=== PATIENT | female | born 1935 | race Caucasian/White ===

== ENCOUNTER 2017-04-22 17:30 | Inpatient (IN) | payer MEDICARE ==
[2017-04-22] MEDS ORDERED: SODIUM CHLORIDE 0.9% 1,000 ML IV STA ×2 (17:38)
--- NOTE | 2017-04-22 17:40 | ED ---
General Adult HPI - General Stated complaint: Weakness Time Seen by Provider: 04/22/17 17:33 Source: RN notes reviewed, old records reviewed - History of Present Illness Initial comments: With an 82-year-old female here for evaluation of altered mental status. Patient not feeling well and not eating appropriately. Patient has recent episodes of dehydration. Patient was abdominal pain. Is without surgery. Denies nausea vomiting denies fever. Patient sent in by family for lethargy not acting appropriately decreased activity level weakness and walking, decreased activities daily living. No change in medications - Related Data Home Medications Medication Instructions Recorded Confirmed Cyanocobalamin [Vitamin B-12] 1,000 mcg SQ QMONTH 02/23/16 04/22/17 Dicyclomine [Bentyl] 10 mg PO TID PRN 02/23/16 04/22/17 Loperamide HCl [Loperamide] 4 mg PO TID PRN 02/23/16 04/22/17 Omeprazole [PriLOSEC] 20 mg PO QAM 02/23/16 04/22/17 Tacrolimus [Protopic] 1 applic TOPICAL HS PRN 02/23/16 04/22/17 Denosumab [Prolia] 60 mg SQ Q180D 09/10/16 04/22/17 ALPRAZolam [Xanax] 0.25 mg PO HS PRN 04/22/17 04/22/17 Acetaminophen [Tylenol] 650 mg PO Q6HR PRN 04/22/17 04/22/17 Alclometasone Dipropionate 1 applic TOPICAL DAILY PRN 04/22/17 04/22/17 Calcium Carbonate [Calcium] 600 mg PO DAILY 04/22/17 04/22/17 Cyanocobalamin [Vitamin B-12] 500 mcg PO DAILY 04/22/17 04/22/17 EPINEPHrine [Epipen 2-Adriel] 0.3 mg IM ONCE PRN 04/22/17 04/22/17 Eluxadoline [Viberzi] 75 mg PO DAILY PRN 04/22/17 04/22/17 Ferrous Sulfate [Iron] 325 mg PO DAILY 04/22/17 04/22/17 Fluticasone Nasal Stewart [Flonase 2 spr EA NOSTRIL DAILY PRN 04/22/17 04/22/17 Nasal Stewart] Levothyroxine Sodium [Synthroid] 25 mcg PO DAILY 04/22/17 04/22/17 Magnesium 200 mg PO DAILY 04/22/17 04/22/17 Naproxen Sodium [Aleve] 220 mg PO HS PRN 04/22/17 04/22/17 Ondansetron [Zofran ODT] 4 mg PO Q8HR PRN 04/22/17 04/22/17 Vit A/Vit C/Vit E/Zinc/Copper 1 cap PO HS 04/22/17 04/22/17 [ICAPS SOFTGEL] Previous Rx's Medication Instructions Recorded Diphenox-Atrop 2.5-0.025 mg 2 tab PO TID PRN #40 tab 09/20/16 [Lomotil] Allergies Allergy/AdvReac Type Severity Reaction Status Date / Time venom-honey bee Allergy Unknown Anaphylaxis Verified 04/22/17 19:14 [bee venom (honey bee)] venom-wasp [Wasp Venom] Allergy Unknown Anaphylaxis Verified 04/22/17 19:14 ether Allergy Unknown Verified 04/22/17 19:14 Milk Containing Products Allergy Unknown Verified 09/24/16 07:48 [Dairy] soybean Allergy Unknown Verified 04/22/17 19:14 tomato Allergy Unknown Verified 09/24/16 07:48 Review of Systems ROS Statement: Those systems with pertinent positive or pertinent negative responses have been documented in the HPI. ROS Other: All systems not noted in ROS Statement are negative. Past Medical History Past Medical History: GERD/Reflux Additional Past Medical History / Comment(s): IBS. History of Any Multi-Drug Resistant Organisms: None Reported Past Surgical History: Appendectomy, Orthopedic Surgery Additional Past Surgical History / Comment(s): DEVIATED SEPTUM, TUBES AND OVARIES REMOVED, HAMLET SHOULDER SURGERY. Past Anesthesia/Blood Transfusion Reactions: No Reported Reaction Past Psychological History: Anxiety Additional Psychological History / Comment(s): occasional anxiety. Smoking Status: Former smoker Past Alcohol Use History: Occasional Past Drug Use History: None Reported - Past Family History Father Family Medical History: Myocardial Infarction (HI) Additional Family Medical History / Comment(s): heart failure General Exam General appearance: alert, in no apparent distress Head exam: Present: atraumatic, normocephalic, normal inspection Eye exam: Present: normal appearance, PERRL, EOMI. Absent: scleral icterus, conjunctival injection, periorbital swelling ENT exam: Present: normal exam, mucous membranes moist Neck exam: Present: normal inspection. Absent: tenderness, meningismus, lymphadenopathy Respiratory exam: Present: normal lung sounds bilaterally. Absent: respiratory distress, wheezes, rales, rhonchi, stridor Cardiovascular Exam: Present: regular rate, normal rhythm, normal heart sounds. Absent: systolic murmur, diastolic murmur, rubs, gallop, clicks GI/Abdominal exam: Present: soft, distended, normal bowel sounds. Absent: tenderness, guarding, rebound, rigid Extremities exam: Present: normal inspection, full ROM, normal capillary refill. Absent: tenderness, pedal edema, joint swelling, calf tenderness Back exam: Present: normal inspection Neurological exam: Present: alert, oriented X3, CN II-XII intact Psychiatric exam: Present: normal affect, normal mood Skin exam: Present: warm, dry, intact, normal color. Absent: rash Course Vital Signs 04/22/17 04/22/17 04/22/17 17:34 17:58 18:58 Temperature 96.9 F L Pulse Rate 104 H 103 H 102 H Respiratory 18 16 18 Rate Blood Pressure 94/53 98/72 97/58 O2 Sat by Pulse 90 L 98 100 Oximetry - Reevaluation(s) Reevaluation #1: 04/22/17 19:38 Patient does with increased stressors in life, patient is blind, patient states that she is losing the will to live EKG Findings - EKG Comments: EKG Findings:: EKG shows sinus tachycardia rate 104, IA 162, QRS 90, QTc 470 Medical Decision Making - Medical Decision Making 82 female here for evaluation of altered mental status, not acting appropriately , fever, weakness. Patient is a white count of is 30 which is up from 6, patient will be admitted for IV antibiotics and rule out bacteremia, at this point urine source is negative - Lab Data Result diagrams: 04/22/17 17:53 04/22/17 17:53 Lab Results 04/22/17 04/22/17 04/22/17 Range/Units 17:53 17:53 17:53 WBC (3.8-10.6) k/uL RBC (3.80-5.40) m/uL Hgb (11.4-16.0) gm/dL Hct (34.0-46.0) % MCV (80.0-100.0) fL MCH (25.0-35.0) pg MCHC (31.0-37.0) g/dL RDW (11.5-15.5) % Plt Count (150-450) k/uL Neutrophils % (Manual) % Band Neutrophils % % Lymphocytes % (Manual) % Monocytes % (Manual) % Metamyelocytes % % Myelocytes % % Neutrophils # (Manual) (1.3-7.7) k/uL Lymphocytes # (Manual) (1.0-4.8) k/uL Monocytes # (Manual) (0-1.0) k/uL Nucleated RBCs (0-0) /100 WBC Polychromasia Microcytosis PT (9.0-12.0) sec INR (<1.1) APTT (22.0-30.0) sec Sodium 130 L (137-145) mmol/L Potassium 3.7 (3.5-5.1) mmol/L Chloride 93 L (98-107) mmol/L Carbon Dioxide 23 (22-30) mmol/L Anion Gap 14 mmol/L BUN 30 H (7-17) mg/dL Creatinine 1.17 H (0.52-1.04) mg/dL Est GFR (MDRD) Af Amer 54 (>60 ml/min/1.73 sqM) Est GFR (MDRD) Non-Af 44 (>60 ml/min/1.73 sqM) Glucose 103 H (74-99) mg/dL Plasma Lactic Acid Jeffery 1.3 (0.7-2.0) mmol/L Calcium 7.5 L (8.4-10.2) mg/dL Phosphorus 2.3 L (2.5-4.5) mg/dL Magnesium 1.5 L (1.6-2.3) mg/dL Total Bilirubin 1.7 H (0.2-1.3) mg/dL AST 36 (14-36) U/L ALT 39 (9-52) U/L Alkaline Phosphatase 112 (38-126) U/L Total Creatine Kinase <20 L (30-135) U/L CK-MB (CK-2) 0.3 (0.0-2.4) ng/mL CK-MB (CK-2) Rel Index 0.0 Troponin I <0.012 (0.000-0.034) ng/mL Total Protein 6.0 L (6.3-8.2) g/dL Albumin 2.8 L (3.5-5.0) g/dL Urine Color Urine Appearance (Clear) Urine pH (5.0-8.0) Ur Specific [place] (1.001-1.035) Urine Protein (Negative) Urine Glucose (UA) (Negative) Urine Ketones (Negative) Urine Blood (Negative) Urine Nitrite (Negative) Urine Bilirubin (Negative) Urine Urobilinogen (<2.0) mg/dL Ur Leukocyte Esterase (Negative) Urine RBC (0-5) /hpf Amorphous Sediment (None) /hpf 04/22/17 04/22/17 04/22/17 Range/Units 17:53 17:53 18:57 WBC 30.3 H* (3.8-10.6) k/uL RBC 4.06 (3.80-5.40) m/uL Hgb 8.9 L (11.4-16.0) gm/dL Hct 27.0 L (34.0-46.0) % MCV 66.5 L (80.0-100.0) fL MCH 21.8 L (25.0-35.0) pg MCHC 32.8 (31.0-37.0) g/dL RDW 13.8 (11.5-15.5) % Plt Count 194 (150-450) k/uL Neutrophils % (Manual) 55.5 % Band Neutrophils % 26.5 % Lymphocytes % (Manual) 2.0 % Monocytes % (Manual) 10.5 % Metamyelocytes % 4.5 % Myelocytes % 1.0 % Neutrophils # (Manual) 24.8 H (1.3-7.7) k/uL Lymphocytes # (Manual) 0.6 L (1.0-4.8) k/uL Monocytes # (Manual) 3.2 H (0-1.0) k/uL Nucleated RBCs 0 (0-0) /100 WBC Polychromasia Present Microcytosis Marked PT 11.0 (9.0-12.0) sec INR 1.1 (<1.1) APTT 24.3 (22.0-30.0) sec Sodium (137-145) mmol/L Potassium (3.5-5.1) mmol/L Chloride (98-107) mmol/L Carbon Dioxide (22-30) mmol/L Anion Gap mmol/L BUN (7-17) mg/dL Creatinine (0.52-1.04) mg/dL Est GFR (MDRD) Af Amer (>60 ml/min/1.73 sqM) Est GFR (MDRD) Non-Af (>60 ml/min/1.73 sqM) Glucose (74-99) mg/dL Plasma Lactic Acid Jeffery (0.7-2.0) mmol/L Calcium (8.4-10.2) mg/dL Phosphorus (2.5-4.5) mg/dL Magnesium (1.6-2.3) mg/dL Total Bilirubin (0.2-1.3) mg/dL AST (14-36) U/L ALT (9-52) U/L Alkaline Phosphatase (38-126) U/L Total Creatine Kinase (30-135) U/L CK-MB (CK-2) (0.0-2.4) ng/mL CK-MB (CK-2) Rel Index Troponin I (0.000-0.034) ng/mL Total Protein (6.3-8.2) g/dL Albumin (3.5-5.0) g/dL Urine Color Yellow Urine Appearance Cloudy H (Clear) Urine pH 6.0 (5.0-8.0) Ur Specific [place] 1.017 (1.001-1.035) Urine Protein 2+ H (Negative) Urine Glucose (UA) Negative (Negative) Urine Ketones Trace H (Negative) Urine Blood Small H (Negative) Urine Nitrite Negative (Negative) Urine Bilirubin Negative (Negative) Urine Urobilinogen <2.0 (<2.0) mg/dL Ur Leukocyte Esterase Negative (Negative) Urine RBC 1 (0-5) /hpf Amorphous Sediment Few H (None) /hpf - Radiology Data Radiology results: report reviewed (Chest x-ray is negative for acute disease), image reviewed Disposition Clinical Impression: Leukocytosis, Dehydration, Anemia Narrative: roBacteremia Disposition: ADMITTED IP TO THIS [facility] Condition: Undetermined Referrals: Suzi Cuellar MD [Primary Care Provider] - 1-2 days
[2017-04-22 18:13] LABS: Calcium 7.5 mg/dL (8.4-10.2); INR 1.1 (<1.1); Magnesium 1.5 mg/dL (1.6-2.3); Phosphorous 2.3 mg/dL (2.5-4.5); Potassium 3.7 mmol/L (3.5-5.1); Total Bilirubin 1.7 mg/dL (0.2-1.3)
[2017-04-22 18:19] LABS: Aty Lym Flag Marked; CH 21.4; CHCM 32.2; HDW 2.83; HGB 8.9 gm/dL (11.4-16.0); Immature Gran Flag Marked; MCH 21.8 pg (25.0-35.0); MCHC 32.8 g/dL (31.0-37.0); MCV 66.5 fL (80.0-100.0); Mean Platelet Volume 6.9; Microcytosis Marked; RBC 4.06 m/uL (3.80-5.40); RDW 13.8 % (11.5-15.5); WBC (Perox) 32.74
[2017-04-22 18:22] LABS: WBC 30.3 k/uL (3.8-10.6)
[2017-04-22 18:27] LABS: Creatine Kinase <20 U/L (30-135)
[2017-04-22 18:37] LABS: Partial Thromboplastin Time 24.3 sec (22.0-30.0)
[2017-04-22 18:40] LABS: Creatine Kinase MB 0.3 ng/mL (0.0-2.4); Troponin I <0.012 ng/mL (0.000-0.034)
[2017-04-22 18:50] LABS: Add Differential Manual Differential
[2017-04-22 18:52] LABS: Band Neutrophils % 26.5 %; Metamyelocytes % 4.5 %; Nucleated Red Blood Cells 0 /100 WBC (0-0); Polychromasia Present; Total Cells Counted 200
[2017-04-22 19:16] LABS: Amorphous Sediment,Urine Few /hpf; Appearance,Urine Cloudy (Clear); Bilirubin,Urine Negative (Negative); Glucose,Urine (UA) Negative (Negative); Ketones,Urine Trace (Negative); Leukocyte Esterase,Urine Negative (Negative); Nitrite,Urine Negative (Negative); Particle Count 9060; Protein,Urine 2+ (Negative); RBC,Urine 1 /hpf (0-5); Specific Gravity,Urine 1.017 (1.001-1.035); UA Billing (MACRO vs. MICRO) MICRO; Urobilinogen,Urine <2.0 mg/dL (<2.0)
[2017-04-22] MEDS ORDERED: LEVOFLOXACIN 750MG-D5W PMX 750 MG in DEXTROSE/WATER 1 150ML.BAG IVPB STA (19:35)
[2017-04-22] MEDS ORDERED: IPRATROPIUM-ALBUTEROL 3 ML NEB INHALATION STA (19:38)
--- NOTE | 2017-04-22 19:52 | XR ---
EXAMINATION TYPE: XR abdomen acute w cxr DATE OF EXAM: 04/22/2017 7:43 PM COMPARISON: 09/24/2016 HISTORY: Weakness and nausea and vomiting TECHNIQUE: Supine, upright, and left side down lateral decubitus views of the abdomen are obtained. FINDINGS: There is no heart failure. There is coarsening of interstitial markings. I see no sign of intestinal obstruction or pneumoperitoneum. Fecal pattern is normal. There is no sign of a mass. There are no pa thologic calcifications over the kidneys. IMPRESSION: Pulmonary fibrotic changes. Nonacute abdomen. No adverse change compared to old exam.
[2017-04-22] MEDS: SODIUM CHLORIDE 0.9% 500 ML IV SCH ×2 (20:16→20:24)
[2017-04-23] MEDS ORDERED: IPRATROPIUM-ALBUTEROL 3 ML NEB INHALATION SCH
[2017-04-23] MEDS: SODIUM CHLORIDE 0.9% 500 ML IV SCH (07:30)
[2017-04-23] MEDS ORDERED: ENOXAPARIN 40 MG/0.4 ML SYRINGE SQ SCH (09:00)
[2017-04-23] MEDS ORDERED: IOHEXOL 350 MG/ML 25 ML BOTTLE (ORAL USE) PO PRN ×2 (10:45→10:47)
[2017-04-23] MEDS ORDERED: RX INFO: IV CONTRAST WAS GIVEN 1 EACH MISC MISCELLANE PRN (11:08)
[2017-04-23] MEDS ORDERED: NAPROXEN 250 MG TAB PO PRN (11:14)
[2017-04-23] MEDS ORDERED: FLUTICASONE 50MCG/SPRAY NASAL 16GM EA NOSTRIL PRN (11:14)
[2017-04-23] MEDS ORDERED: LOPERAMIDE 2 MG CAP PO PRN (11:14)
[2017-04-23] MEDS ORDERED: ACETAMINOPHEN TAB 325 MG TAB PO PRN (11:14)
[2017-04-23] MEDS ORDERED: DIPHENOX-ATROP 2.5-0.025 MG 1 EACH TAB PO PRN (11:14)
[2017-04-23] MEDS ORDERED: TACROLIMUS TOPICAL PRN (11:14)
[2017-04-23] MEDS ORDERED: ONDANSETRON ODT 4 MG TAB PO PRN (11:14)
[2017-04-23] MEDS ORDERED: ALCLOMETASONE DIPROPIONATE TOPICAL PRN (11:14)
[2017-04-23] MEDS ORDERED: ELUXADOLINE 75 MG PO PRN (11:14)
[2017-04-23] MEDS ORDERED: MAGNESIUM OXIDE 400 MG TAB PO SCH (11:15)
[2017-04-23] MEDS ORDERED: FERROUS SULFATE 325 MG TAB PO SCH (11:15)
[2017-04-23] MEDS ORDERED: CYANOCOBALAMIN 500 MCG TAB PO SCH (11:15)
[2017-04-23] MEDS ORDERED: CALCIUM CARBONATE 500 MG CHEWABLE PO SCH (11:15)
[2017-04-23] MEDS ORDERED: PANTOPRAZOLE 40 MG TABLET PO SCH (11:15)
[2017-04-23] MEDS: PARoxetine 10 MG TAB PO SCH (11:56)
[2017-04-23] MEDS: DICYCLOMINE 10 MG CAP PO PRN ×2 (11:56→22:33)
[2017-04-23] MEDS: LEVOTHYROXINE 25 MCG TAB PO SCH (11:56)
--- NOTE | 2017-04-23 15:36 | CT ---
"EXAMINATION TYPE: CT ChestAbdPelvis wo con DATE OF EXAM: 04/23/2017 COMPARISON: CT abdomen pelvis 03 September 2016 HISTORY: Abdominal pain and distention. CT DLP: 997.00 mGycm Automated exposure control for dose reduction was used. Helical acquisition from the lung bases throu gh the pelvis following oral contrast only. FINDINGS: Chest: There are small bilateral pleural effusions, there is associated atelectasis at the lung bases. Contr ast-filled esophagus is present extending into a contrast-filled stomach and proximal small bowel. Th ere is a pericardial effusion. ABDOMEN: Lack of intravenous contrast may compromise sensitivity. Pneumatosis intestinalis is suspect ed. There is marked dilation of the large bowel to the level of the descending colon, fluid-filled ap pearance is present. Small bowel loops also show wall thickening. Contrast is not courses into the di stal small bowel. The liver as visualized, gallbladder, spleen, adrenal glands, kidneys, and pancreas are unremarkable as seen. Some diverticular changes associated with the sigmoid colon. Urinary bladder is distended. No pelvic adenopathy or free fluid is evident. IMPRESSION: CORRELATE FOR ENTERITIS. CANNOT EXCLUDE BOWEL ISCHEMIA, THERE IS PNEUMATOSIS INTESTINALIS PRESENT WIT HIN THE COLON. POSSIBLE BOWEL OBSTRUCTION. NONCONTRAST EXAM. A Red message has been communicated to Clif Vega via the [employer] | Critical Result system o n 04/23/2017 3:34 PM, Message ID [id number]."
[2017-04-23 17:10] LABS: Glucose,Whole Blood 73 mg/dL (75-99)
[2017-04-23 17:15] LABS: Amylase 80 U/L (30-110)
--- NOTE | 2017-04-23 17:17 | XR ---
EXAMINATION TYPE: XR chest 1V portable DATE OF EXAM: 04/23/2017 COMPARISON: Prior chest x-ray 22 Apr 2017 HISTORY: Congestive heart failure TECHNIQUE: Single frontal view of the chest is obtained. FINDINGS: Heart size is stable. No pneumothorax or pleural effusion. Pulmonary vascularity and nneka are stable. Bibasilar increased density is again noted. IMPRESSION: Basilar atelectasis and associated effusions. Cardiomegaly due to pericardial effusion.
[2017-04-23] MEDS: PIPERACILLIN-TAZOBACTAM 3.375 GM in DEXTROSE/WATER 1 50ML.BAG IVPB SCH (17:36)
[2017-04-23] MEDS: SODIUM CHLORIDE 0.9% 1,000 ML IV SCH ×2 (17:36→20:11)
[2017-04-23 17:58] LABS: HGB 8.8 gm/dL (11.4-16.0); Hypochromasia Marked; Immature Gran Flag Marked; MCHC 29.5 g/dL (31.0-37.0); Microcytosis Slight
[2017-04-23 18:06] LABS: CH 20.9; CHCM 28.6; HCT 29.8 % (34.0-46.0); HDW 2.66; MCH 21.6 pg (25.0-35.0); Mean Platelet Volume 7.1; RBC 4.07 m/uL (3.80-5.40); RDW 14.4 % (11.5-15.5); WBC (Perox) 37.17
[2017-04-23 18:07] LABS: WBC 29.2 k/uL (3.8-10.6)
[2017-04-23 18:08] LABS: MCV 73.2 fL (80.0-100.0); Magnesium 1.3 mg/dL (1.6-2.3); Phosphorous 2.3 mg/dL (2.5-4.5); Potassium 3.7 mmol/L (3.5-5.1)
[2017-04-23] MEDS ORDERED: SODIUM CHLORIDE 0.9% 2,000 ML IV ONE (18:12)
[2017-04-23] MEDS ORDERED: IV VANCOMYCIN PER PHARMACY 1 EACH MISC MISCELLANE PRN (18:14)
[2017-04-23 18:16] LABS: Calcium 6.4 mg/dL (8.4-10.2)
--- NOTE | 2017-04-23 18:22 | HP ---
DATE OF ADMISSION: 04/22/2017 CHIEF COMPLAINT: Change in mental status, and abdominal distention and not eating well. HISTORY OF PRESENT ILLNESS: This 82-year-old woman with a past medical history of multiple medical problems, GERD, history of, history of anxiety, was admitted last year to [facility] with complaints of diarrhea, and the patient had renal failure. The patient improved significantly. Patient went home. Currently the patient has diminished p.o. intake. The patient also had recent episode of dehydration. The patient also has change in mental status. The patient and the patient came to [facility] and admitted for further evaluation and treatment. WBC is 30.3 and the creatinine is 1.17. The patient was admitted for further evaluation and treatment. The cultures are negative. White count elevated to 30 as mentioned earlier and I ordered a CT scan of the abdomen and pelvis which showed acute abdomen series done in the ER showed pulmonary fibrotic changes. No evidence of any abdominal changes, but the CAT scan of the abdomen and pelvis was done, which showed possible enteritis cannot exclude bowel resection, noted present within the colon was also noted. The patient being closely monitored. The patient unable to give coherent history because of change in mental status. Most of the history taken from my discussion with staff and review of the chart at this time. PAST MEDICAL HISTORY: History of gastroesophageal reflux disease, IBS, appendectomy and anxiety. Medications prior to admission include home medications are: 1. Paxil 10 mg p.o. daily. 2. I-Caps 1 p.o. q.h.s. 3. Protopic q.h.s. p.r.n. 4. Zofran 4 mg q.8 p.r.n. 5. Prilosec 20 mg 7. Magnesium 200 mg p.o. daily. 8. Loperamide 4 mg t.i.d. 9. Synthroid 25 mcg p.o. daily. 10. Fluticasone nasal spray 2 sprays each nostril daily. 11. Iron 320 mg p.o. daily. 14. Lomotil 2 tablets p.o. t.i.d. p.r.n. 15. Bentyl 10 mg p.o. t.i.d. p.r.n. 16. Prolia 60 mg p.o. 180 days. 17. Vitamin B 12 500 mcg p.o. daily, 1000 mcg subcu q.6 months. 18. Calcium 600 mg p.o. daily. 19. Beclomethasone one application daily p.r.n. 20. Tylenol 650 q.6 p.r.n. 21. Xanax 0.2 q.h.s. p.r.n. ALLERGIES: ETHER, MILK, SOYBEAN, Family history, SOCIAL HISTORY and REVIEW OF SYSTEMS: Could not be taken in length because of the patient's change in mental status. Previous history of smoking. Family history of myocardial infarction, CHF. PHYSICAL EXAM: Patient is confused. Pulse 115, irregular, blood pressure 73/50, respiratory rate 18, temperature 97.4, pulse ox 98% on 2 liters. HEENT: Conjunctivae normal. Oral mucosa moist. NECK: No jugular venous distention. No carotid bruit. No lymph node enlargement. CARDIOVASCULAR: S1, S2 muffled. No S3, no S4. RESPIRATORY: Breath sounds diminished at the bases. A few scattered rhonchi. No crackles. ABDOMEN: Soft, diffuse distention present. No guarding. No mass palpable. bowel sounds diminished. no ascites.no bruit. LEGS: No edema. No swelling. Nervous system: Higher functions as mentioned earlier. Moves all 4 limbs. No focal deficits. LYMPHATICS: No lymph nodes palpable in the neck, axillae or groin. SKIN: No ulcers or rashes. Labs WBC 30.8, hemoglobin is 8.9. Sodium 130, potassium 3.7 and total bili is 1.7. Magnesium 1.5. ASSESSMENT: 1. Abdominal distention and change in mental status possibly intraabdominal sepsis or ischemic bowel. 2. Hypotension, possibly secondary to sepsis. 3. Pneumatosis intestinas in the CT scan. 4. Increased WBC. 5. Anemia, macrocytic. 6. Hyponatremia. 7. Increased creatinine with acute renal failure. 8. Hypomagnesemia. 9. Hypoalbuminemia with mild to moderate protein calorie malnutrition. 10. History of gastroesophageal reflux disease. 11. History of irritable bowel syndrome. 12. History of degenerative joint disease. 13. Anxiety, not otherwise specified. 14. History of recent diarrhea, and as well as renal failure. 15. Severe protein calorie malnutrition with a body mass index of 17.6. 16. FULL CODE. RECOMMENDATIONS AND DISCUSSION: This 82 -year-old woman who presented with multiple complex medical issues, we will monitor the patient closely. Continue the current medications, continue symptomatic treatment. Otherwise, I would recommend broad-spectrum IV antibiotics. Transfer the patient to ICU, IV boluses. Lactic acid, sepsis protocol. Consult infectious disease and surgery. Prognosis guarded because of multiple complex medical issues. Further recommendations to follow. MTDD
[2017-04-23] MEDS ORDERED: VANCOMYCIN 1,000 MG in SODIUM CHLORIDE 0.9% 250 ML IVPB ONE (19:00)
[2017-04-23] MEDS: NOREPINEPHRIN 4 MG-0.9% NS PMX 4 MG/250 ML ML IV SCH ×2 (19:45→22:45)
[2017-04-23 19:56] LABS: Add Differential Manual Differential
[2017-04-23] MEDS ORDERED: LEVOFLOXACIN 750MG-D5W PMX 750 MG in DEXTROSE/WATER 1 150ML.BAG IVPB SCH (20:00)
[2017-04-23 20:02] LABS: Manual Review Performed; Nucleated Red Blood Cells 0 /100 WBC (0-0); Total Cells Counted 200
[2017-04-23] MEDS: PANTOPRAZOLE 40 MG/10 ML VIAL IVP SCH (20:12)
[2017-04-23] MEDS: HYDROCORTISONE SUCCINATE 100 MG/2 ML VIAL IV STA ×2 (20:12→20:37)
[2017-04-23] MEDS: VIT A,C & E-LUTEIN-MINERALS 1 EACH TAB PO SCH (20:12)
[2017-04-23 20:49] LABS: Glucose,Whole Blood 75 mg/dL (75-99)
[2017-04-23 21:33] LABS: Creatine Kinase MB 3.5 ng/mL (0.0-2.4)
[2017-04-23] MEDS ORDERED: CALCIUM GLUCONATE 1,000 MG in SODIUM CHLORIDE 0.9% 100 ML IVPB ONE (22:16)
[2017-04-23] MEDS ORDERED: SODIUM PHOSPHATE 10 MMOL in SODIUM CHLORIDE 0.9% 250 ML IVPB ONE (22:16)
[2017-04-23] MEDS ORDERED: Phosphorus Replacement Protoco 1 EACH MISC MISCELLANE PRN (22:16)
[2017-04-23] MEDS ORDERED: Potassium Replacement Protocol 1 EACH MISC MISCELLANE PRN (22:16)
[2017-04-23] MEDS ORDERED: Magnesium Replacement Protocol 1 EACH MISC MISCELLANE PRN (22:16)
[2017-04-23] MEDS ORDERED: POTASSIUM CHLORIDE ORAL LIQUID 40 MEQ/30 ML CUP NG-TUBE SCH (23:00)
[2017-04-23] MEDS: MAGNESIUM SULFATE-D5W PMX 1 GM in DEXTROSE/WATER 1 100ML.BAG IVPB SCH (23:38)
[2017-04-24] MEDS: MAGNESIUM SULFATE-D5W PMX 1 GM in DEXTROSE/WATER 1 100ML.BAG IVPB SCH ×2 (00:41→01:40)
[2017-04-24] MEDS: NOREPINEPHRIN 4 MG-0.9% NS PMX 4 MG/250 ML ML IV SCH ×5 (01:00→11:40)
[2017-04-24] MEDS: PIPERACILLIN-TAZOBACTAM 3.375 GM in DEXTROSE/WATER 1 50ML.BAG IVPB SCH ×4 (02:38→23:39)
[2017-04-24] MEDS ORDERED: FUROSEMIDE 10 MG/ML 4 ML VIAL IV STA (04:04)
[2017-04-24] MEDS: SODIUM CHLORIDE 0.9% 1,000 ML IV SCH ×3 (05:35→21:02)
[2017-04-24 05:37] LABS: CH 20.3; CHCM 26.8; HCT 28.5 % (34.0-46.0); HDW 2.49; Hypochromasia Marked; Immature Gran Flag Marked; MCH 21.5 pg (25.0-35.0); MCHC 28.3 g/dL (31.0-37.0); MCV 76.1 fL (80.0-100.0); Mean Platelet Volume 7.7; Microcytosis Slight; RBC 3.74 m/uL (3.80-5.40); RDW 14.8 % (11.5-15.5)
[2017-04-24 05:41] LABS: Ionized Calcium 3.9 mg/dL (4.5-5.3)
[2017-04-24 05:51] LABS: Magnesium 2.2 mg/dL (1.6-2.3); Phosphorous 3.8 mg/dL (2.5-4.5); Total Bilirubin 0.5 mg/dL (0.2-1.3); Total Protein 4.4 g/dL (6.3-8.2)
[2017-04-24 06:06] LABS: Calcium 5.8 mg/dL (8.4-10.2)
[2017-04-24 06:09] LABS: Add Differential Manual Differential
[2017-04-24 06:13] LABS: Band Neutrophils % 2.5 %; Myelocytes % 13.5 %; Nucleated Red Blood Cells 1 /100 WBC (0-0); Total Cells Counted 200
[2017-04-24 06:14] LABS: Manual Review Performed; Polychromasia Present; WBC 43.5 k/uL (3.8-10.6)
[2017-04-24] MEDS ORDERED: CALCIUM GLUCONATE 1,000 MG in SODIUM CHLORIDE 0.9% 100 ML IVPB ONE (06:52)
[2017-04-24] MEDS: LEVOTHYROXINE 25 MCG TAB PO SCH (07:05)
[2017-04-24] MEDS: IPRATROPIUM-ALBUTEROL 3 ML NEB INHALATION PRN ×2 (07:49→15:20)
--- NOTE | 2017-04-24 08:00 | XR ---
EXAMINATION TYPE: XR chest 1V portable DATE OF EXAM: 04/24/2017 COMPARISON: Prior chest x-ray 23 Apr 2017 HISTORY: Congestive heart failure TECHNIQUE: Single frontal view of the chest is obtained. FINDINGS: The heart is enlarged. Interstitium is increased. No pneumothorax. Difficult to exclude ef fusion, basilar atelectasis versus edema. There are overlying cardiac leads. Patient is rotated. IMPRESSION: Findings suggest congestive heart failure. Follow-up is recommended.
[2017-04-24] MEDS: DEXTROSE 5% IN WATER 1,000 ML with SODIUM BICARB (1 MEQ/ML) 150 ML IV SCH ×3 (08:39→18:16)
[2017-04-24] MEDS: PANTOPRAZOLE 40 MG/10 ML VIAL IVP SCH ×2 (08:47→21:02)
[2017-04-24] MEDS: PARoxetine 10 MG TAB PO SCH (08:47)
[2017-04-24] MEDS: ENOXAPARIN 30 MG/0.3 ML SYRINGE SQ SCH ×2 (08:47→11:36)
[2017-04-24] MEDS ORDERED: LEVOFLOXACIN 750MG-D5W PMX 750 MG in DEXTROSE/WATER 1 150ML.BAG IVPB SCH (09:00)
[2017-04-24] MEDS ORDERED: VANCOMYCIN 750 MG in SODIUM CHLORIDE 0.9% 250 ML IVPB ONE (11:00)
--- NOTE | 2017-04-24 11:39 | ECHOF ---
Referral Reason:lv function; r/o pericarditis MEASUREMENTS -------- HEIGHT: 149.9 cm WEIGHT: 39.5 kg BP: 112/67 RVIDd: 2.5 cm (< 3.3) IVSd: 0.9 cm (0.6 - 1.1) LVIDd: 3.3 cm (3.9 - 5.3) LVPWd: 0.8 cm (0.6 - 1.1) IVSs: 1.3 cm LVIDs: 2.2 cm LVPWs: 1.3 cm LA Diam: 2.4 cm (2.7 - 3.8) LAESV Index (A-L): 20.89 ml/m Ao Diam: 2.6 cm (2.0 - 3.7) AV Cusp: 1.6 cm (1.5 - 2.6) MV EXCURSION: 12.408 mm (> 18.000) MV EF SLOPE: 22 mm/s (70 - 150) EPSS: 0.6 cm MV E Eren: 0.79 m/s MV DecT: 149 ms MV A Eren: 0.99 m/s MV E/A Ratio: 0.80 AV maxP.79 mmHg AV meanP.63 mmHg AR PHT: 346 ms RAP: 15.00 mmHg RVSP: 56.16 mmHg FINDINGS -------- Resting tachycardia (HR>100bpm). This was a technically good study. The left ventricular size is normal. Left ventricular wall thickness is normal. Overall left ventricular systolic function is normal with, an EF between 60 - 65 %. The right ventricle is normal in size and function. Normal LA size by volume 22+/-6 ml/m2. The right atrium is normal in size. Aortic valve is trileaflet and is mildly thickened. There is [id number] aortic regurgitation. There is mild aortic stenosis present. Peak/mean gradient across the Aortic Valve is 21.79mmHg / 10.63mmHg. Mild mitral annular calcification present. There is trace to mild mitral regurgitation. Mild tricuspid regurgitation present. There is severe pulmonary hypertension. The right ventricular systolic pressure, as measured by Doppler, is 56.16mmHg. The pulmonic valve was not well visualized. The aortic root size is normal. Normal inferior vena cava with less than 50% inspiratory collapse consistent with estimated right atrial pressure of 15 mmHg. There is a moderate, generalized pericardial effusion present. There is evidence of cardiac tamponade. CONCLUSIONS -------- 1. Resting tachycardia (HR>100bpm). 2. There is algb-cr-[id number] aortic regurgitation. 3. There is mild aortic stenosis present. 4. Peak/mean gradient across the Aortic Valve is 21.79mmHg / 10.63mmHg. 5. Mild mitral annular calcification present. 6. There is trace to mild mitral regurgitation. 7. Mild tricuspid regurgitation present. 8. There is severe pulmonary hypertension. 9. The right ventricular systolic pressure, as measured by Doppler, is 56.16mmHg. 10. The pulmonic valve was not well visualized. 11. The aortic root size is normal. 12. This was a technically good study. 13. Normal inferior vena cava with less than 50% inspiratory collapse consistent with estimated right atrial pressure of 15 mmHg. 14. There is a moderate, generalized pericardial effusion present. 15. The left ventricular size is normal. 16. Left ventricular wall thickness is normal. 17. Overall left ventricular systolic function is normal with, an EF between 60 - 65 %. 18. The right ventricle is normal in size and function. 19. Normal LA size by volume 22+/-6 ml/m2. 20. The right atrium is normal in size. 21. Aortic valve is trileaflet and is mildly thickened. HORSE RIDER: Merly Rondon RDCS
--- NOTE | 2017-04-24 12:09 | CONS ---
DATE OF CONSULTATION: I was consulted by Dr. Smalls for evaluation and management for possible pericardial effusion with tamponade. This is an 82-year-old female who cannot give me a history. At this point, she came to the hospital with abdominal symptoms. Her first 12-lead ECG showed sinus tachycardia with diffuse ST elevation consistent with pericarditis. She also has OH depression in the inferior leads as well as the precordial leads and OH elevation in aVR consistent with pericarditis. She was on the medical floor then transferred to the ICU. At this point she is tachycardic, febrile. Blood pressure right from admission have been in the 80s and 90s. Labs show elevated white count on admission 30,000. Now it is 43.5 thousand. She has had a work-up at [facility] [place]. No biopsies are being performed. Her ESR is elevated. On examination, she is obviously hypotensive. She has JVD. Breath sounds are reduced bilaterally. Heart sounds are soft. She is cachectic. The 2-D echo was reviewed and shows pericardial effusion that is mostly anteriorly posteriorly and this appears to be chronic. However, the mitral inflow pattern suggests that the variation in E waves between inspiration and expiration are at last 33% consistent with tamponade physiology. I did speak to Dr. Smalls about this and I spoke to Dr. Saleem about it. I believe this lady has sepsis with source that is not clearly identified. The abdomen is being investigated. From a cardiac standpoint, I would suggest drainage of this fluid both for: 1) Relieving the tamponade and 2) for sending cultures to make sure that the pericardial fluid is not infected. This was discussed with the physicians. From a cardiac standpoint, at this point I will see her on a p.r.n. basis. Please call me as needed.
[2017-04-24] MEDS ORDERED: SUCCINYLCHOLINE CHLORIDE 100 MG/5 ML SYR IV ONE (12:11)
[2017-04-24] MEDS ORDERED: ROCURONIUM BROMIDE 10 MG/ML 10 ML VIAL IV ONE (12:11)
[2017-04-24] MEDS ORDERED: MIDAZOLAM 2 MG/2 ML VIAL ONE (12:11)
[2017-04-24] MEDS ORDERED: LACTATED RINGERS 1,000 ML IV ONE (12:11)
[2017-04-24] MEDS ORDERED: ETOMIDATE 2 MG/ML 10 ML VIAL ONE (12:11)
[2017-04-24] MEDS ORDERED: SODIUM CHLORIDE 0.9% 50 ML with ceFAZolin 1,000 MG IV ONE ×2 (12:55)
--- NOTE | 2017-04-24 12:58 | P.PN ---
Progress Note - Text The patient was in the operating room while I was making rounds. She was not seen.
[2017-04-24] MEDS ORDERED: MORPHINE SULFATE 2 MG/ML SYRINGE IVP PRN (13:50)
--- NOTE | 2017-04-24 13:58 | P.GSCN ---
History of Present Illness Consult date: 04/24/17 Reason for Consult: Pericardial tamponade History of present illness: The patient is an 82-year-old female, with a history of multiple medical problems, who was admitted to the hospital several days ago with hypotension and fever. She was initially treated on the floor but was transferred to the intensive care unit last night. She is currently being treated for sepsis and is on high-dose Levophed. Apparently she had some EKG changes this morning which were consistent with pericarditis. An echocardiogram was subsequently performed which revealed a moderate pericardial effusion. I did speak with Dr. Dumont who did review the echocardiogram as pericardial tamponade. I was asked to evaluate her for pericardial window. Review of Systems ROS unobtainable: due to mental status Past Medical History Past Medical History: GERD/Reflux Additional Past Medical History / Comment(s): IBS. History of Any Multi-Drug Resistant Organisms: None Reported Past Surgical History: Appendectomy, Orthopedic Surgery Additional Past Surgical History / Comment(s): DEVIATED SEPTUM, TUBES AND OVARIES REMOVED, HAMLET SHOULDER SURGERY. Past Anesthesia/Blood Transfusion Reactions: No Reported Reaction Past Psychological History: Anxiety Additional Psychological History / Comment(s): occasional anxiety. Smoking Status: Former smoker Past Alcohol Use History: Occasional Past Drug Use History: None Reported - Past Family History Father Family Medical History: Myocardial Infarction (MA) Additional Family Medical History / Comment(s): heart failure Medications and Allergies Home Medications Medication Instructions Recorded Confirmed Type Cyanocobalamin [Vitamin B-12] 1,000 mcg SQ QMONTH 02/23/16 04/22/17 History Dicyclomine [Bentyl] 10 mg PO TID PRN 02/23/16 04/22/17 History Loperamide HCl [Loperamide] 4 mg PO TID PRN 02/23/16 04/22/17 History Omeprazole [PriLOSEC] 20 mg PO QAM 02/23/16 04/22/17 History Tacrolimus [Protopic] 1 applic TOPICAL HS PRN 02/23/16 04/22/17 History Denosumab [Prolia] 60 mg SQ Q180D 09/10/16 04/22/17 History ALPRAZolam [Xanax] 0.25 mg PO HS PRN 04/22/17 04/22/17 History Acetaminophen [Tylenol] 650 mg PO Q6HR PRN 04/22/17 04/22/17 History Alclometasone Dipropionate 1 applic TOPICAL DAILY PRN 04/22/17 04/22/17 History Calcium Carbonate [Calcium] 600 mg PO DAILY 04/22/17 04/22/17 History Cyanocobalamin [Vitamin B-12] 500 mcg PO DAILY 04/22/17 04/22/17 History EPINEPHrine [Epipen 2-Adriel] 0.3 mg IM ONCE PRN 04/22/17 04/22/17 History Eluxadoline [Viberzi] 75 mg PO DAILY PRN 04/22/17 04/22/17 History Ferrous Sulfate [Iron] 325 mg PO DAILY 04/22/17 04/22/17 History Fluticasone Nasal Isabella [Flonase 2 spr EA NOSTRIL DAILY PRN 04/22/17 04/22/17 History Nasal Isabella] Levothyroxine Sodium [Synthroid] 25 mcg PO DAILY 04/22/17 04/22/17 History Magnesium 200 mg PO DAILY 04/22/17 04/22/17 History Naproxen Sodium [Aleve] 220 mg PO HS PRN 04/22/17 04/22/17 History Ondansetron [Zofran ODT] 4 mg PO Q8HR PRN 04/22/17 04/22/17 History Vit A/Vit C/Vit E/Zinc/Copper 1 cap PO HS 04/22/17 04/22/17 History [ICAPS SOFTGEL] PARoxetine [Paxil] 10 mg PO DAILY 04/23/17 04/23/17 History Allergies Allergy/AdvReac Type Severity Reaction Status Date / Time venom-honey bee Allergy Unknown Anaphylaxis Verified 04/22/17 19:14 [bee venom (honey bee)] venom-wasp [Wasp Venom] Allergy Unknown Anaphylaxis Verified 04/22/17 19:14 ether Allergy Unknown Verified 04/22/17 19:14 methylprednisolone Allergy Rash/Hives Verified 04/23/17 21:00 [From Solu-Medrol] Milk Containing Products Allergy Unknown Verified 09/24/16 07:48 [Dairy] soybean Allergy Unknown Verified 04/22/17 19:14 tomato Allergy Unknown Verified 09/24/16 07:48 Surgical - Exam Vital Signs Temp Pulse Resp BP Pulse Ox 96.9 F L 104 H 18 94/53 90 L 04/22/17 17:34 04/22/17 17:34 04/22/17 17:34 04/22/17 17:34 04/22/17 17:34 - General cachectic - Respiratory bilateral: rales - Cardiovascular Rhythm: regular - Abdomen Abdomen: soft, non tender, surgical scars - Integumentary no rash Results - Labs 04/24/17 04:54 04/24/17 04:54 Abnormal Lab Results - Last 24 Hours (Table) 04/23/17 04/23/17 04/23/17 Range/Units 16:49 17:00 17:00 WBC 29.2 H* (3.8-10.6) k/uL RBC (3.80-5.40) m/uL Hgb 8.8 L (11.4-16.0) gm/dL Hct 29.8 L (34.0-46.0) % MCV 73.2 L D (80.0-100.0) fL MCH 21.6 L (25.0-35.0) pg MCHC 29.5 L (31.0-37.0) g/dL Neutrophils # (Manual) 22.2 H (1.3-7.7) k/uL Monocytes # (Manual) 1.3 H (0-1.0) k/uL Nucleated RBCs (0-0) /100 WBC ESR (0-20) mm/hr Sodium 130 L (137-145) mmol/L Chloride (98-107) mmol/L Carbon Dioxide 14 L (22-30) mmol/L BUN 37 H (7-17) mg/dL Creatinine 1.90 H (0.52-1.04) mg/dL Glucose (74-99) mg/dL POC Glucose (mg/dL) (75-99) mg/dL Calcium 6.4 L* (8.4-10.2) mg/dL Ionized Calcium Samir (4.5-5.3) mg/dL Phosphorus 2.3 L (2.5-4.5) mg/dL Magnesium 1.3 L (1.6-2.3) mg/dL AST (14-36) U/L Alkaline Phosphatase (38-126) U/L CK-MB (CK-2) (0.0-2.4) ng/mL Total Protein (6.3-8.2) g/dL Albumin (3.5-5.0) g/dL Lipase 361 H (23-300) U/L 04/23/17 04/23/17 04/23/17 Range/Units 17:08 18:55 20:31 WBC (3.8-10.6) k/uL RBC (3.80-5.40) m/uL Hgb (11.4-16.0) gm/dL Hct (34.0-46.0) % MCV (80.0-100.0) fL MCH (25.0-35.0) pg MCHC (31.0-37.0) g/dL Neutrophils # (Manual) (1.3-7.7) k/uL Monocytes # (Manual) (0-1.0) k/uL Nucleated RBCs (0-0) /100 WBC ESR 54 H (0-20) mm/hr Sodium (137-145) mmol/L Chloride (98-107) mmol/L Carbon Dioxide (22-30) mmol/L BUN (7-17) mg/dL Creatinine (0.52-1.04) mg/dL Glucose (74-99) mg/dL POC Glucose (mg/dL) 73 L (75-99) mg/dL Calcium (8.4-10.2) mg/dL Ionized Calcium Samir 3.8 L (4.5-5.3) mg/dL Phosphorus (2.5-4.5) mg/dL Magnesium (1.6-2.3) mg/dL AST (14-36) U/L Alkaline Phosphatase (38-126) U/L CK-MB (CK-2) (0.0-2.4) ng/mL Total Protein (6.3-8.2) g/dL Albumin (3.5-5.0) g/dL Lipase (23-300) U/L 04/23/17 04/24/17 04/24/17 Range/Units 20:31 04:54 04:54 WBC 43.5 H* (3.8-10.6) k/uL RBC 3.74 L (3.80-5.40) m/uL Hgb 8.0 L (11.4-16.0) gm/dL Hct 28.5 L (34.0-46.0) % MCV 76.1 L (80.0-100.0) fL MCH 21.5 L (25.0-35.0) pg MCHC 28.3 L (31.0-37.0) g/dL Neutrophils # (Manual) 31.5 H (1.3-7.7) k/uL Monocytes # (Manual) 2.8 H (0-1.0) k/uL Nucleated RBCs 1 H (0-0) /100 WBC ESR (0-20) mm/hr Sodium 134 L (137-145) mmol/L Chloride 109 H (98-107) mmol/L Carbon Dioxide 11 L (22-30) mmol/L BUN 31 H (7-17) mg/dL Creatinine 1.70 H (0.52-1.04) mg/dL Glucose 131 H (74-99) mg/dL POC Glucose (mg/dL) (75-99) mg/dL Calcium 5.8 L* (8.4-10.2) mg/dL Ionized Calcium Samir 3.9 L (4.5-5.3) mg/dL Phosphorus (2.5-4.5) mg/dL Magnesium (1.6-2.3) mg/dL AST 58 H (14-36) U/L Alkaline Phosphatase 246 H (38-126) U/L CK-MB (CK-2) 3.5 H* (0.0-2.4) ng/mL Total Protein 4.4 L (6.3-8.2) g/dL Albumin 2.0 L (3.5-5.0) g/dL Lipase (23-300) U/L Microbiology - Last 24 Hours (Table) 04/22/17 17:43 Blood Culture - Preliminary Blood No Growth after 24 hours 04/22/17 18:57 Urine Culture - Final Urine,Catheterized Diabetes panel 04/23/17 04/24/17 Range/Units 17:00 04:54 Sodium 130 L 134 L (137-145) mmol/L Potassium 3.7 4.0 (3.5-5.1) mmol/L Chloride 99 109 H (98-107) mmol/L Carbon Dioxide 14 L 11 L (22-30) mmol/L BUN 37 H 31 H (7-17) mg/dL Creatinine 1.90 H 1.70 H (0.52-1.04) mg/dL Glucose 82 131 H (74-99) mg/dL Calcium 6.4 L* 5.8 L* (8.4-10.2) mg/dL AST 58 H (14-36) U/L ALT 44 (9-52) U/L Alkaline Phosphatase 246 H (38-126) U/L Total Protein 4.4 L (6.3-8.2) g/dL Albumin 2.0 L (3.5-5.0) g/dL Calcium panel 04/23/17 04/23/17 04/24/17 Range/Units 17:00 18:55 04:54 Calcium 6.4 L* 5.8 L* (8.4-10.2) mg/dL Ionized Calcium Samir 3.8 L 3.9 L (4.5-5.3) mg/dL Phosphorus 2.3 L 3.8 (2.5-4.5) mg/dL Albumin 2.0 L (3.5-5.0) g/dL Pituitary panel 04/23/17 04/24/17 Range/Units 17:00 04:54 Sodium 130 L 134 L (137-145) mmol/L Potassium 3.7 4.0 (3.5-5.1) mmol/L Chloride 99 109 H (98-107) mmol/L Carbon Dioxide 14 L 11 L (22-30) mmol/L BUN 37 H 31 H (7-17) mg/dL Creatinine 1.90 H 1.70 H (0.52-1.04) mg/dL Glucose 82 131 H (74-99) mg/dL Calcium 6.4 L* 5.8 L* (8.4-10.2) mg/dL Adrenal panel 04/23/17 04/24/17 Range/Units 17:00 04:54 Sodium 130 L 134 L (137-145) mmol/L Potassium 3.7 4.0 (3.5-5.1) mmol/L Chloride 99 109 H (98-107) mmol/L Carbon Dioxide 14 L 11 L (22-30) mmol/L BUN 37 H 31 H (7-17) mg/dL Creatinine 1.90 H 1.70 H (0.52-1.04) mg/dL Glucose 82 131 H (74-99) mg/dL Calcium 6.4 L* 5.8 L* (8.4-10.2) mg/dL Total Bilirubin 0.5 (0.2-1.3) mg/dL AST 58 H (14-36) U/L ALT 44 (9-52) U/L Alkaline Phosphatase 246 H (38-126) U/L Total Protein 4.4 L (6.3-8.2) g/dL Albumin 2.0 L (3.5-5.0) g/dL - Imaging CT scan - chest: image reviewed Assessment and Plan (1) Pericardial effusion Status: Acute Plan: The patient is currently septic on high-dose Levophed and has a blood pressure in the 80s. I did speak with Dr. Yanez from cardiology who felt that her echocardiogram is consistent with cardiac tamponade. Pericardial window was recommended. I also spoke at length with the patient's son by telephone. I informed him that though there is a moderate amount of pericardial effusion, it may not be clinically significant. In any event there really is no way to know unless we drain it in the operating room. If her hemodynamics do not improve that her hypotension is likely secondary to her sepsis. The patient's son wishes to proceed. The patient was DO NOT RESUSCITATE upon admission to hospital. I did rescind this order and made her full code for the operation. We will plan on performing the procedure once the operating room is prepared. Time with Patient: Greater than 30
--- NOTE | 2017-04-24 14:25 | XR ---
EXAMINATION TYPE: XR chest 1V portable DATE OF EXAM: 04/24/2017 2:16 PM COMPARISON: Today HISTORY: Postop TECHNIQUE: Single frontal view of the chest is obtained. FINDINGS: Endotracheal tube is low and 1 cm from the anderson. There is a right jugular catheter with tip in the right atrium. There is nasogastric tube with tip probably in the gastric fundus. There is pulmonary edema. Heart appears enlarged. I see no pneumothorax. There is a drainage catheter over the lower heart. IMPRESSION: There is pulmonary edema consistent with congestive heart failure that is unchanged comp ared to exam this morning at 6:00 AM. RDS cannot be excluded. Endotracheal tube is low and could be pulled back 3 cm.
[2017-04-24 14:32] LABS: ABG Base Excess -12.5 mmol/L; ABG HCO3 15 mmol/L (21-25); ABG PCO2 45 mmHg (35-45); ABG PH 7.14 (7.35-7.45); ABG PO2 215 mmHg (83-108); ABG TCO2 16 mmol/L (19-24)
[2017-04-24] MEDS: NOREPINEPHRIN 16 MG-0.9%NS PMX 16 MG/250 ML ML IV SCH ×2 (14:36→21:17)
[2017-04-24] MEDS ORDERED: PROPOFOL 50 ML IV ONE (14:41)
--- NOTE | 2017-04-24 15:14 | P.CNPUL ---
History of Present Illness Consult date: 04/24/17 Requesting physician: Clif Vega Reason for consult: other (Profound hypotension, possible sepsis) Chief complaint: Change in mental status, abdominal distention, not eating well. History of present illness: This is an 82-year-old female with history of multiple medical problems including GERD, irritable bowel syndrome, depression, patient had recent workup at [facility] for blindness, and apparently she had suboptimal optic nerve studies patient was recently noted to be legally blind. Patient was brought into the ER on 04/22/2017 with altered mental status, not feeling well, not eating appropriately. Patient was felt to be dehydrated, patient was also admitted for her multiple constitutional symptoms has been receiving fluids, she had screening for colitis/C. difficile colitis and I was negative. Patient was also noted to have significant leukocytosis. At any rate patient became hypotensive on the medical floor yesterday, and arrangements were made to transfer the patient to the ICU. Multiple fluid boluses were given, her blood pressure remained low, hence norepinephrine was started. CT of the chest questioned a nikkie cardiac effusion, echocardiogram this morning showed possible early tampnade. Patient was already maximized on norepinephrine, she was already maximized on fluids, and a sodium bicarb drip was initiated for metabolic acidosis. CT of the abdomen and pelvis was suggestive of possible enteritis, possible bowel ischemia and possible bowel obstruction. General surgery consultation was also initiated. Shortly after evaluating the patient in the ICU, I recommended a cardiac surgery consultation for her abnormal CT of the chest showing pericardial effusion, and abnormal echocardiogram suggestive of impending tamponade. Patient underwent surgical exploration and her pericardial fluid was drained by cardiac surgery. She was later sent back to the ICU on mechanical ventilation. Labs showed significant leukocytosis with WBC count of 43.5 hemoglobin is 8.0 ABG post surgery showed a pO2 of 215 pCO2 of 45 pH of 7.14. Patient remains on sodium bicarb drip at this point for her profound metabolic acidosis picture. Lactic acid has been in the range of 1- 1.4 at the most. Review of Systems ROS unobtainable: due to mental status Past Medical History Past Medical History: GERD/Reflux Additional Past Medical History / Comment(s): IBS. History of Any Multi-Drug Resistant Organisms: None Reported Past Surgical History: Appendectomy, Orthopedic Surgery Additional Past Surgical History / Comment(s): DEVIATED SEPTUM, TUBES AND OVARIES REMOVED, HAMLET SHOULDER SURGERY. Past Anesthesia/Blood Transfusion Reactions: No Reported Reaction Past Psychological History: Anxiety Additional Psychological History / Comment(s): occasional anxiety. Smoking Status: Former smoker Past Alcohol Use History: Occasional Past Drug Use History: None Reported - Past Family History Father Family Medical History: Myocardial Infarction ([place]) Additional Family Medical History / Comment(s): heart failure Medications and Allergies Home Medications Medication Instructions Recorded Confirmed Type Cyanocobalamin [Vitamin B-12] 1,000 mcg SQ QMONTH 02/23/16 04/22/17 History Dicyclomine [Bentyl] 10 mg PO TID PRN 02/23/16 04/22/17 History Loperamide HCl [Loperamide] 4 mg PO TID PRN 02/23/16 04/22/17 History Omeprazole [PriLOSEC] 20 mg PO QAM 02/23/16 04/22/17 History Tacrolimus [Protopic] 1 applic TOPICAL HS PRN 02/23/16 04/22/17 History Denosumab [Prolia] 60 mg SQ Q180D 09/10/16 04/22/17 History ALPRAZolam [Xanax] 0.25 mg PO HS PRN 04/22/17 04/22/17 History Acetaminophen [Tylenol] 650 mg PO Q6HR PRN 04/22/17 04/22/17 History Alclometasone Dipropionate 1 applic TOPICAL DAILY PRN 04/22/17 04/22/17 History Calcium Carbonate [Calcium] 600 mg PO DAILY 04/22/17 04/22/17 History Cyanocobalamin [Vitamin B-12] 500 mcg PO DAILY 04/22/17 04/22/17 History EPINEPHrine [Epipen 2-Adriel] 0.3 mg IM ONCE PRN 04/22/17 04/22/17 History Eluxadoline [Viberzi] 75 mg PO DAILY PRN 04/22/17 04/22/17 History Ferrous Sulfate [Iron] 325 mg PO DAILY 04/22/17 04/22/17 History Fluticasone Nasal [place] [Flonase 2 spr EA NOSTRIL DAILY PRN 04/22/17 04/22/17 History Nasal [place]] Levothyroxine Sodium [Synthroid] 25 mcg PO DAILY 04/22/17 04/22/17 History Magnesium 200 mg PO DAILY 04/22/17 04/22/17 History Naproxen Sodium [Aleve] 220 mg PO HS PRN 04/22/17 04/22/17 History Ondansetron [Zofran ODT] 4 mg PO Q8HR PRN 04/22/17 04/22/17 History Vit A/Vit C/Vit E/Zinc/Copper 1 cap PO HS 04/22/17 04/22/17 History [ICAPS SOFTGEL] PARoxetine [Paxil] 10 mg PO DAILY 04/23/17 04/23/17 History Allergies Allergy/AdvReac Type Severity Reaction Status Date / Time venom-honey bee Allergy Unknown Anaphylaxis Verified 04/22/17 19:14 [bee venom (honey bee)] venom-wasp [Wasp Venom] Allergy Unknown Anaphylaxis Verified 04/22/17 19:14 ether Allergy Unknown Verified 04/22/17 19:14 methylprednisolone Allergy Rash/Hives Verified 04/23/17 21:00 [facility] Milk Containing Products Allergy Unknown Verified 09/24/16 07:48 [Dairy] soybean Allergy Unknown Verified 04/22/17 19:14 tomato Allergy Unknown Verified 09/24/16 07:48 Physical Exam Vitals: Vital Signs Temp Pulse Pulse Resp BP BP Pulse Ox 04/24/17 14:45 126 H 12 109/60 92 L 04/24/17 14:30 98.1 F 124 H 12 114/61 95 04/24/17 14:15 126 H 3 L 112/58 04/24/17 14:03 126 H 108/50 88 L 04/24/17 11:45 121 H 10 L 83/50 96 04/24/17 11:30 122 H 12 94/52 94 L 04/24/17 11:00 121 H 10 L 83/46 95 04/24/17 10:30 125 H 23 94/45 92 L 04/24/17 10:00 122 H 10 L 84/47 93 L 04/24/17 09:30 122 H 13 86/50 92 L 04/24/17 09:00 122 H 12 91/48 92 L 04/24/17 08:30 123 H 14 84/59 91 L 04/24/17 08:00 97.7 F 123 H 12 93/51 90 L 04/24/17 07:00 120 H 10 L 83/46 95 04/24/17 06:30 121 H 10 L 84/48 95 04/24/17 06:00 126 H 25 H 101/63 92 L 04/24/17 05:30 122 H 12 87/52 93 L 04/24/17 05:00 124 H 14 93/56 92 L 04/24/17 04:30 127 H 13 92/52 93 L 04/24/17 04:00 98 F 124 H 12 99/51 93 L 04/24/17 03:30 124 H 11 L 109/52 93 L 04/24/17 03:00 124 H 12 93/51 93 L 04/24/17 02:30 122 H 11 L 102/52 94 L 04/24/17 02:00 122 H 11 L 100/49 94 L 04/24/17 01:30 122 H 12 92/52 95 04/24/17 01:00 119 H 10 L 91/54 95 04/24/17 00:30 123 H 10 L 82/57 95 04/24/17 00:00 97.6 F 124 H 29 H 63/56 92 L 04/23/17 23:30 120 H 14 72/50 92 L 04/23/17 23:15 121 H 21 89/64 88 L 04/23/17 23:00 121 H 21 89/64 90 L 04/23/17 22:45 115 H 16 100/42 97 04/23/17 22:15 123 H 25 H 87/66 85 L 04/23/17 22:00 123 H 22 91 L 04/23/17 21:45 124 H 17 82/51 91 L 04/23/17 21:30 123 H 19 82/51 94 L 04/23/17 21:15 122 H 12 76/51 92 L 04/23/17 21:00 120 H 10 L 76/47 94 L 04/23/17 20:45 121 H 13 71/54 93 L 04/23/17 20:30 117 H 14 89 L 04/23/17 20:15 97.6 F 116 H 18 81/44 98 04/23/17 20:00 115 H 15 79/45 95 04/23/17 19:45 114 H 19 95 04/23/17 19:30 107 H 9 L 75/42 96 04/23/17 19:15 107 H 13 65/47 94 L 04/23/17 19:00 103 H 12 53/38 82 L 04/23/17 18:45 104 H 16 56/41 56 L 04/23/17 18:30 106 H 19 62/45 76 L 04/23/17 18:15 102 H 10 L 68/45 77 L 04/23/17 18:00 109 H 17 61/41 96 04/23/17 17:45 111 H 15 76/41 98 04/23/17 17:30 112 H 20 69/48 94 L 04/23/17 17:15 96.5 F L 114 H 22 84/53 93 L 04/23/17 16:00 115 H 18 04/23/17 15:00 115 H 18 73/50 92 L Intake and Output 04/23/17 04/24/17 04/24/17 22:59 06:59 14:59 Intake Total 3543.250 4410.625 880.000 Output Total 375 255 305 Balance 3168.250 4155.625 575.000 Intake: IV 250 Intake, IV Titration 3306.250 4410.625 630.000 Amount Calcium Gluconate 1,000 100 mg In Sodium Chloride 0.9 % 100 ml @ 100 mls/hr IVPB ONCE ONE Rx#: [id number] Dextrose 5% in Water 1, 200 000 ml @ 50 mls/hr IV . Q23H JENNIFER with Sodium Bicarb (1 Meq/ml) 150 ml Rx#:[id number] Magnesium Sulfate-D5w Pmx 300 1 gm In Dextrose/Water 1 100ml.bag @ 100 mls/hr IVPB Q1H [facility] Rx#: [id number] Norepinephrin 4 mg-0.9% 206.250 960.625 250.000 Ns Pmx 4 mg In 250 ml @ Titrate IV .Q0M [facility] Rx#: [id number] Piperacillin-Tazobactam 3 50 50 .375 gm In Dextrose/Water 1 50ml.bag @ 12.5 mls/hr IVPB Q8HR [facility] Rx#: [id number] Sodium Chloride 0.9% 1, 1300 2750 000 ml @ 150 mls/hr IV . Q6H40M [facility] Rx#:[id number] Sodium Chloride 0.9% 1, 180 000 ml @ 75 mls/hr IV . [id number] [facility] Rx#:[id number] Sodium Chloride 0.9% 2, 1500 000 ml @ 999 mls/hr IV . Q2H1M [facility] Rx#:[id number] Sodium Phosphate 10 mmol 250 In Sodium Chloride 0.9% 250 ml @ 125 mls/hr IVPB ONCE ONE Rx#:[id number] Vancomycin 1,000 mg In 250 Sodium Chloride 0.9% 250 ml @ 125 mls/hr IVPB ONCE ONE Rx#:[id number] Oral 237 Output: Urine 375 255 285 Estimated Blood Loss 20 Other: Voiding Method Indwelling Catheter Indwelling Catheter Indwelling Catheter # Voids 3 # Bowel Movements 4 Weight 39.5 kg 40.5 kg 40.5 kg Patient Weight 04/25/17 06:59 Weight 40.5 kg ABP, PAP, CO, CI - Last 8 Hours Arterial Blood Pressure 128/56 Arterial Blood Pressure 139/56 Arterial Blood Pressure 134/55 Physical Exam: Revealed an 82-year-old female, cachectic, frail looking, legally blind, in mild respiratory distress. HEENT:[Neck is supple.] [No neck masses.] [No thyromegaly.] [Positive JVD.] Chest: [Crackles and rhonchi bilaterally were noted.] Cardiac Exam: [Normal S1 and S2, no S3 gallop, positive pericardial rub Abdomen: [Soft, nontender, no megaly, no rebound, no guarding, negative bowel sounds Extremities: [No clubbing, no edema, no cyanosis.] Neurological Exam: Lethargic, arousable, denies any specific complaints. Results - Laboratory Findings CBC and BMP: 04/24/17 04:54 04/24/17 04:54 ABG ABG pH 7.14 (7.35-7.45) L* 04/24/17 14:30 ABG pCO2 45 mmHg (35-45) 04/24/17 14:30 ABG pO2 215 mmHg (83-108) H 04/24/17 14:30 ABG O2 Saturation 100.0 % (94-97) H 04/24/17 14:30 PT/INR, D-dimer PT 11.0 sec (9.0-12.0) 04/22/17 17:53 INR 1.1 (<1.1) 04/22/17 17:53 Abnormal lab findings: Abnormal Labs 04/22/17 04/22/17 04/22/17 17:53 17:53 17:53 WBC 30.3 H* RBC Hgb 8.9 L Hct 27.0 L MCV 66.5 L MCH 21.8 L MCHC Neutrophils # (Manual) 24.8 H Lymphocytes # (Manual) 0.6 L Monocytes # (Manual) 3.2 H Nucleated RBCs ESR ABG pH ABG pO2 ABG HCO3 ABG Total CO2 ABG O2 Saturation Sodium 130 L Chloride 93 L Carbon Dioxide BUN 30 H Creatinine 1.17 H Glucose 103 H POC Glucose (mg/dL) Calcium 7.5 L Ionized Calcium Samir Phosphorus 2.3 L Magnesium 1.5 L Total Bilirubin 1.7 H AST Alkaline Phosphatase Total Creatine Kinase <20 L CK-MB (CK-2) Total Protein 6.0 L Albumin 2.8 L Lipase Urine Appearance Urine Protein Urine Ketones Urine Blood Amorphous Sediment 04/22/17 04/23/17 04/23/17 18:57 16:49 17:00 WBC 29.2 H* RBC Hgb 8.8 L Hct 29.8 L MCV 73.2 L D MCH 21.6 L MCHC 29.5 L Neutrophils # (Manual) 22.2 H Lymphocytes # (Manual) Monocytes # (Manual) 1.3 H Nucleated RBCs ESR ABG pH ABG pO2 ABG HCO3 ABG Total CO2 ABG O2 Saturation Sodium Chloride Carbon Dioxide BUN Creatinine Glucose POC Glucose (mg/dL) Calcium Ionized Calcium Samir Phosphorus Magnesium Total Bilirubin AST Alkaline Phosphatase Total Creatine Kinase CK-MB (CK-2) Total Protein Albumin Lipase 361 H Urine Appearance Cloudy H Urine Protein 2+ H Urine Ketones Trace H Urine Blood Small H Amorphous Sediment Few H 04/23/17 04/23/17 04/23/17 17:00 17:08 18:55 WBC RBC Hgb Hct MCV MCH MCHC Neutrophils # (Manual) Lymphocytes # (Manual) Monocytes # (Manual) Nucleated RBCs ESR ABG pH ABG pO2 ABG HCO3 ABG Total CO2 ABG O2 Saturation Sodium 130 L Chloride Carbon Dioxide 14 L BUN 37 H Creatinine 1.90 H Glucose POC Glucose (mg/dL) 73 L Calcium 6.4 L* Ionized Calcium Samir 3.8 L Phosphorus 2.3 L Magnesium 1.3 L Total Bilirubin AST Alkaline Phosphatase Total Creatine Kinase CK-MB (CK-2) Total Protein Albumin Lipase Urine Appearance Urine Protein Urine Ketones Urine Blood Amorphous Sediment 04/23/17 04/23/1717 20:31 20:31 04:54 WBC 43.5 H* RBC 3.74 L Hgb 8.0 L Hct 28.5 L MCV 76.1 L MCH 21.5 L MCHC 28.3 L Neutrophils # (Manual) 31.5 H Lymphocytes # (Manual) Monocytes # (Manual) 2.8 H Nucleated RBCs 1 H ESR 54 H ABG pH ABG pO2 ABG HCO3 ABG Total CO2 ABG O2 Saturation Sodium Chloride Carbon Dioxide BUN Creatinine Glucose POC Glucose (mg/dL) Calcium Ionized Calcium Samir Phosphorus Magnesium Total Bilirubin AST Alkaline Phosphatase Total Creatine Kinase CK-MB (CK-2) 3.5 H* Total Protein Albumin Lipase Urine Appearance Urine Protein Urine Ketones Urine Blood Amorphous Sediment 04/24/17 04/24/17 04:54 14:30 WBC RBC Hgb Hct MCV MCH MCHC Neutrophils # (Manual) Lymphocytes # (Manual) Monocytes # (Manual) Nucleated RBCs ESR ABG pH 7.14 L* ABG pO2 215 H ABG HCO3 15 L ABG Total CO2 16 L ABG O2 Saturation 100.0 H Sodium 134 L Chloride 109 H Carbon Dioxide 11 L BUN 31 H Creatinine 1.70 H Glucose 131 H POC Glucose (mg/dL) Calcium 5.8 L* Ionized Calcium Samir 3.9 L Phosphorus Magnesium Total Bilirubin AST 58 H Alkaline Phosphatase 246 H Total Creatine Kinase CK-MB (CK-2) Total Protein 4.4 L Albumin 2.0 L Lipase Urine Appearance Urine Protein Urine Ketones Urine Blood Amorphous Sediment - Diagnostic Findings Chest x-ray: image reviewed (Chest x-ray is suggestive of pulmonary edema or ARDS.) Assessment and Plan Plan: Impression 1 acute hypoxic respiratory failure secondary to abdominal sepsis, colitis/ gastroenteritis, possible ischemic bowel. This is clearly a picture of septic shock. 2 pericardial effusion with impending cardiac tamponade, requiring surgical intervention as per cardiothoracic surgery. 3 profound hypotension requiring fluid boluses, norepinephrine,, and I will go ahead and add vasopressin. 4 acute septic shock, most likely source is going to be the GI tract unless proven otherwise. 5 multiple comorbidities including anemia, electrolyte imbalance, hypoalbuminemia and moderate protein calorie malnutrition, history of irritable bowel syndrome, history of degenerative joint disease, and history of sudden loss of vision requiring significant workup recently at [facility]. Recommendation: Continue present supportive care measures including fluids, pressors, antibiotics, GI and DVT prophylaxis, strongly doubt the patient can't tolerate any abdominal surgical intervention at this point. General surgery was consulted, however the patient is not an ideal candidate for abdominal exploration/exploratory laparotomy. We'll continue to follow, infectious disease consultation will be initiated. Time with Patient: Greater than 30
[2017-04-24 16:01] LABS: ABG HCO3 14 mmol/L (21-25); ABG PCO2 38 mmHg (35-45); ABG PH 7.21 (7.35-7.45); ABG PO2 111 mmHg (83-108); ABG TCO2 16 mmol/L (19-24)
[2017-04-24] MEDS: metroNIDAZOLE-NS PMX 500 MG in SALINE 1 100ML.BAG IVPB SCH ×2 (16:15→23:39)
[2017-04-24 18:10] LABS: Glucose,Whole Blood 95 mg/dL (75-99)
[2017-04-24] MEDS: ACETAMINOPHEN IV (For NPO) 1,000 MG in EMPTY BAG 1 BAG IVPB SCH ×2 (18:16→23:39)
[2017-04-24] MEDS: PROPOFOL 500 MG in EMPTY BAG 1 BAG IV SCH (19:20)
[2017-04-24 19:54] LABS: Glucose,Whole Blood 154 mg/dL (75-99)
[2017-04-24 20:04] LABS: Basophils # (A) 0.7 k/uL (0-0.2); Basophils % (A) 2 %; CHCM 29.7; Eosinophils # (A) 0.1 k/uL (0-0.7); Eosinophils % (A) 0 %; HCT 24.6 % (34.0-46.0); HDW 2.94; HGB 7.5 gm/dL (11.4-16.0); Hypochromasia Marked; Immature Gran Flag Marked; Luc % (Auto) 1; Lymphocytes # (A) 0.4 k/uL (1.0-4.8); Lymphocytes % (A) 1 %; MCH 21.5 pg (25.0-35.0); MCHC 30.4 g/dL (31.0-37.0); Mean Platelet Volume 7.8; Microcytosis Moderate; Monocytes # (A) 1.5 k/uL (0-1.0); Monocytes % (A) 4 %; Neutrophils # (A) 33.4 k/uL (1.3-7.7); Neutrophils % (A) 92 %; RBC 3.48 m/uL (3.80-5.40); WBC (Perox) 37.26
[2017-04-24 20:12] LABS: MCV 70.9 fL (80.0-100.0)
[2017-04-24 20:13] LABS: WBC 36.5 k/uL (3.8-10.6)
[2017-04-24 20:32] LABS: Manual Review Performed; Ovalocytes Present
[2017-04-24] MEDS: CHLORHEXIDINE GLUCONATE 15 ML CUP MUCOUS MEM SCH (21:01)
[2017-04-24] MEDS: CALCIUM GLUCONATE 1,000 MG in SODIUM CHLORIDE 0.9% 100 ML IVPB SCH (21:01)
[2017-04-24] MEDS: INSULIN LISPRO (humaLOG) 300 UNIT/3 ML VIAL SQ SCH ×2 (21:29→23:43)
[2017-04-24 21:30] LABS: Glucose,Whole Blood 153 mg/dL (75-99)
--- NOTE | 2017-04-24 22:05 | PN ---
DATE OF SERVICE: 04/24/2017 This 82 -year-old woman who was admitted with abdominal distention and as well as features of sepsis also had pericardial tamponade. The patient was seen on the CAT scan. The patient is on broad-spectrum IV antibiotics. The patient also seen by surgery as well as Dr. Saleem who performed a pericardial window 150 mL of fluid was removed and being tested. Patient needed a high dose of Levophed. Past medical history reviewed. Review of systems could not be taken. The patient mechanically ventilated and sedated postprocedure. The current medications are reviewed and included: 1. Tylenol 650 q6h p.r.n. 2. Albuterol Atrovent. 3. Xanax. 4. Peridex. 5. Bentyl. 6. Lovenox. 7. Flonase. 8. Synthroid. 9. Imodium. 10. Flagyl. 11. Vancomycin. 12. P.r.n. medications. 13. Morphine. 14. Pressor supports. 15. Zosyn. PHYSICAL EXAMINATION: The patient is mechanically ventilated and sedated. Pulse 110. Blood pressure 109/60. Respiratory rate 12. Temperature normal, pulse ox is 92% on 2 L mechanical ventilation. 455. HEENT: Conjunctivae normal. Oral mucosa moist. NECK: No jugular venous distention. No carotid bruit. No lymph node enlargement. CARDIOVASCULAR: S1, S2 muffled. RESPIRATORY: Breath sounds diminished at the bases. A few scattered rhonchi and crackles. Breathing efforts decreased at the bases. ABDOMEN: Soft. Mild diffuse distention present. No guarding. No rigidity. No ascites. Bowel sounds diminished. LEGS: No edema. No swelling. Central nervous system: No focal deficits. LABS: , hemoglobin 8 and pH of 7.14 and pCO2 45. Calcium is 5.8, lipase 361, amylasentd. ASSESSMENT: 1. Abdominal distention and change in mental status possibly intraabdominal sepsis with ischemic bowel. 2. Pericardial tamponade, status post pericardial window. 3. Possible acute respiratory failure as expected. 4. Hypotension possible secondary to sepsis. 5. on the CT scan of the abdomen. 6. Increased WBC. 7. Anemia, macrocytic. 8. Hyponatremia. 9. Increased creatinine with acute renal failure. 10. Hypermagnesium. 11. Hypoalbuminemia with mild to moderate protein calorie malnutrition. 12. Gastroesophageal reflux disease. 13. Irritable bowel syndrome. 14. History of degenerative joint disease. 15. History of anxiety, not otherwise specified. 16. History of recent diarrhea as well as renal failure. 17. Severe protein calorie malnutrition body mass index 17.6. 18. FULL CODE. 19. Hypocalcemia. RECOMMENDATIONS AND DISCUSSION: Recommend to continue current medications. Continue symptomatic treatment. We will monitor lytes closely. Otherwise, continue with empiric antibiotics. Follow cultures and await the of the pericardial window and aspiration. Prognosis guarded. See orders for further details. Further recommendations to follow. MTDD
[2017-04-24] MEDS: SODIUM CHLORIDE 0.9% 99 ML with VASOPRESSIN 20 UNIT IV SCH ×2 (23:10)
[2017-04-24] MEDS: VIT A,C & E-LUTEIN-MINERALS 1 EACH TAB PO SCH (23:40)
[2017-04-24 23:44] LABS: Glucose,Whole Blood 145 mg/dL (75-99)
[2017-04-25 05:07] LABS: Glucose,Whole Blood 137 mg/dL (75-99)
[2017-04-25 05:19] LABS: CH 21.1; HCT 24.2 % (34.0-46.0); HDW 2.95; HGB 7.2 gm/dL (11.4-16.0); Hypochromasia Marked; Immature Gran Flag Marked; MCHC 29.7 g/dL (31.0-37.0); MCV 70.7 fL (80.0-100.0); Mean Platelet Volume 7.2; Microcytosis Moderate; RBC 3.43 m/uL (3.80-5.40); RDW 15.2 % (11.5-15.5); WBC (Perox) 30.06
[2017-04-25] MEDS: NOREPINEPHRIN 16 MG-0.9%NS PMX 16 MG/250 ML ML IV SCH ×3 (05:20→22:49)
[2017-04-25] MEDS: DEXTROSE 5% IN WATER 1,000 ML with SODIUM BICARB (1 MEQ/ML) 150 ML IV SCH ×2 (05:21→18:45)
[2017-04-25] MEDS: INSULIN LISPRO (humaLOG) 300 UNIT/3 ML VIAL SQ SCH ×6 (05:22→23:57)
[2017-04-25 05:23] LABS: Ionized Calcium 3.9 mg/dL (4.5-5.3)
[2017-04-25 05:31] LABS: Magnesium 1.7 mg/dL (1.6-2.3); Phosphorous 2.6 mg/dL (2.5-4.5); Potassium 3.1 mmol/L (3.5-5.1); Total Bilirubin 0.4 mg/dL (0.2-1.3); Total Protein 3.6 g/dL (6.3-8.2)
[2017-04-25 05:39] LABS: Calcium 5.7 mg/dL (8.4-10.2)
[2017-04-25] MEDS ORDERED: POTASSIUM CHLORIDE 20 MEQ in WATER FOR INJECTION 1 100ML.BAG IVPB ONE ×3 (05:51→22:23)
[2017-04-25] MEDS: MAGNESIUM SULFATE-D5W PMX 1 GM in DEXTROSE/WATER 1 100ML.BAG IVPB SCH ×3 (06:07→09:02)
[2017-04-25 06:21] LABS: Add Differential Manual Differential
[2017-04-25 06:23] LABS: Manual Review Performed; Nucleated Red Blood Cells 0 /100 WBC (0-0); Total Cells Counted 100
[2017-04-25 06:24] LABS: Target Cells Present
[2017-04-25] MEDS: ACETAMINOPHEN IV (For NPO) 1,000 MG in EMPTY BAG 1 BAG IVPB SCH ×3 (06:56→17:22)
[2017-04-25] MEDS: SODIUM CHLORIDE 0.9% 99 ML with VASOPRESSIN 20 UNIT IV SCH ×4 (07:01→13:20)
[2017-04-25 07:11] LABS: ABG HCO3 18 mmol/L (21-25); ABG PCO2 33 mmHg (35-45); ABG PH 7.35 (7.35-7.45); ABG PO2 152 mmHg (83-108); ABG TCO2 19 mmol/L (19-24)
--- NOTE | 2017-04-25 07:19 | XR ---
EXAMINATION TYPE: XR chest 1V portable DATE OF EXAM: 04/25/2017 COMPARISON: Prior chest x-ray dated 24 Apr 2017 HISTORY: Intubated TECHNIQUE: Single frontal view of the chest is obtained. FINDINGS: Patient is rotated. Bilateral airspace disease persists. Endotracheal tube, NG tube, right jugular central venous catheter are noted and overlying appropriate positions, central venous cathet er within the right atrium. Median sternal drain is present. Heart size may be accentuated by rotatio n. No evident pneumothorax or pleural effusion. IMPRESSION: Similar findings to prior exam, correlate for pneumonia, congestive heart failure.
[2017-04-25 08:15] LABS: Glucose,Whole Blood 102 mg/dL (75-99)
[2017-04-25] MEDS: metroNIDAZOLE-NS PMX 500 MG in SALINE 1 100ML.BAG IVPB SCH ×3 (08:17→23:47)
[2017-04-25] MEDS: CHLORHEXIDINE GLUCONATE 15 ML CUP MUCOUS MEM SCH ×2 (08:18→21:29)
[2017-04-25] MEDS: CALCIUM GLUCONATE 1,000 MG in SODIUM CHLORIDE 0.9% 100 ML IVPB SCH ×2 (08:18→21:45)
[2017-04-25] MEDS: ENOXAPARIN 30 MG/0.3 ML SYRINGE SQ SCH (08:18)
[2017-04-25] MEDS: PANTOPRAZOLE 40 MG/10 ML VIAL IVP SCH ×2 (08:19→21:29)
[2017-04-25] MEDS: SODIUM CHLORIDE 0.9% 1,000 ML IV SCH ×2 (08:19→23:48)
[2017-04-25] MEDS: PARoxetine 10 MG TAB PO SCH (08:19)
[2017-04-25] MEDS: PIPERACILLIN-TAZOBACTAM 3.375 GM in DEXTROSE/WATER 1 50ML.BAG IVPB SCH ×2 (09:02→21:28)
[2017-04-25] MEDS: LEVOTHYROXINE IVP 100 MCG/5 ML VIAL IV SCH (09:05)
[2017-04-25] MEDS ORDERED: FUROSEMIDE 10 MG/ML 4 ML VIAL IV STA (09:26)
[2017-04-25 09:47] LABS: Hemoglobin A1C 5.9 % (4.2-6.1)
--- NOTE | 2017-04-25 10:50 | P.GSCN ---
History of Present Illness Consult date: 04/25/17 Reason for Consult: Sepsis History of present illness: This 82-year-old female who's had issues with hypotension and sepsis. The patient was on 45 mics of Levaquin yesterday she underwent a pericardial window a small pericardial effusion. Patient is slightly improved today. However she still has evidence of leukocytosis. She is currently on the ventilator Past Medical History Past Medical History: GERD/Reflux Additional Past Medical History / Comment(s): IBS. History of Any Multi-Drug Resistant Organisms: None Reported Past Surgical History: Appendectomy, Orthopedic Surgery Additional Past Surgical History / Comment(s): DEVIATED SEPTUM, TUBES AND OVARIES REMOVED, HAMLET SHOULDER SURGERY. Past Anesthesia/Blood Transfusion Reactions: No Reported Reaction Past Psychological History: Anxiety Additional Psychological History / Comment(s): occasional anxiety. Smoking Status: Former smoker Past Alcohol Use History: Occasional Past Drug Use History: None Reported - Past Family History Father Family Medical History: Myocardial Infarction ([place]) Additional Family Medical History / Comment(s): heart failure Medications and Allergies Home Medications Medication Instructions Recorded Confirmed Type Cyanocobalamin [Vitamin B-12] 1,000 mcg SQ QMONTH 02/23/16 04/22/17 History Dicyclomine [Bentyl] 10 mg PO TID PRN 02/23/16 04/22/17 History Loperamide HCl [Loperamide] 4 mg PO TID PRN 02/23/16 04/22/17 History Omeprazole [PriLOSEC] 20 mg PO QAM 02/23/16 04/22/17 History Tacrolimus [Protopic] 1 applic TOPICAL HS PRN 02/23/16 04/22/17 History Denosumab [Prolia] 60 mg SQ Q180D 09/10/16 04/22/17 History ALPRAZolam [Xanax] 0.25 mg PO HS PRN 04/22/17 04/22/17 History Acetaminophen [Tylenol] 650 mg PO Q6HR PRN 04/22/17 04/22/17 History Alclometasone Dipropionate 1 applic TOPICAL DAILY PRN 04/22/17 04/22/17 History Calcium Carbonate [Calcium] 600 mg PO DAILY 04/22/17 04/22/17 History Cyanocobalamin [Vitamin B-12] 500 mcg PO DAILY 04/22/17 04/22/17 History EPINEPHrine [Epipen 2-Adriel] 0.3 mg IM ONCE PRN 04/22/17 04/22/17 History Eluxadoline [Viberzi] 75 mg PO DAILY PRN 04/22/17 04/22/17 History Ferrous Sulfate [Iron] 325 mg PO DAILY 04/22/17 04/22/17 History Fluticasone Nasal [place] [Flonase 2 spr EA NOSTRIL DAILY PRN 04/22/17 04/22/17 History Nasal [place]] Levothyroxine Sodium [Synthroid] 25 mcg PO DAILY 04/22/17 04/22/17 History Magnesium 200 mg PO DAILY 04/22/17 04/22/17 History Naproxen Sodium [Aleve] 220 mg PO HS PRN 04/22/17 04/22/17 History Ondansetron [Zofran ODT] 4 mg PO Q8HR PRN 04/22/17 04/22/17 History Vit A/Vit C/Vit E/Zinc/Copper 1 cap PO HS 04/22/17 04/22/17 History [ICAPS SOFTGEL] PARoxetine [Paxil] 10 mg PO DAILY 04/23/17 04/23/17 History Allergies Allergy/AdvReac Type Severity Reaction Status Date / Time venom-honey bee Allergy Unknown Anaphylaxis Verified 04/22/17 19:14 [bee venom (honey bee)] venom-wasp [Wasp Venom] Allergy Unknown Anaphylaxis Verified 04/22/17 19:14 ether Allergy Unknown Verified 04/22/17 19:14 methylprednisolone Allergy Rash/Hives Verified 04/23/17 21:00 [From Solu-Medrol] Milk Containing Products Allergy Unknown Verified 09/24/16 07:48 [Dairy] soybean Allergy Unknown Verified 04/22/17 19:14 tomato Allergy Unknown Verified 09/24/16 07:48 Surgical - Exam Vital Signs Temp Pulse Resp BP Pulse Ox 96.9 F L 104 H 18 94/53 90 L 04/22/17 17:34 04/22/17 17:34 04/22/17 17:34 04/22/17 17:34 04/22/17 17:34 - General Patient on the ventilator. - Abdomen Abdomen soft. There is mild distention. Abdomen: soft Results - Labs 04/25/17 05:00 04/25/17 05:00 Abnormal Lab Results - Last 24 Hours (Table) 04/24/17 04/24/17 04/24/17 Range/Units 14:30 15:50 19:45 WBC 36.5 H* (3.8-10.6) k/uL RBC 3.48 L (3.80-5.40) m/uL Hgb 7.5 L (11.4-16.0) gm/dL Hct 24.6 L (34.0-46.0) % MCV 70.9 L D (80.0-100.0) fL MCH 21.5 L (25.0-35.0) pg MCHC 30.4 L (31.0-37.0) g/dL Neutrophils # 33.4 H (1.3-7.7) k/uL Neutrophils # (Manual) (1.3-7.7) k/uL Lymphocytes # 0.4 L (1.0-4.8) k/uL Lymphocytes # (Manual) (1.0-4.8) k/uL Monocytes # 1.5 H (0-1.0) k/uL Monocytes # (Manual) (0-1.0) k/uL Basophils # 0.7 H (0-0.2) k/uL ABG pH 7.14 L* 7.21 L (7.35-7.45) ABG pCO2 (35-45) mmHg ABG pO2 215 H 111 H (83-108) mmHg ABG HCO3 15 L 14 L (21-25) mmol/L ABG Total CO2 16 L 16 L (19-24) mmol/L ABG O2 Saturation 100.0 H (94-97) % Sodium (137-145) mmol/L Potassium (3.5-5.1) mmol/L Carbon Dioxide (22-30) mmol/L BUN (7-17) mg/dL Creatinine (0.52-1.04) mg/dL Glucose (74-99) mg/dL POC Glucose (mg/dL) (75-99) mg/dL Calcium (8.4-10.2) mg/dL Ionized Calcium Samir (4.5-5.3) mg/dL Alkaline Phosphatase (38-126) U/L Total Protein (6.3-8.2) g/dL Albumin (3.5-5.0) g/dL 05/04/24/17 04/24/17 Range/Units 19:52 21:27 23:42 WBC (3.8-10.6) k/uL RBC (3.80-5.40) m/uL Hgb (11.4-16.0) gm/dL Hct (34.0-46.0) % MCV (80.0-100.0) fL MCH (25.0-35.0) pg MCHC (31.0-37.0) g/dL Neutrophils # (1.3-7.7) k/uL Neutrophils # (Manual) (1.3-7.7) k/uL Lymphocytes # (1.0-4.8) k/uL Lymphocytes # (Manual) (1.0-4.8) k/uL Monocytes # (0-1.0) k/uL Monocytes # (Manual) (0-1.0) k/uL Basophils # (0-0.2) k/uL ABG pH (7.35-7.45) ABG pCO2 (35-45) mmHg ABG pO2 (83-108) mmHg ABG HCO3 (21-25) mmol/L ABG Total CO2 (19-24) mmol/L ABG O2 Saturation (94-97) % Sodium (137-145) mmol/L Potassium (3.5-5.1) mmol/L Carbon Dioxide (22-30) mmol/L BUN (7-17) mg/dL Creatinine (0.52-1.04) mg/dL Glucose (74-99) mg/dL POC Glucose (mg/dL) 154 H 153 H 145 H (75-99) mg/dL Calcium (8.4-10.2) mg/dL Ionized Calcium Samir (4.5-5.3) mg/dL Alkaline Phosphatase (38-126) U/L Total Protein (6.3-8.2) g/dL Albumin (3.5-5.0) g/dL 04/25/17 04/25/17 04/25/17 Range/Units 05:00 05:00 05:04 WBC 31.0 H* (3.8-10.6) k/uL RBC 3.43 L (3.80-5.40) m/uL Hgb 7.2 L (11.4-16.0) gm/dL Hct 24.2 L (34.0-46.0) % MCV 70.7 L (80.0-100.0) fL MCH 21.0 L (25.0-35.0) pg MCHC 29.7 L (31.0-37.0) g/dL Neutrophils # (1.3-7.7) k/uL Neutrophils # (Manual) 26.0 H (1.3-7.7) k/uL Lymphocytes # (1.0-4.8) k/uL Lymphocytes # (Manual) 0.9 L (1.0-4.8) k/uL Monocytes # (0-1.0) k/uL Monocytes # (Manual) 2.2 H (0-1.0) k/uL Basophils # (0-0.2) k/uL ABG pH (7.35-7.45) ABG pCO2 (35-45) mmHg ABG pO2 (83-108) mmHg ABG HCO3 (21-25) mmol/L ABG Total CO2 (19-24) mmol/L ABG O2 Saturation (94-97) % Sodium 131 L (137-145) mmol/L Potassium 3.1 L (3.5-5.1) mmol/L Carbon Dioxide 17 L (22-30) mmol/L BUN 32 H (7-17) mg/dL Creatinine 1.90 H (0.52-1.04) mg/dL Glucose 119 H (74-99) mg/dL POC Glucose (mg/dL) 137 H (75-99) mg/dL Calcium 5.7 L* (8.4-10.2) mg/dL Ionized Calcium Samir 3.9 L (4.5-5.3) mg/dL Alkaline Phosphatase 223 H (38-126) U/L Total Protein 3.6 L (6.3-8.2) g/dL Albumin 1.6 L (3.5-5.0) g/dL 04/25/17 04/25/17 Range/Units 07:00 08:13 WBC (3.8-10.6) k/uL RBC (3.80-5.40) m/uL Hgb (11.4-16.0) gm/dL Hct (34.0-46.0) % MCV (80.0-100.0) fL MCH (25.0-35.0) pg MCHC (31.0-37.0) g/dL Neutrophils # (1.3-7.7) k/uL Neutrophils # (Manual) (1.3-7.7) k/uL Lymphocytes # (1.0-4.8) k/uL Lymphocytes # (Manual) (1.0-4.8) k/uL Monocytes # (0-1.0) k/uL Monocytes # (Manual) (0-1.0) k/uL Basophils # (0-0.2) k/uL ABG pH (7.35-7.45) ABG pCO2 33 L (35-45) mmHg ABG pO2 152 H (83-108) mmHg ABG HCO3 18 L (21-25) mmol/L ABG Total CO2 (19-24) mmol/L ABG O2 Saturation 99.0 H (94-97) % Sodium (137-145) mmol/L Potassium (3.5-5.1) mmol/L Carbon Dioxide (22-30) mmol/L BUN (7-17) mg/dL Creatinine (0.52-1.04) mg/dL Glucose (74-99) mg/dL POC Glucose (mg/dL) 102 H (75-99) mg/dL Calcium (8.4-10.2) mg/dL Ionized Calcium Samir (4.5-5.3) mg/dL Alkaline Phosphatase (38-126) U/L Total Protein (6.3-8.2) g/dL Albumin (3.5-5.0) g/dL Microbiology - Last 24 Hours (Table) 04/24/17 19:25 Gram Stain - Preliminary Sputum Sputum Culture - Preliminary 04/24/17 15:29 Stool Culture - Preliminary Stool 04/24/17 13:15 Gram Stain - Preliminary Other - Other Tissue Culture - Preliminary 04/24/17 13:15 Gram Stain - Preliminary Pericardial Fluid Body Fluid Culture - Preliminary 04/22/17 17:43 Blood Culture - Preliminary Blood No Growth after 48 hours 04/24/17 13:15 Fungal Culture - Preliminary Pericardial Fluid 04/24/17 13:15 Anaerobic Culture - Preliminary Pericardial Fluid 04/24/17 13:15 Acid Fast Bacilli Culture - Preliminary Pericardial Fluid 04/24/17 13:15 Acid Fast Bacilli Culture - Preliminary Pericardial Fluid 04/24/17 13:15 Fungal Culture - Preliminary Pericardial Fluid Diabetes panel 04/25/17 04/25/17 Range/Units 05:00 05:00 Sodium 131 L (137-145) mmol/L Potassium 3.1 L (3.5-5.1) mmol/L Chloride 104 (98-107) mmol/L Carbon Dioxide 17 L (22-30) mmol/L BUN 32 H (7-17) mg/dL Creatinine 1.90 H (0.52-1.04) mg/dL Glucose 119 H (74-99) mg/dL Hemoglobin A1c 5.9 (4.2-6.1) % Calcium 5.7 L* (8.4-10.2) mg/dL AST 26 (14-36) U/L ALT 38 (9-52) U/L Alkaline Phosphatase 223 H (38-126) U/L Total Protein 3.6 L (6.3-8.2) g/dL Albumin 1.6 L (3.5-5.0) g/dL Calcium panel 04/25/17 Range/Units 05:00 Calcium 5.7 L* (8.4-10.2) mg/dL Ionized Calcium Samir 3.9 L (4.5-5.3) mg/dL Phosphorus 2.6 (2.5-4.5) mg/dL Albumin 1.6 L (3.5-5.0) g/dL Pituitary panel 04/25/17 Range/Units 05:00 Sodium 131 L (137-145) mmol/L Potassium 3.1 L (3.5-5.1) mmol/L Chloride 104 (98-107) mmol/L Carbon Dioxide 17 L (22-30) mmol/L BUN 32 H (7-17) mg/dL Creatinine 1.90 H (0.52-1.04) mg/dL Glucose 119 H (74-99) mg/dL Calcium 5.7 L* (8.4-10.2) mg/dL Adrenal panel 04/25/17 Range/Units 05:00 Sodium 131 L (137-145) mmol/L Potassium 3.1 L (3.5-5.1) mmol/L Chloride 104 (98-107) mmol/L Carbon Dioxide 17 L (22-30) mmol/L BUN 32 H (7-17) mg/dL Creatinine 1.90 H (0.52-1.04) mg/dL Glucose 119 H (74-99) mg/dL Calcium 5.7 L* (8.4-10.2) mg/dL Total Bilirubin 0.4 (0.2-1.3) mg/dL AST 26 (14-36) U/L ALT 38 (9-52) U/L Alkaline Phosphatase 223 H (38-126) U/L Total Protein 3.6 L (6.3-8.2) g/dL Albumin 1.6 L (3.5-5.0) g/dL Assessment and Plan Plan: Possible sepsis related to bowel ischemia. Patient will need to be fluid resuscitated and optimized prior to any surgical intervention.
[2017-04-25 11:21] LABS: Glucose,Whole Blood 180 mg/dL (75-99)
--- NOTE | 2017-04-25 11:51 | P.PN ---
<Jasmine Sandesr - Last Filed: 04/25/17 11:50> Subjective Principal diagnosis: Pericardial tamponade, POD #1 pericardial window. Patient's currently sedated on mechanical ventilation with high-dose levothyroid infusing. Does open eyes and follows commands. Objective - Vital Signs Vital signs: Vital Signs Temp 97.5 F L 04/25/17 08:00 Pulse 98 04/25/17 08:00 Resp 16 04/25/17 08:00 BP 94/63 04/24/17 15:00 Pulse Ox 100 04/25/17 08:00 Intake & Output 04/24/17 04/25/17 04/25/17 18:59 06:59 18:59 Intake Total 2197.653 6571.960 397 Output Total 760 432 99 Balance 796.581 2139.960 298 Weight 40.5 kg 59 kg Intake: IV 250 72 12 Pressure Bag 72 12 Intake, IV Titration 4029.361 4643.960 385 Amount ACETAMINOPHEN IV (For NPO 100 100 100 ) 1,000 mg In Empty Bag 1 bag @ 400 mls/hr IVPB Q6HR [facility] Rx#:[id number] Calcium Gluconate 1,000 100 mg In Sodium Chloride 0.9 % 100 ml @ 100 mls/hr IVPB BID [facility] Rx#: [id number] Dextrose 5% in Water 1, 600 900 200 000 ml @ 100 mls/hr IV . [id number] [facility] with Sodium Bicarb (1 Meq/ml) 150 ml Rx#:[id number] Magnesium Sulfate-D5w Pmx 50 50 1 gm In Dextrose/Water 1 100ml.bag @ 100 mls/hr IVPB Q1H [facility] Rx#: [id number] Norepinephrin 16 mg-0.9% 500.000 Ns Pmx 16 mg In 250 ml @ Titrate IV .Q0M [facility] Rx#: [id number] Norepinephrin 4 mg-0.9% 250.000 Ns Pmx 4 mg In 250 ml @ Titrate IV .Q0M [facility] Rx#: [id number] Piperacillin-Tazobactam 3 50 50 .375 gm In Dextrose/Water 1 50ml.bag @ 12.5 mls/hr IVPB Q8HR [facility] Rx#: [id number] Potassium Chloride 20 meq 25 25 In Water For Injection 1 100ml.bag @ 50 mls/hr IVPB ONCE ONE Rx#: [id number] Propofol 500 mg In Empty 14.16 Bag 1 bag @ Titrate IV . Q0M [facility] Rx#:[id number] Sodium Chloride 0.9% 1, 210 65 10 000 ml @ 75 mls/hr IV . [id number] [facility] Rx#:[id number] Sodium Chloride 0.9% 99 2.8 ml @ 0.03 UNITS/MIN 9 mls /hr IV .Q11H7M [facility] with Vasopressin 20 unit Rx#: [id number] metroNIDAZOLE-NS PMX 500 100 100 mg In Saline 1 100ml.bag @ 100 mls/hr IVPB Q8HR [facility] Rx#:[id number] Output: Chest Tube Drainage 115 90 24 Left Lateral Chest 115 90 24 Urine 625 342 75 Estimated Blood Loss 20 Other: Voiding Method Indwelling Catheter Indwelling Catheter ABP, PAP, CO, CI - Last Documented Arterial Blood Pressure 116/49 - Constitutional General appearance: Present: no acute distress - Respiratory Details: Lungs sounds diminished bilaterally. Respirations even, nonlabored on mechanical ventilation. Current settings FiO2 50% tidal volume 400, respiratory rate 16, PEEP 8. Chest tube to waterseal, 55 mL serous fluid drained overnight, 170 mL drained since surgery, no air leak present. - Cardiovascular Details: S1, S2 present. Regular rate and rhythm, normal sinus rhythm on telemetry. Teds/SCDs present. No edema present. Currently on high-dose levo and bicarb drip. Was on vasopressin IV for short time overnight. - Gastrointestinal Gastrointestinal Comment(s): Abdomen soft, nontender, nondistended. Hypoactive bowel sounds present 4 quadrants. Stool management system in place with light brown liquid stool present. - Genitourinary Genitourinary Comment(s): Gipson present draining clear, yellow urine. Urine output 15-45 mL per hour. - Musculoskeletal Musculoskeletal: Present: strength equal bilaterally - Psychiatric Psychiatric Comment(s): Sedated on mechanical ventilation, does open eyes and follow commands. - Allied health notes Allied health notes reviewed: nursing - Labs CBC & Chem 7: 04/25/17 05:00 04/25/17 05:00 Labs: Abnormal Lab Results - Last 24 Hours (Table) 04/24/17 04/24/17 04/24/17 Range/Units 14:30 15:50 19:45 WBC 36.5 H* (3.8-10.6) k/uL RBC 3.48 L (3.80-5.40) m/uL Hgb 7.5 L (11.4-16.0) gm/dL Hct 24.6 L (34.0-46.0) % MCV 70.9 L D (80.0-100.0) fL MCH 21.5 L (25.0-35.0) pg MCHC 30.4 L (31.0-37.0) g/dL Neutrophils # 33.4 H (1.3-7.7) k/uL Neutrophils # (Manual) (1.3-7.7) k/uL Lymphocytes # 0.4 L (1.0-4.8) k/uL Lymphocytes # (Manual) (1.0-4.8) k/uL Monocytes # 1.5 H (0-1.0) k/uL Monocytes # (Manual) (0-1.0) k/uL Basophils # 0.7 H (0-0.2) k/uL ABG pH 7.14 L* 7.21 L (7.35-7.45) ABG pCO2 (35-45) mmHg ABG pO2 215 H 111 H (83-108) mmHg ABG HCO3 15 L 14 L (21-25) mmol/L ABG Total CO2 16 L 16 L (19-24) mmol/L ABG O2 Saturation 100.0 H (94-97) % Sodium (137-145) mmol/L Potassium (3.5-5.1) mmol/L Carbon Dioxide (22-30) mmol/L BUN (7-17) mg/dL Creatinine (0.52-1.04) mg/dL Glucose (74-99) mg/dL POC Glucose (mg/dL) (75-99) mg/dL Calcium (8.4-10.2) mg/dL Ionized Calcium Samir (4.5-5.3) mg/dL Alkaline Phosphatase (38-126) U/L Total Protein (6.3-8.2) g/dL Albumin (3.5-5.0) g/dL 04/24/17 04/24/17 04/24/17 Range/Units 19:52 21:27 23:42 WBC (3.8-10.6) k/uL RBC (3.80-5.40) m/uL Hgb (11.4-16.0) gm/dL Hct (34.0-46.0) % MCV (80.0-100.0) fL MCH (25.0-35.0) pg MCHC (31.0-37.0) g/dL Neutrophils # (1.3-7.7) k/uL Neutrophils # (Manual) (1.3-7.7) k/uL Lymphocytes # (1.0-4.8) k/uL Lymphocytes # (Manual) (1.0-4.8) k/uL Monocytes # (0-1.0) k/uL Monocytes # (Manual) (0-1.0) k/uL Basophils # (0-0.2) k/uL ABG pH (7.35-7.45) ABG pCO2 (35-45) mmHg ABG pO2 (83-108) mmHg ABG HCO3 (21-25) mmol/L ABG Total CO2 (19-24) mmol/L ABG O2 Saturation (94-97) % Sodium (137-145) mmol/L Potassium (3.5-5.1) mmol/L Carbon Dioxide (22-30) mmol/L BUN (7-17) mg/dL Creatinine (0.52-1.04) mg/dL Glucose (74-99) mg/dL POC Glucose (mg/dL) 154 H 153 H 145 H (75-99) mg/dL Calcium (8.4-10.2) mg/dL Ionized Calcium Samir (4.5-5.3) mg/dL Alkaline Phosphatase (38-126) U/L Total Protein (6.3-8.2) g/dL Albumin (3.5-5.0) g/dL 04/25/17 04/25/17 04/25/17 Range/Units 05:00 05:00 05:04 WBC 31.0 H* (3.8-10.6) k/uL RBC 3.43 L (3.80-5.40) m/uL Hgb 7.2 L (11.4-16.0) gm/dL Hct 24.2 L (34.0-46.0) % MCV 70.7 L (80.0-100.0) fL MCH 21.0 L (25.0-35.0) pg MCHC 29.7 L (31.0-37.0) g/dL Neutrophils # (1.3-7.7) k/uL Neutrophils # (Manual) 26.0 H (1.3-7.7) k/uL Lymphocytes # (1.0-4.8) k/uL Lymphocytes # (Manual) 0.9 L (1.0-4.8) k/uL Monocytes # (0-1.0) k/uL Monocytes # (Manual) 2.2 H (0-1.0) k/uL Basophils # (0-0.2) k/uL ABG pH (7.35-7.45) ABG pCO2 (35-45) mmHg ABG pO2 (83-108) mmHg ABG HCO3 (21-25) mmol/L ABG Total CO2 (19-24) mmol/L ABG O2 Saturation (94-97) % Sodium 131 L (137-145) mmol/L Potassium 3.1 L (3.5-5.1) mmol/L Carbon Dioxide 17 L (22-30) mmol/L BUN 32 H (7-17) mg/dL Creatinine 1.90 H (0.52-1.04) mg/dL Glucose 119 H (74-99) mg/dL POC Glucose (mg/dL) 137 H (75-99) mg/dL Calcium 5.7 L* (8.4-10.2) mg/dL Ionized Calcium Samir 3.9 L (4.5-5.3) mg/dL Alkaline Phosphatase 223 H (38-126) U/L Total Protein 3.6 L (6.3-8.2) g/dL Albumin 1.6 L (3.5-5.0) g/dL 04/25/17 04/25/17 Range/Units 07:00 08:13 WBC (3.8-10.6) k/uL RBC (3.80-5.40) m/uL Hgb (11.4-16.0) gm/dL Hct (34.0-46.0) % MCV (80.0-100.0) fL MCH (25.0-35.0) pg MCHC (31.0-37.0) g/dL Neutrophils # (1.3-7.7) k/uL Neutrophils # (Manual) (1.3-7.7) k/uL Lymphocytes # (1.0-4.8) k/uL Lymphocytes # (Manual) (1.0-4.8) k/uL Monocytes # (0-1.0) k/uL Monocytes # (Manual) (0-1.0) k/uL Basophils # (0-0.2) k/uL ABG pH (7.35-7.45) ABG pCO2 33 L (35-45) mmHg ABG pO2 152 H (83-108) mmHg ABG HCO3 18 L (21-25) mmol/L ABG Total CO2 (19-24) mmol/L ABG O2 Saturation 99.0 H (94-97) % Sodium (137-145) mmol/L Potassium (3.5-5.1) mmol/L Carbon Dioxide (22-30) mmol/L BUN (7-17) mg/dL Creatinine (0.52-1.04) mg/dL Glucose (74-99) mg/dL POC Glucose (mg/dL) 102 H (75-99) mg/dL Calcium (8.4-10.2) mg/dL Ionized Calcium Samir (4.5-5.3) mg/dL Alkaline Phosphatase (38-126) U/L Total Protein (6.3-8.2) g/dL Albumin (3.5-5.0) g/dL Microbiology - Last 24 Hours (Table) 04/24/17 19:25 Gram Stain - Preliminary Sputum Sputum Culture - Preliminary 04/24/17 15:29 Stool Culture - Preliminary Stool 04/24/17 13:15 Gram Stain - Preliminary Other - Other Tissue Culture - Preliminary 04/24/17 13:15 Gram Stain - Preliminary Pericardial Fluid Body Fluid Culture - Preliminary 04/22/17 17:43 Blood Culture - Preliminary Blood No Growth after 48 hours 04/24/17 13:15 Fungal Culture - Preliminary Pericardial Fluid 04/24/17 13:15 Anaerobic Culture - Preliminary Pericardial Fluid 04/24/17 13:15 Acid Fast Bacilli Culture - Preliminary Pericardial Fluid 04/24/17 13:15 Acid Fast Bacilli Culture - Preliminary Pericardial Fluid 04/24/17 13:15 Fungal Culture - Preliminary Pericardial Fluid - Imaging and Cardiology Chest x-ray: image reviewed Assessment and Plan (1) Pericardial effusion with cardiac tamponade Status: Acute (2) Anemia Status: Acute (3) Leukocytosis Status: Acute Plan: 1. Maintain chest tube, monitor output. 2. Wean O2 as tolerated, ventilator management per pulmonary. 3. Wean pressors when able. 4. Comorbid medical issues to be managed by internal medicine/pulmonology. 5. GI/DVT prophylaxis. 6. Replace potassium, magnesium, calcium per protocol. 7. More recommendations as patient progresses. Time with Patient: Greater than 30 <Rakesh Saleem - Last Filed: 04/25/17 12:04> Objective - Vital Signs Vital signs: Vital Signs Temp 97.5 F L 04/25/17 08:00 Pulse 96 04/25/17 11:00 Resp 15 04/25/17 11:00 BP 94/63 04/24/17 15:00 Pulse Ox 98 04/25/17 11:00 Intake & Output 04/24/17 04/25/17 04/25/17 18:59 06:59 18:59 Intake Total 7593.987 0760.960 1095 Output Total 760 432 383 Balance 170.048 9389.960 712 Weight 40.5 kg 59 kg Intake: IV 250 72 30 Pressure Bag 72 30 Intake, IV Titration 4380.873 1754.960 1065 Amount ACETAMINOPHEN IV (For NPO 100 100 100 ) 1,000 mg In Empty Bag 1 bag @ 400 mls/hr IVPB Q6HR [facility] Rx#:[id number] Calcium Gluconate 1,000 100 100 mg In Sodium Chloride 0.9 % 100 ml @ 100 mls/hr IVPB BID [facility] Rx#: [id number] Dextrose 5% in Water 1, 600 900 500 000 ml @ 100 mls/hr IV . [id number] [facility] with Sodium Bicarb (1 Meq/ml) 150 ml Rx#:[id number] Magnesium Sulfate-D5w Pmx 50 150 1 gm In Dextrose/Water 1 100ml.bag @ 100 mls/hr IVPB Q1H [facility] Rx#: [id number] Norepinephrin 16 mg-0.9% 500.000 Ns Pmx 16 mg In 250 ml @ Titrate IV .Q0M [facility] Rx#: [id number] Norepinephrin 4 mg-0.9% 250.000 Ns Pmx 4 mg In 250 ml @ Titrate IV .Q0M [facility] Rx#: [id number] Piperacillin-Tazobactam 3 50 50 50 .375 gm In Dextrose/Water 1 50ml.bag @ 12.5 mls/hr IVPB Q8HR [facility] Rx#: [id number] Potassium Chloride 20 meq 25 25 In Water For Injection 1 100ml.bag @ 50 mls/hr IVPB ONCE ONE Rx#: [id number] Propofol 500 mg In Empty 14.16 Bag 1 bag @ Titrate IV . Q0M [facility] Rx#:[id number] Sodium Chloride 0.9% 1, 210 65 40 000 ml @ 75 mls/hr IV . [id number] [facility] Rx#:[id number] Sodium Chloride 0.9% 99 2.8 ml @ 0.03 UNITS/MIN 9 mls /hr IV .Q11H7M [facility] with Vasopressin 20 unit Rx#: [id number] metroNIDAZOLE-NS PMX 500 100 100 100 mg In Saline 1 100ml.bag @ 100 mls/hr IVPB Q8HR [facility] Rx#:[id number] Output: Chest Tube Drainage 115 90 48 Left Lateral Chest 115 90 48 Urine 625 342 335 Estimated Blood Loss 20 Other: Voiding Method Indwelling Catheter Indwelling Catheter Indwelling Catheter ABP, PAP, CO, CI - Last Documented Arterial Blood Pressure 116/48 - Labs CBC & Chem 7: 04/25/17 05:00 04/25/17 05:00 Labs: Abnormal Lab Results - Last 24 Hours (Table) 04/24/17 04/24/17 04/24/17 Range/Units 14:30 15:50 19:45 WBC 36.5 H* (3.8-10.6) k/uL RBC 3.48 L (3.80-5.40) m/uL Hgb 7.5 L (11.4-16.0) gm/dL Hct 24.6 L (34.0-46.0) % MCV 70.9 L D (80.0-100.0) fL MCH 21.5 L (25.0-35.0) pg MCHC 30.4 L (31.0-37.0) g/dL Neutrophils # 33.4 H (1.3-7.7) k/uL Neutrophils # (Manual) (1.3-7.7) k/uL Lymphocytes # 0.4 L (1.0-4.8) k/uL Lymphocytes # (Manual) (1.0-4.8) k/uL Monocytes # 1.5 H (0-1.0) k/uL Monocytes # (Manual) (0-1.0) k/uL Basophils # 0.7 H (0-0.2) k/uL ABG pH 7.14 L* 7.21 L (7.35-7.45) ABG pCO2 (35-45) mmHg ABG pO2 215 H 111 H (83-108) mmHg ABG HCO3 15 L 14 L (21-25) mmol/L ABG Total CO2 16 L 16 L (19-24) mmol/L ABG O2 Saturation 100.0 H (94-97) % Sodium (137-145) mmol/L Potassium (3.5-5.1) mmol/L Carbon Dioxide (22-30) mmol/L BUN (7-17) mg/dL Creatinine (0.52-1.04) mg/dL Glucose (74-99) mg/dL POC Glucose (mg/dL) (75-99) mg/dL Calcium (8.4-10.2) mg/dL Ionized Calcium Samir (4.5-5.3) mg/dL Alkaline Phosphatase (38-126) U/L Total Protein (6.3-8.2) g/dL Albumin (3.5-5.0) g/dL 04/24/17 04/24/17 04/24/17 Range/Units 19:52 21:27 23:42 WBC (3.8-10.6) k/uL RBC (3.80-5.40) m/uL Hgb (11.4-16.0) gm/dL Hct (34.0-46.0) % MCV (80.0-100.0) fL MCH (25.0-35.0) pg MCHC (31.0-37.0) g/dL Neutrophils # (1.3-7.7) k/uL Neutrophils # (Manual) (1.3-7.7) k/uL Lymphocytes # (1.0-4.8) k/uL Lymphocytes # (Manual) (1.0-4.8) k/uL Monocytes # (0-1.0) k/uL Monocytes # (Manual) (0-1.0) k/uL Basophils # (0-0.2) k/uL ABG pH (7.35-7.45) ABG pCO2 (35-45) mmHg ABG pO2 (83-108) mmHg ABG HCO3 (21-25) mmol/L ABG Total CO2 (19-24) mmol/L ABG O2 Saturation (94-97) % Sodium (137-145) mmol/L Potassium (3.5-5.1) mmol/L Carbon Dioxide (22-30) mmol/L BUN (7-17) mg/dL Creatinine (0.52-1.04) mg/dL Glucose (74-99) mg/dL POC Glucose (mg/dL) 154 H 153 H 145 H (75-99) mg/dL Calcium (8.4-10.2) mg/dL Ionized Calcium Samir (4.5-5.3) mg/dL Alkaline Phosphatase (38-126) U/L Total Protein (6.3-8.2) g/dL Albumin (3.5-5.0) g/dL 04/25/17 04/25/17 04/25/17 Range/Units 05:00 05:00 05:04 WBC 31.0 H* (3.8-10.6) k/uL RBC 3.43 L (3.80-5.40) m/uL Hgb 7.2 L (11.4-16.0) gm/dL Hct 24.2 L (34.0-46.0) % MCV 70.7 L (80.0-100.0) fL MCH 21.0 L (25.0-35.0) pg MCHC 29.7 L (31.0-37.0) g/dL Neutrophils # (1.3-7.7) k/uL Neutrophils # (Manual) 26.0 H (1.3-7.7) k/uL Lymphocytes # (1.0-4.8) k/uL Lymphocytes # (Manual) 0.9 L (1.0-4.8) k/uL Monocytes # (0-1.0) k/uL Monocytes # (Manual) 2.2 H (0-1.0) k/uL Basophils # (0-0.2) k/uL ABG pH (7.35-7.45) ABG pCO2 (35-45) mmHg ABG pO2 (83-108) mmHg ABG HCO3 (21-25) mmol/L ABG Total CO2 (19-24) mmol/L ABG O2 Saturation (94-97) % Sodium 131 L (137-145) mmol/L Potassium 3.1 L (3.5-5.1) mmol/L Carbon Dioxide 17 L (22-30) mmol/L BUN 32 H (7-17) mg/dL Creatinine 1.90 H (0.52-1.04) mg/dL Glucose 119 H (74-99) mg/dL POC Glucose (mg/dL) 137 H (75-99) mg/dL Calcium 5.7 L* (8.4-10.2) mg/dL Ionized Calcium Samir 3.9 L (4.5-5.3) mg/dL Alkaline Phosphatase 223 H (38-126) U/L Total Protein 3.6 L (6.3-8.2) g/dL Albumin 1.6 L (3.5-5.0) g/dL 04/25/17 04/25/17 04/25/17 Range/Units 07:00 08:13 11:19 WBC (3.8-10.6) k/uL RBC (3.80-5.40) m/uL Hgb (11.4-16.0) gm/dL Hct (34.0-46.0) % MCV (80.0-100.0) fL MCH (25.0-35.0) pg MCHC (31.0-37.0) g/dL Neutrophils # (1.3-7.7) k/uL Neutrophils # (Manual) (1.3-7.7) k/uL Lymphocytes # (1.0-4.8) k/uL Lymphocytes # (Manual) (1.0-4.8) k/uL Monocytes # (0-1.0) k/uL Monocytes # (Manual) (0-1.0) k/uL Basophils # (0-0.2) k/uL ABG pH (7.35-7.45) ABG pCO2 33 L (35-45) mmHg ABG pO2 152 H (83-108) mmHg ABG HCO3 18 L (21-25) mmol/L ABG Total CO2 (19-24) mmol/L ABG O2 Saturation 99.0 H (94-97) % Sodium (137-145) mmol/L Potassium (3.5-5.1) mmol/L Carbon Dioxide (22-30) mmol/L BUN (7-17) mg/dL Creatinine (0.52-1.04) mg/dL Glucose (74-99) mg/dL POC Glucose (mg/dL) 102 H 180 H (75-99) mg/dL Calcium (8.4-10.2) mg/dL Ionized Calcium Samir (4.5-5.3) mg/dL Alkaline Phosphatase (38-126) U/L Total Protein (6.3-8.2) g/dL Albumin (3.5-5.0) g/dL 04/25/17 Range/Units 12:00 WBC (3.8-10.6) k/uL RBC (3.80-5.40) m/uL Hgb (11.4-16.0) gm/dL Hct (34.0-46.0) % MCV (80.0-100.0) fL MCH (25.0-35.0) pg MCHC (31.0-37.0) g/dL Neutrophils # (1.3-7.7) k/uL Neutrophils # (Manual) (1.3-7.7) k/uL Lymphocytes # (1.0-4.8) k/uL Lymphocytes # (Manual) (1.0-4.8) k/uL Monocytes # (0-1.0) k/uL Monocytes # (Manual) (0-1.0) k/uL Basophils # (0-0.2) k/uL ABG pH (7.35-7.45) ABG pCO2 (35-45) mmHg ABG pO2 (83-108) mmHg ABG HCO3 (21-25) mmol/L ABG Total CO2 (19-24) mmol/L ABG O2 Saturation (94-97) % Sodium (137-145) mmol/L Potassium (3.5-5.1) mmol/L Carbon Dioxide (22-30) mmol/L BUN (7-17) mg/dL Creatinine (0.52-1.04) mg/dL Glucose (74-99) mg/dL POC Glucose (mg/dL) 144 H (75-99) mg/dL Calcium (8.4-10.2) mg/dL Ionized Calcium Samir (4.5-5.3) mg/dL Alkaline Phosphatase (38-126) U/L Total Protein (6.3-8.2) g/dL Albumin (3.5-5.0) g/dL Microbiology - Last 24 Hours (Table) 04/24/17 13:15 Gram Stain - Preliminary Pericardial Fluid Body Fluid Culture - Preliminary 04/24/17 13:15 Gram Stain - Preliminary Other - Other Tissue Culture - Preliminary 04/24/17 19:25 Gram Stain - Preliminary Sputum Sputum Culture - Preliminary 04/24/17 15:29 Stool Culture - Preliminary Stool 04/22/17 17:43 Blood Culture - Preliminary Blood No Growth after 48 hours 04/24/17 13:15 Fungal Culture - Preliminary Pericardial Fluid 04/24/17 13:15 Anaerobic Culture - Preliminary Pericardial Fluid 04/24/17 13:15 Acid Fast Bacilli Culture - Preliminary Pericardial Fluid 04/24/17 13:15 Acid Fast Bacilli Culture - Preliminary Pericardial Fluid 04/24/17 13:15 Fungal Culture - Preliminary Pericardial Fluid Assessment and Plan (1) Pericardial effusion Status: Acute Plan: The patient was seen and examined. Agree with the above assessment and plan. Her chest tube is currently on waterseal. It continues to drain. Cultures from the operating room are negative thus far. Additional care as directed by the primary service.
[2017-04-25 12:02] LABS: Glucose,Whole Blood 144 mg/dL (75-99)
--- NOTE | 2017-04-25 12:08 | OP ---
DATE OF SERVICE: 04/24/2017 SURGEON: Rakesh Saleem MD [employer]: AMILCAR ANDREWS PREOPERATIVE DIAGNOSIS: Cardiac tamponade. POSTOPERATIVE DIAGNOSIS: Cardiac tamponade. OPERATION: Pericardial window ANESTHESIA: General anesthesia. ESTIMATED BLOOD LOSS: Minimal. SPECIMENS REMOVED: 1. Pericardial tissue. 2. Pericardial fluid. COMPLICATIONS: None. OPERATIVE FINDINGS: INDICATION: The patient is an 82-year-old female with a history of multiple medical problems, who presented to the hospital with sepsis and hypotension. Echocardiogram this morning revealed a moderate size pericardial effusion with evidence of tamponade. Given her hypertension despite being on high-dose pressors, pericardial window was recommended. The risks, benefits, alternatives to this procedure were discussed with the patient's son. All of his questions were answered. Consent was obtained. He agreed to rescind the patient's DO NOT RESUSCITATE order for the operation. FINDINGS: There was approximately 250 mL of serous fluid drained from the pericardial space. PROCEDURE IN DETAIL: The patient was taken to the operating room, placed supine on operating table. After induction of general anesthesia, she was prepped and draped in the usual sterile fashion. Her hemodynamics did not really change after initiation of general anesthesia. A vertical incision was made in the epigastric region. Dissection was taken down through the subcutaneous tissue. Dissection was carried out below the left costal cartilage border. The pericardium was identified. A small incision was created. Approximately 250 mL of serous fluid was drained. A portion of this fluid was sent for microbiology. A section of the pericardium itself was then excised. A portion of this was sent to pathology and the remainder sent to microbiology. Hemostasis was assured. A right angle 32 [place] chest tube was placed and directed into retrocardiac position. It was secured to the skin using a suture. The wound was then closed in layers. A sterile dressing was applied. The patient appeared to tolerate the procedure well. There was no change in her hemodynamics after drainage of the fluid. The fluid did not appear to be under pressure. She returned to the ICU intubated in critical condition.
--- NOTE | 2017-04-25 12:57 | P.PN ---
Subjective Principal diagnosis: Acute hypoxic respiratory failure secondary to acute abdominal sepsis. This is an 82-year-old female with history of multiple medical problems including GERD, irritable bowel syndrome, depression, patient had recent workup at [facility] for blindness, and apparently she had suboptimal optic nerve studies patient was recently noted to be legally blind. Patient was brought into the ER on 04/22/2017 with altered mental status, not feeling well, not eating appropriately. Patient was felt to be dehydrated, patient was also admitted for her multiple constitutional symptoms has been receiving fluids, she had screening for colitis/C. difficile colitis and I was negative. Patient was also noted to have significant leukocytosis. At any rate patient became hypotensive on the medical floor yesterday, and arrangements were made to transfer the patient to the ICU. Multiple fluid boluses were given, her blood pressure remained low, hence norepinephrine was started. CT of the chest questioned a nikkie cardiac effusion, echocardiogram this morning showed possible early tampnade. Patient was already maximized on norepinephrine, she was already maximized on fluids, and a sodium bicarb drip was initiated for metabolic acidosis. CT of the abdomen and pelvis was suggestive of possible enteritis, possible bowel ischemia and possible bowel obstruction. General surgery consultation was also initiated. Shortly after evaluating the patient in the ICU, I recommended a cardiac surgery consultation for her abnormal CT of the chest showing pericardial effusion, and abnormal echocardiogram suggestive of impending tamponade. Patient underwent surgical exploration and her pericardial fluid was drained by cardiac surgery. She was later sent back to the ICU on mechanical ventilation. Labs showed significant leukocytosis with WBC count of 43.5 hemoglobin is 8.0 ABG post surgery showed a pO2 of 215 pCO2 of 45 pH of 7.14. Patient remains on sodium bicarb drip at this point for her profound metabolic acidosis picture. Lactic acid has been in the range of 1- 1.4 at the most. Patient was reevaluated today on 04/25/2017, remains on mechanical ventilation, however I was able to cut down the FiO2 to 45%, and PEEP down to 5. Her oxygenation seems to be excellent, her ABG showed a pO2 of 152 pCO2 of 33 pH of 7.35. Patient remains on sodium bicarb drip for her severe metabolic acidosis. And that will continue today since the patient remains acidotic. Her chest x- ray showed evidence of pulmonary edema, hence I went ahead and recommended a dose of Lasix 40 mg IV push. Her urine output is marginal about 50 mL per hour. Renal profile showed a BUN of 52 creatinine of 1.90, slightly worse compared to yesterday's renal profile. But not as bad as expected considering the profound hypotension that the patient had upon presentation. Last lactic acid was 1.4. Liver enzymes were noted to be unremarkable. Patient continues to have leukocytosis with WBC count of 31.0, hemoglobin is 7.2. Patient will likely benefit from a unit of packed RBCs at this point, and I will go ahead and recommend 1 unit hoping it would actually improve her hypotension, and will likely be able to cut down on the dose of norepinephrine. Patient was given 40 mg of Lasix IV push, not much improvement in her urine output was noted. Patient was seen by general surgery on consultation, felt that the patient has sepsis related to bowel ischemia, however the patient at present is not a good surgical candidate for abdominal exploration/exploratory laparotomy. She needs to be more stabilized. All her meds were reviewed, Objective - Vital Signs Vital signs: Vital Signs Temp 97.5 F L 04/25/17 08:00 Pulse 95 04/25/17 12:30 Resp 16 04/25/17 12:30 BP 94/63 04/24/17 15:00 Pulse Ox 98 04/25/17 12:30 Intake & Output 04/24/17 04/25/17 04/25/17 18:59 06:59 18:59 Intake Total 3524.155 0414.960 1095 Output Total 760 432 383 Balance 668.210 8427.960 712 Weight 40.5 kg 59 kg Intake: IV 250 72 30 Pressure Bag 72 30 Intake, IV Titration 3209.914 9053.960 1065 Amount ACETAMINOPHEN IV (For NPO 100 100 100 ) 1,000 mg In Empty Bag 1 bag @ 400 mls/hr IVPB Q6HR [facility] Rx#:[id number] Calcium Gluconate 1,000 100 100 mg In Sodium Chloride 0.9 % 100 ml @ 100 mls/hr IVPB BID [facility] Rx#: [id number] Dextrose 5% in Water 1, 600 900 500 000 ml @ 100 mls/hr IV . [id number] [facility] with Sodium Bicarb (1 Meq/ml) 150 ml Rx#:[id number] Magnesium Sulfate-D5w Pmx 50 150 1 gm In Dextrose/Water 1 100ml.bag @ 100 mls/hr IVPB Q1H [facility] Rx#: [id number] Norepinephrin 16 mg-0.9% 500.000 Ns Pmx 16 mg In 250 ml @ Titrate IV .Q0M [facility] Rx#: [id number] Norepinephrin 4 mg-0.9% 250.000 Ns Pmx 4 mg In 250 ml @ Titrate IV .Q0M [facility] Rx#: [id number] Piperacillin-Tazobactam 3 50 50 50 .375 gm In Dextrose/Water 1 50ml.bag @ 12.5 mls/hr IVPB Q8HR [facility] Rx#: [id number] Potassium Chloride 20 meq 25 25 In Water For Injection 1 100ml.bag @ 50 mls/hr IVPB ONCE ONE Rx#: [id number] Propofol 500 mg In Empty 14.16 Bag 1 bag @ Titrate IV . Q0M [facility] Rx#:[id number] Sodium Chloride 0.9% 1, 210 65 40 000 ml @ 75 mls/hr IV . [id number] [facility] Rx#:[id number] Sodium Chloride 0.9% 99 2.8 ml @ 0.03 UNITS/MIN 9 mls /hr IV .[id number] [facility] with Vasopressin 20 unit Rx#: [id number] metroNIDAZOLE-NS PMX 500 100 100 100 mg In Saline 1 100ml.bag @ 100 mls/hr IVPB Q8HR [facility] Rx#:[id number] Output: Chest Tube Drainage 115 90 48 Left Lateral Chest 115 90 48 Urine 625 342 335 Estimated Blood Loss 20 Other: Voiding Method Indwelling Catheter Indwelling Catheter Indwelling Catheter ABP, PAP, CO, CI - Last Documented Arterial Blood Pressure 107/46 - Exam Physical Exam: Revealed an 82-year-old female, cachectic, frail looking, legally blind, on mechanical ventilation, patient is sedated on propofol. HEENT:[Neck is supple.] [No neck masses.] [No thyromegaly.] [Positive JVD.] Endotracheal tube is intact. And nasogastric tube is intact. Chest: [Crackles and rhonchi bilaterally were noted.] Cardiac Exam: [Normal S1 and S2, no S3 gallop, positive pericardial rub Abdomen: [Soft, nontender, no megaly, no rebound, no guarding, negative bowel sounds Extremities: [No clubbing, 1+ bipedal edema, no cyanosis.] Neurological Exam: Cannot be assessed, patient is fully sedated on propofol. - Labs CBC & Chem 7: 04/25/17 05:00 04/25/17 05:00 Labs: Abnormal Lab Results - Last 24 Hours (Table) 04/24/17 04/24/17 04/24/17 Range/Units 14:30 15:50 19:45 WBC 36.5 H* (3.8-10.6) k/uL RBC 3.48 L (3.80-5.40) m/uL Hgb 7.5 L (11.4-16.0) gm/dL Hct 24.6 L (34.0-46.0) % MCV 70.9 L D (80.0-100.0) fL MCH 21.5 L (25.0-35.0) pg MCHC 30.4 L (31.0-37.0) g/dL Neutrophils # 33.4 H (1.3-7.7) k/uL Neutrophils # (Manual) (1.3-7.7) k/uL Lymphocytes # 0.4 L (1.0-4.8) k/uL Lymphocytes # (Manual) (1.0-4.8) k/uL Monocytes # 1.5 H (0-1.0) k/uL Monocytes # (Manual) (0-1.0) k/uL Basophils # 0.7 H (0-0.2) k/uL ABG pH 7.14 L* 7.21 L (7.35-7.45) ABG pCO2 (35-45) mmHg ABG pO2 215 H 111 H (83-108) mmHg ABG HCO3 15 L 14 L (21-25) mmol/L ABG Total CO2 16 L 16 L (19-24) mmol/L ABG O2 Saturation 100.0 H (94-97) % Sodium (137-145) mmol/L Potassium (3.5-5.1) mmol/L Carbon Dioxide (22-30) mmol/L BUN (7-17) mg/dL Creatinine (0.52-1.04) mg/dL Glucose (74-99) mg/dL POC Glucose (mg/dL) (75-99) mg/dL Calcium (8.4-10.2) mg/dL Ionized Calcium Samir (4.5-5.3) mg/dL Alkaline Phosphatase (38-126) U/L Total Protein (6.3-8.2) g/dL Albumin (3.5-5.0) g/dL 04/24/17 04/24/17 04/24/17 Range/Units 19:52 21:27 23:42 WBC (3.8-10.6) k/uL RBC (3.80-5.40) m/uL Hgb (11.4-16.0) gm/dL Hct (34.0-46.0) % MCV (80.0-100.0) fL MCH (25.0-35.0) pg MCHC (31.0-37.0) g/dL Neutrophils # (1.3-7.7) k/uL Neutrophils # (Manual) (1.3-7.7) k/uL Lymphocytes # (1.0-4.8) k/uL Lymphocytes # (Manual) (1.0-4.8) k/uL Monocytes # (0-1.0) k/uL Monocytes # (Manual) (0-1.0) k/uL Basophils # (0-0.2) k/uL ABG pH (7.35-7.45) ABG pCO2 (35-45) mmHg ABG pO2 (83-108) mmHg ABG HCO3 (21-25) mmol/L ABG Total CO2 (19-24) mmol/L ABG O2 Saturation (94-97) % Sodium (137-145) mmol/L Potassium (3.5-5.1) mmol/L Carbon Dioxide (22-30) mmol/L BUN (7-17) mg/dL Creatinine (0.52-1.04) mg/dL Glucose (74-99) mg/dL POC Glucose (mg/dL) 154 H 153 H 145 H (75-99) mg/dL Calcium (8.4-10.2) mg/dL Ionized Calcium Samir (4.5-5.3) mg/dL Alkaline Phosphatase (38-126) U/L Total Protein (6.3-8.2) g/dL Albumin (3.5-5.0) g/dL 05/29/17 05/29/17 05/29/17 Range/Units 05:00 05:00 05:04 WBC 31.0 H* (3.8-10.6) k/uL RBC 3.43 L (3.80-5.40) m/uL Hgb 7.2 L (11.4-16.0) gm/dL Hct 24.2 L (34.0-46.0) % MCV 70.7 L (80.0-100.0) fL MCH 21.0 L (25.0-35.0) pg MCHC 29.7 L (31.0-37.0) g/dL Neutrophils # (1.3-7.7) k/uL Neutrophils # (Manual) 26.0 H (1.3-7.7) k/uL Lymphocytes # (1.0-4.8) k/uL Lymphocytes # (Manual) 0.9 L (1.0-4.8) k/uL Monocytes # (0-1.0) k/uL Monocytes # (Manual) 2.2 H (0-1.0) k/uL Basophils # (0-0.2) k/uL ABG pH (7.35-7.45) ABG pCO2 (35-45) mmHg ABG pO2 (83-108) mmHg ABG HCO3 (21-25) mmol/L ABG Total CO2 (19-24) mmol/L ABG O2 Saturation (94-97) % Sodium 131 L (137-145) mmol/L Potassium 3.1 L (3.5-5.1) mmol/L Carbon Dioxide 17 L (22-30) mmol/L BUN 32 H (7-17) mg/dL Creatinine 1.90 H (0.52-1.04) mg/dL Glucose 119 H (74-99) mg/dL POC Glucose (mg/dL) 137 H (75-99) mg/dL Calcium 5.7 L* (8.4-10.2) mg/dL Ionized Calcium Samir 3.9 L (4.5-5.3) mg/dL Alkaline Phosphatase 223 H (38-126) U/L Total Protein 3.6 L (6.3-8.2) g/dL Albumin 1.6 L (3.5-5.0) g/dL 04/25/17 04/25/17 04/25/17 Range/Units 07:00 08:13 11:19 WBC (3.8-10.6) k/uL RBC (3.80-5.40) m/uL Hgb (11.4-16.0) gm/dL Hct (34.0-46.0) % MCV (80.0-100.0) fL MCH (25.0-35.0) pg MCHC (31.0-37.0) g/dL Neutrophils # (1.3-7.7) k/uL Neutrophils # (Manual) (1.3-7.7) k/uL Lymphocytes # (1.0-4.8) k/uL Lymphocytes # (Manual) (1.0-4.8) k/uL Monocytes # (0-1.0) k/uL Monocytes # (Manual) (0-1.0) k/uL Basophils # (0-0.2) k/uL ABG pH (7.35-7.45) ABG pCO2 33 L (35-45) mmHg ABG pO2 152 H (83-108) mmHg ABG HCO3 18 L (21-25) mmol/L ABG Total CO2 (19-24) mmol/L ABG O2 Saturation 99.0 H (94-97) % Sodium (137-145) mmol/L Potassium (3.5-5.1) mmol/L Carbon Dioxide (22-30) mmol/L BUN (7-17) mg/dL Creatinine (0.52-1.04) mg/dL Glucose (74-99) mg/dL POC Glucose (mg/dL) 102 H 180 H (75-99) mg/dL Calcium (8.4-10.2) mg/dL Ionized Calcium Samir (4.5-5.3) mg/dL Alkaline Phosphatase (38-126) U/L Total Protein (6.3-8.2) g/dL Albumin (3.5-5.0) g/dL 04/25/17 Range/Units 12:00 WBC (3.8-10.6) k/uL RBC (3.80-5.40) m/uL Hgb (11.4-16.0) gm/dL Hct (34.0-46.0) % MCV (80.0-100.0) fL MCH (25.0-35.0) pg MCHC (31.0-37.0) g/dL Neutrophils # (1.3-7.7) k/uL Neutrophils # (Manual) (1.3-7.7) k/uL Lymphocytes # (1.0-4.8) k/uL Lymphocytes # (Manual) (1.0-4.8) k/uL Monocytes # (0-1.0) k/uL Monocytes # (Manual) (0-1.0) k/uL Basophils # (0-0.2) k/uL ABG pH (7.35-7.45) ABG pCO2 (35-45) mmHg ABG pO2 (83-108) mmHg ABG HCO3 (21-25) mmol/L ABG Total CO2 (19-24) mmol/L ABG O2 Saturation (94-97) % Sodium (137-145) mmol/L Potassium (3.5-5.1) mmol/L Carbon Dioxide (22-30) mmol/L BUN (7-17) mg/dL Creatinine (0.52-1.04) mg/dL Glucose (74-99) mg/dL POC Glucose (mg/dL) 144 H (75-99) mg/dL Calcium (8.4-10.2) mg/dL Ionized Calcium Samir (4.5-5.3) mg/dL Alkaline Phosphatase (38-126) U/L Total Protein (6.3-8.2) g/dL Albumin (3.5-5.0) g/dL Microbiology - Last 24 Hours (Table) 04/24/17 13:15 Gram Stain - Preliminary Pericardial Fluid Body Fluid Culture - Preliminary 04/24/17 13:15 Gram Stain - Preliminary Other - Other Tissue Culture - Preliminary 04/24/17 19:25 Gram Stain - Preliminary Sputum Sputum Culture - Preliminary 04/24/17 15:29 Stool Culture - Preliminary Stool 04/22/17 17:43 Blood Culture - Preliminary Blood No Growth after 48 hours 04/24/17 13:15 Fungal Culture - Preliminary Pericardial Fluid 04/24/17 13:15 Anaerobic Culture - Preliminary Pericardial Fluid 04/24/17 13:15 Acid Fast Bacilli Culture - Preliminary Pericardial Fluid 04/24/17 13:15 Acid Fast Bacilli Culture - Preliminary Pericardial Fluid 04/24/17 13:15 Fungal Culture - Preliminary Pericardial Fluid Assessment and Plan Plan: Impression 1 acute hypoxic respiratory failure secondary to abdominal sepsis, colitis/ gastroenteritis, possible ischemic bowel. This is clearly a picture of septic shock. Patient will remain on mechanical ventilation, FiO2 was cut down to 45% , PEEP was cut down to 5. 2 pericardial effusion with impending cardiac tamponade, requiring surgical intervention as per cardiothoracic surgery. Postoperative day #1 3 profound hypotension requiring fluid boluses, norepinephrine,, presently at 35 mcg/m. 4 acute septic shock, most likely source is going to be the GI tract unless proven otherwise. Patient was seen by general surgery on consultation, however she is not a good candidate for exploratory laparotomy at this point. 5 postoperative anemia, hemoglobin is 7.2, with hypotension, hence I believe the patient will likely benefit from a unit of packed RBCs transfused today, hoping to cut down on the dose of norepinephrine and improve her overall tissue perfusion. 5 multiple comorbidities including anemia, electrolyte imbalance, hypoalbuminemia and moderate protein calorie malnutrition, history of irritable bowel syndrome, history of degenerative joint disease, and history of sudden loss of vision requiring significant workup recently at [facility]. Recommendation: Continue present supportive care measures including fluids, pressors, antibiotics, GI and DVT prophylaxis, strongly doubt the patient can't tolerate any abdominal surgical intervention at this point. General surgery was consulted, however the patient is not an ideal candidate for abdominal exploration/exploratory laparotomy. We'll continue to follow, infectious disease consultation will be initiated. Discussed her condition with family at bedside, and made it clear that if the patient does not improve much over the next 24-48 hours, comfort care measures could be considered and initiated at that point. Critical care time is 35 minutes. Time with Patient: Greater than 30
--- NOTE | 2017-04-25 13:11 | CONS ---
DATE OF CONSULTATION: 04/24/17 REASON FOR CONSULTATION: Sepsis. HISTORY OF PRESENT ILLNESS: The patient is an 82-year-old female who was brought into the ER at [facility] on 04/22/2017 with chief complaints of mental status changes, not feeling well and not eating well. The patient was complained of some abdominal pain. No nausea, vomiting or any fever. The patient did have acute abdominal bleed followed by a CT of abdomen and pelvis and chest, which did correlate for enteritis, cannot exclude bowel ischemia, present within the colon, possible bowel obstruction, noncontrast exam. Patient did not have any fever on arrival to the ER. The patient did have elevated white count 30.3 that jumped to 43.5 in a patient with evidence of pericardial effusion and tamponade phenomenon for which the patient may be taken to the OR for pericardial window. Because of worsening leukocytosis and hypertension requiring pressor support I was asked to see the patient for recommendation regarding antibiotic therapy. The patient currently being treated with broad spectrum antibiotics in the form of Vanco, Zosyn and Levaquin. All of this information has been obtained from review of the chart and talking to the nursing staff as the patient is currently intubated on the vent and unable to provide any history and no family member available at the bedside. Review of systems could not be reliably obtained, the positive points have been mentioned in HPI. PAST MEDICAL HISTORY: Significant for gastroesophageal reflux disease, irritable bowel syndrome, depression, and legally blind, IBS. PAST SURGICAL HISTORY: Appendectomy, deviated septum repair, bilateral shoulder surgery. SOCIAL HISTORY: Remote history of smoking. No drinking or drug use. FAMILY HISTORY: Father with history of ID and heart failure. Allergies to multiple medications including methylprednisolone containing products. Medications include patient is currently on Tylenol, DuoNeb, Xanax, Bentyl, Lovenox, Flonase, Humalog, Synthroid, Imodium, vancomycin pharmacy to dose, Levophed, Protonix, pip-tazobactam, propofol, vasopressin. On examination, blood pressure is 93/43, pulse of 110, temperature of 98.1. She is 100% on 60% FiO2. General description is an elderly female lying in bed in no distress. No tachypnea or accessory muscles of respiration use. HEENT examination shows pallor, no scleral icterus. The patient is orally intubated limiting examination of oral cavity. NECK: Trachea central. No thyromegaly. LUNGS: Unlabored breathing. Decreased breath sounds at the base. No wheeze. HEART: S1, S2 with regular rate and rhythm. ABDOMEN: Soft, slightly distended. No guarding or rigidity. No organomegaly. EXTREMITIES: No edema of feet. SKIN: No rash or mass palpable. NEUROLOGICAL: The patient is intubated on the vent and sedated. Neuro exam could not be completed. LABS: Hemoglobin is 7.5, white count 6.5 with a BUN of 31, creatinine 1.70. Electrolytes have been normal. Liver enzymes are normal. Stool for C. difficile was negative. DIAGNOSTIC IMPRESSION AND PLAN: Patient with sepsis in patient who did have evidence of hypotension requiring fluid boluses in a patient who did have significant elevated white count. Source is more likely abdomen. Patient came to hospital with abdominal pain, some nausea and vomiting and did have diarrhea. Stool for C. difficile has been ruled out; however, underlying abdominal ischemia could not be entirely excluded in view of the CT findings and abdominal symptoms on presentation and no other clinical foci of infection. CT of the chest did not show any evidence of pneumonia and no evidence of any cellulitis or urinary tract infection. PLAN: 1. The patient will also get stool for a stool for C. diff by PCR and stool cultures. 2. Vancomycin will be continued along with Zosyn to provide coverage. Will add Flagyl and discontinue Levaquin. 3. Will follow up on the clinical condition and cultures to further adjust the medication if needed. Thank you for this consultation. We will follow this patient along with you. YULY
[2017-04-25] MEDS: PROPOFOL 500 MG in EMPTY BAG 1 BAG IV SCH ×2 (14:11→23:50)
[2017-04-25 16:01] LABS: Glucose,Whole Blood 139 mg/dL (75-99)
[2017-04-25] MEDS ORDERED: Potassium Replacement Protocol 1 EACH MISC MISCELLANE PRN (16:07)
[2017-04-25] MEDS ORDERED: VANCOMYCIN 1,000 MG in SODIUM CHLORIDE 0.9% 250 ML IVPB ONE (18:00)
[2017-04-25 20:35] LABS: Glucose,Whole Blood 81 mg/dL (75-99)
[2017-04-25] MEDS: VIT A,C & E-LUTEIN-MINERALS 1 EACH TAB PO SCH (21:30)
--- NOTE | 2017-04-25 21:47 | PN ---
DATE OF SERVICE: 04/25/2017 This 82 -year-old woman was admitted to the hospital with abdominal distention as well as pericardial tamponade also had a pericardia window at this time. The patient is still on mechanical ventilation. The patient also hypotensive which is multifactorial. Patient's liver pressor support also. The patient is mechanically ventilated and sedated. Past medical history reviewed. Review of systems could not be taken, the patient is medically ventilated and sedated. PHYSICAL EXAMINATION: Patient is sedated. Pulse is 95, blood pressure 117/40, respiratory rate 16, temperature normal, pulse ox 99% on 45% FIO2. HEENT: Conjunctivae normal. NECK: No jugular venous distention. CARDIOVASCULAR: S1, S2 muffled. RESPIRATORY: Breath sounds diminished at the bases. A few scattered rhonchi and crackles. The patient is mechanically ventilated. ABDOMEN: Soft, nontender. LEGS: No edema. No swelling. CENTRAL NERVOUS SYSTEM: The patient is sedated. LYMPHATICS: No lymph nodes palpable in the neck, axillae or groin. SKIN: No ulcer, rash or bleeding. LABS: WBC 31, hemoglobin 7.2. Otherwise ABG pH of 7.35, sodium 132, potassium 3.1. Creatinine is 1.90. Calcium is 5.7. ASSESSMENT: 1. change in mental status, possible intraabdominal sepsis with present on admission. 2. Pericardial tamponade of undetermined status post pericardial window. 3. Acute hypoxic respiratory failure on mechanical ventilation. 4. Hypotension, possibly secondary to sepsis. 5. Pneumatosis intestinalis in the CT scan. 6. Increased WBC. 7. Anemia, macrocytic. 8. Hyponatremia. 9. Increased creatinine with acute renal failure. 10. Hypomagnesemia. 11. Hypoalbuminemia with mild to moderate protein calorie malnutrition. 12. Gastroesophageal reflux disease. 13. Irritable bowel syndrome. 14. History of degenerative joint disease. 15. History of anxiety, not otherwise specified. 16. History of recent diarrhea as well as renal failure. 17. Severe protein calorie malnutrition with body mass index of 17.6. 18. Hypocalcemia. 19. FULL CODE. RECOMMENDATIONS AND DISCUSSION: Recommend to continue current medications, continue the mechanical ventilation and continue pressor support. Otherwise, calcium gluconate. Monitor lytes closely. Prognosis guarded because of multiple complex medical issues. Further recommendations to follow. We will await the result of the pericardial fluid as well, discussed with staff, recommended protein microscopic pericardial fluid also. Further recommendations to follow. MTDD
[2017-04-25 23:56] LABS: Glucose,Whole Blood 113 mg/dL (75-99)
[2017-04-26] MEDS: SODIUM CHLORIDE 0.9% 99 ML with VASOPRESSIN 20 UNIT IV SCH ×4 (00:51→18:18)
[2017-04-26] MEDS: PROPOFOL 500 MG in EMPTY BAG 1 BAG IV SCH (03:55)
[2017-04-26 04:09] LABS: Glucose,Whole Blood 133 mg/dL (75-99)
[2017-04-26] MEDS: INSULIN LISPRO (humaLOG) 300 UNIT/3 ML VIAL SQ SCH ×5 (04:09→21:30)
[2017-04-26 05:06] LABS: Anisocytosis Slight; CH 23.1; CHCM 32.5; HCT 29.3 % (34.0-46.0); HDW 3.49; Hypochromasia Slight; Immature Gran Flag Marked; MCH 22.9 pg (25.0-35.0); MCHC 32.2 g/dL (31.0-37.0); Microcytosis Marked; Poikilocytosis Slight; RBC 4.12 m/uL (3.80-5.40); RDW 18.2 % (11.5-15.5); WBC (Perox) 26.64
[2017-04-26 05:13] LABS: WBC 28.3 k/uL (3.8-10.6)
[2017-04-26 05:14] LABS: HGB 9.4 gm/dL (11.4-16.0)
[2017-04-26 05:23] LABS: Phosphorous 2.7 mg/dL (2.5-4.5); Potassium 3.5 mmol/L (3.5-5.1); Total Protein 3.8 g/dL (6.3-8.2)
[2017-04-26 05:32] LABS: Calcium 6.1 mg/dL (8.4-10.2)
[2017-04-26 05:43] LABS: Add Differential Manual Differential
[2017-04-26 05:47] LABS: Manual Review Performed; Myelocytes % 3.5 %; Nucleated Red Blood Cells 0 /100 WBC (0-0); Total Cells Counted 200
[2017-04-26 05:48] LABS: Polychromasia Present; Target Cells Present
[2017-04-26] MEDS ORDERED: POTASSIUM CHLORIDE 20 MEQ in WATER FOR INJECTION 1 100ML.BAG IVPB ONE ×2 (06:32→23:06)
[2017-04-26] MEDS: LEVOTHYROXINE IVP 100 MCG/5 ML VIAL IV SCH (07:05)
--- NOTE | 2017-04-26 07:29 | XR ---
EXAMINATION TYPE: XR chest 1V portable DATE OF EXAM: 04/26/2017 6:45 AM COMPARISON: 04/25/2017 INDICATION: Previous abnormal chest TECHNIQUE: Single frontal view of the chest is obtained. FINDINGS: The heart size is normal. The pulmonary vasculature is normal. There is a mild infiltrate along the left diaphragm. Some mild perihilar infiltrate is present. An endotracheal tube is present with the tip above the anderson. Nasogastric tube transverses the thora x with tip in left upper quadrant of the abdomen. Mediastinal tube is present. Central venous cathete r is present with the tip in the deep right atrium. IMPRESSION: 1. Left basilar infiltrate and perihilar infiltrates. Correlate for pneumonia. 2. Infiltrates appear to be improving from comparison. 3. Lines and catheters discussed above.
[2017-04-26] MEDS: SODIUM CHLORIDE 0.9% 1,000 ML IV SCH ×2 (07:30→21:30)
[2017-04-26 07:54] LABS: Glucose,Whole Blood 122 mg/dL (75-99)
[2017-04-26] MEDS: metroNIDAZOLE-NS PMX 500 MG in SALINE 1 100ML.BAG IVPB SCH ×2 (09:09→16:55)
[2017-04-26] MEDS: DEXTROSE 5% IN WATER 1,000 ML with SODIUM BICARB (1 MEQ/ML) 150 ML IV SCH (09:10)
--- NOTE | 2017-04-26 09:48 | PN ---
DATE OF SERVICE: 04/25/2017 REASON FOR FOLLOW UP: Sepsis, likely ischemic bowel. INTERVAL HISTORY: The patient is afebrile, however, remains to be hemodynamically stable. She is requiring pressors in the form of Levophed. The patient remains to be intubated on the vent, unable to provide any history. Continues to have the fecal management system. On examination, blood pressure 115/49 with a pulse of 90, temperature 96.8. She is 99% on 45% FIO2. GENERAL DESCRIPTION: An elderly female, lying in bed, intubated on the vent. RESPIRATORY SYSTEM: Unlabored breathing. HEART: S1, S2 regular rate and rhythm. ABDOMEN: Soft, slightly distended. LABS: Hemoglobin 10.1, white count down to 31,000. Sputum with aleksey albicans, pericardial fluid . DIAGNOSTIC IMPRESSION AND PLAN: Patient with sepsis, source is likely abdominal with concern for ischemic bowel. The patient is currently covered with broad-spectrum antibiotics in the form of Zosyn. Vancomycin will be continued. watching kidney function closely. Prognosis remains to be guarded. Family present at bedside. YULY
[2017-04-26] MEDS: CALCIUM GLUCONATE 1,000 MG in SODIUM CHLORIDE 0.9% 100 ML IVPB SCH ×2 (10:23→21:54)
[2017-04-26] MEDS: ENOXAPARIN 30 MG/0.3 ML SYRINGE SQ SCH (10:23)
[2017-04-26] MEDS: PANTOPRAZOLE 40 MG/10 ML VIAL IVP SCH ×2 (10:24→21:31)
[2017-04-26] MEDS: PARoxetine 10 MG TAB PO SCH ×3 (10:24→18:00)
[2017-04-26] MEDS: PIPERACILLIN-TAZOBACTAM 3.375 GM in DEXTROSE/WATER 1 50ML.BAG IVPB SCH ×2 (10:27→21:54)
[2017-04-26 12:44] LABS: Glucose,Whole Blood 145 mg/dL (75-99)
--- NOTE | 2017-04-26 12:48 | PN ---
CRITICAL CARE TIME: 38 minutes. This is a patient who was admitted on April 22. She came in with mental status changes and severe abdominal pain with leukocytosis. She was found to have a pericardial effusion and had a pericardial window performed on April 24. She is still on the ventilator. The patient's vent settings are the assist control mode rate of 16, tidal volume 400, FiO2 of 45%, PEEP of 5. Blood gases were not done this morning. Weaning parameters were good. Her respiratory rate was 20. Her tidal volume was about 300. Her minute volume was about 7 L per minute. Vital cap nearly 800 mL, ( ) -25 and her RSBI was 75. She is awake and alert, off the Diprivan. When I first went into the room she was on D5W with 3 amps of bicarb at 100 mL an hour, Diprivan a 20 mcg/kg per minute, Levophed at 22 mcg per minute. The patient is a DNR. I did talk to the patient's son. The patient said that his mother would not ever want to be on life support under no circumstance. He was insistent on her coming off life support. I told her that we could evaluate her and she whether or not she would tolerate it. It appears that she probably will and we will see if we cannot extubate her. The patient otherwise has been about the same. She is a DNR. She was seen by my partner over the weekend. Current vital signs include temperature 97.5, heart rate 86, respiratory rate 10, blood pressure 119/63, mean 81 and a saturation 100% on 45% and 5 of PEEP. Appears in no acute distress. Awake and alert off the Diprivan. Even pretty much awake on the Diprivan. HEENT examination is grossly unremarkable. There is an orally placed endotracheal tube and NG tube. NECK: Supple. Full range of motion. Cardiovascular examination reveals regular rhythm and rate. S1, S2 normal. No distinct murmur. Lungs reveal relatively clear breath sounds. No wheezes or rhonchi. ABDOMEN: Soft. Bowel sounds are heard. No masses or tenderness. She does grimace on slight palpation. It is hard to assess her degree of abdominal discomfort. Extremities are intact. Mild edema. Skin without rash. Neurologic examination cannot be evaluated. Labs, x-rays and medications are all reviewed. Chest x-ray from the shows left basilar infiltrate and perihilar infiltrates consistent with possible pneumonia/fluid and those infiltrates are clearly improved. Labs are reviewed. White count 28.3, hemoglobin 9.4, hematocrit 29.3, platelet count is 175,000. Sodium 132, potassium, chloride and CO2 normal. BUN and creatinine were 32 and 1.91. Calcium 6.1, ionized calcium was 4. Albumin is only 1.6. Microbiology is essentially all negative. There is some yeast in her sputum from 04/24. Medications are reviewed. X-rays are reviewed as I mentioned. ASSESSMENT: 1. Hypoxemic respiratory failure secondary to abdominal sepsis/colitis/gastroenteritis with possible ischemic bowel. 2. Septic shock. 3. Pericardial effusion with impending cardiac tamponade, postoperative day #2, status post pericardial window. 4. Postoperative anemia. 5. Postoperative respiratory failure. 6. History of gastroesophageal reflux disease. 7. History of long-standing irritable bowel syndrome. 8. History of hypothyroidism. PLAN: I will attempt to wean the patient. The son insisted the patient be extubated, because she never would want to be on life support. Will continue to follow. Weaning parameters are reasonable. We will stop the propofol. Medications are reviewed.
--- NOTE | 2017-04-26 13:19 | P.PN ---
<Franki Scott L - Last Filed: 04/26/17 13:18> Progress Note - Text CV Surgery Nursing Principal diagnosis: Pericardial tamponade POD #2 pericardial window. Patient remains intubated with mechanical ventilator support. The patient is sedated with Diprivan drip, she is following simple commands appropriately and shaking her head appropriately to yes and no questions. Vital Signs: Afebrile Vital Signs - 24 hr 04/25/17 04/25/17 04/25/17 08:00 08:30 09:00 Temperature 97.5 F L Pulse Rate 98 101 H 95 Respiratory 16 11 L 14 Rate Blood Pressure O2 Sat by Pulse 100 100 100 Oximetry 04/25/17 04/25/17 04/25/17 09:30 10:00 10:30 Temperature Pulse Rate 98 98 95 Respiratory 12 15 16 Rate Blood Pressure O2 Sat by Pulse 98 98 98 Oximetry 04/25/17 04/25/17 04/25/17 11:00 11:30 12:00 Temperature Pulse Rate 96 101 H 96 Respiratory 15 16 16 Rate Blood Pressure O2 Sat by Pulse 98 95 98 Oximetry 04/25/17 04/25/17 04/25/17 12:30 13:00 13:30 Temperature Pulse Rate 95 97 96 Respiratory 16 15 15 Rate Blood Pressure O2 Sat by Pulse 98 98 99 Oximetry 04/25/17 04/25/17 04/25/17 14:00 14:30 15:00 Temperature Pulse Rate 95 94 93 Respiratory 16 15 16 Rate Blood Pressure O2 Sat by Pulse 99 99 99 Oximetry 04/25/17 04/25/17 04/25/17 15:30 16:00 16:17 Temperature 97.4 F L 97.4 F L Pulse Rate 95 94 94 Respiratory 0 L 16 16 Rate Blood Pressure 125/52 O2 Sat by Pulse 98 99 98 Oximetry 04/25/17 04/25/17 04/25/17 16:27 16:30 16:57 Temperature 96.8 F L 97.1 F L Pulse Rate 92 92 88 Respiratory 16 11 L 16 Rate Blood Pressure 124/50 109/48 O2 Sat by Pulse 99 Oximetry 04/25/17 04/25/17 04/25/17 17:00 17:30 18:00 Temperature Pulse Rate 90 90 90 Respiratory 15 15 15 Rate Blood Pressure O2 Sat by Pulse 99 99 99 Oximetry 04/25/17 04/25/1717 18:30 18:46 19:00 Temperature 96.8 F L Pulse Rate 90 88 87 Respiratory 16 16 16 Rate Blood Pressure 119/53 O2 Sat by Pulse 99 99 Oximetry 04/25/17 04/25/17 04/25/17 20:00 21:00 22:00 Temperature 97.6 F Pulse Rate 88 88 90 Respiratory 16 16 16 Rate Blood Pressure O2 Sat by Pulse 99 100 100 Oximetry 04/25/17 04/25/17 04/26/17 23:00 23:15 00:00 Temperature 97.3 F L Pulse Rate 88 90 91 Respiratory 16 16 20 Rate Blood Pressure O2 Sat by Pulse 100 99 99 Oximetry 04/26/17 04/26/17 04/26/17 01:00 02:00 03:00 Temperature Pulse Rate 90 87 86 Respiratory 20 16 16 Rate Blood Pressure 102/50 104/51 O2 Sat by Pulse 99 99 99 Oximetry 04/26/17 04/26/17 04/26/17 04:00 05:00 06:00 Temperature 97.4 F L Pulse Rate 84 85 85 Respiratory 16 16 16 Rate Blood Pressure O2 Sat by Pulse 100 100 100 Oximetry 04/26/17 07:00 Temperature Pulse Rate 82 Respiratory 16 Rate Blood Pressure 119/63 O2 Sat by Pulse 100 Oximetry ABP, PAP, CO, CI - Last 8 Hours Arterial Blood Pressure 118/59 Arterial Blood Pressure 119/51 Arterial Blood Pressure 102/44 Arterial Blood Pressure 111/50 Arterial Blood Pressure 115/50 Arterial Blood Pressure 114/53 Arterial Blood Pressure 100/45 Arterial Blood Pressure 99/47 Labs: Short CBC 04/26/17 Range/Units 04:55 WBC 28.3 H* (3.8-10.6) k/uL Hgb 9.4 L D (11.4-16.0) gm/dL Hct 29.3 L (34.0-46.0) % Plt Count 175 (150-450) k/uL BMP 04/25/17 04/25/17 04/26/17 15:24 21:40 01:48 Sodium Potassium 3.1 L 3.5 3.8 Chloride Carbon Dioxide BUN Creatinine Glucose Calcium 04/26/17 04:55 Sodium 132 L Potassium 3.5 Chloride 100 Carbon Dioxide 23 BUN 32 H Creatinine 1.91 H Glucose 124 H Calcium 6.1 L* Liver Function 04/26/17 Range/Units 04:55 Total Bilirubin 1.0 (0.2-1.3) mg/dL AST 25 (14-36) U/L ALT 30 (9-52) U/L Alkaline Phosphatase 213 H (38-126) U/L Albumin 1.6 L (3.5-5.0) g/dL Microbiology 04/22/17 17:43 Blood Blood Culture - Preliminary No Growth after 72 hours 04/24/17 13:15 Pericardial Fluid Acid Fast Bacilli Smear - Final 04/24/17 13:15 Pericardial Fluid Acid Fast Bacilli Culture - Preliminary 04/24/17 13:15 Pericardial Fluid Acid Fast Bacilli Smear - Final 04/24/17 13:15 Pericardial Fluid Acid Fast Bacilli Culture - Preliminary 04/24/17 19:25 Sputum Gram Stain - Preliminary 04/24/17 19:25 Sputum Sputum Culture - Preliminary Jory albicans 04/24/17 13:15 Pericardial Fluid Gram Stain - Preliminary 04/24/17 13:15 Pericardial Fluid Body Fluid Culture - Preliminary 04/24/17 13:15 Other - Other Gram Stain - Preliminary 04/24/17 13:15 Other - Other Tissue Culture - Preliminary 04/24/17 15:29 Stool Stool Culture - Preliminary 04/24/17 13:15 Pericardial Fluid Fungal Culture - Preliminary 04/24/17 13:15 Pericardial Fluid Anaerobic Culture - Preliminary 04/24/17 13:15 Pericardial Fluid Fungal Culture - Preliminary 04/22/17 18:57 Urine,Catheterized Urine Culture - Final IV Fluids: D5W with 3 Amps of sodium bicarbonate (150 meq) at 100 mL per hour Diprivan drip at 20 mcg/kg/m norepinephrine at 22 mcg/min CVP: 12 Lungs: Diminished throughout, respirations are symmetrical and unlabored with mechanical ventilator support. Current ventilator settings are as follows: AC 16, TV 400, FiO2 45%, PEEP 5. O2 sat: 100% on 45% FiO2 with mechanical ventilator support. Heart: S1S2, regular rhythm and rate, negative for S3, gallop or murmur. Bedside telemetry showing normal sinus rhythm with ST elevation noted in lead 2 , heart rate 83. Subxiphoid incision clean with 4 x 4 gauze dressing clean and dry. No drainage noted. Incision is well approximated with Dermabond in place. Knee-high VANNESSA hose and sequential compression devices in place to bilateral lower extremity Jacques. +2 generalized edema. Abdomen: Soft, Positive hypoactive bowel sounds present in all 4 quadrants. OG tube in place draining bile colored drainage. 150 mL output in the last [address] with liquid stool noted. CBGs: 113-180 mg/dL in the last 24 hours. U/O: Adequate, Gipson catheter for accurate I&O. 1700 mils the last 8 hours. Chest Tubes: Subxiphoid chest tube intact, without air leak, draining thin serosanguineous drainage. 20 mL output in the last 8 hours, 100 mL output in the last 24 hours. 24 hr Total: Intake & Output 04/24/17 04/25/17 04/26/17 04/27/17 06:59 06:59 06:59 06:59 Intake Total 9453.875 3574.800 4869.682 106 Output Total 630 1192 3783 300 Balance 8823.875 2382.800 1086.682 -194 Weight 40.5 kg 59 kg 62.8 kg Active Medications Acetaminophen (Tylenol Tab) 650 mg PO Q6HR PRN PRN Reason: Fever and/ or Pain Albuterol/Ipratropium (Duoneb 0.5 Mg-3 Mg/3 Ml Soln) 3 ml INHALATION RT-Q4H PRN PRN Reason: Shortness Of Breath Or Wheezing Last Admin: 04/24/17 15:20 Dose: 3 ml Alprazolam (Xanax) 0.25 mg PO HS PRN PRN Reason: Insomnia Chlorhexidine Gluconate (Peridex) 15 ml MUCOUS MEM BID [facility] Last Admin: 04/25/17 21:29 Dose: 15 ml Dicyclomine HCl (Bentyl) 10 mg PO TID PRN PRN Reason: IBS Last Admin: 04/23/17 22:33 Dose: 10 mg Enoxaparin Sodium (Lovenox) 30 mg SQ DAILY [facility] Last Admin: 04/25/17 08:18 Dose: 30 mg Fluticasone Propionate (Flonase Nasal [place]) 2 spray EA NOSTRIL DAILY PRN PRN Reason: Allergy Symptoms Sodium Bicarbonate 150 ml/ (Dextrose/Water) 1,150 mls @ 100 mls/hr IV .[id number] [facility] Last Admin: 04/25/17 18:45 Dose: 100 mls/hr Sodium Chloride (Saline 0.9%) 1,000 mls @ 75 mls/hr IV .[id number] [facility] Last Admin: 04/25/17 23:48 Dose: Not Given Norepinephrine Bitartrate (Levophed-0.9% Nacl 16 Mg/250ml Pmx) 16 mg in 250 mls @ 0 mls/hr IV .Q0M JENNIFER; Titrate PRN Reason: Protocol Last Titration: 04/26/17 06:34 Dose: 22 mcg/min, 20.625 mls/hr Propofol 500 mg/ IV Solution 50 mls @ 0 mls/hr IV .Q0M [facility]; Titrate PRN Reason: Protocol Last Titration: 04/26/17 06:34 Dose: 20 mcg/kg/min, 4.86 mls/hr Vasopressin 20 unit/ Sodium (Chloride) 100 mls @ 9 mls/hr IV .[id number] [facility]; 0.03 UNITS/MIN PRN Reason: Protocol Last Admin: 04/26/17 00:51 Dose: Not Given Metronidazole 500 mg/ IV (Solution) 100 mls @ 100 mls/hr IVPB Q8HR [facility] Last Admin: 04/25/17 23:47 Dose: 100 mls/hr Calcium Gluconate 1,000 mg/ (Sodium Chloride) 110 mls @ 100 mls/hr IVPB BID [facility] Last Admin: 04/25/17 21:45 Dose: 100 mls/hr Piperacillin/Tazobactam/ (Dextrose 3.375 gm/ IV Solution) 50 mls @ 12.5 mls/hr IVPB Q12HR [facility] Last Admin: 04/25/17 21:28 Dose: 12.5 mls/hr Potassium Chloride 20 meq/ IV (Solution) 100 mls @ 50 mls/hr IVPB ONCE ONE Stop: 04/26/17 08:31 Insulin Human Lispro (Humalog) 0 unit SQ Q4HR [facility] PRN Reason: Protocol Last Admin: 04/26/17 04:09 Dose: 1 unit Levothyroxine Sodium (Synthroid Ivp) 12.5 mcg IV DAILY@0630 [facility] Last Admin: 04/26/17 07:05 Dose: 12.5 mcg Loperamide HCl (Imodium) 4 mg PO TID PRN PRN Reason: IBS Miscellaneous Information (Pharmacy To Dose Iv Vancomycin) 1 each MISCELLANE DIRECTED PRN PRN Reason: Per Protocol Miscellaneous Information (Magnesium Per Protocol) 1 each MISCELLANE DAILY PRN ; Protocol PRN Reason: Per Protocol Miscellaneous Information (Phosphorus Per Protocol) 1 each MISCELLANE DAILY PRN ; Protocol PRN Reason: Per Protocol Miscellaneous Information (Potassium Per Protocol) 1 each MISCELLANE DAILY PRN ; Protocol PRN Reason: Per Protocol Miscellaneous Information (Potassium Per Protocol) 1 each MISCELLANE DAILY PRN ; Protocol PRN Reason: Per Protocol Morphine Sulfate (Morphine Sulfate (Inj)) 2 mg IVP Q2H PRN PRN Reason: Severe Pain Multivitamins/Minerals (Ivite) 1 each PO HS [facility] Last Admin: 04/25/17 21:30 Dose: Not Given Non-Formulary Medication (Eluxadoline [Viberzi]) 75 mg PO DAILY PRN PRN Reason: IBS-D Ondansetron HCl (Zofran Odt) 4 mg PO Q8HR PRN PRN Reason: Nausea Pantoprazole Sodium (Protonix) 40 mg IVP BID [facility] Last Admin: 04/25/17 21:29 Dose: 40 mg Paroxetine HCl (Paxil) 10 mg PO DAILY [facility] Last Admin: 04/25/17 08:19 Dose: Not Given Plan: 1. Maintain subxiphoid chest tube, monitor output, keep ro waterseal. 2. Ventilator management per pulmonary medicine. Plans for possible extubation this morning. 3. Wean levophed as tolerated. 4. Comorbid medical issues to be managed by internal medicine/pulmonology. 5. GI/DVT prophylaxis. 6. Replace potassium, magnesium, calcium per protocol. 7. More recommendations as patient progresses. <Rakesh Saleem - Last Filed: 04/26/17 13:28> Progress Note - Text The patient was seen and examined. I agree with the above assessment and plan. She was extubated earlier this morning. Her chest tube remains intact and on waterseal. Her cultures have been negative thus far. She is down on her Levophed. We will keep her chest tube in for now. There is no evidence of air leak.
[2017-04-26 13:32] LABS: Total Protein, Body Fluid 3300 mg/dL
[2017-04-26 17:20] LABS: Glucose,Whole Blood 138 mg/dL (75-99)
[2017-04-26 20:29] LABS: Glucose,Whole Blood 118 mg/dL (75-99)
--- NOTE | 2017-04-26 20:50 | PN ---
DATE OF SERVICE: 04/26/2017 This 82-year-old woman who was admitted with abdominal distention as well as pericardial tamponade also had a pericardial window. The patient was mechanically ventilated extubated patient's chest tube at this time. Patient is significantly improved as far as shortness of breath is concerned. Final cultures are pending at this time. White count is elevated. The sputum culture shows jory at this time. The patient is on broad-spectrum IV antibiotics. Infectious Disease is following the patient closely. Past medical history reviewed. REVIEW OF SYSTEMS: CARDIOVASCULAR SYSTEM: No angina, palpitations. RESPIRATORY SYSTEM: As mentioned earlier. GI: As mentioned earlier. : No dysuria. NERVOUS SYSTEM: No numbness or weakness. Current medications are reviewed and include: 1. Tylenol 650 q.6. 2. DuoNeb q.i.d. and p.r.n. 3. Xanax 0.25 t.i.d. 4. Calcium gluconate. 5. Bentyl. 6. Lovenox 7. Humalog. 8. Synthroid. 9. Imodium. 10. P.r.n. medications. 11. Multivitamins. 12. Morphine. 13. Viberzil. 14. Protonix. PHYSICAL EXAMINATION: Patient is alert and oriented x3. Pulse is 98, blood pressure 110/59, respiration 10, temperature 97.8, pulse ox 94% on 2 L. HEENT: Conjunctivae normal. NECK: No jugular venous distention. CARDIOVASCULAR SYSTEM: S1, S2 muffled. RESPIRATORY SYSTEM: Breath sounds diminished at the bases. A few rhonchi and crackles. ABDOMEN: Soft, nontender. No mass palpable. LEGS: No edema. No swelling. NERVOUS SYSTEM: Mild diffuse weakness. No focal deficit. LYMPHATICS: No lymph node palpable in neck, axilla or groin. SKIN: No ulcer, rash, bleeding. LABS: WBC 28.3, hemoglobin 9.4, hematocrit 29.3. Sodium 132. Calcium 6.1. Other labs are noted. ASSESSMENT: 1. Change in mental status, possibly sepsis; suspect intraabdominal sepsis, present on admission. 2. Pericardial tamponade of undetermined origin, status post pericardial window. 3. Acute hypoxic respiratory failure, status post mechanical ventilation. 4. Hypotension, possibly secondary to sepsis. 5. Pneumatosis intestinalis on the CT scan. 6. Increased white count. 7. Anemia, macrocytic. 8. Change in mental status, metabolic encephalopathy, acute, multifactorial. 9. Hyponatremia. 10. Increased creatinine with acute renal failure. 11. Hypomagnesemia. 12. Hypoalbuminemia with mild to moderate protein-calorie malnutrition. 13. Gastroesophageal reflux disease. 14. Irritable bowel syndrome. 15. History of degenerative joint disease. 16. History of anxiety not otherwise specified. 17. History of recent diarrhea as well as renal failure. 18. Severe protein-calorie malnutrition with a body mass index of 17.6. 19. Hypocalcemia. 20. Jory in the sputum. 21. FULL CODE. RECOMMENDATIONS AND DISCUSSION: In this 82-year-old woman who presented with multiple complex medical issues, we will monitor the patient closely, continue the current medications, continue symptomatic treatment. Otherwise, at this time broad-spectrum IV antibiotics. Follow with Infectious Disease and continue the rest of the medications. Guarded prognosis because of multiple complex medical issues. Ensure oxygenation. Closely follow with Dr. Smalls and Infectious Disease. Further recommendations to follow. ALEXD
[2017-04-26] MEDS: VIT A,C & E-LUTEIN-MINERALS 1 EACH TAB PO SCH (21:31)
[2017-04-26] MEDS: ALPRAZolam 0.25 MG TAB PO PRN (22:28)
[2017-04-26] MEDS ORDERED: Potassium Replacement Protocol 1 EACH MISC MISCELLANE PRN (23:06)
[2017-04-27 02:04] LABS: Glucose,Whole Blood 85 mg/dL (75-99)
[2017-04-27 02:04] LABS: Glucose,Whole Blood 83 mg/dL (75-99)
[2017-04-27 05:11] LABS: Glucose,Whole Blood 80 mg/dL (75-99)
--- NOTE | 2017-04-27 05:11 | PN ---
DATE OF SERVICE: 04/26/2017 Reason for followup is sepsis, source likely ischemic bowel. INTERVAL HISTORY: The patient is afebrile. She has been extubated. She is breathing comfortably. Still requiring pressors in the form of Levophed at 15 mcg. No nausea or vomiting has been noticed or worsening diarrhea. On examination, her blood pressure is 98/47 with a pulse of 101, temperature 97.8. She is 94% on 2 L nasal cannula. General description is an elderly female, lying in bed in no distress. RESPIRATORY SYSTEM: Unlabored breathing. Clear to auscultation, anteriorly. HEART: S1, S2. Regular rate and rhythm. ABDOMEN: Soft, slightly distended. No guarding or rigidity. LABS: Hemoglobin is 9.4, white count of 28.3 with a BUN of 32, creatinine 1.91. DIAGNOSTIC IMPRESSION AND PLAN: Patient with sepsis with likely component of ischemic bowel. The patient is currently covered with Flagyl and Zosyn adjusting antibiotics based on the culture reports. Sputum with Jory could be more likely colonized. White count showing a downward trend. Continue supportive care. MTDD
[2017-04-27 05:44] LABS: Ionized Calcium 4.1 mg/dL (4.5-5.3)
[2017-04-27 05:54] LABS: Calcium 6.8 mg/dL (8.4-10.2); Magnesium 1.6 mg/dL (1.6-2.3); Potassium 3.9 mmol/L (3.5-5.1); Total Bilirubin 0.8 mg/dL (0.2-1.3); Total Protein 3.8 g/dL (6.3-8.2)
[2017-04-27 06:36] LABS: Anisocytosis Slight; CH 22.9; CHCM 32.1; HCT 29.7 % (34.0-46.0); HDW 3.42; HGB 9.5 gm/dL (11.4-16.0); Hypochromasia Slight; Immature Gran Flag Marked; MCH 22.8 pg (25.0-35.0); MCHC 31.9 g/dL (31.0-37.0); MCV 71.3 fL (80.0-100.0); Mean Platelet Volume 7.5; Microcytosis Moderate; Poikilocytosis Slight; RBC 4.17 m/uL (3.80-5.40); RDW 18.3 % (11.5-15.5); WBC (Perox) 25.67
--- NOTE | 2017-04-27 06:58 | XR ---
EXAMINATION TYPE: XR chest 1V portable DATE OF EXAM: 04/27/2017 CLINICAL HISTORY: Difficulty breathing progress study. TECHNIQUE: Single AP portable upright view of the chest is obtained. COMPARISON: Chest x-ray from one day earlier. CT cap April 23, 2017. FINDINGS: There is interval removal of nasogastric tube and endotracheal tubes. A right internal jug ular central venous catheter and suspected mediastinal or pericardial fluid drainage catheter are sta ble in appearance. Cardiac silhouette size is stable and within normal limits. There is worsening bib asilar opacities consistent with worsening effusions and underlying infiltrate and/or atelectasis. No pneumothorax is seen bilaterally. Osseous structures are intact. IMPRESSION: Interval extubation, worsening small to moderate-sized bilateral pleural effusions and as sociated bilateral lower lung atelectasis and/or infiltrate is noted.
[2017-04-27] MEDS: SODIUM CHLORIDE 0.9% 99 ML with VASOPRESSIN 20 UNIT IV SCH ×2 (07:02)
[2017-04-27] MEDS: INSULIN LISPRO (humaLOG) 300 UNIT/3 ML VIAL SQ SCH ×6 (07:03→21:25)
[2017-04-27] MEDS: metroNIDAZOLE-NS PMX 500 MG in SALINE 1 100ML.BAG IVPB SCH ×3 (07:05→16:20)
[2017-04-27] MEDS: SODIUM CHLORIDE 0.9% 1,000 ML IV SCH ×2 (07:05→16:20)
[2017-04-27] MEDS: DEXTROSE 5% IN WATER 1,000 ML with SODIUM BICARB (1 MEQ/ML) 150 ML IV SCH (07:05)
[2017-04-27] MEDS: LEVOTHYROXINE IVP 100 MCG/5 ML VIAL IV SCH (07:06)
[2017-04-27 07:22] LABS: Add Differential Manual Differential
[2017-04-27 07:30] LABS: Myelocytes % 0.5 %; Nucleated Red Blood Cells 1 /100 WBC (0-0); Total Cells Counted 200
[2017-04-27 07:31] LABS: Target Cells Present; WBC 25.1 k/uL (3.8-10.6)
[2017-04-27 07:32] LABS: Large Platelets Present; Polychromasia Present
[2017-04-27] MEDS: MAGNESIUM SULFATE-D5W PMX 1 GM in DEXTROSE/WATER 1 100ML.BAG IVPB SCH ×2 (08:21→09:33)
[2017-04-27 08:25] LABS: Glucose,Whole Blood 75 mg/dL (75-99)
--- NOTE | 2017-04-27 08:32 | P.PN ---
Subjective Principal diagnosis: Pericardial tamponade, POD #3 pericardial window. Patient was extubated yesterday. Currently sitting up in bed in no apparent distress. Very weak. Objective - Vital Signs Vital signs: Vital Signs Temp 97.6 F 04/27/17 04:00 Pulse 103 H 04/27/17 07:00 Resp 16 04/27/17 07:00 BP 104/54 04/27/17 07:00 Pulse Ox 95 04/27/17 07:00 Intake & Output 04/26/17 04/27/17 04/27/17 18:59 06:59 18:59 Intake Total 1745.309 4741 126 Output Total 2839 1795 120 Balance -1080.003 -413 6 Weight 60.1 kg Intake: IV 1372 412 26 0.9 carrier for levo 200 240 20 Dextrose 5% in Water 1, 1100 100 000 ml @ 100 mls/hr IV . [id number] [facility] with Sodium Bicarb (1 Meq/ml) 150 ml Rx#:[id number] Pressure Bag 72 72 6 Intake, IV Titration 376.997 950 100 Amount Calcium Gluconate 1,000 100 mg In Sodium Chloride 0.9 % 100 ml @ 100 mls/hr IVPB BID [facility] Rx#: [id number] Dextrose 5% in Water 1, 100 000 ml @ 100 mls/hr IV . [id number] [facility] with Sodium Bicarb (1 Meq/ml) 150 ml Rx#:[id number] Lactated Ringers 1,000 ml 100 As IV .[facility] Rx#: [id number] Norepinephrin 16 mg-0.9% 65.171 Ns Pmx 16 mg In 250 ml @ Titrate IV .Q0M [facility] Rx#: [id number] Piperacillin-Tazobactam 3 50 .375 gm In Dextrose/Water 1 50ml.bag @ 12.5 mls/hr IVPB Q12HR [facility] Rx#: [id number] Potassium Chloride 20 meq 100 In Water For Injection 1 100ml.bag @ 50 mls/hr IVPB ONCE ONE Rx#: [id number] Potassium Chloride 20 meq 100 In Water For Injection 1 100ml.bag @ 50 mls/hr IVPB ONCE ONE Rx#: [id number] Propofol 500 mg In Empty 11.826 Bag 1 bag @ Titrate IV . Q0M [facility] Rx#:[id number] Sodium Chloride 0.9% 1, 700 000 ml @ 100 mls/hr IV . Q10H [facility] Rx#:[id number] metroNIDAZOLE-NS PMX 500 100 mg In Saline 1 100ml.bag @ 100 mls/hr IVPB Q8HR [facility] Rx#:[id number] Oral 10 20 Output: Chest Tube Drainage 40 30 10 Left Lateral Chest 40 30 10 Urine 2795 1765 60 Stool 4 50 Other: Voiding Method Indwelling Catheter Indwelling Catheter ABP, PAP, CO, CI - Last Documented Arterial Blood Pressure 101/50 - Constitutional General appearance: Present: cooperative, no acute distress - Respiratory Details: Lungs sounds diminished bilaterally. Respirations even, nonlabored. Currently on 2 L nasal cannula with oxygen saturation 95%. - Cardiovascular Details: S1, S2 present. Regular rate and rhythm, normal sinus rhythm on telemetry. Mediastinal chest tube with 30 mL serous output overnight, 70 mL in the last 24 hours. Chest tube is to waterseal and there is no air leak present. Teds/SCDs present. - Gastrointestinal Gastrointestinal Comment(s): Abdomen soft, nontender, slightly distended. Very hypoactive bowel sounds 4 quadrants. Patient has stool management system in place with light brown liquid stool however this appears unchanged in amount in the last 48 hours. - Genitourinary Genitourinary Comment(s): Gipson present draining clear, yellow urine. Output 75-220 mL/h overnight. - Musculoskeletal Musculoskeletal: Present: generalized weakness - Allied health notes Allied health notes reviewed: nursing - Labs CBC & Chem 7: 04/27/17 05:30 04/27/17 05:30 Labs: Abnormal Lab Results - Last 24 Hours (Table) 04/26/17 04/26/17 04/26/17 Range/Units 12:41 17:19 20:26 WBC (3.8-10.6) k/uL Hgb (11.4-16.0) gm/dL Hct (34.0-46.0) % MCV (80.0-100.0) fL MCH (25.0-35.0) pg RDW (11.5-15.5) % Neutrophils # (Manual) (1.3-7.7) k/uL Monocytes # (Manual) (0-1.0) k/uL Nucleated RBCs (0-0) /100 WBC Potassium (3.5-5.1) mmol/L BUN (7-17) mg/dL Creatinine (0.52-1.04) mg/dL POC Glucose (mg/dL) 145 H 138 H 118 H (75-99) mg/dL Calcium (8.4-10.2) mg/dL Ionized Calcium Samir (4.5-5.3) mg/dL Alkaline Phosphatase (38-126) U/L Total Protein (6.3-8.2) g/dL Albumin (3.5-5.0) g/dL 04/26/17 04/27/17 04/27/17 Range/Units 22:00 05:30 05:30 WBC 25.1 H* (3.8-10.6) k/uL Hgb 9.5 L (11.4-16.0) gm/dL Hct 29.7 L (34.0-46.0) % MCV 71.3 L (80.0-100.0) fL MCH 22.8 L (25.0-35.0) pg RDW 18.3 H (11.5-15.5) % Neutrophils # (Manual) 18.7 H (1.3-7.7) k/uL Monocytes # (Manual) 2.5 H (0-1.0) k/uL Nucleated RBCs 1 H (0-0) /100 WBC Potassium 3.4 L (3.5-5.1) mmol/L BUN 29 H (7-17) mg/dL Creatinine 1.80 H (0.52-1.04) mg/dL POC Glucose (mg/dL) (75-99) mg/dL Calcium 6.8 L (8.4-10.2) mg/dL Ionized Calcium Samir 4.1 L (4.5-5.3) mg/dL Alkaline Phosphatase 198 H (38-126) U/L Total Protein 3.8 L (6.3-8.2) g/dL Albumin 1.7 L (3.5-5.0) g/dL Microbiology - Last 24 Hours (Table) 04/22/17 17:43 Blood Culture - Preliminary Blood No Growth after 96 hours 04/24/17 15:29 Stool Culture - Preliminary Stool 04/24/17 13:15 Gram Stain - Preliminary Other - Other Tissue Culture - Preliminary 04/24/17 13:15 Gram Stain - Preliminary Pericardial Fluid Body Fluid Culture - Preliminary 04/24/17 13:15 Anaerobic Culture - Preliminary Pericardial Fluid 04/24/17 19:25 Gram Stain - Final Sputum Sputum Culture - Final Jory albicans - Imaging and Cardiology Chest x-ray: image reviewed Assessment and Plan (1) Pericardial effusion with cardiac tamponade Status: Acute (2) Anemia Status: Acute (3) Leukocytosis Status: Acute Plan: 1. Will discontinue chest tube. Chest x-ray in the morning. 2. Wean O2 as tolerated. 3. Wean pressors when able. 4. Comorbid medical issues to be managed by internal medicine/pulmonology. 5. GI/DVT prophylaxis. 6. Replace potassium, magnesium, calcium per protocol. 7. More recommendations as patient progresses. Time with Patient: Greater than 30
[2017-04-27] MEDS: CALCIUM GLUCONATE 1,000 MG in SODIUM CHLORIDE 0.9% 100 ML IVPB SCH ×2 (09:33→21:27)
[2017-04-27] MEDS: PIPERACILLIN-TAZOBACTAM 3.375 GM in DEXTROSE/WATER 1 50ML.BAG IVPB SCH ×2 (09:37→21:27)
[2017-04-27] MEDS: PANTOPRAZOLE 40 MG/10 ML VIAL IVP SCH ×2 (09:54→21:27)
[2017-04-27] MEDS: ENOXAPARIN 30 MG/0.3 ML SYRINGE SQ SCH (09:54)
--- NOTE | 2017-04-27 11:01 | P.PN ---
Subjective Principal diagnosis: Acute hypoxic respiratory failure secondary to abdominal sepsis This is a 82-year-old female patient admitted on 04/22/2017 with altered mental status and severe abdominal discomfort and leukocytosis. She was found to have a pericardial effusion with tamponade and is status post pericardial window performed on 04/24/2017. She had been maintained on the mechanical ventilator. She was extubated yesterday. He is a DO NOT RESUSCITATE/DO NOT INTUBATE CODE STATUS now. She is currently on 2 L/m per nasal cannula and maintaining O2 saturations in the 90s. Her mediastinal chest tube was removed this morning. She is still requiring levophed at 18 mcg/m. She has a 0.9 normal saline at 100 mL's per hour. She does remain quite obtunded and only responding to loud verbal stimuli. Objective - Vital Signs Vital signs: Vital Signs Temp 97.3 F L 04/27/17 08:00 Pulse 105 H 04/27/17 10:00 Resp 0 L 04/27/17 10:00 BP 104/54 04/27/17 07:00 Pulse Ox 93 L 04/27/17 10:00 Intake & Output 04/26/17 04/27/17 04/27/17 18:59 06:59 18:59 Intake Total 0846.587 3547 903.5 Output Total 2839 1795 495 Balance -1080.003 -413 408.5 Weight 60.1 kg 60.1 kg Intake: IV 1372 412 91 0.9 carrier for levo 200 240 85 Dextrose 5% in Water 1, 1100 100 000 ml @ 100 mls/hr IV . [id number] [facility] with Sodium Bicarb (1 Meq/ml) 150 ml Rx#:[id number] Pressure Bag 72 72 6 Intake, IV Titration 376.997 950 812.5 Amount Calcium Gluconate 1,000 100 200 mg In Sodium Chloride 0.9 % 100 ml @ 100 mls/hr IVPB BID [facility] Rx#: [id number] Dextrose 5% in Water 1, 100 000 ml @ 100 mls/hr IV . [id number] [facility] with Sodium Bicarb (1 Meq/ml) 150 ml Rx#:[id number] Lactated Ringers 1,000 ml 100 As IV .[facility] Rx#: [id number] Magnesium Sulfate-D5w Pmx 200 1 gm In Dextrose/Water 1 100ml.bag @ 100 mls/hr IVPB Q1H [facility] Rx#: [id number] Norepinephrin 16 mg-0.9% 65.171 Ns Pmx 16 mg In 250 ml @ Titrate IV .Q0M [facility] Rx#: [id number] Piperacillin-Tazobactam 3 50 12.5 .375 gm In Dextrose/Water 1 50ml.bag @ 12.5 mls/hr IVPB Q12HR [facility] Rx#: [id number] Potassium Chloride 20 meq 100 In Water For Injection 1 100ml.bag @ 50 mls/hr IVPB ONCE ONE Rx#: [id number] Potassium Chloride 20 meq 100 In Water For Injection 1 100ml.bag @ 50 mls/hr IVPB ONCE ONE Rx#: [id number] Propofol 500 mg In Empty 11.826 Bag 1 bag @ Titrate IV . Q0M [facility] Rx#:[id number] Sodium Chloride 0.9% 1, 700 200 000 ml @ 100 mls/hr IV . Q10H [facility] Rx#:[id number] Sodium Chloride 0.9% 50 100 ml As IV .STK-MED ONE with ceFAZolin 1,000 mg Rx#:[id number] metroNIDAZOLE-NS PMX 500 100 mg In Saline 1 100ml.bag @ 100 mls/hr IVPB Q8HR [facility] Rx#:[id number] Oral 10 20 Output: Chest Tube Drainage 40 30 10 Left Lateral Chest 40 30 10 Urine 2795 1765 435 Stool 4 50 Other: Voiding Method Indwelling Catheter Indwelling Catheter Indwelling Catheter ABP, PAP, CO, CI - Last Documented Arterial Blood Pressure 91/44 - Exam GENERAL EXAM: Lethargic, in no apparent distress. HEAD: Normocephalic. EYES: Normal reaction of pupils, equal size. NOSE: Clear with pink turbinates. THROAT: No erythema or exudates. NECK: No masses, no JVD. CHEST: No chest wall deformity. LUNGS: Equal air entry with no crackles, wheeze, rhonchi or dullness. CVS: S1 and S2 normal with no audible murmurs, regular rhythm. ABDOMEN: Slightly distended. Bowel sounds present. Extremities: There is trace peripheral edema. No clubbing, no cyanosis. Peripheral pulses are intact. - Labs CBC & Chem 7: 04/27/17 05:30 04/27/17 05:30 Labs: Abnormal Lab Results - Last 24 Hours (Table) 04/26/17 04/26/17 04/26/17 Range/Units 12:41 17:19 20:26 WBC (3.8-10.6) k/uL Hgb (11.4-16.0) gm/dL Hct (34.0-46.0) % MCV (80.0-100.0) fL MCH (25.0-35.0) pg RDW (11.5-15.5) % Neutrophils # (Manual) (1.3-7.7) k/uL Monocytes # (Manual) (0-1.0) k/uL Nucleated RBCs (0-0) /100 WBC Potassium (3.5-5.1) mmol/L BUN (7-17) mg/dL Creatinine (0.52-1.04) mg/dL POC Glucose (mg/dL) 145 H 138 H 118 H (75-99) mg/dL Calcium (8.4-10.2) mg/dL Ionized Calcium Samir (4.5-5.3) mg/dL Alkaline Phosphatase (38-126) U/L Total Protein (6.3-8.2) g/dL Albumin (3.5-5.0) g/dL 04/26/17 04/27/17 04/27/17 Range/Units 22:00 05:30 05:30 WBC 25.1 H* (3.8-10.6) k/uL Hgb 9.5 L (11.4-16.0) gm/dL Hct 29.7 L (34.0-46.0) % MCV 71.3 L (80.0-100.0) fL MCH 22.8 L (25.0-35.0) pg RDW 18.3 H (11.5-15.5) % Neutrophils # (Manual) 18.7 H (1.3-7.7) k/uL Monocytes # (Manual) 2.5 H (0-1.0) k/uL Nucleated RBCs 1 H (0-0) /100 WBC Potassium 3.4 L (3.5-5.1) mmol/L BUN 29 H (7-17) mg/dL Creatinine 1.80 H (0.52-1.04) mg/dL POC Glucose (mg/dL) (75-99) mg/dL Calcium 6.8 L (8.4-10.2) mg/dL Ionized Calcium Samir 4.1 L (4.5-5.3) mg/dL Alkaline Phosphatase 198 H (38-126) U/L Total Protein 3.8 L (6.3-8.2) g/dL Albumin 1.7 L (3.5-5.0) g/dL Microbiology - Last 24 Hours (Table) 04/22/17 17:43 Blood Culture - Preliminary Blood No Growth after 96 hours 04/24/17 15:29 Stool Culture - Preliminary Stool 04/24/17 13:15 Gram Stain - Preliminary Other - Other Tissue Culture - Preliminary 04/24/17 13:15 Gram Stain - Preliminary Pericardial Fluid Body Fluid Culture - Preliminary 04/24/17 13:15 Anaerobic Culture - Preliminary Pericardial Fluid 04/24/17 19:25 Gram Stain - Final Sputum Sputum Culture - Final Jory albicans Assessment and Plan Plan: Impression: #1 Acute hypoxic respiratory failure secondary to abdominal sepsis/colitis/ gastroenteritis with possible ischemic bowel. #2 Septic shock. #3 Pericardial effusion with impending cardiac tamponade, postoperative day #3, status post pericardial window. #4 Postoperative anemia. Status post 1 unit of packed red blood cells. Current hemoglobin 9.5. #5 Postoperative respiratory failure. #6 History of gastroesophageal reflux disease. #7 History of long-standing irritable bowel syndrome. #8 hypothyroidism. Plan: The patient was seen and evaluated by Dr. Muñiz. Chest x-ray and labs were reviewed. There is some small to moderate bilateral pleural effusions associated with lower lung atelectasis. The patient is quite weak and not able to perform the incentive spirometer. The family is considering hospice/comfort care at this point. In the interim, we'll continue with full supportive care. She does remain a DO NOT RESUSCITATE/denies cold status. We'll continue to monitor her here in the intensive care unit. We'll continue to follow.
[2017-04-27 12:26] LABS: Glucose,Whole Blood 121 mg/dL (75-99)
--- NOTE | 2017-04-27 12:51 | P.PN ---
Subjective Patient is an 82-year-old female admitted chief complaint of acute mental status change and severe abdominal pain. Patient was found to have evidence of septic shock suspect secondary to colitis with possible ischemic bowel. Patient was also found to have pericardial effusion and underwent pericardial window on April 24. Patient is evaluated in the intensive care unit where she is currently extubated. Patient denies nausea, vomiting, or abdominal pain. Afebrile. White count decreased to 28.3. Hemoglobin 9.4 status post transfusion of 1 unit of PRBC yesterday for hemoglobin of 7.2. Urine output adequate. 100 mL output in fecal management system over last 24 hours. Patient is currently on levophed for hemodynamic support. Objective - Vital Signs Vital signs: Vital Signs Temp 97.5 F L 04/26/17 08:00 Pulse 97 04/26/17 12:00 Resp 12 04/26/17 12:00 BP 119/63 04/26/17 08:00 Pulse Ox 98 04/26/17 12:00 Intake & Output 04/25/17 04/26/17 04/26/17 18:59 06:59 18:59 Intake Total 3164.844 1704.838 992.997 Output Total 1513 2270 1580 Balance 1651.844 -565.162 -587.003 Weight 62.8 kg Intake: IV 72 72 616 0.9 carrier for levo 80 Dextrose 5% in Water 1, 500 000 ml @ 100 mls/hr IV . [id number] [facility] with Sodium Bicarb (1 Meq/ml) 150 ml Rx#:[id number] Pressure Bag 72 72 36 Intake, IV Titration 2782.844 1632.838 376.997 Amount ACETAMINOPHEN IV (For NPO 200 ) 1,000 mg In Empty Bag 1 bag @ 400 mls/hr IVPB Q6HR [facility] Rx#:[id number] Calcium Gluconate 1,000 100 100 mg In Sodium Chloride 0.9 % 100 ml @ 100 mls/hr IVPB BID [facility] Rx#: [id number] Dextrose 5% in Water 1, 1200 1000 100 000 ml @ 100 mls/hr IV . [id number] [facility] with Sodium Bicarb (1 Meq/ml) 150 ml Rx#:[id number] Magnesium Sulfate-D5w Pmx 150 1 gm In Dextrose/Water 1 100ml.bag @ 100 mls/hr IVPB Q1H [facility] Rx#: [id number] Norepinephrin 16 mg-0.9% 397.844 286.985 65.171 Ns Pmx 16 mg In 250 ml @ Titrate IV .Q0M [facility] Rx#: [id number] Piperacillin-Tazobactam 3 50 .375 gm In Dextrose/Water 1 50ml.bag @ 12.5 mls/hr IVPB Q12HR [facility] Rx#: [id number] Piperacillin-Tazobactam 3 50 .375 gm In Dextrose/Water 1 50ml.bag @ 12.5 mls/hr IVPB Q8HR [facility] Rx#: [id number] Potassium Chloride 20 meq 25 In Water For Injection 1 100ml.bag @ 50 mls/hr IVPB ONCE ONE Rx#: [id number] Potassium Chloride 20 meq 100 In Water For Injection 1 100ml.bag @ 50 mls/hr IVPB ONCE ONE Rx#: [id number] Potassium Chloride 20 meq 100 In Water For Injection 1 100ml.bag @ 50 mls/hr IVPB ONCE ONE Rx#: [id number] Propofol 500 mg In Empty 95.853 11.826 Bag 1 bag @ Titrate IV . Q0M [facility] Rx#:[id number] Sodium Chloride 0.9% 1, 110 100 000 ml @ 75 mls/hr IV . [id number] [facility] Rx#:[id number] Vancomycin 1,000 mg In 250 Sodium Chloride 0.9% 250 ml @ 125 mls/hr IVPB ONCE ONE Rx#:[id number] metroNIDAZOLE-NS PMX 500 200 100 mg In Saline 1 100ml.bag @ 100 mls/hr IVPB Q8HR [facility] Rx#:[id number] Blood Product 310 Rc As-1 Unit 310 [id number] Output: Chest Tube Drainage 108 20 20 Left Lateral Chest 108 20 20 Gastric Drainage 25 Urine 1405 2125 1460 Stool 100 100 Other: Voiding Method Indwelling Catheter Indwelling Catheter Indwelling Catheter # Voids 3 ABP, PAP, CO, CI - Last Documented Arterial Blood Pressure 98/41 - Exam GENERAL: Pt awake and alert, no acute distress. LUNGS: Breath sounds clear to auscultation bilaterally. No wheezes, rales, or rhonchi. HEART: Heart S1, S2, no S3 or S4. Regular rate and rhythm. No murmurs, rubs or gallops. ABDOMEN: Soft, nontender, nondistended, normoactive bowel sounds. No guarding, no rebound. No masses or organomegaly appreciated. NEUROLOGICAL: Pt oriented x 3. - Labs CBC & Chem 7: 04/27/17 05:30 04/27/17 05:30 Labs: Abnormal Lab Results - Last 24 Hours (Table) 04/25/17 04/25/17 04/25/17 Range/Units 13:12 15:24 15:57 WBC (3.8-10.6) k/uL Hgb (11.4-16.0) gm/dL Hct (34.0-46.0) % MCV (80.0-100.0) fL MCH (25.0-35.0) pg RDW (11.5-15.5) % Neutrophils # (Manual) (1.3-7.7) k/uL Monocytes # (Manual) (0-1.0) k/uL Sodium (137-145) mmol/L Potassium 3.1 L (3.5-5.1) mmol/L BUN (7-17) mg/dL Creatinine (0.52-1.04) mg/dL Glucose (74-99) mg/dL POC Glucose (mg/dL) 139 H (75-99) mg/dL Calcium (8.4-10.2) mg/dL Ionized Calcium Samir (4.5-5.3) mg/dL Alkaline Phosphatase (38-126) U/L Total Protein (6.3-8.2) g/dL Albumin (3.5-5.0) g/dL Crossmatch See Detail 04/25/17 04/26/17 04/26/17 Range/Units 23:54 04:06 04:55 WBC 28.3 H* (3.8-10.6) k/uL Hgb 9.4 L D (11.4-16.0) gm/dL Hct 29.3 L (34.0-46.0) % MCV 71.0 L (80.0-100.0) fL MCH 22.9 L (25.0-35.0) pg RDW 18.2 H (11.5-15.5) % Neutrophils # (Manual) 23.3 H (1.3-7.7) k/uL Monocytes # (Manual) 2.4 H (0-1.0) k/uL Sodium (137-145) mmol/L Potassium (3.5-5.1) mmol/L BUN (7-17) mg/dL Creatinine (0.52-1.04) mg/dL Glucose (74-99) mg/dL POC Glucose (mg/dL) 113 H 133 H (75-99) mg/dL Calcium (8.4-10.2) mg/dL Ionized Calcium Samir (4.5-5.3) mg/dL Alkaline Phosphatase (38-126) U/L Total Protein (6.3-8.2) g/dL Albumin (3.5-5.0) g/dL Crossmatch 04/26/17 04/26/17 04/26/17 Range/Units 04:55 07:52 12:41 WBC (3.8-10.6) k/uL Hgb (11.4-16.0) gm/dL Hct (34.0-46.0) % MCV (80.0-100.0) fL MCH (25.0-35.0) pg RDW (11.5-15.5) % Neutrophils # (Manual) (1.3-7.7) k/uL Monocytes # (Manual) (0-1.0) k/uL Sodium 132 L (137-145) mmol/L Potassium (3.5-5.1) mmol/L BUN 32 H (7-17) mg/dL Creatinine 1.91 H (0.52-1.04) mg/dL Glucose 124 H (74-99) mg/dL POC Glucose (mg/dL) 122 H 145 H (75-99) mg/dL Calcium 6.1 L* (8.4-10.2) mg/dL Ionized Calcium Samir 4.0 L (4.5-5.3) mg/dL Alkaline Phosphatase 213 H (38-126) U/L Total Protein 3.8 L (6.3-8.2) g/dL Albumin 1.6 L (3.5-5.0) g/dL Crossmatch Microbiology - Last 24 Hours (Table) 04/24/17 19:25 Gram Stain - Final Sputum Sputum Culture - Final Jory albicans 04/22/17 17:43 Blood Culture - Preliminary Blood No Growth after 72 hours 04/24/17 13:15 Acid Fast Bacilli Smear - Final Pericardial Fluid Acid Fast Bacilli Culture - Preliminary 04/24/17 13:15 Acid Fast Bacilli Smear - Final Pericardial Fluid Acid Fast Bacilli Culture - Preliminary 04/24/17 13:15 Gram Stain - Preliminary Pericardial Fluid Body Fluid Culture - Preliminary 04/24/17 13:15 Gram Stain - Preliminary Other - Other Tissue Culture - Preliminary Assessment and Plan Plan: Impression: 1. Septic shock suspect secondary to bowel ischemia. Plan: 1. Continue to monitor patient. Continue current medications. No surgical intervention planned at this time. The above impression and plan have been discussed and directed by Dr. Blake. Baldev HOGUE acting as scribe for Dr. Blake.
--- NOTE | 2017-04-27 12:55 | P.PN ---
Subjective Patient is an 82-year-old female admitted chief complaint of acute mental status change and severe abdominal pain. Patient was found to have evidence of septic shock suspect secondary to colitis with possible ischemic bowel. Patient was also found to have pericardial effusion and underwent pericardial window on April 24. Patient is evaluated in the intensive care unit where she is currently extubated. Patient denies nausea, vomiting, or abdominal pain. Afebrile. White count decreased to 25.1. Hemoglobin stable at 9.5. Urine output adequate. 100 mL output in fecal management system over last 24 hours. Patient is currently on levophed for hemodynamic support. Objective - Vital Signs Vital signs: Vital Signs Temp 97.3 F L 04/27/17 08:00 Pulse 99 04/27/17 12:00 Resp 10 L 04/27/17 12:00 BP 104/54 04/27/17 07:00 Pulse Ox 94 L 04/27/17 12:00 Intake & Output 04/26/17 04/27/17 04/27/17 18:59 06:59 18:59 Intake Total 6662.750 0592 936.0 Output Total 2839 1795 695 Balance -1080.003 -413 241.0 Weight 60.1 kg 60.1 kg Intake: IV 1372 412 111 0.9 carrier for levo 200 240 105 Dextrose 5% in Water 1, 1100 100 000 ml @ 100 mls/hr IV . [id number] [facility] with Sodium Bicarb (1 Meq/ml) 150 ml Rx#:[id number] Pressure Bag 72 72 6 Intake, IV Titration 376.997 950 825.0 Amount Calcium Gluconate 1,000 100 200 mg In Sodium Chloride 0.9 % 100 ml @ 100 mls/hr IVPB BID [facility] Rx#: [id number] Dextrose 5% in Water 1, 100 000 ml @ 100 mls/hr IV . [id number] [facility] with Sodium Bicarb (1 Meq/ml) 150 ml Rx#:[id number] Lactated Ringers 1,000 ml 100 As IV .[facility] Rx#: [id number] Magnesium Sulfate-D5w Pmx 200 1 gm In Dextrose/Water 1 100ml.bag @ 100 mls/hr IVPB Q1H [facility] Rx#: [id number] Norepinephrin 16 mg-0.9% 65.171 Ns Pmx 16 mg In 250 ml @ Titrate IV .Q0M [facility] Rx#: [id number] Piperacillin-Tazobactam 3 50 25.0 .375 gm In Dextrose/Water 1 50ml.bag @ 12.5 mls/hr IVPB Q12HR [facility] Rx#: [id number] Potassium Chloride 20 meq 100 In Water For Injection 1 100ml.bag @ 50 mls/hr IVPB ONCE [facility] Rx#: [id number] Potassium Chloride 20 meq 100 In Water For Injection 1 100ml.bag @ 50 mls/hr IVPB ONCE [facility] Rx#: [id number] Propofol 500 mg In Empty 11.826 Bag 1 bag @ Titrate IV . Q0M [facility] Rx#:[id number] Sodium Chloride 0.9% 1, 700 200 000 ml @ 100 mls/hr IV . Q10H [facility] Rx#:[id number] Sodium Chloride 0.9% 50 100 ml As IV .STK-MED ONE with ceFAZolin 1,000 mg Rx#:[id number] metroNIDAZOLE-NS PMX 500 100 mg In Saline 1 100ml.bag @ 100 mls/hr IVPB Q8HR [facility] Rx#:[id number] Oral 10 20 Output: Chest Tube Drainage 40 30 10 Left Lateral Chest 40 30 10 Urine 2795 1765 585 Stool 4 100 Other: Voiding Method Indwelling Catheter Indwelling Catheter Indwelling Catheter ABP, PAP, CO, CI - Last Documented Arterial Blood Pressure 89/44 - Exam GENERAL: Pt awake and alert, no acute distress. LUNGS: Breath sounds clear to auscultation bilaterally. No wheezes, rales, or rhonchi. HEART: Heart S1, S2, no S3 or S4. Regular rate and rhythm. No murmurs, rubs or gallops. ABDOMEN: Soft, nontender, nondistended, normoactive bowel sounds. No guarding, no rebound. No masses or organomegaly appreciated. NEUROLOGICAL: Pt oriented x 3. - Labs CBC & Chem 7: 04/27/17 05:30 04/27/17 05:30 Labs: Abnormal Lab Results - Last 24 Hours (Table) 04/26/17 04/26/17 04/26/17 Range/Units 17:19 20:26 22:00 WBC (3.8-10.6) k/uL Hgb (11.4-16.0) gm/dL Hct (34.0-46.0) % MCV (80.0-100.0) fL MCH (25.0-35.0) pg RDW (11.5-15.5) % Neutrophils # (Manual) (1.3-7.7) k/uL Monocytes # (Manual) (0-1.0) k/uL Nucleated RBCs (0-0) /100 WBC Potassium 3.4 L (3.5-5.1) mmol/L BUN (7-17) mg/dL Creatinine (0.52-1.04) mg/dL POC Glucose (mg/dL) 138 H 118 H (75-99) mg/dL Calcium (8.4-10.2) mg/dL Ionized Calcium Samir (4.5-5.3) mg/dL Alkaline Phosphatase (38-126) U/L Total Protein (6.3-8.2) g/dL Albumin (3.5-5.0) g/dL 04/27/17 04/27/17 04/27/17 Range/Units 05:30 05:30 12:24 WBC 25.1 H* (3.8-10.6) k/uL Hgb 9.5 L (11.4-16.0) gm/dL Hct 29.7 L (34.0-46.0) % MCV 71.3 L (80.0-100.0) fL MCH 22.8 L (25.0-35.0) pg RDW 18.3 H (11.5-15.5) % Neutrophils # (Manual) 18.7 H (1.3-7.7) k/uL Monocytes # (Manual) 2.5 H (0-1.0) k/uL Nucleated RBCs 1 H (0-0) /100 WBC Potassium (3.5-5.1) mmol/L BUN 29 H (7-17) mg/dL Creatinine 1.80 H (0.52-1.04) mg/dL POC Glucose (mg/dL) 121 H (75-99) mg/dL Calcium 6.8 L (8.4-10.2) mg/dL Ionized Calcium Samir 4.1 L (4.5-5.3) mg/dL Alkaline Phosphatase 198 H (38-126) U/L Total Protein 3.8 L (6.3-8.2) g/dL Albumin 1.7 L (3.5-5.0) g/dL Microbiology - Last 24 Hours (Table) 04/24/17 13:15 Gram Stain - Preliminary Other - Other Tissue Culture - Preliminary 04/24/17 13:15 Gram Stain - Preliminary Pericardial Fluid Body Fluid Culture - Preliminary 04/22/17 17:43 Blood Culture - Preliminary Blood No Growth after 96 hours 04/24/17 15:29 Stool Culture - Preliminary Stool 04/24/17 13:15 Anaerobic Culture - Preliminary Pericardial Fluid 04/24/17 19:25 Gram Stain - Final Sputum Sputum Culture - Final Jory albicans Assessment and Plan Plan: Impression: 1. Septic shock suspect secondary to bowel ischemia. Plan: 1. Continue to monitor patient. Continue current medications. No surgical intervention planned at this time. Patient is being considered for possible hospice/comfort care. The above impression and plan have been discussed and directed by Dr. Blake. Baldev HOGUE acting as scribe for Dr. Blake.
[2017-04-27] MEDS: NOREPINEPHRIN 16 MG-0.9%NS PMX 16 MG/250 ML ML IV SCH (14:45)
[2017-04-27 16:23] LABS: Glucose,Whole Blood 86 mg/dL (75-99)
[2017-04-27 20:51] LABS: Glucose,Whole Blood 80 mg/dL (75-99)
[2017-04-27] MEDS ORDERED: ACETAMINOPHEN IV (For NPO) 1,000 MG in EMPTY BAG 1 BAG IVPB ONE (21:17)
[2017-04-27] MEDS: VIT A,C & E-LUTEIN-MINERALS 1 EACH TAB PO SCH (21:27)
--- NOTE | 2017-04-27 22:38 | PN ---
REASON FOR ADMISSION: Difficulty in breathing and hypotension. SUBJECTIVE DATA/HOSPITAL COURSE: This is an 82-year-old female who comes into the hospital with abdominal discomfort and change in mental status. Patient was noted to be hypotensive. Patient was noted to have a pericardial effusion with tamponade features and underwent a pericardial window on 04/24/2017. Patient's chest tube has been removed today. Patient was also noted to have hypotension and is maintained on Levophed. Patient had been having some significant abdominal pain prior to admission, was noted to have some changes of inflammation initially. Initial concern was about an infectious etiology causing septic shock. Patient today is on 2 L of supplemental oxygen, is on a trivial dose of Levophed at 20 mcg, is alert to different questions. Family was at bedside during my evaluation. Denies having any additional complaints, including headache, nausea or any other pain elsewhere. VITALS: Temperature 97.3. Heart rate is around 90 to 105. Respiratory rate is around 15 to 20. Blood pressure 104/54 on Levophed. Saturation 93% on room air. GENERAL APPEARANCE: Alert to questioning. Does not appear to be in distress. HEAD: Atraumatic, normocephalic. Previous scars noted on bilateral pentecostalism areas. Patient has significant cataracts, is legally blind. Neck is supple. No JVD. LUNGS: Good air movement. Clear to auscultation. ABDOMEN: Diffusely tender. Previous mediastinal chest tube site was noted. Appropriately tender to palpation. LOWER EXTREMITIES: No significant edema noted. NEURO: Moves all 4 extremities. Currently has FMS in place and a Gipson catheter in place. Laboratory data include hemoglobin 9.5, hematocrit 29.7, white count 25.1, platelets 160; sodium 137, potassium 3.9, chloride 100, bicarb 28. BUN 29, creatinine 1.80. ASSESSMENT AND PLAN: 1. Shock. This appears to be multifactorial; however, sepsis is attributed etiology at this time. 2. Pericardial tamponade, status post pericardial window, postoperative day 3. 3. Acute hypoxic respiratory failure. 4. Postoperative anemia. 5. History of gastroesophageal reflux disease. 6. Long-standing irritable bowel syndrome. 7. Suspicion for ischemic bowel, as patient has had multiple episodes of hypotension. 8. Hypothyroidism. 9. Blindness. 10. Significant loss of hearing. PLAN: Continue empiric antibiotic therapy. Patient is DO NOT RESUSCITATE at this time. I had a long discussion with the family. Patient is likely not a surgical candidate at this time; however, one could attribute patient's bowel ischemia to hypotension as well and some degree of anemia as well. Patient was able to state that she does not want to be taken off the current pressor support, and she was clear and verbalizing to understand what would happen. Hence will continue with DO NOT RESUSCITATE as discussed by Dr. Muñiz as well. Continue ongoing care. However, patient apparently has stated that she does not want to be ( ) in the past. However, there are some family dynamic issues where ( ) question of that statement being made, as patient was encephalopathic. I did discuss the case with the patient's DPOA, who agreed with the above recommendations to continue DNR. If patient's clinical condition worsens, did discuss that we would inform her and at that time possibly moving towards withdrawal of care would be appropriate. She did agree to the above discussion as well. Will follow. Patient is critically ill.
[2017-04-28] MEDS: metroNIDAZOLE-NS PMX 500 MG in SALINE 1 100ML.BAG IVPB SCH ×3 (00:59→17:33)
[2017-04-28 01:08] LABS: Glucose,Whole Blood 77 mg/dL (75-99)
[2017-04-28] MEDS: INSULIN LISPRO (humaLOG) 300 UNIT/3 ML VIAL SQ SCH ×6 (01:19→21:12)
[2017-04-28 04:33] LABS: Glucose,Whole Blood 97 mg/dL (75-99)
[2017-04-28] MEDS: NOREPINEPHRIN 16 MG-0.9%NS PMX 16 MG/250 ML ML IV SCH (04:40)
[2017-04-28] MEDS: SODIUM CHLORIDE 0.9% 1,000 ML IV SCH ×2 (04:40→17:21)
[2017-04-28] MEDS ORDERED: VANCOMYCIN 1,000 MG in SODIUM CHLORIDE 0.9% 250 ML IVPB ONE (06:00)
[2017-04-28] MEDS: LEVOTHYROXINE IVP 100 MCG/5 ML VIAL IV SCH (06:16)
--- NOTE | 2017-04-28 07:31 | PN ---
DATE OF SERVICE: 04/27/2017 Reason for follow-up is sepsis with a possible ischemic bowel. INTERVAL HISTORY: The patient is afebrile. The patient extubated yesterday, breathing comfortable on nasal cannula oxygen. No significant chest pain, no cough. Some abdominal pain. Still has fecal management system with slight amount of liquidy stool in the bag. On examination, blood pressure is 104/40 with a pulse of 101, temperature 98. She is 97% on 2 liters nasal cannula. General description is an elderly female lying in bed in no distress. RESPIRATORY SYSTEM: Unlabored breathing. Clear to auscultation. HEART: S1, S2 with regular rate and rhythm. ABDOMEN: Soft, slightly distended. No guarding or rigidity. LABS: Hemoglobin 9.5, white count 5.1, BUN of 29, creatinine 1.80. DIAGNOSTIC IMPRESSION AND PLAN: Patient with sepsis, source is likely ischemic bowel. Slowly responding to the current broad-spectrum IV antibiotic therapy, which will be continued. With no growth of any Gram-positive, then can safely discontinue. Continue supportive care.
[2017-04-28 07:37] LABS: Glucose,Whole Blood 98 mg/dL (75-99)
[2017-04-28] MEDS: PANTOPRAZOLE 40 MG/10 ML VIAL IVP SCH ×2 (07:43→21:10)
[2017-04-28] MEDS: ENOXAPARIN 30 MG/0.3 ML SYRINGE SQ SCH (07:43)
[2017-04-28] MEDS: CALCIUM GLUCONATE 1,000 MG in SODIUM CHLORIDE 0.9% 100 ML IVPB SCH ×2 (07:53→21:10)
[2017-04-28] MEDS: PIPERACILLIN-TAZOBACTAM 3.375 GM in DEXTROSE/WATER 1 50ML.BAG IVPB SCH ×2 (07:53→21:17)
[2017-04-28 08:31] LABS: Anisocytosis Slight; CH 22.7; CHCM 32.4; HCT 26.8 % (34.0-46.0); HGB 8.7 gm/dL (11.4-16.0); Hypochromasia Slight; Immature Gran Flag Marked; MCH 22.7 pg (25.0-35.0); MCHC 32.5 g/dL (31.0-37.0); Mean Platelet Volume 8.3; Microcytosis Marked; RBC 3.83 m/uL (3.80-5.40); RDW 18.6 % (11.5-15.5); WBC (Perox) 27.87
[2017-04-28 08:48] LABS: WBC 26.9 k/uL (3.8-10.6)
[2017-04-28 08:57] LABS: Ionized Calcium 4.5 mg/dL (4.5-5.3)
[2017-04-28 09:13] LABS: Calcium 7.2 mg/dL (8.4-10.2); Magnesium 1.8 mg/dL (1.6-2.3); Phosphorous 4.1 mg/dL (2.5-4.5); Potassium 3.2 mmol/L (3.5-5.1); Total Bilirubin 0.9 mg/dL (0.2-1.3); Total Protein 3.8 g/dL (6.3-8.2)
[2017-04-28 10:16] LABS: Add Differential Manual Differential
[2017-04-28 10:19] LABS: Band Neutrophils % 4.5 %; Manual Review Performed; Nucleated Red Blood Cells 0 /100 WBC (0-0); Target Cells Present; Total Cells Counted 200
--- NOTE | 2017-04-28 12:13 | PN ---
This is an 82-year-old female who was admitted with acute hypoxemic respiratory failure. The patient was extubated a couple days back. She apparently has abdominal sepsis with colitis and gastroenteritis. She is not a surgical candidate at this point because of profound sepsis and septic shock. She is just way too unstable. She has a history of pericardial effusion, status post pericardial window for pending cardiac tamponade. In addition, she has a postoperative anemia, postoperative respiratory failure, GERD, long-standing irritable bowel syndrome and hypothyroidism. The patient is a DNR. We are going to talk to the family about comfort measures. I think that would be appropriate. She is currently on O2 at 3 L, getting an IV of 0.9 at 100, Levophed currently at 12 mcg/min. Current vital signs include temperature 97.6, heart rate 100, respiratory rate about 14, blood pressure 111/51, central venous pressure is anywhere from 9 to 13 and her 3 L saturation is 97%. Appears in no acute distress. \ HEENT examination is grossly unremarkable. Mucous membranes are moist. No oral lesions. Neck is supple. Full range of motion. Cardiovascular examination reveals tachycardia. S1, S2 normal. No distinct murmur. Lungs reveal a few scattered rhonchi. No crackles. Abdomen is soft. Extremities are intact. Slight edema. No cyanosis or clubbing. Skin without rash. Microbiology is essentially unremarkable. Labs are reviewed. White count 26.9, hemoglobin 8.7, hematocrit 26.8, platelet count 155,000. Sodium 140, potassium 3.2, chloride is 104, CO2 of 24, BUN and creatinine were 26 and 1.60, albumin 1.6. No chest x-ray today. A chest x-ray from yesterday shows evidence of bilateral pleural effusions and some fluid overload or atelectasis/infiltrates. Medications are reviewed. Her pericardial biopsy shows evidence of acute and chronic inflammation with fibrin. The pericardial fluid was negative for malignant cells. ASSESSMENT: 1. Acute hypoxemic respiratory failure secondary to overwhelming sepsis as well as pericardial effusion and impending cardiac tamponade, resolved. 2. Abdominal pain with a possible abdominal sepsis, colitis, gastroenteritis and possible ischemic bowel. 3. Septic shock. 4. Status post pericardial window, postoperative day #4 for pericardial effusion and impending cardiac tamponade. 5. Postoperative anemia. 6. Postoperative respiratory failure. 7. History of gastroesophageal reflux disease. 8. History of long-standing irritable bowel syndrome. 9. Hypothyroidism. PLAN: The patient remains a DNR. Will see if we can address the CODE STATUS a bit more. The patient probably should be comfort measures only. No additional recommendations are made. Poor overall prognosis is very poor. Not to be reintubated as per the family. I did talk to the son, Bharti. Additional recommendations and suggestions are forthcoming.
[2017-04-28 12:18] LABS: Glucose,Whole Blood 92 mg/dL (75-99)
[2017-04-28 16:55] LABS: Glucose,Whole Blood 75 mg/dL (75-99)
[2017-04-28] MEDS: IOHEXOL 350 MG/ML 25 ML BOTTLE (ORAL USE) PO PRN ×2 (17:00→18:03)
--- NOTE | 2017-04-28 18:14 | P.PN ---
Subjective SUBJECTIVE DATA/HOSPITAL COURSE: This is an 82-year-old female who comes into the hospital with abdominal discomfort and change in mental status. Patient was noted to be hypotensive. Patient was noted to have a pericardial effusion with tamponade features and underwent a pericardial window on 04/24/2017. Patient's chest tube has been removed today. Patient was also noted to have hypotension and is maintained on Levophed. Patient had been having some significant abdominal pain prior to admission, was noted to have some changes of inflammation initially. Initial concern was about an infectious etiology causing septic shock. 04/28/17 Small dose of levophed has small amounts of stool denies significant abdominal pain no fevers, chills, chest pain reported. Physical exam GENERAL APPEARANCE: Alert to questioning. Does not appear to be in distress. HEAD: Atraumatic, normocephalic. Previous scars noted on bilateral pentecostalism areas. Patient has significant cataracts, is legally blind. Neck is supple. No JVD. LUNGS: Good air movement. Clear to auscultation. ABDOMEN: Diffusely tender. Previous mediastinal chest tube site was noted. Appropriately tender to palpation. LOWER EXTREMITIES: No significant edema noted. NEURO: Moves all 4 extremities. Currently has FMS in place and a Gipson catheter in place. Objective - Vital Signs Vital signs: Vital Signs Temp 97.7 F 04/28/17 16:00 Pulse 101 H 04/28/17 16:00 Resp 14 04/28/17 16:00 BP 93/58 04/28/17 16:00 Pulse Ox 96 04/28/17 17:22 Intake & Output 04/27/17 04/28/17 04/28/17 18:59 06:59 18:59 Intake Total 1596.0 1432 1408.126 Output Total 1505 1115 650 Balance 91.0 317 758.126 Weight 60.1 kg 60.9 kg Intake: IV 004 439 7180 0.9 carrier for levo 200 80 125 Pressure Bag 6 42 60 Sodium Chloride 0.9% 1, 900 000 ml @ 100 mls/hr IV . Q10H [facility] Rx#:[id number] Intake, IV Titration 1390.0 1260 303.126 Amount Calcium Gluconate 1,000 200 100 mg In Sodium Chloride 0.9 % 100 ml @ 100 mls/hr IVPB BID [facility] Rx#: [id number] Lactated Ringers 1,000 ml 100 As IV .[facility]K-[facility] ONE Rx#: [id number] Magnesium Sulfate-D5w Pmx 200 1 gm In Dextrose/Water 1 100ml.bag @ 100 mls/hr IVPB Q1H [facility] Rx#: [id number] Norepinephrin 16 mg-0.9% 40 210 103.126 Ns Pmx 16 mg In 250 ml @ Titrate IV .Q0M [facility] Rx#: [id number] Piperacillin-Tazobactam 3 50.0 50 .375 gm In Dextrose/Water 1 50ml.bag @ 12.5 mls/hr IVPB Q12HR [facility] Rx#: [id number] Sodium Chloride 0.9% 1, 600 800 200 000 ml @ 100 mls/hr IV . Q10H [facility] Rx#:[id number] Sodium Chloride 0.9% 50 100 ml As IV .STK-MED ONE with ceFAZolin 1,000 mg Rx#:[id number] metroNIDAZOLE-NS PMX 500 100 100 mg In Saline 1 100ml.bag @ 100 mls/hr IVPB Q8HR [facility] Rx#:[id number] Oral 50 20 Output: Chest Tube Drainage 10 Left Lateral Chest 10 Urine 1345 1115 650 Stool 150 Other: Voiding Method Indwelling Catheter Indwelling Catheter Indwelling Catheter ABP, PAP, CO, CI - Last Documented Arterial Blood Pressure 94/94 - Labs CBC & Chem 7: 04/28/17 08:10 04/28/17 08:10 Labs: Abnormal Lab Results - Last 24 Hours (Table) 04/28/17 04/28/17 Range/Units 08:10 08:10 WBC 26.9 H* (3.8-10.6) k/uL Hgb 8.7 L (11.4-16.0) gm/dL Hct 26.8 L (34.0-46.0) % MCV 70.0 L (80.0-100.0) fL MCH 22.7 L (25.0-35.0) pg RDW 18.6 H (11.5-15.5) % Neutrophils # (Manual) 19.1 H (1.3-7.7) k/uL Monocytes # (Manual) 2.2 H (0-1.0) k/uL Potassium 3.2 L (3.5-5.1) mmol/L BUN 26 H (7-17) mg/dL Creatinine 1.60 H (0.52-1.04) mg/dL Calcium 7.2 L (8.4-10.2) mg/dL Alkaline Phosphatase 186 H (38-126) U/L Total Protein 3.8 L (6.3-8.2) g/dL Albumin 1.6 L (3.5-5.0) g/dL Microbiology - Last 24 Hours (Table) 04/24/17 13:15 Anaerobic Culture - Final Pericardial Fluid 04/24/17 13:15 Gram Stain - Final Other - Other Tissue Culture - Final 04/24/17 13:15 Gram Stain - Final Pericardial Fluid Body Fluid Culture - Final 04/24/17 15:29 Stool Culture - Final Stool 04/22/17 17:43 Blood Culture - Preliminary Blood No Growth after 120 hours Assessment and Plan Plan: Laboratory data include hemoglobin 9.5, hematocrit 29.7, white count 25.1, platelets 160; sodium 137, potassium 3.9, chloride 100, bicarb 28. BUN 29, creatinine 1.80. ASSESSMENT AND PLAN: 1. Shock. This appears to be multifactorial;including tamponade 2. Pericardial tamponade, status post pericardial window, cytology is reviewed no malignancy postoperative day 4 3. Acute hypoxic respiratory failure. 4. Postoperative anemia. 5. History of gastroesophageal reflux disease. 6. Long-standing irritable bowel syndrome. 7. ischemic colitis 8. Hypothyroidism. 9. Blindness. 10. Significant loss of hearing. PLAN: Continue empiric antibiotic therapy. Patient is DO NOT RESUSCITATE at this time. Patient is likely not a surgical candidate at this time. continue titrating off levophed pt is adamant she want to improve and receive care renal function is stable and improving .
[2017-04-28] MEDS ORDERED: POTASSIUM CHLORIDE 10 MEQ in WATER FOR INJECTION 1 100ML.BAG IVPB ONE (19:00)
--- NOTE | 2017-04-28 19:50 | CT ---
EXAMINATION TYPE: CT abdomen pelvis wo con DATE OF EXAM: 04/28/2017 COMPARISON: 04/23/2017 HISTORY: Rule out obstruction. Diarrhea. Previous diagnosis of necrotic bowel. CT DLP: 988.00 mGycm FINDINGS: LUNG BASES: Moderate to large basilar effusions and areas of compressive atelectasis and patchy infil trate. There is evidence of gastroesophageal reflux. Small pericardial effusion noted. LIVER/GB: The gallbladder is unremarkable. No space-occupying hepatic lesion. PANCREAS: No pancreatic mass identified. No inflammatory process seen. SPLEEN: No evidence for splenomegaly. No intrasplenic lesions seen. ADRENALS: No adrenal nodules identified. No evidence for thickening. KIDNEYS: No evidence for renal mass. No nephrolithiasis. No hydronephrosis. Gipson balloon catheter is in place. BOWEL: Rectal catheter is in place. There is wall thickening involving the right hemicolon extending into the transverse colon and descending colon felt to reflect nonspecific colitis. Considerations in clude pseudomembranous colitis as well as other infectious colitis and inflammatory colitis and less likely vascular etiologies. Mild small bowel ileus. No evidence of bowel perforation. Lymph nodes: No evidence for adenopathy greater than 1 cm. Abdominal aorta: Atheromatous changes seen. No evidence for aneurysm. Genital organs: No significant abnormality. Other: There is development of anasarca. IMPRESSION: 1. COLONIC WALL THICKENING DISCUSSED MAY REFLECT PSEUDOMEMBRANOUS COLITIS. SEE ABOVE DIFFERENTIAL DIAGNOSIS. 2. SMALL BOWEL ILEUS. 3. MODERATE TO LARGE BASILAR EFFUSIONS COMPRESSIVE ATELECTASIS AND PATCHY AREAS OF INFILTRATE. 4. ANASARCA.
[2017-04-28] MEDS: VIT A,C & E-LUTEIN-MINERALS 1 EACH TAB PO SCH (21:11)
[2017-04-28 21:14] LABS: Glucose,Whole Blood 72 mg/dL (75-99)
[2017-04-28] MEDS: ALPRAZolam 0.25 MG TAB PO PRN (21:17)
[2017-04-29 01:36] LABS: Glucose,Whole Blood 98 mg/dL (75-99)
[2017-04-29] MEDS ORDERED: POTASSIUM CHLORIDE 10 MEQ in WATER FOR INJECTION 1 100ML.BAG IVPB ONE (01:43)
[2017-04-29] MEDS ORDERED: POTASSIUM CHLORIDE 20 MEQ in WATER FOR INJECTION 1 100ML.BAG IVPB ONE ×2 (01:43→07:00)
[2017-04-29] MEDS: metroNIDAZOLE-NS PMX 500 MG in SALINE 1 100ML.BAG IVPB SCH ×2 (02:00→09:10)
[2017-04-29 05:09] LABS: Glucose,Whole Blood 102 mg/dL (75-99)
[2017-04-29 06:30] LABS: Anisocytosis Slight; CH 22.6; HCT 25.2 % (34.0-46.0); HDW 2.98; HGB 7.9 gm/dL (11.4-16.0); Hypochromasia Slight; MCH 22.8 pg (25.0-35.0); MCHC 31.3 g/dL (31.0-37.0); MCV 72.8 fL (80.0-100.0); Mean Platelet Volume 8.9; Microcytosis Moderate; RBC 3.46 m/uL (3.80-5.40); RDW 19.1 % (11.5-15.5)
[2017-04-29 06:41] LABS: WBC 26.9 k/uL (3.8-10.6)
[2017-04-29 06:44] LABS: Calcium 7.6 mg/dL (8.4-10.2); Magnesium 1.4 mg/dL (1.6-2.3); Phosphorous 3.9 mg/dL (2.5-4.5); Potassium 3.4 mmol/L (3.5-5.1)
[2017-04-29] MEDS ORDERED: Potassium Replacement Protocol 1 EACH MISC MISCELLANE PRN (06:49)
[2017-04-29] MEDS ORDERED: Magnesium Replacement Protocol 1 EACH MISC MISCELLANE PRN (07:28)
[2017-04-29] MEDS: SODIUM CHLORIDE 0.9% 1,000 ML IV SCH ×4 (08:02→20:09)
[2017-04-29] MEDS: NOREPINEPHRIN 16 MG-0.9%NS PMX 16 MG/250 ML ML IV SCH (08:05)
[2017-04-29] MEDS: INSULIN LISPRO (humaLOG) 300 UNIT/3 ML VIAL SQ SCH ×3 (08:07→13:15)
--- NOTE | 2017-04-29 08:07 | PN ---
DATE OF SERVICE: 04/28/2017 Reason for followup is sepsis with a question of likely ischemic bowel. INTERVAL HISTORY: The patient is afebrile. She is more awake, alert. Breathing comfortably. Denies significant chest pain, cough. No significant abdominal pain. Overall output in the fecal management system has decreased. On examination, blood pressure is 93/47 with pulse of 108, temperature 97.5. She is 91% on 3 L nasal cannula. General description is an elderly female, lying in bed in no distress. RESPIRATORY SYSTEM: Unlabored breathing. Clear to auscultation anteriorly. HEART: S1, S2, regular rate and rhythm. ABDOMEN: Soft, no tenderness. LABS: BUN of 26 with a creatinine 1.6. Hemoglobin is 8.7, white count 26.9. DIAGNOSTIC IMPRESSION AND PLAN: Patient with sepsis, source is likely ischemic bowel. Patient currently covered with zosyn , that will be continued. Add Diflucan and discontinue the vancomycin and continue to monitor closely. MTDD
[2017-04-29] MEDS: LEVOTHYROXINE IVP 100 MCG/5 ML VIAL IV SCH (08:10)
[2017-04-29 08:27] LABS: Glucose,Whole Blood 100 mg/dL (75-99)
[2017-04-29] MEDS: MAGNESIUM SULFATE-D5W PMX 1 GM in DEXTROSE/WATER 1 100ML.BAG IVPB SCH ×3 (08:27→11:02)
[2017-04-29] MEDS: PANTOPRAZOLE 40 MG/10 ML VIAL IVP SCH ×2 (08:47→20:02)
[2017-04-29] MEDS: ENOXAPARIN 30 MG/0.3 ML SYRINGE SQ SCH (08:55)
[2017-04-29] MEDS ORDERED: FLUCONAZOLE IN NACL,ISO-OSM 100 MG in SALINE 1 50ML.BAG IVPB SCH (09:00)
[2017-04-29] MEDS: CALCIUM GLUCONATE 1,000 MG in SODIUM CHLORIDE 0.9% 100 ML IVPB SCH (09:42)
[2017-04-29] MEDS: PIPERACILLIN-TAZOBACTAM 3.375 GM in DEXTROSE/WATER 1 50ML.BAG IVPB SCH (09:43)
[2017-04-29 10:17] VITALS: BMI 29.6
--- NOTE | 2017-04-29 11:38 | PN ---
An 82-year-old female admitted with a diagnosis of acute hypoxemic respiratory failure. The patient was extubated a couple days back. She may have ongoing abdominal sepsis with colitis and gastroenteritis, possibly from pseudomembranous colitis. Anyway, she certainly is not a surgical candidate at this point. Still on Levophed at 2 mcg getting a 0.9 IV at 100. She is on O2 at 4 L. She is very unstable and I personally think sending her to the OR would be way too difficult. She does have history of a pericardial effusion with impending cardiac tamponade. After that, she had a pericardial window performed. In addition, she has a history of postoperative anemia, postoperative respiratory failure, GERD, long-standing bowel issues including irritable bowel syndrome, and hypothyroidism. The patient is a DNR. I did talk to son who firmly does not want anything more done aggressively, certainly not surgery and certainly not intubation and mechanical ventilation. Current vital signs include a temperature 97.5, heart rate 100, respiratory rate 16, blood pressure 106/57, mean is 73, 4 L saturation of 95%. The patient is currently very lethargic and somnolent. Does arouse somewhat. HEENT examination is grossly unremarkable. Mucous membranes are moist. NECK: Supple. Full range of motion. No adenopathy or thyromegaly. Cardiovascular examination reveals regular rhythm and rate. Lungs reveal bibasilar crackles and a few scattered rhonchi. Breath sounds are diminished and breath sounds are equal bilaterally. Abdomen is mildly tender. Mild distention. No bowel sounds. Extremities are intact. Mild edema. Skin is without rash. Neurologic examination is difficult to evaluate. Labs are reviewed. White count of 26.9, hemoglobin of 7.9, hematocrit 25.2, platelet count 160,000. Sodium 138, potassium 3.4, chloride is 105, CO2 of 24, BUN and creatinine were 22 and 1.4. Microbiology is showing only Jory in the sputum. CT scan from yesterday is reviewed. Medications are reviewed. ASSESSMENT: 1. Acute hypoxemic respiratory failure secondary to overwhelming sepsis as well as pericardial effusion and impending cardiac tamponade, resolved. 2. Abdominal pain with a possible abdominal sepsis, colitis, gastroenteritis and possible ischemic bowel versus pseudomembranous colitis. 3. Septic shock. 4. Status post pericardial window postoperative day #5 for pericardial effusion and impending cardiac tamponade. 5. Postoperative anemia, postoperative respiratory failure. 6. History of gastroesophageal reflux disease. 7. History of long-standing irritable bowel syndrome. 8. Hypothyroidism. PLAN: The patient remains a DNR. Will see if we can address the CODE STATUS further and consider comfort measures. Will DC the Levophed. She will transferred out to the general medical floor. Son does not want anything more aggressively done. She certainly is not a surgical candidate. Will continue to follow.
[2017-04-29 11:59] LABS: Glucose,Whole Blood 131 mg/dL (75-99)
--- NOTE | 2017-04-29 12:02 | P.PN ---
Subjective Patient is evaluated in the intensive care unit. Patient is slightly lethargic and not a very good historian. Patient currently denies nausea, vomiting, or abdominal pain. Fecal management system was discontinued this morning. Nurse reports that patient had a bowel movement after that. No evidence of active bleeding. CT of abdomen and pelvis from 04/28/2017 with evidence of right hemicolon colitis. No evidence of bowel perforation. Afebrile. Patient remains on a small amount of Levothroid for hemodynamic support. Urine output adequate. Afebrile. WBC 26.9. Hemoglobin 7.9. Objective - Vital Signs Vital signs: Vital Signs Temp 97.5 F L 04/29/17 08:00 Pulse 104 H 04/29/17 11:00 Resp 12 04/29/17 11:00 BP 94/52 04/29/17 11:00 Pulse Ox 99 04/29/17 11:00 Intake & Output 04/28/17 04/29/17 04/29/17 18:59 06:59 18:59 Intake Total 2935.839 7221.815 831.562 Output Total 725 625 295 Balance 927.923 4037.815 536.562 Weight 66.6 kg 66.6 kg Intake: IV 1218 1586 562.5 0.9 carrier for levo 155 240 30 Calcium Gluconate 1,000 100 mg In Sodium Chloride 0.9 % 100 ml @ 100 mls/hr IVPB BID [facility] Rx#: [id number] Magnesium Sulfate-D5w Pmx 300 1 gm In Dextrose/Water 1 100ml.bag @ 100 mls/hr IVPB Q1H [facility] Rx#: [id number] Piperacillin-Tazobactam 3 50 12.5 .375 gm In Dextrose/Water 1 50ml.bag @ 12.5 mls/hr IVPB Q12HR [facility] Rx#: [id number] Potassium Chloride 10 meq 200 In Water For Injection 1 100ml.bag @ 100 mls/hr IV[facility] Rx#: [id number] Potassium Chloride 20 meq 200 100 In Water For Injection 1 100ml.bag @ 50 mls/hr IV[facility] Rx#: [id number] Pressure Bag 63 36 15 Sodium Chloride 0.9% 1, 1000 760 105 000 ml @ 100 mls/hr IV . Q10H [facility] Rx#:[id number] Intake, IV Titration 303.126 11.815 49.062 Amount Norepinephrin 16 mg-0.9% 103.126 11.815 49.062 Ns Pmx 16 mg In 250 ml @ Titrate IV .Q0M [facility] Rx#: [id number] Sodium Chloride 0.9% 1, 200 000 ml @ 100 mls/hr IV . Q10H [facility] Rx#:[id number] Oral 20 100 220 Output: Urine 725 625 295 Other: Voiding Method Indwelling Catheter Indwelling Catheter Indwelling Catheter # Voids 3 ABP, PAP, CO, CI - Last Documented Arterial Blood Pressure 94/94 - Exam GENERAL: Pt is slightly lethargic, in no acute distress. ABDOMEN: Soft, nontender, nondistended, normoactive bowel sounds. No guarding, no rebound. - Labs CBC & Chem 7: 04/29/17 06:00 04/29/17 06:00 Labs: Abnormal Lab Results - Last 24 Hours (Table) 04/28/17 04/29/17 04/29/17 Range/Units 21:12 01:10 04:51 WBC (3.8-10.6) k/uL RBC (3.80-5.40) m/uL Hgb (11.4-16.0) gm/dL Hct (34.0-46.0) % MCV (80.0-100.0) fL MCH (25.0-35.0) pg RDW (11.5-15.5) % Potassium 2.9 L* (3.5-5.1) mmol/L BUN (7-17) mg/dL Creatinine (0.52-1.04) mg/dL POC Glucose (mg/dL) 72 L 102 H (75-99) mg/dL Calcium (8.4-10.2) mg/dL Magnesium (1.6-2.3) mg/dL 04/29/17 04/29/17 04/29/17 Range/Units 06:00 06:00 08:24 WBC 26.9 H* (3.8-10.6) k/uL RBC 3.46 L (3.80-5.40) m/uL Hgb 7.9 L (11.4-16.0) gm/dL Hct 25.2 L (34.0-46.0) % MCV 72.8 L (80.0-100.0) fL MCH 22.8 L (25.0-35.0) pg RDW 19.1 H (11.5-15.5) % Potassium 3.4 L (3.5-5.1) mmol/L BUN 22 H (7-17) mg/dL Creatinine 1.40 H (0.52-1.04) mg/dL POC Glucose (mg/dL) 100 H (75-99) mg/dL Calcium 7.6 L (8.4-10.2) mg/dL Magnesium 1.4 L (1.6-2.3) mg/dL Microbiology - Last 24 Hours (Table) 04/22/17 17:43 Blood Culture - Final Blood No Growth after 144 hours 04/24/17 13:15 Anaerobic Culture - Final Pericardial Fluid 04/24/17 13:15 Gram Stain - Final Other - Other Tissue Culture - Final 04/24/17 13:15 Gram Stain - Final Pericardial Fluid Body Fluid Culture - Final Assessment and Plan Plan: Impression: 1. Right hemicolon colitis. Plan: 1. Continue to monitor patient. Continue current medications. No surgical intervention planned at this time. The above impression and plan have been discussed and directed by Dr. Blake. Baldev HOGUE acting as scribe for Dr. Blake.
[2017-04-29] MEDS ORDERED: HYDROmorphone 1 MG/ML 1 ML SYRINGE IVP PRN (13:33)
[2017-04-29] MEDS ORDERED: MORPHINE SULFATE 2 MG/ML SYRINGE IVP ONE ×2 (13:33→16:15)
--- NOTE | 2017-04-29 15:47 | PN ---
DATE OF SERVICE: 04/29/2017 REASON FOR FOLLOWUP: Sepsis and a question of ischemic bowel. INTERVAL HISTORY: The patient is afebrile. She seems to be more awake, alert. She is breathing comfortably, currently off the pressors. Denies significant chest pain or shortness of breath. Occasional cough which is dry in nature. No significant abdominal pain. She still has some loose stool, though slightly forming up. Overall frequency ( ) has decreased and the fecal management system has been discontinued. On examination, blood pressure is 94/52 with a pulse of 106. Temperature is 97.5. She is 99% on 4 L nasal cannula. General description is an elderly female up in the bed in no distress. RESPIRATORY SYSTEM: Unlabored breathing. Clear to auscultation anteriorly. HEART: S1, S2. Regular rate and rhythm. ABDOMEN: Soft, slightly distended. No guarding or rigidity. LABS: Hemoglobin is 7.9, white count 26.9 with a BUN of 22, creatinine 1.40. Pericardial fluid culture so far negative. Sputum with aleksey, likely a colonizer. A repeat CT of the abdomen and pelvis did raise the possibility of a pseudomonas colitis. DIAGNOSTIC IMPRESSION AND PLAN: Patient admitted to hospital with sepsis. Source is abdominal. Patient did have a stool for C difficile both alive and PCR that were negative on admission. A concern was possibly for ischemic bowel and evidence of pneumatosis intestinalis within the colon. The repeat CT scan has raised the possibility of pseudomonas unlikely, as the patient's stool C difficile has been negative x2 and the cultures are negative as well. Patient is currently maintained on Zosyn and Flagyl. That will be continued. Diflucan was added for possible evidence of oropharyngeal candidiasis, and that may be responsible for all the elevated white count. Will repeat the CBC tomorrow. Continue supportive care.
[2017-04-29] MEDS ORDERED: MORPHINE SULFATE 4 MG/ML SYRINGE IVP ONE (15:59)
--- NOTE | 2017-04-29 16:17 | P.DS ---
Providers Date of admission: 04/22/17 19:35 Attending physician: Hawa Salinas Consults: 04/23/17 16:03 Consult Physician Routine Consulting Provider: Jeremiah Alarcon Consult Reason/Comments: sepsis Do you want consulting provider notified?: Yes 04/23/17 16:04 Consult Physician Routine Consulting Provider: Ollie Blake Consult Reason/Comments: abnormal ct scan ischemic bowel? Do you want consulting provider notified?: Yes Consult Physician Stat Consulting Provider: Radha Smalls Consult Reason/Comments: sepsis Do you want consulting provider notified?: Yes 04/24/17 10:37 Consult Physician Stat Consulting Provider: Rakesh Saleem Consult Reason/Comments: cardiac tamponade Do you want consulting provider notified?: Yes Consult Physician Stat Consulting Provider: Aren Yanez Consult Reason/Comments: r/t cardiac tamponade; read echo Do you want consulting provider notified?: Already Contacted 04/24/17 14:50 Consult Physician Urgent Consulting Provider: Jeremiah Alarcon Consult Reason/Comments: infectious disease Do you want consulting provider notified?: Already Contacted Primary care physician: Suzi Batista [facility] Course: SUBJECTIVE DATA/HOSPITAL COURSE: This is an 82-year-old female who comes into the hospital with abdominal discomfort and change in mental status. Patient was noted to be hypotensive. Patient was noted to have a pericardial effusion with tamponade features and underwent a pericardial window on 04/24/2017. Patient's chest tube has been removed today. Patient was also noted to have hypotension and is maintained on Levophed. Patient had been having some significant abdominal pain prior to admission, was noted to have some changes of inflammation initially. Initial concern was about an infectious etiology causing septic shock. 04/28/17 Small dose of levophed has small amounts of stool denies significant abdominal pain no fevers, chills, chest pain reported. 04/29/2017 After discussion with the family the critical care physician, goals of care were changed to comfort measures only At the time of my evaluation patient is slightly infused blood pressures are suboptimal patient is off pressors of Physical exam HEAD: Atraumatic, normocephalic. Previous scars noted on bilateral synagogue areas. Patient has significant cataracts, is legally blind. Neck is supple. No JVD. LUNGS: Good air movement. Clear to auscultation. ABDOMEN: Diffusely tender. Previous mediastinal chest tube site was noted. Appropriately tender to palpation. LOWER EXTREMITIES: No significant edema noted. NEURO: Moves all 4 extremities. Currently has FMS in place and a Gipson catheter in place. Assessment and Plan Plan: Laboratory data include hemoglobin 9.5, hematocrit 29.7, white count 25.1, platelets 160; sodium 137, potassium 3.9, chloride 100, bicarb 28. BUN 29, creatinine 1.80. ASSESSMENT AND PLAN: 1. Shock. This appears to be multifactorial;including tamponade 2. Pericardial tamponade, status post pericardial window, cytology is reviewed no malignancy postoperative day 5 3. Acute hypoxic respiratory failure. 4. Postoperative anemia. 5. History of gastroesophageal reflux disease. 6. Long-standing irritable bowel syndrome. 7. ischemic colitis 8. Hypothyroidism. 9. Blindness. 10. Significant loss of hearing. Discharge the patient to inpatient hospice comfort measures only DC IV fluids DC pressors Patient Condition at Discharge: Undetermined Plan - Discharge Summary New Discharge Prescriptions: No Action Omeprazole [PriLOSEC] 20 mg PO QAM Cyanocobalamin [Vitamin B-12] 1,000 mcg SQ QMONTH Tacrolimus [Protopic] 1 applic TOPICAL HS PRN PRN Reason: Facial Rash Dicyclomine [Bentyl] 10 mg PO TID PRN PRN Reason: IBS Loperamide HCl [Loperamide] 4 mg PO TID PRN PRN Reason: IBS Denosumab [Prolia] 60 mg SQ Q180D Diphenox-Atrop 2.5-0.025 mg [Lomotil] 2 tab PO TID PRN #40 tab PRN Reason: Diarrhea Magnesium 200 mg PO DAILY Cyanocobalamin [Vitamin B-12] 500 mcg PO DAILY Vit A/Vit C/Vit E/Zinc/Copper [ICAPS SOFTGEL] 1 cap PO HS Acetaminophen [Tylenol] 650 mg PO Q6HR PRN PRN Reason: Fever And/ Or Pain ALPRAZolam [Xanax] 0.25 mg PO HS PRN PRN Reason: Insomnia Eluxadoline [Viberzi] 75 mg PO DAILY PRN PRN Reason: IBS-D Ondansetron [Zofran ODT] 4 mg PO Q8HR PRN PRN Reason: Nausea Levothyroxine Sodium [Synthroid] 25 mcg PO DAILY Fluticasone Nasal Fertile [Flonase Nasal Fertile] 2 spr EA NOSTRIL DAILY PRN PRN Reason: Allergy Symptoms Naproxen Sodium [Aleve] 220 mg PO HS PRN PRN Reason: Pain Ferrous Sulfate [Iron] 325 mg PO DAILY EPINEPHrine [Epipen 2-Adriel] 0.3 mg IM ONCE PRN PRN Reason: Anaphylaxis Alclometasone Dipropionate 1 applic TOPICAL DAILY PRN PRN Reason: Facial Rash Calcium Carbonate [Calcium] 600 mg PO DAILY Discharge Medication List Cyanocobalamin [Vitamin B-12] 1,000 mcg SQ QMONTH 02/23/16 [History] Dicyclomine [Bentyl] 10 mg PO TID PRN 02/23/16 [History] Loperamide HCl [Loperamide] 4 mg PO TID PRN 02/23/16 [History] Omeprazole [PriLOSEC] 20 mg PO QAM 02/23/16 [History] Tacrolimus [Protopic] 1 applic TOPICAL HS PRN 02/23/16 [History] Denosumab [Prolia] 60 mg SQ Q180D 09/10/16 [History] Diphenox-Atrop 2.5-0.025 mg [Lomotil] 2 tab PO TID PRN #40 tab 09/20/16 [Rx] ALPRAZolam [Xanax] 0.25 mg PO HS PRN 04/22/17 [History] Acetaminophen [Tylenol] 650 mg PO Q6HR PRN 04/22/17 [History] Alclometasone Dipropionate 1 applic TOPICAL DAILY PRN 04/22/17 [History] Calcium Carbonate [Calcium] 600 mg PO DAILY 04/22/17 [History] Cyanocobalamin [Vitamin B-12] 500 mcg PO DAILY 04/22/17 [History] EPINEPHrine [Epipen 2-Adriel] 0.3 mg IM ONCE PRN 04/22/17 [History] Eluxadoline [Viberzi] 75 mg PO DAILY PRN 04/22/17 [History] Ferrous Sulfate [Iron] 325 mg PO DAILY 04/22/17 [History] Fluticasone Nasal Fertile [Flonase Nasal Fertile] 2 spr EA NOSTRIL DAILY PRN [History] Levothyroxine Sodium [Synthroid] 25 mcg PO DAILY 04/22/17 [History] Magnesium 200 mg PO DAILY 04/22/17 [History] Naproxen Sodium [Aleve] 220 mg PO HS PRN 04/22/17 [History] Ondansetron [Zofran ODT] 4 mg PO Q8HR PRN 04/22/17 [History] Vit A/Vit C/Vit E/Zinc/Copper [ICAPS SOFTGEL] 1 cap PO HS 04/22/17 [History] Follow up Appointment(s)/Referral(s): Suzi Cuellar MD [Primary Care Provider] - 1-2 days
[2017-04-29] MEDS: MORPHINE SULFATE (100 MG/2 ML) 100 MG in SODIUM CHLORIDE 0.9% 100 ML IV SCH (19:59)
[2017-04-29] MEDS: ALPRAZolam 0.25 MG TAB PO PRN (20:02)
[2017-04-29] MEDS: VIT A,C & E-LUTEIN-MINERALS 1 EACH TAB PO SCH (20:03)
[2017-04-30] MEDS: CHLORHEXIDINE GLUCONATE 15 ML CUP MUCOUS MEM SCH (00:57)
[2017-04-30] MEDS: LEVOTHYROXINE 25 MCG TAB PO SCH (00:58)
[2017-04-30] MEDS: LEVOTHYROXINE IVP 100 MCG/5 ML VIAL IV SCH (05:41)
[2017-04-30] MEDS: PANTOPRAZOLE 40 MG/10 ML VIAL IVP SCH ×2 (07:48→20:56)
--- NOTE | 2017-04-30 11:51 | PN ---
This is an 82-year-old female with a history of acute hypoxemic respiratory failure secondary to overwhelming sepsis as well as a history of pericardial effusion with impending cardiac tamponade, status post pericardial window. Anyway, the patient was in the ICU for a number of days. She was on pressors for a number of days. Finally was able to wean that off. The patient is a DO NOT RESUSCITATE. Yesterday, she was moved out of the ICU to the general medical floor. She remains very somnolent and very lethargic. We have had long conversations with the family including a son called Bharti. They did not want anything heroic or extraordinarily done. Anyway, the patient also has a history of severe abdominal pain with initial abdominal sepsis/colitis/gastroenteritis as the source of the infection, possible pseudomembranous colitis, septic shock, pericardial window for impending cardiac tamponade, postoperative anemia, GERD, irritable bowel syndrome, which has been chronic and long-standing as well as hypothyroidism. The patient is not much different today, very lethargic. She does open her eyes. Current vital signs are reviewed. Her temperature is 97.5, heart rate 97, respiratory rate 25, blood pressure is only about 80 systolic, saturations are 94% on 4 L. Appears in no acute distress. HEENT examination is grossly unremarkable. Mucous membranes are dry. Neck is supple. Full range of motion. No adenopathy or thyromegaly. Neck veins are flat. Cardiovascular examination reveals regular rhythm and rate. Heart sounds are distant. No murmur. S1, S2 normal. Lungs reveal some coarse rhonchi. Breath sounds are diminished. No crackles. Abdomen is soft. No bowel sounds. Extremities are intact. Mild edema. Skin reveals some areas of ecchymoses. Neurological examination is difficult to perform. No labs from today. No x-rays from today. Medications are reviewed. ASSESSMENT: 1. Acute hypoxemic respiratory failure secondary to overwhelming sepsis as well as pericardial effusion and impending cardiac tamponade, status post pericardial window. 2. Abdominal pain with possible abdominal sepsis/colitis/gastroenteritis and possible ischemic bowel versus pseudomembranous colitis. 3. Overwhelming septic shock, which has improved somewhat. 4. Status post pericardial window, postoperative day #6 for pericardial effusion and impending cardiac tamponade. 5. Postoperative anemia. 6. Postoperative respiratory failure. 7. History of gastroesophageal reflux disease. 8. History of long-standing irritable bowel syndrome. 9. Hypothyroidism. PLAN: Apparently the patient may be discharged to hospice. We are not sure. I could not speak to the nurse or find the nurse. The patient cannot answer that question. There are no family members around. From my perspective, she is reasonably stable for discharge. She is a DO NOT RESUSCITATE. Additional recommendations and suggestions are forthcoming. Prognosis is very guarded.
[2017-04-30] MEDS ORDERED: LORazepam 2 MG/ML SYRINGE IV PRN (14:54)
[2017-04-30] MEDS: MORPHINE SULFATE (100 MG/2 ML) 100 MG in SODIUM CHLORIDE 0.9% 100 ML IV SCH ×2 (15:37→22:23)
--- NOTE | 2017-04-30 18:35 | P.PN ---
Subjective SUBJECTIVE DATA/HOSPITAL COURSE: This is an 82-year-old female who comes into the hospital with abdominal discomfort and change in mental status. Patient was noted to be hypotensive. Patient was noted to have a pericardial effusion with tamponade features and underwent a pericardial window on 04/24/2017. Patient's chest tube has been removed today. Patient was also noted to have hypotension and is maintained on Levophed. Patient had been having some significant abdominal pain prior to admission, was noted to have some changes of inflammation initially. Initial concern was about an infectious etiology causing septic shock. 04/28/17 Small dose of levophed has small amounts of stool denies significant abdominal pain no fevers, chills, chest pain reported. 04/30/17 drowsy however has episodes of arousability comfort measures only Physical exam GENERAL APPEARANCE: HEAD: Atraumatic, normocephalic. Previous scars noted on bilateral mormon areas. Patient has significant cataracts, is legally blind. Neck is supple. No JVD. LUNGS: Good air movement. Clear to auscultation. ABDOMEN: Diffusely tender. LOWER EXTREMITIES: No significant edema noted. NEURO: deferred Currently has FMS in place and a Gipson catheter in place. Objective - Vital Signs Vital signs: Vital Signs Temp 97.5 F L 04/30/17 15:00 Pulse 116 H 04/30/17 15:00 Resp 20 04/30/17 15:00 BP 111/66 04/30/17 15:00 Pulse Ox 90 L 04/30/17 15:00 Intake & Output 04/29/17 04/30/17 04/30/17 18:59 06:59 18:59 Intake Total 1217.562 360 160 Output Total 655 Balance 562.562 360 160 Weight 66.6 kg Intake: IV 763.5 160 0.9 carrier for levo 30 Magnesium Sulfate-D5w Pmx 300 1 gm In Dextrose/Water 1 100ml.bag @ 100 mls/hr IVPB Q1H [facility] Rx#: [id number] Piperacillin-Tazobactam 3 37.5 .375 gm In Dextrose/Water 1 50ml.bag @ 12.5 mls/hr IVPB Q12HR [facility] Rx#: [id number] Potassium Chloride 20 meq 100 In Water For Injection 1 100ml.bag @ 50 mls/hr IVPB ONCE ONE Rx#: [id number] Pressure Bag 21 Sodium Chloride 0.9% 1, 275 160 000 ml @ 20 mls/hr IV . Q24H [facility] Rx#:[id number] Intake, IV Titration 49.062 Amount Norepinephrin 16 mg-0.9% 49.062 Ns Pmx 16 mg In 250 ml @ Titrate IV .Q0M [facility] Rx#: [id number] Oral 405 360 Output: Urine 655 Other: Voiding Method Indwelling Catheter Indwelling Catheter # Bowel Movements 1 ABP, PAP, CO, CI - Last Documented Arterial Blood Pressure 94/94 - Labs CBC & Chem 7: 04/29/17 06:00 04/29/17 06:00 Assessment and Plan Plan: ASSESSMENT AND PLAN: 1. Shock. This appears to be multifactorial;including tamponade 2. Pericardial tamponade, status post pericardial window, cytology is reviewed no malignancy postoperative day 4 3. Acute hypoxic respiratory failure. 4. Postoperative anemia. 5. History of gastroesophageal reflux disease. 6. Long-standing irritable bowel syndrome. 7. ischemic colitis 8. Hypothyroidism. 9. Blindness. 10. Significant loss of hearing. PLAN: Comfort measures only discussed home with hospice pt is comfortable .
[2017-04-30] MEDS: ALPRAZolam 0.25 MG TAB PO PRN (20:30)
[2017-04-30] MEDS: LOPERAMIDE 2 MG CAP PO PRN (20:30)
[2017-04-30] MEDS: SODIUM CHLORIDE 0.9% 1,000 ML IV SCH ×2 (20:56→22:25)
[2017-04-30] MEDS: VIT A,C & E-LUTEIN-MINERALS 1 EACH TAB PO SCH (20:56)
[2017-05-01] MEDS: LEVOTHYROXINE IVP 100 MCG/5 ML VIAL IV SCH (06:10)
[2017-05-01] MEDS: PANTOPRAZOLE 40 MG/10 ML VIAL IVP SCH ×2 (07:39→20:22)
--- NOTE | 2017-05-01 17:35 | P.PN ---
Subjective SUBJECTIVE DATA/HOSPITAL COURSE: This is an 82-year-old female who comes into the hospital with abdominal discomfort and change in mental status. Patient was noted to be hypotensive. Patient was noted to have a pericardial effusion with tamponade features and underwent a pericardial window on 04/24/2017. Patient's chest tube has been removed today. Patient was also noted to have hypotension and is maintained on Levophed. Patient had been having some significant abdominal pain prior to admission, was noted to have some changes of inflammation initially. Initial concern was about an infectious etiology causing septic shock. 04/28/17 Small dose of levophed has small amounts of stool denies significant abdominal pain no fevers, chills, chest pain reported. 04/30/17 drowsy however has episodes of arousability comfort measures only 05/01/17 on 2mg/hr morphine drip pain is controlled pt is more awake now Physical exam GENERAL APPEARANCE: HEAD: Atraumatic, normocephalic. Previous scars noted on bilateral tenriism areas. Patient has significant cataracts, is legally blind. Neck is supple. No JVD. LUNGS: Good air movement. Clear to auscultation. ABDOMEN: Diffusely tender. LOWER EXTREMITIES: No significant edema noted. NEURO: deferred Currently has FMS in place and a Gipson catheter in place. Objective - Vital Signs Vital signs: Vital Signs Temp 97.8 F 05/01/17 15:00 Pulse 109 H 05/01/17 15:00 Resp 18 05/01/17 15:00 BP 93/50 05/01/17 15:00 Pulse Ox 93 L 05/01/17 15:00 Intake & Output 04/30/17 05/01/17 05/01/17 18:59 06:59 18:59 Intake Total 160 490 9.767 Output Total 450 Balance 160 490 -440.233 Intake: IV 160 70 Sodium Chloride 0.9% 1, 160 70 000 ml @ 20 mls/hr IV . Q24H [facility] Rx#:[id number] Intake, IV Titration 9.767 Amount Morphine Sulfate (100 mg/ 9.767 2 ml) 100 mg In Sodium Chloride 0.9% 100 ml @ 1 MG/HR 1.02 mls/hr IV . Q24H [facility] Rx#:[id number] Oral 420 Output: Urine 450 Other: Voiding Method Indwelling Catheter Indwelling Catheter Indwelling Catheter # Bowel Movements 1 ABP, PAP, CO, CI - Last Documented Arterial Blood Pressure 94/94 - Labs CBC & Chem 7: 04/29/17 06:00 04/29/17 06:00 Assessment and Plan Plan: ASSESSMENT AND PLAN: 1. Shock. This appears to be multifactorial;including tamponade 2. Pericardial tamponade, status post pericardial window, cytology is reviewed no malignancy postoperative day 5 3. Acute hypoxic respiratory failure. 4. Postoperative anemia. 5. History of gastroesophageal reflux disease. 6. Long-standing irritable bowel syndrome. 7. ischemic colitis 8. Hypothyroidism. 9. Blindness. 10. Significant loss of hearing. PLAN: Comfort measures only discussed home with hospice pt is comfortable .
--- NOTE | 2017-05-01 18:31 | PN ---
82-year-old female with a history of acute hypoxemic respiratory failure. She also was admitted with a diagnosis of sepsis. Pericardial effusion, status post impending cardiac tamponade, status post pericardial window, diffuse abdominal pain, which may relate to underlying abdominal sepsis, colitis, gastroenteritis or ischemic bowel, overwhelming septic shock postoperative anemia respiratory failure, GERD and long-standing irritable bowel syndrome. She was on the ventilator and eventually was extubated. She was a DNR according to the family. We had long talks with her son Bharti who did not want her to have anything more done heroically. She was moved out of the shot and to the floor. Currently, she is doing about the same. She is poorly responsive. She does arouse. Vital signs are temperature 97.5, heart rate is 100, respiratory rate 18, blood pressure 105/61, mean 75, and, 4 liters saturation 95%. Appears no acute distress. Is very lethargic and sleepy. Does arouse. HEENT examination is grossly unremarkable. Mucous membranes are dry. Neck is supple. Full range of motion. No adenopathy, thyromegaly or neck vein distention. Cardiovascular examination reveals regular rhythm and rate. Heart sounds are distant. S1, S2 normal. Lungs reveal diminished breath sounds. A few scattered rhonchi. No wheezes or crackles. ABDOMEN: Mildly distended. Not tender. Bowel sounds are not noted. EXTREMITIES: Intact. No edema. Skin shows some areas of ecchymosis. Neurologic examination cannot be adequately performed. Labs are reviewed. Nothing new was ordered. No new x-rays reported. ASSESSMENT: 1. Acute hypoxemic respiratory failure. 2. Sepsis, likely abdominal source either related to colitis or ischemic bowel or pseudomembranous colitis. 3. Long-standing history of irritable bowel syndrome. 4. Hypothyroidism. 5. Gastroesophageal reflux disease. 6. Postoperative respiratory failure. 7. Anemia. 8. Postoperative day seven status post pericardial window for pericardial effusion and impending cardiac tamponade. PLAN: The patient's overall prognosis is poor. The patient was going to be discharged to hospice. We will continue to see as needed. She is DO NOT RESUSCITATE/DO NOT INTUBATE. Prognosis is very poor. We had long discussions with the family including her son Mai. Additional recommendations and suggestions are forthcoming.
[2017-05-01] MEDS: VIT A,C & E-LUTEIN-MINERALS 1 EACH TAB PO SCH (20:22)
[2017-05-02] MEDS: LEVOTHYROXINE IVP 100 MCG/5 ML VIAL IV SCH (05:32)
[2017-05-02] MEDS: PANTOPRAZOLE 40 MG/10 ML VIAL IVP SCH ×2 (07:38→20:29)
[2017-05-02] MEDS: MORPHINE SULFATE (100 MG/2 ML) 100 MG in SODIUM CHLORIDE 0.9% 100 ML IV SCH ×2 (16:32→21:27)
--- NOTE | 2017-05-02 19:47 | P.PN ---
Subjective SUBJECTIVE DATA/HOSPITAL COURSE: This is an 82-year-old female who comes into the hospital with abdominal discomfort and change in mental status. Patient was noted to be hypotensive. Patient was noted to have a pericardial effusion with tamponade features and underwent a pericardial window on 04/24/2017. Patient's chest tube has been removed today. Patient was also noted to have hypotension and is maintained on Levophed. Patient had been having some significant abdominal pain prior to admission, was noted to have some changes of inflammation initially. Initial concern was about an infectious etiology causing septic shock. 04/28/17 Small dose of levophed has small amounts of stool denies significant abdominal pain no fevers, chills, chest pain reported. 04/30/17 drowsy however has episodes of arousability comfort measures only 05/01/17 on 2mg/hr morphine drip pain is controlled pt is more awake now 05/02/17 pt is upset when the conversation of hospice came up discussed she appeared more stable today Physical exam GENERAL APPEARANCE: HEAD: Atraumatic, normocephalic. Previous scars noted on bilateral mosque areas. Patient has significant cataracts, is legally blind. Neck is supple. No JVD. LUNGS: Good air movement. Clear to auscultation. ABDOMEN: Diffusely tender. LOWER EXTREMITIES: No significant edema noted. NEURO: deferred Currently has FMS in place and a Gipson catheter in place. Objective - Vital Signs Vital signs: Vital Signs Temp 98.2 F 05/02/17 07:00 Pulse 108 H 05/02/17 16:00 Resp 20 05/02/17 16:00 BP 112/71 05/02/17 07:00 Pulse Ox 91 L 05/02/17 07:00 Intake & Output 05/02/17 05/02/17 05/03/17 06:59 18:59 06:59 Intake Total 220 150 60 Output Total 750 1400 Balance -530 -1250 60 Weight 66.6 kg Intake: IV 220 150 Sodium Chloride 0.9% 1, 220 150 000 ml @ 20 mls/hr IV . Q24H [facility] Rx#:[id number] Oral 60 Output: Urine 700 1400 Uretheral (Gipson) 1400 Stool 50 Other: Voiding Method Indwelling Catheter Indwelling Catheter ABP, PAP, CO, CI - Last Documented Arterial Blood Pressure 94/94 - Labs CBC & Chem 7: 04/29/17 06:00 04/29/17 06:00 Labs: Microbiology - Last 24 Hours (Table) 04/24/17 13:15 Fungal Culture - Preliminary Pericardial Fluid 04/24/17 13:15 Fungal Culture - Preliminary Pericardial Fluid Assessment and Plan Plan: ASSESSMENT AND PLAN: 1. Shock. This appears to be multifactorial;including tamponade 2. Pericardial tamponade, status post pericardial window, cytology is reviewed no malignancy postoperative day 5 3. Acute hypoxic respiratory failure. 4. Postoperative anemia. 5. History of gastroesophageal reflux disease. 6. Long-standing irritable bowel syndrome. 7. ischemic colitis 8. Hypothyroidism. 9. Blindness. 10. Significant loss of hearing. PLAN: Goals of care comfort measures only pt is awake different options including hospice are being discussed will discuss with family estee as well had a long conversation with pt's niece at bedside repeat labs estee pt appears more stable may consider dc home to consider these options at a later date .
[2017-05-02] MEDS: VIT A,C & E-LUTEIN-MINERALS 1 EACH TAB PO SCH (20:27)
[2017-05-02] MEDS: SODIUM CHLORIDE 0.9% 1,000 ML IV SCH (20:28)
[2017-05-02] MEDS: ALPRAZolam 0.25 MG TAB PO PRN (20:43)
[2017-05-03] MEDS: LEVOTHYROXINE IVP 100 MCG/5 ML VIAL IV SCH (05:19)
[2017-05-03 05:49] LABS: Anisocytosis Moderate; Basophils # (A) 0.1 k/uL (0-0.2); Basophils % (A) 0 %; CH 23.1; CHCM 32.2; Eosinophils % (A) 0 %; HCT 23.2 % (34.0-46.0); HDW 2.95; HGB 7.6 gm/dL (11.4-16.0); Hypochromasia Slight; Luc # (Auto) 0.38; Luc % (Auto) 3; Lymphocytes # (A) 1.2 k/uL (1.0-4.8); Lymphocytes % (A) 8 %; MCH 23.7 pg (25.0-35.0); MCHC 32.9 g/dL (31.0-37.0); MCV 71.9 fL (80.0-100.0); Mean Platelet Volume 8.3; Microcytosis Marked; Monocytes # (A) 0.9 k/uL (0-1.0); Monocytes % (A) 6 %; Neutrophils # (A) 11.9 k/uL (1.3-7.7); Neutrophils % (A) 83 %; RBC 3.23 m/uL (3.80-5.40); RDW 21.1 % (11.5-15.5); WBC 14.4 k/uL (3.8-10.6); WBC (Perox) 15.01
[2017-05-03 06:05] LABS: ALT 24 U/L (9-52); AST 12 U/L (14-36); Alkaline Phosphatase 111 U/L (38-126); Anion Gap 7 mmol/L; Blood Urea Nitrogen 12 mg/dL (7-17); Calcium 7.1 mg/dL (8.4-10.2); Carbon Dioxide 32 mmol/L (22-30); Chloride 99 mmol/L (98-107); Glucose 89 mg/dL (74-99); Non-African American GFR(MDRD) >60 (>60 ml/min/1.73 sqM); Sodium 138 mmol/L (137-145); Total Bilirubin 0.6 mg/dL (0.2-1.3)
[2017-05-03 06:09] LABS: Potassium 2.8 mmol/L (3.5-5.1)
[2017-05-03] MEDS: PANTOPRAZOLE 40 MG/10 ML VIAL IVP SCH ×2 (09:39→20:19)
[2017-05-03] MEDS ORDERED: Potassium Replacement Protocol 1 EACH MISC MISCELLANE PRN (10:16)
[2017-05-03] MEDS ORDERED: POTASSIUM CHLORIDE 20 MEQ in WATER FOR INJECTION 1 100ML.BAG IVPB ONE ×2 (11:00→23:03)
[2017-05-03] MEDS ORDERED: MORPHINE SULFATE 2 MG/ML SYRINGE IVP PRN (11:14)
[2017-05-03] MEDS ORDERED: POTASSIUM CHLORIDE 10 MEQ in WATER FOR INJECTION 1 100ML.BAG IVPB ONE (13:00)
[2017-05-03] MEDS: MAGNESIUM SULFATE-D5W PMX 1 GM in DEXTROSE/WATER 1 100ML.BAG IVPB SCH ×2 (18:24→20:18)
--- NOTE | 2017-05-03 18:44 | P.PN ---
Subjective SUBJECTIVE DATA/HOSPITAL COURSE: This is an 82-year-old female who comes into the hospital with abdominal discomfort and change in mental status. Patient was noted to be hypotensive. Patient was noted to have a pericardial effusion with tamponade features and underwent a pericardial window on 04/24/2017. Patient's chest tube has been removed today. Patient was also noted to have hypotension and is maintained on Levophed. Patient had been having some significant abdominal pain prior to admission, was noted to have some changes of inflammation initially. Initial concern was about an infectious etiology causing septic shock. 04/28/17 Small dose of levophed has small amounts of stool denies significant abdominal pain no fevers, chills, chest pain reported. 04/30/17 drowsy however has episodes of arousability comfort measures only 05/01/17 on 2mg/hr morphine drip pain is controlled pt is more awake now 05/02/17 pt is upset when the conversation of hospice came up discussed she appeared more stable today 05/03/17 pt is doing well has had a bm overnight had a long discussion with family I discussed different options currently more awake denies having any complaints Physical exam GENERAL APPEARANCE: HEAD: Atraumatic, normocephalic. Previous scars noted on bilateral amish areas. Patient has significant cataracts, is legally blind. Neck is supple. No JVD. LUNGS: Good air movement. Clear to auscultation. ABDOMEN: Diffusely tender. LOWER EXTREMITIES:1 + edema noted NEURO: Moving all four extremities no focal deficits noted Gipson catheter in place. Objective - Vital Signs Vital signs: Vital Signs Temp 97.7 F 05/03/17 15:00 Pulse 123 H 05/03/17 15:00 Resp 18 05/03/17 15:00 BP 113/59 05/03/17 15:00 Pulse Ox 90 L 05/03/17 15:00 Intake & Output 05/02/17 05/03/17 05/03/17 18:59 06:59 18:59 Intake Total 150 674.6 240 Output Total 1400 2800 250 Balance -1250 -2125.4 -10 Weight 66.6 kg Intake: IV 150 120 140 Sodium Chloride 0.9% 1, 150 120 140 000 ml @ 20 mls/hr IV . Q24H [facility] Rx#:[id number] Intake, IV Titration 74.6 100 Amount Morphine Sulfate (100 mg/ 74.6 2 ml) 100 mg In Sodium Chloride 0.9% 100 ml @ 1 MG/HR 1.02 mls/hr IV . Q24H [facility] Rx#:[id number] Potassium Chloride 20 meq 100 In Water For Injection 1 100ml.bag @ 50 mls/hr IVPB ONCE ONE Rx#: [id number] Oral 480 Output: Urine 1400 2800 250 Uretheral (Gipson) 1400 2800 250 Other: Voiding Method Indwelling Catheter Indwelling Catheter Indwelling Catheter ABP, PAP, CO, CI - Last Documented Arterial Blood Pressure 94/94 - Labs CBC & Chem 7: 05/03/17 05:25 05/03/17 05:25 Labs: Abnormal Lab Results - Last 24 Hours (Table) 05/03/17 05/03/17 Range/Units 05:25 05:25 WBC 14.4 H (3.8-10.6) k/uL RBC 3.23 L (3.80-5.40) m/uL Hgb 7.6 L (11.4-16.0) gm/dL Hct 23.2 L (34.0-46.0) % MCV 71.9 L (80.0-100.0) fL MCH 23.7 L (25.0-35.0) pg RDW 21.1 H (11.5-15.5) % Neutrophils # 11.9 H (1.3-7.7) k/uL Potassium 2.8 L* (3.5-5.1) mmol/L Carbon Dioxide 32 H (22-30) mmol/L Calcium 7.1 L (8.4-10.2) mg/dL AST 12 L (14-36) U/L Total Protein 4.0 L (6.3-8.2) g/dL Albumin 1.7 L (3.5-5.0) g/dL Assessment and Plan Plan: ASSESSMENT AND PLAN: 1. Shock. This appears to be multifactorial;including tamponade 2. Pericardial tamponade, status post pericardial window, cytology is reviewed no malignancy postoperative day 6 3. Acute hypoxic respiratory failure. 4. Postoperative anemia. 5. History of gastroesophageal reflux disease. 6. Long-standing irritable bowel syndrome. 7. ischemic colitis 8. Hypothyroidism. 9. Blindness. 10. Significant loss of hearing. PLAN: after a long discussion as pt is more awake we discussed goals of care to DNR and no aggresive intervention including surgeries intubation prior to a code blue however pt is doing resonably well will attempt a short rehab stay, as pt states that she feels better and willing to attempt if she could improve and does not want to dc morphine drip replace magnesium and k repeat labs in the am .
[2017-05-03] MEDS ORDERED: LORazepam 2 MG/ML SYRINGE IV PRN (19:08)
[2017-05-03] MEDS: VIT A,C & E-LUTEIN-MINERALS 1 EACH TAB PO SCH (20:19)
[2017-05-03] MEDS: SODIUM CHLORIDE 0.9% 1,000 ML IV SCH (20:19)
[2017-05-04] MEDS: LEVOTHYROXINE IVP 100 MCG/5 ML VIAL IV SCH (05:19)
[2017-05-04 06:05] LABS: Anisocytosis Moderate; Basophils % (A) 0 %; CH 22.9; CHCM 32.1; Eosinophils % (A) 1 %; HCT 21.3 % (34.0-46.0); HDW 2.97; Hypochromasia Slight; Luc # (Auto) 0.32; Luc % (Auto) 4; Lymphocytes % (A) 11 %; MCH 22.8 pg (25.0-35.0); MCHC 31.9 g/dL (31.0-37.0); MCV 71.6 fL (80.0-100.0); Mean Platelet Volume 7.8; Microcytosis Marked; Monocytes # (A) 0.6 k/uL (0-1.0); Monocytes % (A) 7 %; Neutrophils # (A) 6.8 k/uL (1.3-7.7); Neutrophils % (A) 78 %; RBC 2.97 m/uL (3.80-5.40); RDW 21.1 % (11.5-15.5); WBC 8.8 k/uL (3.8-10.6); WBC (Perox) 8.78
[2017-05-04 06:09] LABS: HGB 6.8 gm/dL (11.4-16.0)
[2017-05-04 06:23] LABS: ALT 28 U/L (9-52); AST 13 U/L (14-36); Alkaline Phosphatase 97 U/L (38-126); Anion Gap 4 mmol/L; Blood Urea Nitrogen 10 mg/dL (7-17); Calcium 6.9 mg/dL (8.4-10.2); Carbon Dioxide 35 mmol/L (22-30); Chloride 97 mmol/L (98-107); Glucose 100 mg/dL (74-99); Magnesium 1.4 mg/dL (1.6-2.3); Non-African American GFR(MDRD) >60 (>60 ml/min/1.73 sqM); Potassium 3.2 mmol/L (3.5-5.1); Sodium 136 mmol/L (137-145); Total Bilirubin 0.8 mg/dL (0.2-1.3); Total Protein 4.2 g/dL (6.3-8.2)
[2017-05-04] MEDS: POTASSIUM CHLORIDE ER 20 MEQ TAB.ER PO SCH ×2 (08:04→09:34)
[2017-05-04] MEDS: PANTOPRAZOLE 40 MG/10 ML VIAL IVP SCH ×2 (08:13→21:13)
--- NOTE | 2017-05-04 18:19 | P.PN ---
Subjective SUBJECTIVE DATA/HOSPITAL COURSE: This is an 82-year-old female who comes into the hospital with abdominal discomfort and change in mental status. Patient was noted to be hypotensive. Patient was noted to have a pericardial effusion with tamponade features and underwent a pericardial window on 04/24/2017. Patient's chest tube has been removed today. Patient was also noted to have hypotension and is maintained on Levophed. Patient had been having some significant abdominal pain prior to admission, was noted to have some changes of inflammation initially. Initial concern was about an infectious etiology causing septic shock. 04/28/17 Small dose of levophed has small amounts of stool denies significant abdominal pain no fevers, chills, chest pain reported. 04/30/17 drowsy however has episodes of arousability comfort measures only 05/01/17 on 2mg/hr morphine drip pain is controlled pt is more awake now 05/02/17 pt is upset when the conversation of hospice came up discussed she appeared more stable today 05/03/17 pt is doing well has had a bm overnight had a long discussion with family I discussed different options currently more awake denies having any complaints 05/04/17 doing well has 2 loose bms denies headaches, blurry vision, nausea, vomiting, chest pain , dizziness Physical exam GENERAL APPEARANCE: HEAD: Atraumatic, normocephalic. Previous scars noted on bilateral religious areas. Patient has significant cataracts, is legally blind. Neck is supple. No JVD. LUNGS: Good air movement. Clear to auscultation. ABDOMEN: Diffusely tender. LOWER EXTREMITIES:1 + edema noted NEURO: Moving all four extremities no focal deficits noted Gipson catheter in place. Objective - Vital Signs Vital signs: Vital Signs Temp 97.9 F 05/04/17 07:00 Pulse 102 H 05/04/17 07:00 Resp 17 05/04/17 16:00 BP 141/68 05/04/17 07:00 Pulse Ox 90 L 05/04/17 07:00 Intake & Output 05/03/17 05/04/17 05/04/17 18:59 06:59 18:59 Intake Total 240 350 160 Output Total 520 523 5753 Balance -25 -398 -0260 Intake: IV 140 160 Sodium Chloride 0.9% 1, 140 160 000 ml @ 20 mls/hr IV . Q24H [facility] Rx#:[id number] Intake, IV Titration 100 Amount Potassium Chloride 20 meq 100 In Water For Injection 1 100ml.bag @ 50 mls/hr IVPB ONCE ONE Rx#: [id number] Oral 350 Output: Urine 830 932 8571 Uretheral (Gipson) 223 713 9631 Stool 50 Other: Voiding Method Indwelling Catheter Indwelling Catheter Indwelling Catheter # Bowel Movements 1 1 ABP, PAP, CO, CI - Last Documented Arterial Blood Pressure 94/94 - Labs CBC & Chem 7: 05/04/17 05:50 05/04/17 11:46 Labs: Abnormal Lab Results - Last 24 Hours (Table) 05/04/17 05/04/17 Range/Units 05:50 05:50 RBC 2.97 L (3.80-5.40) m/uL Hgb 6.8 L* (11.4-16.0) gm/dL Hct 21.3 L (34.0-46.0) % MCV 71.6 L (80.0-100.0) fL MCH 22.8 L (25.0-35.0) pg RDW 21.1 H (11.5-15.5) % Sodium 136 L (137-145) mmol/L Potassium 3.2 L (3.5-5.1) mmol/L Chloride 97 L (98-107) mmol/L Carbon Dioxide 35 H (22-30) mmol/L Glucose 100 H (74-99) mg/dL Calcium 6.9 L (8.4-10.2) mg/dL Magnesium 1.4 L (1.6-2.3) mg/dL AST 13 L (14-36) U/L Total Protein 4.2 L (6.3-8.2) g/dL Albumin 1.7 L (3.5-5.0) g/dL Assessment and Plan Plan: ASSESSMENT AND PLAN: 1. Shock. This appears to be multifactorial;including tamponade 2. Pericardial tamponade, status post pericardial window, cytology is reviewed no malignancy postoperative day 7 3. Acute hypoxic respiratory failure. 4. Postoperative anemia. 5. History of gastroesophageal reflux disease. 6. Long-standing irritable bowel syndrome. 7. ischemic colitis 8. Hypothyroidism. 9. Blindness. 10. Significant loss of hearing. 11. Anemia asymptomatic PLAN: after a long discussion as pt is more awake we discussed goals of care to DNR and no aggresive intervention including surgeries intubation prior to a code blue however pt is doing resonably well will attempt a short rehab stay, as pt states that she feels better and willing to attempt if she could improve and does not want to No blood replacement attempt NH placement vs home with home care Family issues and disagreements between her children replace magnesium and k repeat labs in the am .
[2017-05-04] MEDS: VIT A,C & E-LUTEIN-MINERALS 1 EACH TAB PO SCH ×2 (21:13→21:15)
[2017-05-04] MEDS: SODIUM CHLORIDE 0.9% 1,000 ML IV SCH (21:16)
[2017-05-05] MEDS: LEVOTHYROXINE IVP 100 MCG/5 ML VIAL IV SCH (06:00)
[2017-05-05 06:26] LABS: ALT 23 U/L (9-52); AST 13 U/L (14-36); Alkaline Phosphatase 87 U/L (38-126); Anion Gap 4 mmol/L; Blood Urea Nitrogen 9 mg/dL (7-17); Calcium 6.7 mg/dL (8.4-10.2); Carbon Dioxide 32 mmol/L (22-30); Chloride 101 mmol/L (98-107); Glucose 83 mg/dL (74-99); Non-African American GFR(MDRD) >60 (>60 ml/min/1.73 sqM); Potassium 3.3 mmol/L (3.5-5.1); Sodium 137 mmol/L (137-145); Total Bilirubin 0.4 mg/dL (0.2-1.3)
[2017-05-05] MEDS: PANTOPRAZOLE 40 MG/10 ML VIAL IVP SCH (08:35)
[2017-05-05] MEDS ORDERED: POTASSIUM CHLORIDE 20 MEQ in WATER FOR INJECTION 1 100ML.BAG IVPB ONE (10:30)
[2017-05-05] MEDS ORDERED: ALPRAZolam 0.25 MG TAB PO PRN (16:11)
[2017-05-05] MEDS: HYDROcodone/APAP 5-325MG 1 EACH TAB PO PRN (17:05)
[2017-05-05] MEDS: IPRATROPIUM-ALBUTEROL 3 ML NEB INHALATION PRN (18:03)
--- NOTE | 2017-05-05 19:31 | P.PN ---
Subjective SUBJECTIVE DATA/HOSPITAL COURSE: This is an 82-year-old female who comes into the hospital with abdominal discomfort and change in mental status. Patient was noted to be hypotensive. Patient was noted to have a pericardial effusion with tamponade features and underwent a pericardial window on 04/24/2017. Patient's chest tube has been removed today. Patient was also noted to have hypotension and is maintained on Levophed. Patient had been having some significant abdominal pain prior to admission, was noted to have some changes of inflammation initially. Initial concern was about an infectious etiology causing septic shock. 04/28/17 Small dose of levophed has small amounts of stool denies significant abdominal pain no fevers, chills, chest pain reported. 04/30/17 drowsy however has episodes of arousability comfort measures only 05/01/17 on 2mg/hr morphine drip pain is controlled pt is more awake now 05/02/17 pt is upset when the conversation of hospice came up discussed she appeared more stable today 05/03/17 pt is doing well has had a bm overnight had a long discussion with family I discussed different options currently more awake denies having any complaints 05/04/17 doing well has 2 loose bms denies headaches, blurry vision, nausea, vomiting, chest pain , dizziness 05/05/17 today, pt informs me that she is going to be evaluated by Dr Bowen family apparently contacted Dr Sada bowen office, asking to see her for her IBS It appears different family members have different opinions of her care I discussed that he case has been discussed with them daily unsure of the need for her eval States to be doing well no diarrhea is reported Physical exam GENERAL APPEARANCE: HEAD: Atraumatic, normocephalic. Previous scars noted on bilateral adventist areas. Patient has significant cataracts, is legally blind. Neck is supple. No JVD. LUNGS: Good air movement. Clear to auscultation. ABDOMEN: Diffusely tender. LOWER EXTREMITIES:1 + edema noted NEURO: Moving all four extremities no focal deficits noted Gipson catheter in place. Objective - Vital Signs Vital signs: Vital Signs Temp 98.6 F 05/05/17 07:00 Pulse 88 05/05/17 18:03 Resp 17 05/05/17 07:00 BP 120/64 05/05/17 07:00 Pulse Ox 93 L 05/05/17 07:00 Intake & Output 05/05/17 05/05/17 05/06/17 06:59 18:59 06:59 Intake Total 240 240 Output Total 800 1000 Balance -560 -760 Intake: IV 240 Sodium Chloride 0.9% 1, 240 000 ml @ 20 mls/hr IV . Q24H [facility] Rx#:[id number] Oral 240 Output: Urine 800 1000 Uretheral (Gipson) 800 1000 Other: Voiding Method Indwelling Catheter Indwelling Catheter ABP, PAP, CO, CI - Last Documented Arterial Blood Pressure 94/94 - Labs CBC & Chem 7: 05/04/17 05:50 05/05/17 15:38 Labs: Abnormal Lab Results - Last 24 Hours (Table) 05/05/17 Range/Units 06:10 Potassium 3.3 L (3.5-5.1) mmol/L Carbon Dioxide 32 H (22-30) mmol/L Calcium 6.7 L (8.4-10.2) mg/dL AST 13 L (14-36) U/L Total Protein 4.0 L (6.3-8.2) g/dL Albumin 1.6 L (3.5-5.0) g/dL Microbiology - Last 24 Hours (Table) 04/24/17 13:15 Acid Fast Bacilli Smear - Final Pericardial Fluid Acid Fast Bacilli Culture - Preliminary 04/24/17 13:15 Acid Fast Bacilli Smear - Final Pericardial Fluid Acid Fast Bacilli Culture - Preliminary Assessment and Plan Plan: ASSESSMENT AND PLAN: 1. Shock. This appears to be multifactorial;including tamponade 2. Pericardial tamponade, status post pericardial window, cytology is reviewed no malignancy postoperative day 7 3. Acute hypoxic respiratory failure. 4. Postoperative anemia. 5. History of gastroesophageal reflux disease. 6. Long-standing irritable bowel syndrome. 7. ischemic colitis 8. Hypothyroidism. 9. Blindness. 10. Significant loss of hearing. 11. Anemia asymptomatic PLAN: we discussed goals of care to DNR and no aggresive intervention including surgeries intubation prior to a code blue however pt is doing resonably well will attempt a short rehab stay, as pt states that she feels better and willing to attempt if she could improve and does not want to No blood replacement. today some concern over [facility] evaluating pt for her IBS this does not need to happen. Pt's clinical status and prognosis is poor however from my previous discussion, pt will be sent to NH for a short period, if pt improves in regards to nutritional status and functional status pt can therafter follow up with Dr Bowen for her IBS attempt NH placement vs home with home care Family issues and disagreements between her children Answered all questions Discussed that there is no need for Gi consult .
[2017-05-05] MEDS: VIT A,C & E-LUTEIN-MINERALS 1 EACH TAB PO SCH (21:41)
[2017-05-05] MEDS: PANTOPRAZOLE 40 MG TABLET PO SCH (21:41)
[2017-05-05] MEDS: SODIUM CHLORIDE 0.9% 1,000 ML IV SCH (21:42)
[2017-05-06] MEDS ORDERED: LEVOTHYROXINE 25 MCG TAB PO SCH (06:30)
[2017-05-06] MEDS: LOPERAMIDE 2 MG CAP PO PRN (08:56)
[2017-05-06] MEDS: PANTOPRAZOLE 40 MG TABLET PO SCH ×2 (08:56→18:14)
--- NOTE | 2017-05-06 14:29 | P.DS ---
Providers Date of admission: 04/22/17 19:35 Attending physician: Hawa Salinas Consults: 04/23/17 16:03 Consult Physician Routine Consulting Provider: Jeremiah Alarcon Consult Reason/Comments: sepsis Do you want consulting provider notified?: Yes 04/23/17 16:04 Consult Physician Routine Consulting Provider: Ollie Blake Consult Reason/Comments: abnormal ct scan ischemic bowel? Do you want consulting provider notified?: Yes Consult Physician Stat Consulting Provider: Radha Smalls Consult Reason/Comments: sepsis Do you want consulting provider notified?: Yes 04/24/17 10:37 Consult Physician Stat Consulting Provider: Rakesh Saleem Consult Reason/Comments: cardiac tamponade Do you want consulting provider notified?: Yes Consult Physician Stat Consulting Provider: Aren Yanez Consult Reason/Comments: r/t cardiac tamponade; read echo Do you want consulting provider notified?: Already Contacted 04/24/17 14:50 Consult Physician Urgent Consulting Provider: Jeremiah Alarcon Consult Reason/Comments: infectious disease Do you want consulting provider notified?: Already Contacted Primary care physician: Suzi Batista [facility] Course: SUBJECTIVE DATA/HOSPITAL COURSE: This is an 82-year-old female who comes into the hospital with abdominal discomfort and change in mental status. Patient was noted to be hypotensive. Patient was noted to have a pericardial effusion with tamponade features and underwent a pericardial window on 04/24/2017. Patient's chest tube has been removed today. Patient was also noted to have hypotension and is maintained on Levophed. Patient had been having some significant abdominal pain prior to admission, was noted to have some changes of inflammation initially. Initial concern was about an infectious etiology causing septic shock. 04/28/17 Small dose of levophed has small amounts of stool denies significant abdominal pain no fevers, chills, chest pain reported. 04/30/17 drowsy however has episodes of arousability comfort measures only 05/01/17 on 2mg/hr morphine drip pain is controlled pt is more awake now 05/02/17 pt is upset when the conversation of hospice came up discussed she appeared more stable today 05/03/17 pt is doing well has had a bm overnight had a long discussion with family I discussed different options currently more awake denies having any complaints 05/04/17 doing well has 2 loose bms denies headaches, blurry vision, nausea, vomiting, chest pain , dizziness 05/05/17 today, pt informs me that she is going to be evaluated by Dr Choi family apparently contacted Dr Sada choi office, asking to see her for her IBS It appears different family members have different opinions of her care I discussed that he case has been discussed with them daily unsure of the need for her eval States to be doing well no diarrhea is reported Physical exam GENERAL APPEARANCE: HEAD: Atraumatic, normocephalic. Previous scars noted on bilateral pentecostalism areas. Patient has significant cataracts, is legally blind. Neck is supple. No JVD. LUNGS: Good air movement. Clear to auscultation. ABDOMEN: Diffusely tender. LOWER EXTREMITIES:1 + edema noted NEURO: Moving all four extremities no focal deficits noted Gipson catheter in place. ASSESSMENT AND PLAN: 1. Shock. This appears to be multifactorial;including tamponade 2. Pericardial tamponade, status post pericardial window, cytology is reviewed no malignancy postoperative day 8 3. Acute hypoxic respiratory failure. 4. Postoperative anemia. 5. History of gastroesophageal reflux disease. 6. Long-standing irritable bowel syndrome. 7. ischemic colitis 8. Hypothyroidism. 9. Blindness. 10. Significant loss of hearing. 11. Anemia asymptomatic PLAN: we discussed goals of care to DNR and no aggresive intervention including surgeries intubation prior to a code blue however pt is doing resonably well will attempt a short rehab stay, as pt states that she feels better and willing to attempt if she could improve and does not want to No blood replacement. today some concern over Spencer Choi evaluating pt for her IBS this does not need to happen. Pt's clinical status and prognosis is poor however from my previous discussion, pt will be sent to NH for a short period, if pt improves in regards to nutritional status and functional status pt can therafter follow up with Dr Choi for her IBS attempt NH placement vs home with home care Family issues and disagreements between her children Answered all questions Patient Condition at Discharge: Undetermined Plan - Discharge Summary New Discharge Prescriptions: New Hydrocodone/Acetaminophen [[place] 5-325] 1 tab PO Q6HR PRN #30 tab PRN Reason: Pain Diltiazem Cd [Cardizem Cd] 120 mg PO Q24HR #30 cap Continue Omeprazole [PriLOSEC] 20 mg PO QAM Cyanocobalamin [Vitamin B-12 Injection] 1,000 mcg SQ QMONTH Tacrolimus [Protopic] 1 applic TOPICAL HS PRN PRN Reason: Facial Rash Dicyclomine [Bentyl] 10 mg PO TID PRN PRN Reason: IBS Loperamide HCl [Loperamide] 4 mg PO TID PRN PRN Reason: IBS Denosumab [Prolia] 60 mg SQ Q180D Diphenox-Atrop 2.5-0.025 mg [Lomotil] 2 tab PO TID PRN #40 tab PRN Reason: Diarrhea Magnesium 200 mg PO DAILY Cyanocobalamin [Vitamin B-12] 500 mcg PO DAILY Vit A/Vit C/Vit E/Zinc/Copper [ICAPS SOFTGEL] 1 cap PO HS Acetaminophen [Tylenol] 650 mg PO Q6HR PRN PRN Reason: Fever And/ Or Pain Ondansetron [Zofran ODT] 4 mg PO Q8HR PRN PRN Reason: Nausea Levothyroxine Sodium [Synthroid] 25 mcg PO DAILY Fluticasone Nasal Kinsman [Flonase Nasal Kinsman] 2 spr EA NOSTRIL DAILY PRN PRN Reason: Allergy Symptoms Naproxen Sodium [Aleve] 220 mg PO HS PRN PRN Reason: Pain Ferrous Sulfate [Iron] 325 mg PO DAILY EPINEPHrine [Epipen 2-Adriel] 0.3 mg IM ONCE PRN PRN Reason: Anaphylaxis Alclometasone Dipropionate 1 applic TOPICAL DAILY PRN PRN Reason: Facial Rash Calcium Carbonate [Calcium] 600 mg PO DAILY ALPRAZolam [Xanax] 0.25 mg PO HS PRN #30 PRN Reason: Insomnia Discontinued Eluxadoline [Viberzi] 75 mg PO DAILY PRN PRN Reason: IBS-D Discharge Medication List Cyanocobalamin [Vitamin B-12 Injection] 1,000 mcg SQ QMONTH 02/23/16 [History] Dicyclomine [Bentyl] 10 mg PO TID PRN 02/23/16 [History] Loperamide HCl [Loperamide] 4 mg PO TID PRN 02/23/16 [History] Omeprazole [PriLOSEC] 20 mg PO QAM 02/23/16 [History] Tacrolimus [Protopic] 1 applic TOPICAL HS PRN 02/23/16 [History] Denosumab [Prolia] 60 mg SQ Q180D 09/10/16 [History] Diphenox-Atrop 2.5-0.025 mg [Lomotil] 2 tab PO TID PRN #40 tab 09/20/16 [Rx] Acetaminophen [Tylenol] 650 mg PO Q6HR PRN 04/22/17 [History] Alclometasone Dipropionate 1 applic TOPICAL DAILY PRN 04/22/17 [History] Calcium Carbonate [Calcium] 600 mg PO DAILY 04/22/17 [History] Cyanocobalamin [Vitamin B-12] 500 mcg PO DAILY 04/22/17 [History] EPINEPHrine [Epipen 2-Adriel] 0.3 mg IM ONCE PRN 04/22/17 [History] Ferrous Sulfate [Iron] 325 mg PO DAILY 04/22/17 [History] Fluticasone Nasal Kinsman [Flonase Nasal Kinsman] 2 spr EA NOSTRIL DAILY PRN [History] Levothyroxine Sodium [Synthroid] 25 mcg PO DAILY 04/22/17 [History] Magnesium 200 mg PO DAILY 04/22/17 [History] Naproxen Sodium [Aleve] 220 mg PO HS PRN 04/22/17 [History] Ondansetron [Zofran ODT] 4 mg PO Q8HR PRN 04/22/17 [History] Vit A/Vit C/Vit E/Zinc/Copper [ICAPS SOFTGEL] 1 cap PO HS 04/22/17 [History] ALPRAZolam [Xanax] 0.25 mg PO HS PRN #30 05/05/17 [Rx] Hydrocodone/Acetaminophen [[place] 5-325] 1 tab PO Q6HR PRN #30 tab 05/05/17 [Rx] Diltiazem Cd [Cardizem Cd] 120 mg PO Q24HR #30 cap 05/06/17 [Rx] Follow up Appointment(s)/Referral(s): Suzi Cuellar MD [Primary Care Provider] - 1-2 days Discharge Disposition: TRANSFER TO SNF/F
[2017-05-06] MEDS ORDERED: DILTIAZEM CD 120 MG CAP.ER.24H PO STA (15:46)
[2017-05-06 16:23] VITALS: BP 110/65; PULSE 99; RESP 16; TEMP 97.9
[2017-05-06] MEDS: HYDROcodone/APAP 5-325MG 1 EACH TAB PO PRN (18:06)
== END 2017-05-06 18:45 | DRG 853 ==
LOC: EC 17:30 → 5MS5E 19:35 → 6ICU 04-23 16:56 → 5MS5E 04-29 20:51 → 5ONC 05-01 16:56
PROVIDERS: ADMIT Internal Medicine; ATTEND Internal Medicine
PROC: 0W9D00Z Drainage of Pericardial Cavity with Drainage Device, Open Approach (ICD-10-PCS; principal; 2017-04-24 11:30)
PROC: 0BH17EZ Insertion of Endotracheal Airway into Trachea, Via Natural or Artificial Opening (ICD-10-PCS; principal; 2017-04-24 11:30)
PROC: 5A1945Z Respiratory Ventilation, 24-96 Consecutive Hours (ICD-10-PCS; principal; 2017-04-24 11:30)
PROC: 30233N1 Transfusion of Nonautologous Red Blood Cells into Peripheral Vein, Percutaneous Approach (ICD-10-PCS; 2017-04-25)
DX: A41.9 Sepsis, unspecified organism (principal); E43 Unspecified severe protein-calorie malnutrition; I31.4 Cardiac tamponade; J96.01 Acute respiratory failure with hypoxia; R65.21 Severe sepsis with septic shock; G93.41 Metabolic encephalopathy; J90 Pleural effusion, not elsewhere classified; K55.9 Vascular disorder of intestine, unspecified; N17.9 Acute kidney failure, unspecified; A04.7 Enterocolitis due to Clostridium difficile; E87.2 Acidosis; E87.1 Hypo-osmolality and hyponatremia; J98.11 Atelectasis; R64 Cachexia; Z68.1 Body mass index [BMI] 19.9 or less, adult; E86.0 Dehydration; E87.70 Fluid overload, unspecified; D53.9 Nutritional anemia, unspecified; E03.9 Hypothyroidism, unspecified; E83.42 Hypomagnesemia; E83.51 Hypocalcemia; F41.9 Anxiety disorder, unspecified; H26.9 Unspecified cataract; H54.8 Legal blindness, as defined in USA; H91.90 Unspecified hearing loss, unspecified ear; I10 Essential (primary) hypertension; K21.9 Gastro-esophageal reflux disease without esophagitis; K58.9 Irritable bowel syndrome, unspecified; Z66 Do not resuscitate; Z79.899 Other long term (current) drug therapy; Z82.49 Family history of ischemic heart disease and other diseases of the circulatory system; Z87.891 Personal history of nicotine dependence
CPT/HCPCS: 36415; 36620; 71010; 71250; 74022; 74176; 80048; 80053; 80202; 81001; 82150; 82330; 82533; 82550; 82553; 82805; 83036; 83605; 83690; 83735; 84100; 84132; 84157; 84484; 85025; 85027; 85610; 85652; 85730; 86850; 86900; 86901; 86920; 87040; 87045; 87046; 87070; 87075; 87086; 87102; 87116; 87205; 87206; 87324; 87493; 88108; 88305; 93005; 93306; 94002; 94003; 94640; 96361; 96365; 99285

== ENCOUNTER 2017-05-28 21:33 | Inpatient (IN) | payer MEDICARE ==
[2017-05-28] MEDS ORDERED: MORPHINE SULFATE 4 MG/ML SYRINGE IV STA (21:54)
[2017-05-28] MEDS ORDERED: SODIUM CHLORIDE 0.9% 1,000 ML IV STA ×2 (21:54→23:44)
[2017-05-28] MEDS ORDERED: DICYCLOMINE 10 MG/ML 2 ML AMP IM STA (21:54)
[2017-05-28] MEDS ORDERED: SODIUM CHLORIDE 0.9% 500 ML IV STA (21:54)
[2017-05-28] MEDS ORDERED: ONDANSETRON 4 MG/2 ML VIAL IVP STA (21:54)
[2017-05-28] MEDS ORDERED: IPRATROPIUM-ALBUTEROL 3 ML NEB INHALATION STA (21:56)
--- NOTE | 2017-05-28 22:09 | ED ---
General Adult HPI - General Chief complaint: Abdominal Pain Stated complaint: Nausea,vomiting Time Seen by Provider: 05/28/17 21:37 Source: EMS, RN notes reviewed, old records reviewed Mode of arrival: EMS Limitations: no limitations, language barrier - History of Present Illness Initial comments: This is a 82-year-old female to the ER for evaluation. 3 for evaluation regarding epigastric and diffuse abdominal pain, history of irritable bowel disease. Patient states she has been symptom management. She feels nauseous but has had no active vomiting, she has consistent diarrhea but did take her antidiarrheal medication at home which did improve that. Patient's main issue now is pain control. She feels a little dehydrated due to decreased oral intake secondary to her diarrhea and nausea earlier in the day. Patient denies any fevers. - Related Data Home Medications Medication Instructions Recorded Confirmed Cyanocobalamin [Vitamin B-12 1,000 mcg SQ QMONTH 02/23/16 04/22/17 Injection] Dicyclomine [Bentyl] 10 mg PO TID PRN 02/23/16 04/22/17 Loperamide HCl [Loperamide] 4 mg PO TID PRN 02/23/16 04/22/17 Omeprazole [PriLOSEC] 20 mg PO QAM 02/23/16 04/22/17 Tacrolimus [Protopic] 1 applic TOPICAL HS PRN 02/23/16 04/22/17 Denosumab [Prolia] 60 mg SQ Q180D 09/10/16 04/22/17 Acetaminophen [Tylenol] 650 mg PO Q6HR PRN 04/22/17 04/22/17 Alclometasone Dipropionate 1 applic TOPICAL DAILY PRN 04/22/17 04/22/17 Calcium Carbonate [Calcium] 600 mg PO DAILY 04/22/17 04/22/17 Cyanocobalamin [Vitamin B-12] 500 mcg PO DAILY 04/22/17 04/22/17 EPINEPHrine [Epipen 2-Adriel] 0.3 mg IM ONCE PRN 04/22/17 04/22/17 Ferrous Sulfate [Iron] 325 mg PO DAILY 04/22/17 04/22/17 Fluticasone Nasal [place] [Flonase 2 spr EA NOSTRIL DAILY PRN 04/22/17 04/22/17 Nasal [place]] Levothyroxine Sodium [Synthroid] 25 mcg PO DAILY 04/22/17 04/22/17 Magnesium 200 mg PO DAILY 04/22/17 04/22/17 Naproxen Sodium [Aleve] 220 mg PO HS PRN 04/22/17 04/22/17 Ondansetron [Zofran ODT] 4 mg PO Q8HR PRN 04/22/17 04/22/17 Vit A/Vit C/Vit E/Zinc/Copper 1 cap PO HS 04/22/17 04/22/17 [ICAPS SOFTGEL] Previous Rx's Medication Instructions Recorded Diphenox-Atrop 2.5-0.025 mg 2 tab PO TID PRN #40 tab 09/20/16 [Lomotil] ALPRAZolam [Xanax] 0.25 mg PO HS PRN #30 05/05/17 Hydrocodone/Acetaminophen [[place] 1 tab PO Q6HR PRN #30 tab 05/05/17 5-325] Diltiazem Cd [Cardizem Cd] 120 mg PO Q24HR #30 cap 05/06/17 Allergies Allergy/AdvReac Type Severity Reaction Status Date / Time venom-honey bee Allergy Unknown Anaphylaxis Verified 04/22/17 19:14 [bee venom (honey bee)] venom-wasp [Wasp Venom] Allergy Unknown Anaphylaxis Verified 04/22/17 19:14 ether Allergy Unknown Verified 04/22/17 19:14 methylprednisolone Allergy Rash/Hives Verified 04/23/17 21:00 [From Solu-Medrol] soybean Allergy Unknown Verified 04/22/17 19:14 tomato Allergy Unknown Verified 09/24/16 07:48 Review of Systems ROS Statement: Those systems with pertinent positive or pertinent negative responses have been documented in the HPI. ROS Other: All systems not noted in ROS Statement are negative. Past Medical History Past Medical History: GERD/Reflux Additional Past Medical History / Comment(s): IBS. History of Any Multi-Drug Resistant Organisms: None Reported Past Surgical History: Appendectomy, Orthopedic Surgery Additional Past Surgical History / Comment(s): DEVIATED SEPTUM, TUBES AND OVARIES REMOVED, HAMLET SHOULDER SURGERY. Past Anesthesia/Blood Transfusion Reactions: No Reported Reaction Past Psychological History: Anxiety Smoking Status: Former smoker Past Alcohol Use History: Occasional Past Drug Use History: None Reported - Past Family History Father Family Medical History: Myocardial Infarction ([place]) Additional Family Medical History / Comment(s): heart failure General Exam Limitations: no limitations, language barrier General appearance: alert, in no apparent distress Head exam: Present: atraumatic, normocephalic, normal inspection Eye exam: Present: normal appearance, PERRL, EOMI. Absent: scleral icterus, conjunctival injection, periorbital swelling ENT exam: Present: normal exam, mucous membranes moist Neck exam: Present: normal inspection. Absent: tenderness, meningismus, lymphadenopathy Respiratory exam: Present: normal lung sounds bilaterally. Absent: respiratory distress, wheezes, rales, rhonchi, stridor Cardiovascular Exam: Present: regular rate, normal rhythm, normal heart sounds. Absent: systolic murmur, diastolic murmur, rubs, gallop, clicks GI/Abdominal exam: Present: soft, normal bowel sounds. Absent: distended, tenderness, guarding, rebound, rigid Extremities exam: Present: normal inspection, full ROM, normal capillary refill. Absent: tenderness, pedal edema, joint swelling, calf tenderness Back exam: Present: normal inspection Neurological exam: Present: alert, oriented X3, CN II-XII intact Psychiatric exam: Present: normal affect, normal mood Skin exam: Present: warm, dry, intact, normal color. Absent: rash Course Vital Signs 05/28/17 05/28/17 05/28/17 21:38 21:57 22:11 Temperature 99.6 F Pulse Rate 105 H 104 H Respiratory 20 Rate Blood Pressure 117/59 O2 Sat by Pulse 92 L Oximetry 05/28/17 05/28/17 22:29 23:08 Temperature Pulse Rate 110 H 118 H Respiratory 20 Rate Blood Pressure 102/58 O2 Sat by Pulse 98 Oximetry - Reevaluation(s) Reevaluation #1: 05/29/17 00:16 Patient does feel mildly improved EKG Findings - EKG Comments: EKG Findings:: EKG shows sinus tachycardia rate 118, ID [id number], QRS 76, QTc 456 Medical Decision Making - Medical Decision Making 82 female to the with severe nausea vomiting and diarrhea, severe hypo- magnesium clinic magnesium, potassium, patient will be admitted for electrolyte replacement, symptom management, rehydration. - Lab Data Result diagrams: 05/28/17 22:42 05/28/17 22:42 Lab Results 05/28/17 05/28/17 05/28/17 Range/Units 22:42 22:42 22:42 WBC 8.2 (3.8-10.6) k/uL RBC 2.65 L (3.80-5.40) m/uL Hgb 5.8 L* (11.4-16.0) gm/dL Hct 17.9 L* (34.0-46.0) % MCV 67.6 L D (80.0-100.0) fL MCH 22.1 L (25.0-35.0) pg MCHC 32.6 (31.0-37.0) g/dL RDW 17.7 H (11.5-15.5) % Plt Count 223 (150-450) k/uL PT (9.0-12.0) sec INR (<1.1) APTT (22.0-30.0) sec Sodium 133 L (137-145) mmol/L Potassium 2.9 L* (3.5-5.1) mmol/L Chloride 93 L (98-107) mmol/L Carbon Dioxide 25 (22-30) mmol/L Anion Gap 15 mmol/L BUN 23 H (7-17) mg/dL Creatinine 1.00 (0.52-1.04) mg/dL Est GFR (MDRD) Af Amer >60 (>60 ml/min/1.73 sqM) Est GFR (MDRD) Non-Af 53 (>60 ml/min/1.73 sqM) Glucose 96 (74-99) mg/dL Calcium 5.7 L* (8.4-10.2) mg/dL Phosphorus 2.8 (2.5-4.5) mg/dL Magnesium 0.8 L* (1.6-2.3) mg/dL Total Bilirubin 0.9 (0.2-1.3) mg/dL AST 22 (14-36) U/L ALT 33 (9-52) U/L Alkaline Phosphatase 96 (38-126) U/L Total Creatine Kinase 219 H (30-135) U/L CK-MB (CK-2) 0.3 (0.0-2.4) ng/mL CK-MB (CK-2) Rel Index 0.1 Troponin I 0.048 H* (0.000-0.034) ng/mL Total Protein 5.4 L (6.3-8.2) g/dL Albumin 2.7 L (3.5-5.0) g/dL Lipase 34 (23-300) U/L 05/28/17 Range/Units 22:42 WBC (3.8-10.6) k/uL RBC (3.80-5.40) m/uL Hgb (11.4-16.0) gm/dL Hct (34.0-46.0) % MCV (80.0-100.0) fL MCH (25.0-35.0) pg MCHC (31.0-37.0) g/dL RDW (11.5-15.5) % Plt Count (150-450) k/uL PT 14.0 H (9.0-12.0) sec INR 1.4 (<1.1) APTT 27.0 (22.0-30.0) sec Sodium (137-145) mmol/L Potassium (3.5-5.1) mmol/L Chloride (98-107) mmol/L Carbon Dioxide (22-30) mmol/L Anion Gap mmol/L BUN (7-17) mg/dL Creatinine (0.52-1.04) mg/dL Est GFR (MDRD) Af Amer (>60 ml/min/1.73 sqM) Est GFR (MDRD) Non-Af (>60 ml/min/1.73 sqM) Glucose (74-99) mg/dL Calcium (8.4-10.2) mg/dL Phosphorus (2.5-4.5) mg/dL Magnesium (1.6-2.3) mg/dL Total Bilirubin (0.2-1.3) mg/dL AST (14-36) U/L ALT (9-52) U/L Alkaline Phosphatase (38-126) U/L Total Creatine Kinase (30-135) U/L CK-MB (CK-2) (0.0-2.4) ng/mL CK-MB (CK-2) Rel Index Troponin I (0.000-0.034) ng/mL Total Protein (6.3-8.2) g/dL Albumin (3.5-5.0) g/dL Lipase (23-300) U/L - Radiology Data Radiology results: report reviewed (X-ray KUB negative), image reviewed Disposition Clinical Impression: Diarrhea, Hypokalemia, Dehydration, Nausea & vomiting, Hypomagnesemia Disposition: HOME SELF-CARE Condition: Good Referrals: Suzi Cuellar MD [Primary Care Provider] - 1-2 days
[2017-05-28 22:57] LABS: Anisocytosis Slight; CH 22.6; CHCM 33.5; HDW 3.59; Hypochromasia Slight; Immature Gran Flag Marked; MCH 22.1 pg (25.0-35.0); MCHC 32.6 g/dL (31.0-37.0); Mean Platelet Volume 7.2; Microcytosis Marked; Poikilocytosis Slight; RBC 2.65 m/uL (3.80-5.40); RDW 17.7 % (11.5-15.5); WBC 8.2 k/uL (3.8-10.6); WBC (Perox) 7.69
[2017-05-28 23:09] LABS: INR 1.4 (<1.1)
[2017-05-28 23:11] LABS: ALT 33 U/L (9-52); AST 22 U/L (14-36); Alkaline Phosphatase 96 U/L (38-126); Anion Gap 15 mmol/L; Blood Urea Nitrogen 23 mg/dL (7-17); Carbon Dioxide 25 mmol/L (22-30); Chloride 93 mmol/L (98-107); Glucose 96 mg/dL (74-99); Non-African American GFR(MDRD) 53 (>60 ml/min/1.73 sqM); Phosphorous 2.8 mg/dL (2.5-4.5); Sodium 133 mmol/L (137-145); Total Bilirubin 0.9 mg/dL (0.2-1.3); Total Protein 5.4 g/dL (6.3-8.2)
[2017-05-28 23:21] LABS: Calcium 5.7 mg/dL (8.4-10.2); Magnesium 0.8 mg/dL (1.6-2.3); Potassium 2.9 mmol/L (3.5-5.1)
[2017-05-28 23:28] LABS: HGB 5.8 gm/dL (11.4-16.0)
[2017-05-28 23:29] LABS: Creatine Kinase MB 0.3 ng/mL (0.0-2.4); HCT 17.9 % (34.0-46.0); MCV 67.6 fL (80.0-100.0)
[2017-05-28 23:30] LABS: Troponin I 0.048 ng/mL (0.000-0.034)
[2017-05-28] MEDS ORDERED: DEXTROSE 5%-0.45% NACL 1,000 ML IV ONE (23:44)
[2017-05-29] MEDS ORDERED: SODIUM CHLORIDE 0.9% 1,000 ML IV ONE (00:12)
[2017-05-29] MEDS ORDERED: PANTOPRAZOLE 40 MG/10 ML VIAL IVP STA (00:14)
[2017-05-29] MEDS ORDERED: IPRATROPIUM-ALBUTEROL 3 ML NEB INHALATION PRN (00:16)
--- NOTE | 2017-05-29 00:31 | XR ---
PROCEDURE: XR KUB HISTORY: Pain COMPARISON: None FINDINGS: 2 AP KUB upright radiograph demonstrates a nonspecific and nonobstructive bowel gas pattern. There is a 1.1 cm hyperdensity projecting over the superior margin of the right iliac crest and 0.6 cm hyperdensity projecting over the right ilium. Degenerative changes of the lumbar spine Questionable nodule in the right lower lung field. Heart appears mildly enlarged. IMPRESSION: 1. Nonobstructive bowel gas pattern. Non specific hyperdensities projecting over the right ilium/iliac crest. 2. Questionable nodule in the right lower lung field
[2017-05-29 00:55] LABS: Add Differential Manual Differential
[2017-05-29 01:07] LABS: Nucleated Red Blood Cells 0 /100 WBC (0-0); Total Cells Counted 200
[2017-05-29 01:08] LABS: Polychromasia Present
[2017-05-29 01:10] LABS: Ovalocytes Present
[2017-05-29] MEDS: POTASSIUM CHLORIDE 20 MEQ, LIDOCAINE 2% INJ 20 MG in SODIUM CHLORIDE 0.9% 100 ML IVPB SCH ×3 (01:12→08:41)
[2017-05-29 02:07] VITALS: BMI 20.6
[2017-05-29] MEDS ORDERED: FUROSEMIDE 10 MG/ML 2 ML VIAL IV ONE (03:13)
[2017-05-29 04:00] LABS: Glucose,Whole Blood 132 mg/dL (75-99)
[2017-05-29] MEDS: MAGNESIUM SULFATE-D5W PMX 1 GM in DEXTROSE/WATER 1 100ML.BAG IVPB SCH ×4 (04:55→08:42)
[2017-05-29] MEDS ORDERED: NALOXONE 0.4 MG/ML 1 ML VIAL IV PRN (05:05)
[2017-05-29 06:00] LABS: Amorphous Sediment,Urine Occasional /hpf; Appearance,Urine Cloudy (Clear); Bilirubin,Urine Negative (Negative); Glucose,Urine (UA) Negative (Negative); Granular Casts,Urine 4 /lpf (0); Ketones,Urine Negative (Negative); Leukocyte Esterase,Urine Negative (Negative); Mucus,Urine Rare /hpf; Nitrite,Urine Negative (Negative); PH, Urine 5.5 (5.0-8.0); Particle Count 11483; Protein,Urine 1+ (Negative); RBC,Urine 2 /hpf (0-5); Specific Gravity,Urine 1.011 (1.001-1.035); Squamous Epithelial Cell,Urine <1 /hpf (0-4); UA Billing (MACRO vs. MICRO) MICRO; Urobilinogen,Urine <2.0 mg/dL (<2.0); WBC,Urine 1 /hpf (0-5)
[2017-05-29] MEDS: DICYCLOMINE 10 MG CAP PO SCH ×3 (07:33→23:01)
[2017-05-29] MEDS: ONDANSETRON 4 MG/2 ML VIAL IVP PRN ×2 (08:01→13:09)
--- NOTE | 2017-05-29 10:44 | P.CNPUL ---
History of Present Illness Consult date: 05/29/17 Chief complaint: Dehydration, electrolyte imbalance History of present illness: 82-year-old female patient with multiple medical problems and comorbidities who came in to the emergency department yesterday because of nausea, emesis and diarrhea and dehydration and electrodes imbalance. Is a very sick elderly female patient. She was in the hospital in late March 2017 when she came in again with similar gastrointestinal symptoms and leukocytosis and hypotension and sepsis. She was noted to the intensive care unit back then and multiple fluid boluses were given and blood pressure remained low. She was placed on pressors and a CAT scan of the chest showed a pericardial effusion with signs of tamponade and this was successful and the fluid cytology was negative for malignancy. Ultimately her condition was stabilized and the patient went home with home care. CAT scan of the abdomen showed evidence of colitis with colon wall thickening . The patient underwent a pericardial window her shock ultimately improved. There was some issues with her disposition. It was noted that the patient's health in general was poor and her clinical status was not adequate enough for her to go home. It was recommended long-term which she declined and she decided to go home with home care. Family issues and disagreements between children's would also noted as reported by the medical team. The patient got transferred to the intensive care unit as the patient was having abnormal labs. Hemoglobin was down to 5.8 and this is a microcytic anemia. As mentioned earlier the patient has a beta thalassemic trait and she had chronic anemia. She was at one point told that she would benefit from IV iron is in addition. Her potassium level is low at 2.9. Her magnesium level is down to 0.8. Had a calcium level is down to 5.7. There is also minor troponin leak noted on the blood work. Note that he has noted since she came into the intensive care unit. Her previous C. diff evaluation of been negative. 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 Her ejection fraction is also stable and within normal limits at 50-55%. Review of Systems 12 point review of system was done and positive findings are almost above in history of present illness Past Medical History Past Medical History: GERD/Reflux, Thyroid Disorder Additional Past Medical History / Comment(s): Pericardial effusion/tamponade status post window, status post recent acute hypoxic respiratory failure which recovered, long-standing irritable bowel syndrome, acid reflux, history of ischemic colitis, hypothyroidism, legal blindness, impaired hearing, IBS. bilateral cataracts, hypothyroidism, positive [place], limited scleroderma, beta thalassemia trait with chronic anemia History of Any Multi-Drug Resistant Organisms: None Reported Past Surgical History: Appendectomy, Orthopedic Surgery Additional Past Surgical History / Comment(s): DEVIATED SEPTUM, TUBES AND OVARIES REMOVED, HAMLET SHOULDER SURGERY, pericardial window, bilateral forehead biopsy r/t loss of vision. Past Anesthesia/Blood Transfusion Reactions: No Reported Reaction Past Psychological History: Anxiety Additional Psychological History / Comment(s): occasional anxiety. Smoking Status: Former smoker Past Alcohol Use History: Occasional Past Drug Use History: None Reported - Past Family History Father Family Medical History: Myocardial Infarction ([place]) Additional Family Medical History / Comment(s): heart failure Medications and Allergies Home Medications Medication Instructions Recorded Confirmed Type Cyanocobalamin [Vitamin B-12 1,000 mcg SQ QMONTH 02/23/16 05/29/17 History Injection] Dicyclomine [Bentyl] 10 mg PO TID PRN 02/23/16 05/29/17 History Loperamide HCl [Loperamide] 4 mg PO TID PRN 02/23/16 05/29/17 History Omeprazole [PriLOSEC] 20 mg PO QAM 02/23/16 05/29/17 History Tacrolimus [Protopic] 1 applic TOPICAL HS PRN 02/23/16 05/29/17 History Denosumab [Prolia] 60 mg SQ Q180D 09/10/16 05/29/17 History Acetaminophen [Tylenol] 650 mg PO Q6HR PRN 04/22/17 05/29/17 History Alclometasone Dipropionate 1 applic TOPICAL DAILY PRN 04/22/17 05/29/17 History Calcium Carbonate [Calcium] 600 mg PO DAILY 04/22/17 05/29/17 History Cyanocobalamin [Vitamin B-12] 500 mcg PO DAILY 04/22/17 05/29/17 History EPINEPHrine [Epipen 2-Adriel] 0.3 mg IM ONCE PRN 04/22/17 05/29/17 History Ferrous Sulfate [Iron] 325 mg PO DAILY 04/22/17 05/29/17 History Fluticasone Nasal [place] [Flonase 2 spr EA NOSTRIL DAILY PRN 04/22/17 05/29/17 History Nasal [place]] Levothyroxine Sodium [Synthroid] 25 mcg PO DAILY 04/22/17 05/29/17 History Magnesium 200 mg PO DAILY 04/22/17 05/29/17 History Naproxen Sodium [Aleve] 220 mg PO HS PRN 04/22/17 05/29/17 History Ondansetron [Zofran ODT] 4 mg PO Q8HR PRN 04/22/17 05/29/17 History Vit A/Vit C/Vit E/Zinc/Copper 1 cap PO HS 04/22/17 05/29/17 History [ICAPS SOFTGEL] Allergies Allergy/AdvReac Type Severity Reaction Status Date / Time venom-honey bee Allergy Unknown Anaphylaxis Verified 04/22/17 19:14 [bee venom (honey bee)] venom-wasp [Wasp Venom] Allergy Unknown Anaphylaxis Verified 04/22/17 19:14 ether Allergy Unknown Verified 04/22/17 19:14 methylprednisolone Allergy Rash/Hives Verified 04/23/17 21:00 [From Solu-Medrol] soybean Allergy Unknown Verified 04/22/17 19:14 tomato Allergy Unknown Verified 09/24/16 07:48 Physical Exam Vitals: Vital Signs Temp Pulse Pulse Resp BP BP Pulse Ox 05/29/17 09:39 98.8 F 102 H 16 88/50 93 L 05/29/17 09:30 103 H 25 H 97/59 94 L 05/29/17 09:09 98.7 F 103 H 21 98/62 94 L 05/29/17 09:00 103 H 28 H 101/58 92 L 05/29/17 08:59 98.7 F 106 H 17 101/58 94 L 05/29/17 08:30 103 H 28 H 97/61 95 05/29/17 08:25 98.7 F 100 22 97/61 94 L 05/29/17 08:00 101 H 100 17 98/60 94 L 05/29/17 07:30 98.1 F 104 H 20 93/59 93 L 05/29/17 07:00 98 28 H 90/51 94 L 05/29/17 06:39 98.4 F 101 H 19 90/51 05/29/17 06:30 97 26 H 87/56 96 05/29/17 06:09 98.3 F 98 18 86/54 05/29/17 06:00 100 22 86/49 94 L 05/29/17 05:59 98.6 F 100 19 86/49 94 L 05/29/17 05:30 103 H 21 85/51 96 05/29/17 05:03 99.2 F 102 H 20 85/53 95 05/29/17 04:00 108 H 20 05/29/17 01:08 99.0 F 109 H 20 100/56 95 05/29/17 00:47 98.8 F 67 20 109/49 92 L 05/28/17 23:08 118 H 20 102/58 98 05/28/17 22:29 110 H 05/28/17 22:11 104 H 05/28/17 21:57 99.6 F 05/28/17 21:38 105 H 20 117/59 92 L Intake and Output 05/28/17 05/29/17 05/29/17 22:59 06:59 14:59 Intake Total 1110 910 Output Total 275 375 Balance 835 535 Intake: IV 750 600 Magnesium Sulfate-D5w Pmx 300 200 1 gm In Dextrose/Water 1 100ml.bag @ 100 mls/hr IVPB Q1H [facility] Rx#: [id number] Potassium Chloride 20 meq 150 100 Lidocaine 2% Inj 20 mg In Sodium Chloride 0.9% 100 ml @ 55.5 mls/hr IVPB Q2HR [facility] Rx#:[id number] Sodium Chloride 0.9% 1, 300 300 000 ml @ 100 mls/hr IV . Q10H [facility] Rx#:[id number] Amount of Fluid Infused ( 50 ml) Blood Product 310 310 Rc As-3 Unit 0 310 [id number] Rc As-3 Unit 0 [id number] Output: Urine 275 375 Other: Voiding Method Indwelling Catheter Indwelling Catheter Weight 47.174 kg 46.4 kg Thin and frail elderly female patient in nonacute distress.Head exam was generally normal. There was no scleral icterus or corneal arcus. Mucous membranes were moist.Neck was supple and with jugular venous distension, thyromegaly, or carotid bruits. Carotids were easily palpable bilaterally. There was no adenopathy. Mucous membranes are dry. No thrush. No neck masses. Lungs sounds are diminished and there is some few crackles at lung bases bilaterally. Heart sounds reveal accentuation of the second heart sound. Positive S1-S2. No cervical murmurs appreciated. Abdominal exam revealed normal bowel sounds. The abdomen was soft, non-tender, and without masses, organomegaly, or appreciable enlargement of the abdominal aorta.Examination of the extremities revealed easily palpable radial, femoral and pedal pulses. There was no cyanosis, clubbing or edema. Results - Laboratory Findings CBC and BMP: 05/28/17 22:42 05/28/17 22:42 PT/INR, D-dimer PT 14.0 sec (9.0-12.0) H 05/28/17 22:42 INR 1.4 (<1.1) 05/28/17 22:42 Abnormal lab findings: Abnormal Labs 05/28/17 05/28/17 05/28/17 22:42 22:42 22:42 RBC 2.65 L Hgb 5.8 L* Hct 17.9 L* MCV 67.6 L D MCH 22.1 L RDW 17.7 H PT Sodium 133 L Potassium 2.9 L* Chloride 93 L BUN 23 H POC Glucose (mg/dL) Calcium 5.7 L* Magnesium 0.8 L* Total Creatine Kinase 219 H Troponin I 0.048 H* Total Protein 5.4 L Albumin 2.7 L Urine Appearance Urine Protein Urine Blood Amorphous Sediment Urine Mucus Crossmatch 05/28/17 05/29/17 05/29/17 22:42 03:22 03:57 RBC Hgb Hct MCV MCH RDW PT 14.0 H Sodium Potassium Chloride BUN POC Glucose (mg/dL) 132 H Calcium Magnesium Total Creatine Kinase Troponin I Total Protein Albumin Urine Appearance Urine Protein Urine Blood Amorphous Sediment Urine Mucus Crossmatch See Detail 05/29/17 05/29/17 05:15 05:27 RBC Hgb Hct MCV MCH RDW PT Sodium Potassium Chloride BUN POC Glucose (mg/dL) Calcium Magnesium Total Creatine Kinase Troponin I 0.045 H* Total Protein Albumin Urine Appearance Cloudy H Urine Protein 1+ H Urine Blood Small H Amorphous Sediment Occasional H Urine Mucus Rare H Crossmatch Assessment and Plan Plan: Assessment 1 diarrhea with dehydration and significant electrodes imbalance with hypokalemia, hypomagnesemia, and hypocalcemia All of these electrodes will be replaced in addition to fluid resuscitation. 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 No evidence of any LV dysfunction 5 pericardial effusion status post window for a temponade 6 subacute loss of vision, under investigation. The [place] [facility] [place] no obvious cause. She is known to have cataracts and she'll be having a cataract surgery at a later stage 7 hard of hearing 8 beta thalassemic trait with chronic anemia with subsequent drop in hemoglobin down to 5.9. No evidence of an acute bleed and the patient be having blood transfusions with packed RBCs 9 irritable bowel syndrome, 10 acid reflux 11 hypothyroidism, Plan We'll replace all of the electrolytes. We'll give the patient IV fluids and the patient is currently receiving 0.9 at the rate of 100 mL an hour. Replace K. Replace mag. Replace calcium. Watch for any diarrhea. Doubt C. diff colitis. Transfuse the patient with a unit of packed RBC and repeat the hemoglobin. We will achieve a hemoglobin above 7 of possible. Check iron studies. Zofran for nausea. IV Protonix. GI consultation. We'll continue to follow.
[2017-05-29] MEDS ORDERED: HYDROcodone/APAP 5-325MG 1 EACH TAB PO PRN (10:47)
[2017-05-29] MEDS ORDERED: NON-FORMULARY DRUG (Omeprazole [Prilosec] 20 MG) PO SCH (11:00)
[2017-05-29] MEDS ORDERED: DENOSUMAB 60 MG/ML 1 ML SYRINGE SQ SCH (11:00)
[2017-05-29] MEDS ORDERED: FERROUS SULFATE 325 MG TAB PO SCH (12:00)
--- NOTE | 2017-05-29 12:06 | XR ---
EXAMINATION TYPE: XR chest 1V portable DATE OF EXAM: 05/29/2017 HISTORY: Shortness of breath. COMPARISON: 04/27/2017 TECHNIQUE: Single view of the chest is submitted. FINDINGS: Demonstrated are scattered senescent parenchymal change. There is no evidence for focal infiltrate. The heart is at the upper limits of normal. Pulmonary venous congestion without overt failure. Small right-sided pleural effusion. Hilar and mediastinal structures are within normal limits. Degenerative changes are seen of the dorsal spine. IMPRESSION: 1. The heart is at the upper limits of normal. Pulmonary venous congestion without overt failure. Sm all right-sided pleural effusion.
[2017-05-29 12:24] LABS: Anisocytosis Slight; CH 25.2; CHCM 33.5; HCT 27.1 % (34.0-46.0); HDW 4.14; Hypochromasia Slight; MCH 25.5 pg (25.0-35.0); Mean Platelet Volume 6.9; Microcytosis Moderate; Poikilocytosis Moderate; RBC 3.61 m/uL (3.80-5.40); RDW 19.2 % (11.5-15.5); WBC 8.2 k/uL (3.8-10.6)
[2017-05-29 12:32] LABS: HGB 9.2 gm/dL (11.4-16.0); MCV 74.9 fL (80.0-100.0)
[2017-05-29] MEDS: ENOXAPARIN 40 MG/0.4 ML SYRINGE SQ SCH (12:34)
[2017-05-29] MEDS: MAGNESIUM OXIDE 400 MG TAB PO SCH (12:34)
[2017-05-29] MEDS: CALCIUM CARBONATE 500 MG CHEWABLE PO SCH (12:34)
[2017-05-29] MEDS: CYANOCOBALAMIN 500 MCG TAB PO SCH (12:34)
[2017-05-29] MEDS: LEVOTHYROXINE 25 MCG TAB PO SCH (12:34)
[2017-05-29 12:37] LABS: Ionized Calcium 3.2 mg/dL (4.5-5.3)
[2017-05-29] MEDS ORDERED: CALCIUM GLUCONATE 1,000 MG in SODIUM CHLORIDE 0.9% 100 ML IVPB ONE ×2 (13:30→20:15)
[2017-05-29 13:43] LABS: ALT 24 U/L (9-52); AST 26 U/L (14-36); Alkaline Phosphatase 114 U/L (38-126); Anion Gap 13 mmol/L; Blood Urea Nitrogen 19 mg/dL (7-17); Carbon Dioxide 22 mmol/L (22-30); Chloride 97 mmol/L (98-107); Glucose 124 mg/dL (74-99); Iron 18 ug/dL (37-170); Magnesium 2.5 mg/dL (1.6-2.3); Non-African American GFR(MDRD) >60 (>60 ml/min/1.73 sqM); Potassium 3.7 mmol/L (3.5-5.1); Sodium 132 mmol/L (137-145); Total Bilirubin 1.5 mg/dL (0.2-1.3); Total Protein 5.8 g/dL (6.3-8.2)
[2017-05-29 13:50] LABS: Calcium 5.7 mg/dL (8.4-10.2)
[2017-05-29] MEDS ORDERED: Potassium Replacement Protocol 1 EACH MISC MISCELLANE PRN (13:52)
[2017-05-29 14:03] LABS: % Iron Saturation 9.7 % (20-50); Total Iron Binding Capacity 186 ug/dL (265-497)
[2017-05-29] MEDS: POTASSIUM CHLORIDE 10 MEQ, LIDOCAINE 2% INJ 10 MG in SODIUM CHLORIDE 0.9% 100 ML IV SCH ×2 (14:09→15:21)
[2017-05-29] MEDS: DILTIAZEM CD 120 MG CAP.ER.24H PO SCH (15:05)
[2017-05-29] MEDS: MORPHINE SULFATE 4 MG/ML SYRINGE IVP PRN (16:10)
[2017-05-29] MEDS ORDERED: METOCLOPRAMIDE 5 MG/ML 2 ML VIAL IVP PRN (19:43)
[2017-05-29] MEDS: DIPHENOX-ATROP 2.5-0.025 MG 1 EACH TAB PO PRN (21:09)
[2017-05-29] MEDS: ALPRAZolam 0.25 MG TAB PO PRN (21:09)
[2017-05-29] MEDS: PANTOPRAZOLE 40 MG/10 ML VIAL IVP SCH (21:10)
[2017-05-30] MEDS: LEVOTHYROXINE 25 MCG TAB PO SCH (06:25)
[2017-05-30] MEDS: DIPHENOX-ATROP 2.5-0.025 MG 1 EACH TAB PO PRN (06:25)
[2017-05-30] MEDS: PANTOPRAZOLE 40 MG/10 ML VIAL IVP SCH ×2 (07:36→20:59)
[2017-05-30] MEDS: ENOXAPARIN 40 MG/0.4 ML SYRINGE SQ SCH (07:36)
[2017-05-30] MEDS: DICYCLOMINE 10 MG CAP PO SCH ×3 (07:37→23:07)
[2017-05-30] MEDS: DILTIAZEM CD 120 MG CAP.ER.24H PO SCH (07:38)
[2017-05-30 07:44] LABS: Anisocytosis Slight; CH 25.5; CHCM 33.7; HCT 26.5 % (34.0-46.0); HDW 4.08; HGB 8.8 gm/dL (11.4-16.0); Hypochromasia Slight; Immature Gran Flag Marked; MCH 25.1 pg (25.0-35.0); MCHC 33.3 g/dL (31.0-37.0); MCV 75.6 fL (80.0-100.0); Mean Platelet Volume 7.8; Microcytosis Moderate; Poikilocytosis Moderate; RDW 19.7 % (11.5-15.5); WBC 6.5 k/uL (3.8-10.6)
[2017-05-30 07:55] LABS: Anion Gap 12 mmol/L; Blood Urea Nitrogen 15 mg/dL (7-17); Carbon Dioxide 23 mmol/L (22-30); Chloride 99 mmol/L (98-107); Glucose 96 mg/dL (74-99); Magnesium 1.8 mg/dL (1.6-2.3); Non-African American GFR(MDRD) >60 (>60 ml/min/1.73 sqM); Phosphorous 2.1 mg/dL (2.5-4.5); Potassium 3.5 mmol/L (3.5-5.1); Sodium 134 mmol/L (137-145)
[2017-05-30 08:01] LABS: Calcium 6.1 mg/dL (8.4-10.2)
[2017-05-30] MEDS ORDERED: PANTOPRAZOLE 40 MG/10 ML VIAL IVP SCH (09:00)
[2017-05-30 10:43] LABS: Add Differential Manual Differential
[2017-05-30 10:58] LABS: Nucleated Red Blood Cells 0 /100 WBC (0-0); Total Cells Counted 100
[2017-05-30 11:00] LABS: Ovalocytes Present
[2017-05-30] MEDS: CALCIUM GLUCONATE 1,000 MG in SODIUM CHLORIDE 0.9% 100 ML IVPB SCH ×2 (12:19→20:59)
[2017-05-30] MEDS: CYANOCOBALAMIN 500 MCG TAB PO SCH (12:19)
[2017-05-30] MEDS: CALCIUM CARBONATE 500 MG CHEWABLE PO SCH (12:19)
[2017-05-30] MEDS: MAGNESIUM OXIDE 400 MG TAB PO SCH (12:20)
[2017-05-30] MEDS ORDERED: BISMUTH SUBSALICYLATE 4,192 MG/240 ML BOTTLE PO PRN (15:52)
[2017-05-30] MEDS: MORPHINE SULFATE 4 MG/ML SYRINGE IVP PRN (16:13)
[2017-05-30] MEDS: ONDANSETRON 4 MG/2 ML VIAL IVP PRN (20:59)
[2017-05-31] MEDS: LEVOTHYROXINE 25 MCG TAB PO SCH (06:37)
[2017-05-31] MEDS: LOPERAMIDE 2 MG CAP PO PRN ×2 (06:41→15:15)
[2017-05-31] MEDS: ENOXAPARIN 40 MG/0.4 ML SYRINGE SQ SCH (07:49)
[2017-05-31] MEDS: DILTIAZEM CD 120 MG CAP.ER.24H PO SCH (07:50)
[2017-05-31] MEDS: PANTOPRAZOLE 40 MG/10 ML VIAL IVP SCH ×2 (07:50→20:50)
[2017-05-31] MEDS: CALCIUM GLUCONATE 1,000 MG in SODIUM CHLORIDE 0.9% 100 ML IVPB SCH ×2 (07:50→20:49)
[2017-05-31] MEDS: DICYCLOMINE 10 MG CAP PO SCH ×3 (07:50→20:52)
[2017-05-31] MEDS: DIPHENOX-ATROP 2.5-0.025 MG 1 EACH TAB PO PRN ×2 (07:52→17:07)
[2017-05-31 08:01] LABS: Anisocytosis Moderate; CH 25.2; CHCM 32.5; HCT 27.3 % (34.0-46.0); HDW 3.88; Hypochromasia Slight; Immature Gran Flag Marked; MCH 25.4 pg (25.0-35.0); MCHC 32.8 g/dL (31.0-37.0); MCV 77.4 fL (80.0-100.0); Mean Platelet Volume 7.8; Microcytosis Moderate; Poikilocytosis Slight; RBC 3.52 m/uL (3.80-5.40); RDW 20.1 % (11.5-15.5); WBC 10.4 k/uL (3.8-10.6)
[2017-05-31 08:07] LABS: Anion Gap 15 mmol/L; Blood Urea Nitrogen 11 mg/dL (7-17); Calcium 6.8 mg/dL (8.4-10.2); Carbon Dioxide 19 mmol/L (22-30); Chloride 101 mmol/L (98-107); Glucose 92 mg/dL (74-99); Magnesium 1.7 mg/dL (1.6-2.3); Non-African American GFR(MDRD) >60 (>60 ml/min/1.73 sqM); Phosphorous 2.3 mg/dL (2.5-4.5); Sodium 135 mmol/L (137-145)
--- NOTE | 2017-05-31 10:04 | P.CONS ---
History of Present Illness - Reason for Consult Consult date: 05/29/17 - History of Present Illness The patient is an 82-year-old female who came in to the emergency department because of nausea, emesis and diarrhea and dehydration and electrodes imbalance. She was in the hospital in late March 2017 when she came in again with similar gastrointestinal symptoms and leukocytosis and hypotension and sepsis. She was noted to the intensive care unit back then and multiple fluid boluses were given and blood pressure remained low. She was placed on pressors and a CAT scan of the chest showed a pericardial effusion with signs of tamponade and this was successful and the fluid cytology was negative for malignancy. Ultimately her condition was stabilized and the patient went home with home care. CAT scan of the abdomen showed evidence of colitis with colon wall thickening . The patient underwent a pericardial window her shock ultimately improved. There was some issues with her disposition. It was noted that the patient's health in general was poor and her clinical status was not adequate enough for her to go home. It was recommended fdc which she declined and she decided to go home with home care. The patient follows with Dr Choi in the office for D-IBS and she has her on lomotil and imodium which she uses alternately based on how bad her diarrhea gets. She was given viberzi samples when last seen in the office earlier this year. There is no history of bleeding. Her last EGD/colonoscopy, I believe, were in 2014. The patient was transferred to ICU for intensive management of her fluid and electrolytes and is now back on medical floor feeling improved. Tolerating liquid diet. She tells me diarrhea is under control as is the case with her recurrent episodes? Review of Systems REVIEW OF SYSTEMS: CARDIOPULMONARY: No chest pain or shortness of breath. GENITOURINARY: No dysuria or hematuria. MUSCULOSKELETAL: Unremarkable. SKIN: Unremarkable. ENDOCRINE: Unremarkable. PSYCHIATRIC: Unremarkable. NEUROLOGY: Unremarkable. ENT: Vision unremarkable. CONSTITUTIONAL: No recent weight loss. No fever, chills, night sweats. Past Medical History Past Medical History: GERD/Reflux, Thyroid Disorder Additional Past Medical History / Comment(s): Pericardial effusion/tamponade status post window, status post recent acute hypoxic respiratory failure which recovered, long-standing irritable bowel syndrome, acid reflux, history of ischemic colitis, hypothyroidism, legal blindness, impaired hearing, IBS. bilateral cataracts, hypothyroidism, positive GILBERT, limited scleroderma, beta thalassemia trait with chronic anemia History of Any Multi-Drug Resistant Organisms: None Reported Past Surgical History: Appendectomy, Orthopedic Surgery Additional Past Surgical History / Comment(s): DEVIATED SEPTUM, TUBES AND OVARIES REMOVED, HAMLET SHOULDER SURGERY, pericardial window, bilateral forehead biopsy r/t loss of vision. Past Anesthesia/Blood Transfusion Reactions: No Reported Reaction Past Psychological History: Anxiety Additional Psychological History / Comment(s): occasional anxiety. Smoking Status: Former smoker Past Alcohol Use History: Occasional Past Drug Use History: None Reported - Past Family History Father Family Medical History: Myocardial Infarction (SD) Additional Family Medical History / Comment(s): heart failure Medications and Allergies Home Medications Medication Instructions Recorded Confirmed Type Cyanocobalamin [Vitamin B-12 1,000 mcg SQ QMONTH 02/23/16 05/29/17 History Injection] Dicyclomine [Bentyl] 10 mg PO TID PRN 02/23/16 05/29/17 History Loperamide HCl [Loperamide] 4 mg PO TID PRN 02/23/16 05/29/17 History Omeprazole [PriLOSEC] 20 mg PO QAM 02/23/16 05/29/17 History Tacrolimus [Protopic] 1 applic TOPICAL HS PRN 02/23/16 05/29/17 History Denosumab [Prolia] 60 mg SQ Q180D 09/10/16 05/29/17 History Acetaminophen [Tylenol] 650 mg PO Q6HR PRN 04/22/17 05/29/17 History Alclometasone Dipropionate 1 applic TOPICAL DAILY PRN 04/22/17 05/29/17 History Calcium Carbonate [Calcium] 600 mg PO DAILY 04/22/17 05/29/17 History Cyanocobalamin [Vitamin B-12] 500 mcg PO DAILY 04/22/17 05/29/17 History EPINEPHrine [Epipen 2-Adriel] 0.3 mg IM ONCE PRN 04/22/17 05/29/17 History Ferrous Sulfate [Iron] 325 mg PO DAILY 04/22/17 05/29/17 History Fluticasone Nasal [place] [Flonase 2 spr EA NOSTRIL DAILY PRN 04/22/17 05/29/17 History Nasal [place]] Levothyroxine Sodium [Synthroid] 25 mcg PO DAILY 04/22/17 05/29/17 History Magnesium 200 mg PO DAILY 04/22/17 05/29/17 History Naproxen Sodium [Aleve] 220 mg PO HS PRN 04/22/17 05/29/17 History Ondansetron [Zofran ODT] 4 mg PO Q8HR PRN 04/22/17 05/29/17 History Vit A/Vit C/Vit E/Zinc/Copper 1 cap PO HS 04/22/17 05/29/17 History [ICAPS SOFTGEL] Allergies Allergy/AdvReac Type Severity Reaction Status Date / Time venom-honey bee Allergy Unknown Anaphylaxis Verified 05/29/17 11:21 [bee venom (honey bee)] venom-wasp [Wasp Venom] Allergy Unknown Anaphylaxis Verified 05/29/17 11:21 ether Allergy Unknown Verified 05/29/17 11:21 methylprednisolone Allergy Rash/Hives Verified 05/29/17 11:21 [From Solu-Medrol] soybean Allergy Unknown Verified 05/29/17 11:21 tomato Allergy Unknown Verified 05/29/17 11:21 Physical Exam Vitals: Vital Signs Temp Pulse Pulse Resp BP BP Pulse Ox 05/29/17 16:04 97.8 F 110 H 19 111/71 94 L 05/29/17 15:53 24 05/29/17 15:00 107 H 24 113/68 94 L 05/29/17 14:30 103 H 23 106/65 94 L 05/29/17 14:00 104 H 19 102/59 95 05/29/17 13:30 103 H 23 105/66 94 L 05/29/17 13:00 98.7 F 101 H 20 107/77 93 L 05/29/17 12:30 103 H 37 H 103/65 93 L 05/29/17 12:00 98.7 F 102 H 100 25 H 110/65 93 L 05/29/17 11:30 103 H 27 H 110/60 92 L 05/29/17 11:00 104 H 29 H 110/61 92 L 05/29/17 10:30 109 H 46 H 98/61 93 L 05/29/17 10:00 102 H 23 102/59 93 L 05/29/17 09:39 98.8 F 102 H 16 88/50 93 L 05/29/17 09:30 103 H 25 H 97/59 94 L 05/29/17 09:09 98.7 F 103 H 21 98/62 94 L 05/29/17 09:00 103 H 28 H 101/58 92 L 05/29/17 08:59 98.7 F 106 H 17 101/58 94 L 05/29/17 08:30 103 H 28 H 97/61 95 05/29/17 08:25 98.7 F 100 22 97/61 94 L 05/29/17 08:00 101 H 100 17 98/60 94 L 05/29/17 07:30 98.1 F 104 H 20 93/59 93 L 05/29/17 07:00 98 28 H 90/51 94 L 05/29/17 06:39 98.4 F 101 H 19 90/51 05/29/17 06:30 97 26 H 87/56 96 05/29/17 06:09 98.3 F 98 18 86/54 05/29/17 06:00 100 22 86/49 94 L 05/29/17 05:59 98.6 F 100 19 86/49 94 L 05/29/17 05:30 103 H 21 85/51 96 05/29/17 05:03 99.2 F 102 H 20 85/53 95 05/29/17 04:00 108 H 20 05/29/17 01:08 99.0 F 109 H 20 100/56 95 05/29/17 00:47 98.8 F 67 20 109/49 92 L 05/28/17 23:08 118 H 20 102/58 98 Intake and Output 05/29/17 05/29/17 05/29/17 06:59 14:59 22:59 Intake Total 1110 1360 510 Output Total 275 975 75 Balance 835 385 435 Intake: IV 750 1050 200 Calcium Gluconate 1,000 100 mg In Sodium Chloride 0.9 % 100 ml @ 100 mls/hr IVPB ONCE ONE Rx#: [id number] Magnesium Sulfate-D5w Pmx 300 200 1 gm In Dextrose/Water 1 100ml.bag @ 100 mls/hr IVPB Q1H [facility] Rx#: [id number] Potassium Chloride 20 meq 150 150 Lidocaine 2% Inj 20 mg In Sodium Chloride 0.9% 100 ml @ 55.5 mls/hr IVPB Q2HR [facility] Rx#:[id number] Sodium Chloride 0.9% 1, 300 700 100 000 ml @ 100 mls/hr IV . Q10H ONE Rx#:[id number] Amount of Fluid Infused ( 50 ml) Blood Product 310 310 310 Rc As-3 Unit 0 310 [id number] Rc As-3 Unit 0 310 [id number] Output: Urine 275 975 75 Other: Voiding Method Indwelling Catheter Indwelling Catheter # Voids 1 Weight 46.4 kg On physical examination, patient appears comfortable in no apparent distress. Vital signs are stable. HEENT: Unremarkable. Conjunctivae pink. Sclerae anicteric. Oral cavity no lesions. NECK: No JVD or lymph node enlargement. CHEST: Clear to auscultation. HEART: Regular rate and rhythm. ABDOMEN: Soft. Bowel sounds are positive. No organomegaly. EXTREMITIES: No pedal edema. SKIN: No rashes. NEUROLOGIC: Alert and oriented x3. No focal deficits. Results CBC & Chem 7: 05/31/17 07:23 05/31/17 07:23 Labs: Abnormal Lab Results - Last 24 Hours (Table) 05/28/17 05/28/17 05/28/17 Range/Units 22:42 22:42 22:42 RBC 2.65 L (3.80-5.40) m/uL Hgb 5.8 L* (11.4-16.0) gm/dL Hct 17.9 L* (34.0-46.0) % MCV 67.6 L D (80.0-100.0) fL MCH 22.1 L (25.0-35.0) pg RDW 17.7 H (11.5-15.5) % PT (9.0-12.0) sec Sodium 133 L (137-145) mmol/L Potassium 2.9 L* (3.5-5.1) mmol/L Chloride 93 L (98-107) mmol/L BUN 23 H (7-17) mg/dL Glucose (74-99) mg/dL POC Glucose (mg/dL) (75-99) mg/dL Calcium 5.7 L* (8.4-10.2) mg/dL Ionized Calcium Samir (4.5-5.3) mg/dL Magnesium 0.8 L* (1.6-2.3) mg/dL Iron (37-170) ug/dL TIBC (265-497) ug/dL % Saturation (20-50) % Total Bilirubin (0.2-1.3) mg/dL Total Creatine Kinase 219 H (30-135) U/L Troponin I 0.048 H* (0.000-0.034) ng/mL Total Protein 5.4 L (6.3-8.2) g/dL Albumin 2.7 L (3.5-5.0) g/dL Urine Appearance (Clear) Urine Protein (Negative) Urine Blood (Negative) Amorphous Sediment (None) /hpf Urine Mucus (None) /hpf Crossmatch 05/28/17 05/29/17 05/29/17 Range/Units 22:42 03:22 03:57 RBC (3.80-5.40) m/uL Hgb (11.4-16.0) gm/dL Hct (34.0-46.0) % MCV (80.0-100.0) fL MCH (25.0-35.0) pg RDW (11.5-15.5) % PT 14.0 H (9.0-12.0) sec Sodium (137-145) mmol/L Potassium (3.5-5.1) mmol/L Chloride (98-107) mmol/L BUN (7-17) mg/dL Glucose (74-99) mg/dL POC Glucose (mg/dL) 132 H (75-99) mg/dL Calcium (8.4-10.2) mg/dL Ionized Calcium Samir (4.5-5.3) mg/dL Magnesium (1.6-2.3) mg/dL Iron (37-170) ug/dL TIBC (265-497) ug/dL % Saturation (20-50) % Total Bilirubin (0.2-1.3) mg/dL Total Creatine Kinase (30-135) U/L Troponin I (0.000-0.034) ng/mL Total Protein (6.3-8.2) g/dL Albumin (3.5-5.0) g/dL Urine Appearance (Clear) Urine Protein (Negative) Urine Blood (Negative) Amorphous Sediment (None) /hpf Urine Mucus (None) /hpf Crossmatch See Detail 05/29/17 05/29/17 05/29/17 Range/Units 05:15 05:27 11:55 RBC (3.80-5.40) m/uL Hgb (11.4-16.0) gm/dL Hct (34.0-46.0) % MCV (80.0-100.0) fL MCH (25.0-35.0) pg RDW (11.5-15.5) % PT (9.0-12.0) sec Sodium 132 L (137-145) mmol/L Potassium (3.5-5.1) mmol/L Chloride 97 L (98-107) mmol/L BUN 19 H (7-17) mg/dL Glucose 124 H (74-99) mg/dL POC Glucose (mg/dL) (75-99) mg/dL Calcium 5.7 L* (8.4-10.2) mg/dL Ionized Calcium Samir 3.2 L* (4.5-5.3) mg/dL Magnesium 2.5 H (1.6-2.3) mg/dL Iron 18 L (37-170) ug/dL TIBC 186 L (265-497) ug/dL % Saturation 9.7 L (20-50) % Total Bilirubin 1.5 H (0.2-1.3) mg/dL Total Creatine Kinase (30-135) U/L Troponin I 0.045 H* (0.000-0.034) ng/mL Total Protein 5.8 L (6.3-8.2) g/dL Albumin 2.8 L (3.5-5.0) g/dL Urine Appearance Cloudy H (Clear) Urine Protein 1+ H (Negative) Urine Blood Small H (Negative) Amorphous Sediment Occasional H (None) /hpf Urine Mucus Rare H (None) /hpf Crossmatch 05/29/17 05/29/17 Range/Units 11:55 17:59 RBC 3.61 L (3.80-5.40) m/uL Hgb 9.2 L D (11.4-16.0) gm/dL Hct 27.1 L (34.0-46.0) % MCV 74.9 L D (80.0-100.0) fL MCH (25.0-35.0) pg RDW 19.2 H (11.5-15.5) % PT (9.0-12.0) sec Sodium (137-145) mmol/L Potassium (3.5-5.1) mmol/L Chloride (98-107) mmol/L BUN (7-17) mg/dL Glucose (74-99) mg/dL POC Glucose (mg/dL) (75-99) mg/dL Calcium (8.4-10.2) mg/dL Ionized Calcium Samir 3.4 L* (4.5-5.3) mg/dL Magnesium (1.6-2.3) mg/dL Iron (37-170) ug/dL TIBC (265-497) ug/dL % Saturation (20-50) % Total Bilirubin (0.2-1.3) mg/dL Total Creatine Kinase (30-135) U/L Troponin I (0.000-0.034) ng/mL Total Protein (6.3-8.2) g/dL Albumin (3.5-5.0) g/dL Urine Appearance (Clear) Urine Protein (Negative) Urine Blood (Negative) Amorphous Sediment (None) /hpf Urine Mucus (None) /hpf Crossmatch Microbiology - Last 24 Hours (Table) 05/29/17 05:15 Urine Culture - Preliminary Urine,Catheterized Assessment and Plan Plan: Diarrhea unlikely to be on the basis of D-IBS only. Agree with need to evaluate for various malabsorptive conditions. I will discuss with Dr Choi who follows her as outpatient. Will advance diet as tolerated and continue symptomatic treatment.
[2017-05-31 10:52] LABS: Add Differential Manual Differential
[2017-05-31 10:57] LABS: Band Neutrophils % 15.5 %; Myelocytes % 0.5 %; Nucleated Red Blood Cells 0 /100 WBC (0-0); Total Cells Counted 200
[2017-05-31 10:58] LABS: Target Cells Present
[2017-05-31] MEDS: POTASSIUM CHLORIDE ER 20 MEQ TAB.ER PO SCH ×2 (11:14→12:04)
[2017-05-31] MEDS: CYANOCOBALAMIN 500 MCG TAB PO SCH (12:04)
[2017-05-31] MEDS: CALCIUM CARBONATE 500 MG CHEWABLE PO SCH (12:04)
[2017-05-31] MEDS: MAGNESIUM OXIDE 400 MG TAB PO SCH (12:04)
[2017-05-31] MEDS: ONDANSETRON 4 MG/2 ML VIAL IVP PRN (20:48)
[2017-05-31] MEDS: ALPRAZolam 0.25 MG TAB PO PRN (20:49)
[2017-06-01] MEDS: LEVOTHYROXINE 25 MCG TAB PO SCH (06:20)
[2017-06-01 07:14] LABS: Anisocytosis Moderate; Basophils # (A) 0.1 k/uL (0-0.2); Basophils % (A) 0 %; CH 24.9; CHCM 32.2; Eosinophils % (A) 0 %; HCT 27.5 % (34.0-46.0); HDW 3.84; HGB 9.2 gm/dL (11.4-16.0); Hypochromasia Moderate; Luc # (Auto) 0.13; Luc % (Auto) 1; Lymphocytes # (A) 0.6 k/uL (1.0-4.8); Lymphocytes % (A) 3 %; MCH 25.9 pg (25.0-35.0); MCHC 33.5 g/dL (31.0-37.0); MCV 77.1 fL (80.0-100.0); Mean Platelet Volume 7.9; Microcytosis Moderate; Monocytes # (A) 0.5 k/uL (0-1.0); Monocytes % (A) 3 %; Neutrophils % (A) 93 %; Poikilocytosis Slight; RBC 3.57 m/uL (3.80-5.40); RDW 20.4 % (11.5-15.5); WBC 18.3 k/uL (3.8-10.6); WBC (Perox) 17.63
[2017-06-01 07:25] LABS: Anion Gap 11 mmol/L; Blood Urea Nitrogen 9 mg/dL (7-17); Calcium 7.8 mg/dL (8.4-10.2); Carbon Dioxide 23 mmol/L (22-30); Chloride 101 mmol/L (98-107); Glucose 108 mg/dL (74-99); Magnesium 1.5 mg/dL (1.6-2.3); Non-African American GFR(MDRD) >60 (>60 ml/min/1.73 sqM); Phosphorous 1.9 mg/dL (2.5-4.5); Potassium 3.3 mmol/L (3.5-5.1); Sodium 135 mmol/L (137-145)
[2017-06-01] MEDS: ENOXAPARIN 40 MG/0.4 ML SYRINGE SQ SCH (07:55)
[2017-06-01] MEDS: DILTIAZEM CD 120 MG CAP.ER.24H PO SCH (07:55)
[2017-06-01] MEDS: PANTOPRAZOLE 40 MG/10 ML VIAL IVP SCH (07:55)
[2017-06-01] MEDS: CALCIUM GLUCONATE 1,000 MG in SODIUM CHLORIDE 0.9% 100 ML IVPB SCH ×2 (07:55→21:39)
[2017-06-01] MEDS: DICYCLOMINE 10 MG CAP PO SCH ×3 (07:55→21:32)
[2017-06-01] MEDS: DIPHENOX-ATROP 2.5-0.025 MG 1 EACH TAB PO PRN (08:01)
[2017-06-01] MEDS: MAGNESIUM OXIDE 400 MG TAB PO SCH (11:11)
[2017-06-01] MEDS: CYANOCOBALAMIN 500 MCG TAB PO SCH (11:11)
[2017-06-01] MEDS: CALCIUM CARBONATE 500 MG CHEWABLE PO SCH (11:11)
[2017-06-01] MEDS: LEVOFLOXACIN 500MG-D5W PMX 500 MG in DEXTROSE/WATER 1 100ML.BAG IVPB SCH (11:43)
[2017-06-01] MEDS: PANTOPRAZOLE 40 MG TABLET PO SCH (16:06)
[2017-06-02] MEDS: ALPRAZolam 0.25 MG TAB PO PRN (00:02)
[2017-06-02] MEDS: LEVOTHYROXINE 25 MCG TAB PO SCH (06:47)
[2017-06-02] MEDS: ENOXAPARIN 40 MG/0.4 ML SYRINGE SQ SCH (07:48)
[2017-06-02] MEDS: DILTIAZEM CD 120 MG CAP.ER.24H PO SCH (07:49)
[2017-06-02] MEDS: DICYCLOMINE 10 MG CAP PO SCH ×3 (07:49→20:48)
[2017-06-02] MEDS: PANTOPRAZOLE 40 MG TABLET PO SCH ×2 (07:49→20:21)
[2017-06-02 08:09] LABS: Anisocytosis Moderate; CH 24.6; CHCM 31.9; HDW 3.81; HGB 9.4 gm/dL (11.4-16.0); Hypochromasia Moderate; MCH 25.8 pg (25.0-35.0); MCHC 33.5 g/dL (31.0-37.0); MCV 77.1 fL (80.0-100.0); Mean Platelet Volume 9.4; Microcytosis Moderate; Poikilocytosis Slight; RBC 3.64 m/uL (3.80-5.40); RDW 20.9 % (11.5-15.5); WBC 23.7 k/uL (3.8-10.6)
[2017-06-02 08:10] LABS: Anion Gap 12 mmol/L; Blood Urea Nitrogen 13 mg/dL (7-17); Calcium 9.5 mg/dL (8.4-10.2); Carbon Dioxide 24 mmol/L (22-30); Chloride 99 mmol/L (98-107); Glucose 80 mg/dL (74-99); Magnesium 1.7 mg/dL (1.6-2.3); Non-African American GFR(MDRD) >60 (>60 ml/min/1.73 sqM); Phosphorous 1.7 mg/dL (2.5-4.5); Potassium 3.1 mmol/L (3.5-5.1); Sodium 135 mmol/L (137-145)
[2017-06-02] MEDS: CALCIUM GLUCONATE 1,000 MG in SODIUM CHLORIDE 0.9% 100 ML IVPB SCH ×2 (08:29→20:48)
[2017-06-02 08:55] LABS: Manual Review Performed
[2017-06-02 08:57] LABS: Add Differential Manual Differential
[2017-06-02 09:01] LABS: Band Neutrophils % 14.5 %; Myelocytes % 0.5 %; Nucleated Red Blood Cells 0 /100 WBC (0-0); Total Cells Counted 200; Toxic Granulation Present
[2017-06-02 09:03] LABS: Toxic Vacuolation Present
[2017-06-02] MEDS: CALCIUM CARBONATE 500 MG CHEWABLE PO SCH (11:27)
[2017-06-02] MEDS: CYANOCOBALAMIN 500 MCG TAB PO SCH (11:27)
[2017-06-02] MEDS: MAGNESIUM OXIDE 400 MG TAB PO SCH (11:28)
[2017-06-02] MEDS: LEVOFLOXACIN 500MG-D5W PMX 500 MG in DEXTROSE/WATER 1 100ML.BAG IVPB SCH (11:59)
[2017-06-02] MEDS ORDERED: POTASSIUM CHLORIDE ER 20 MEQ TAB.ER PO SCH (12:00)
[2017-06-02] MEDS ORDERED: IOHEXOL 350 MG/ML 25 ML BOTTLE (ORAL USE) PO PRN (13:07)
[2017-06-02] MEDS: POTASSIUM CHLORIDE 10 MEQ, LIDOCAINE 2% INJ 10 MG in SODIUM CHLORIDE 0.9% 100 ML IVPB SCH ×2 (14:51→18:03)
--- NOTE | 2017-06-02 14:57 | CT ---
EXAMINATION TYPE: CT abdomen wo con DATE OF EXAM: 06/02/2017 COMPARISON: Previous study dated 04/28/2017. HISTORY: Colitis and abdominal pain. CT DLP: 427 mGycm Automated exposure control for dose reduction was used. TECHNIQUE: Helical acquisition of images was performed from the lung bases through the top of iliac crest to include entire abdomen. CONTRAST: Performed with Oral Contrast and without IV contrast. FINDINGS: There are bilateral effusions. These are improved from previous. There is associated relaxa tion atelectasis at the lung bases. There is no pericardial fluid. The heart is not enlarged. Within the abdomen, the liver is unremarkable. The gallbladder is not identified. The spleen is unrem arkable. Both adrenal glands appear normal. There is no evidence of nephrolithiasis or hydronephrosis. Limited views of the pancreas are normal. There is no significant retroperitoneal adenopathy. There is gross dilatation of the small bowel is also dilatation of the transverse colon. There is col onic wall thickening involving a large distended loop of small bowel in the midabdomen. This loop als o has intramural air. This is suggestive of ischemia. At this time there is some free fluid There is diffuse anasarca. IMPRESSION: 1. FINDINGS OF INTRAMURAL AIR WITHIN A GROSSLY DISTENDED LOOP OF SMALL BOWEL IN THE MIDABDOMEN WITH T RANSVERSE DIAMETER OF 5.9 CM IS VERY SUSPICIOUS FOR ISCHEMIC CHANGE. 2. IMPROVING, BILATERAL EFFUSIONS. 3. DIFFUSE ANASARCA. This report was phoned to Blanca on the fourth floor.
[2017-06-02] MEDS ORDERED: SODIUM CHLORIDE 0.9% 1,000 ML IV SCH (15:45)
[2017-06-02 16:15] LABS: Glucose,Whole Blood 71 mg/dL (75-99)
[2017-06-02] MEDS ORDERED: LACTATED RINGERS 1,000 ML IV ONE (16:45)
[2017-06-02] MEDS: metroNIDAZOLE-NS PMX 500 MG in SALINE 1 100ML.BAG IVPB SCH (17:00)
[2017-06-02 17:09] LABS: Appearance,Urine Clear (Clear); Bacteria,Urine Rare /hpf; Bilirubin,Urine 1+ (Negative); Glucose,Urine (UA) Negative (Negative); Ketones,Urine 1+ (Negative); Leukocyte Esterase,Urine Negative (Negative); Mucus,Urine Rare /hpf; Nitrite,Urine Negative (Negative); Particle Count 9401; Protein,Urine 2+ (Negative); RBC,Urine 20 /hpf (0-5); Specific Gravity,Urine 1.016 (1.001-1.035); UA Billing (MACRO vs. MICRO) MICRO; Urobilinogen,Urine <2.0 mg/dL (<2.0); WBC,Urine 25 /hpf (0-5)
[2017-06-02] MEDS: PIPERACILLIN-TAZOBACTAM 3.375 GM in DEXTROSE/WATER 1 50ML.BAG IVPB SCH (17:32)
[2017-06-02] MEDS: LACTATED RINGERS 1,000 ML IV SCH ×2 (18:04→23:50)
--- NOTE | 2017-06-02 23:13 | P.CNPUL ---
History of Present Illness Consult date: 06/02/17 Requesting physician: Ollie Blake Reason for consult: other (ICU management, possible ischemic colitis.) Chief complaint: Recurrent episodes of epigastric pain, history of irritable bowel disease, History of present illness: This is an 82-year-old female who was recently admitted with multiple GI symptoms including nausea and emesis diarrhea and dehydration as well as electrolyte imbalance. Patient was also noted to have leukocytosis, hypotension , and possible sepsis. She was initially admitted to the ICU and she was given multiple fluid boluses, eventually the patient was transferred out of the ICU to a regular medical floor. She was also noted to have pericardial effusion on CT of the chest. CT of the abdomen done on the initial admission showed evidence of colitis with colon wall thickening. Patient was eventually discharged to a assisted on 05/30/2017, repeat CT of the abdomen and pelvis today showed bilateral effusions, bibasilar atelectasis, no pericardial effusion , there was grasped elevation of the small bowel also developed patient of the transverse colon. And there was colon wall thickening involving large distended loop of small bowel in the mid abdomen. There is GI just felt that there may be some evidence of ischemia. Patient was transferred to the ICU, and I was asked to see her on consultation. I have never seen this patient before, but she may have been seen by Dr. Mayo when she was in the ICU initially. At the time of my evaluation, patient denies any specific complaints. No nausea no vomiting no abdominal pain no melena no hematemesis. No chest pain no shortness of breath no cough no wheezing. No headaches no blurred vision no dizziness. No dysuria and no frequency no urgency. Even examining her abdomen seems to be relatively benign and nonsurgical in nature. Review of Systems 12 point review of systems were obtained, please refer to pertinent negatives in HPI. Past Medical History Past Medical History: GERD/Reflux, Thyroid Disorder Additional Past Medical History / Comment(s): Pericardial effusion/tamponade status post window, status post recent acute hypoxic respiratory failure which recovered, long-standing irritable bowel syndrome, acid reflux, history of ischemic colitis, hypothyroidism, legal blindness, impaired hearing, IBS. bilateral cataracts, hypothyroidism, positive GILBERT, limited scleroderma, beta thalassemia trait with chronic anemia History of Any Multi-Drug Resistant Organisms: None Reported Past Surgical History: Appendectomy, Orthopedic Surgery Additional Past Surgical History / Comment(s): DEVIATED SEPTUM, TUBES AND OVARIES REMOVED, HAMLET SHOULDER SURGERY, pericardial window, bilateral forehead biopsy r/t loss of vision. Past Anesthesia/Blood Transfusion Reactions: No Reported Reaction Past Psychological History: Anxiety Additional Psychological History / Comment(s): occasional anxiety. Smoking Status: Former smoker Past Alcohol Use History: Occasional Past Drug Use History: None Reported - Past Family History Father Family Medical History: Myocardial Infarction ([place]) Additional Family Medical History / Comment(s): heart failure Medications and Allergies Home Medications Medication Instructions Recorded Confirmed Type Cyanocobalamin [Vitamin B-12 1,000 mcg SQ Q30D 02/23/16 06/01/17 History Injection] Dicyclomine [Bentyl] 10 mg PO TID PRN 02/23/16 06/01/17 History Loperamide HCl [Loperamide] 4 mg PO TID PRN 02/23/16 06/01/17 History Omeprazole [PriLOSEC] 20 mg PO QAM 02/23/16 06/01/17 History Tacrolimus [Protopic] 1 applic TOPICAL HS PRN 02/23/16 06/01/17 History Alclometasone Dipropionate 1 applic TOPICAL DAILY PRN 04/22/17 06/01/17 History EPINEPHrine [Epipen 2-Adriel] 0.3 mg IM ONCE PRN 04/22/17 06/01/17 History Ferrous Sulfate [Iron] 325 mg PO DAILY 04/22/17 06/01/17 History Ondansetron [Zofran ODT] 4 mg PO Q8HR PRN 04/22/17 06/01/17 History Diphenoxylate HCl/Atropine 2 tab PO TID 06/01/17 06/01/17 History [Lomotil 2.5-0.025 mg Tablet] Ergocalciferol [Vitamin D2] 50,000 unit PO Q7D 06/01/17 06/01/17 History Furosemide [Lasix] 40 mg PO MOWEFR 06/01/17 06/01/17 History Levothyroxine Sodium [Synthroid] 50 mcg PO DAILY 06/01/17 06/01/17 History Allergies Allergy/AdvReac Type Severity Reaction Status Date / Time venom-honey bee Allergy Unknown Anaphylaxis Verified 05/29/17 11:21 [bee venom (honey bee)] venom-wasp [Wasp Venom] Allergy Unknown Anaphylaxis Verified 05/29/17 11:21 ether Allergy Unknown Verified 05/29/17 11:21 methylprednisolone Allergy Rash/Hives Verified 05/29/17 11:21 [From Solu-Medrol] soybean Allergy Unknown Verified 05/29/17 11:21 tomato Allergy Unknown Verified 05/29/17 11:21 Physical Exam Vitals: Vital Signs Temp Pulse Pulse Resp BP BP Pulse Ox 06/02/17 22:00 102 H 22 114/67 97 06/02/17 21:00 98 14 98/59 97 06/02/17 20:00 97.3 F L 105 H 22 94/62 96 06/02/17 19:30 108 H 24 103/57 06/02/17 19:00 117 H 16 105/62 06/02/17 18:30 108 H 21 108/61 06/02/17 18:00 103 H 22 108/63 06/02/17 17:30 109 H 20 102/56 96 06/02/17 17:00 112 H 21 100/59 95 06/02/17 16:30 107 H 23 100/59 95 06/02/17 16:15 98.0 F 118 H 19 06/02/17 14:58 96.7 F L 116 H 16 109/52 94 L 06/02/17 08:00 97 18 06/02/17 07:00 96.7 F L 97 18 99/53 99 Intake and Output 06/02/17 06/02/17 06/03/17 14:59 22:59 06:59 Intake Total 2290 Output Total 701 260 Balance -701 2030 Intake: IV 450 Lactated Ringers 1,000 ml 450 @ 150 mls/hr IV .Q6H40M [facility] Rx#:[id number] Intake, IV Titration 1840 Amount Lactated Ringers 1,000 ml 300 @ 150 mls/hr IV .Q6H40M [facility] Rx#:[id number] Lactated Ringers 1,000 ml 1000 @ 999 mls/hr IV .Q1H1M [facility] Rx#:[id number] Piperacillin-Tazobactam 3 140 .375 gm In Dextrose/Water 1 50ml.bag @ 12.5 mls/hr IVPB Q8HR [facility] Rx#: [id number] Potassium Chloride 10 meq 200 Lidocaine 2% Inj 10 mg In Sodium Chloride 0.9% 100 ml @ 100 mls/hr IVPB Q1HR [facility] Rx#:[id number] Sodium Chloride 0.9% 1, 100 000 ml @ 50 mls/hr IV . Q20H [facility] Rx#:[id number] metroNIDAZOLE-NS PMX 500 100 mg In Saline 1 100ml.bag @ 100 mls/hr IVPB Q8HR [facility] Rx#:[id number] Output: Urine 260 Stool 1 Emesis 700 Other: Voiding Method Toilet Indwelling Catheter Physical Exam: Revealed an 82-year-old female in no distress. Patient looks chronically ill, frail, and cachectic. HEENT:[Neck is supple.] [No neck masses.] [No thyromegaly.] [No JVD.] Chest: [Clear throughout, no crackles, no rhonchi, no wheezes.] Cardiac Exam: [Normal S1 and S2, no S3 gallop, no murmur.] Abdomen: [Soft, nontender, no megaly, no rebound, no guarding, normal bowel sounds.] Extremities: [No clubbing, 1+ bipedal edema, no cyanosis.] Neurological Exam: [No focal neurologic deficit.] Results - Laboratory Findings CBC and BMP: 06/02/17 07:04 06/02/17 07:04 PT/INR, D-dimer PT 14.0 sec (9.0-12.0) H 05/28/17 22:42 INR 1.4 (<1.1) 05/28/17 22:42 Abnormal lab findings: Abnormal Labs 05/28/17 05/28/17 05/28/17 22:42 22:42 22:42 WBC RBC 2.65 L Hgb 5.8 L* Hct 17.9 L* MCV 67.6 L D MCH 22.1 L RDW 17.7 H Plt Count Neutrophils # Neutrophils # (Manual) Lymphocytes # Lymphocytes # (Manual) PT Sodium 133 L Potassium 2.9 L* Chloride 93 L Carbon Dioxide BUN 23 H Glucose POC Glucose (mg/dL) Calcium 5.7 L* Ionized Calcium Samir Phosphorus Magnesium 0.8 L* Iron TIBC % Saturation Total Bilirubin Total Creatine Kinase 219 H Troponin I 0.048 H* Total Protein 5.4 L Albumin 2.7 L Urine Appearance Urine Protein Urine Ketones Urine Blood Urine Bilirubin Urine RBC Urine WBC Amorphous Sediment Urine Bacteria Hyaline Casts Urine Mucus Crossmatch 05/28/17 05/29/17 05/29/17 22:42 03:22 03:57 WBC RBC Hgb Hct MCV MCH RDW Plt Count Neutrophils # Neutrophils # (Manual) Lymphocytes # Lymphocytes # (Manual) PT 14.0 H Sodium Potassium Chloride Carbon Dioxide BUN Glucose POC Glucose (mg/dL) 132 H Calcium Ionized Calcium Samir Phosphorus Magnesium Iron TIBC % Saturation Total Bilirubin Total Creatine Kinase Troponin I Total Protein Albumin Urine Appearance Urine Protein Urine Ketones Urine Blood Urine Bilirubin Urine RBC Urine WBC Amorphous Sediment Urine Bacteria Hyaline Casts Urine Mucus Crossmatch See Detail 05/29/17 05/29/17 05/29/17 05:15 05:27 11:55 WBC RBC Hgb Hct MCV MCH RDW Plt Count Neutrophils # Neutrophils # (Manual) Lymphocytes # Lymphocytes # (Manual) PT Sodium 132 L Potassium Chloride 97 L Carbon Dioxide BUN 19 H Glucose 124 H POC Glucose (mg/dL) Calcium 5.7 L* Ionized Calcium Samir 3.2 L* Phosphorus Magnesium 2.5 H Iron 18 L TIBC 186 L % Saturation 9.7 L Total Bilirubin 1.5 H Total Creatine Kinase Troponin I 0.045 H* Total Protein 5.8 L Albumin 2.8 L Urine Appearance Cloudy H Urine Protein 1+ H Urine Ketones Urine Blood Small H Urine Bilirubin Urine RBC Urine WBC Amorphous Sediment Occasional H Urine Bacteria Hyaline Casts Urine Mucus Rare H Crossmatch 05/29/17 05/29/17 05/30/17 11:55 17:59 07:18 WBC RBC 3.61 L 3.50 L Hgb 9.2 L D 8.8 L Hct 27.1 L 26.5 L MCV 74.9 L D 75.6 L MCH RDW 19.2 H 19.7 H Plt Count Neutrophils # Neutrophils # (Manual) Lymphocytes # Lymphocytes # (Manual) 0.5 L PT Sodium Potassium Chloride Carbon Dioxide BUN Glucose POC Glucose (mg/dL) Calcium Ionized Calcium Samir 3.4 L* Phosphorus Magnesium Iron TIBC % Saturation Total Bilirubin Total Creatine Kinase Troponin I Total Protein Albumin Urine Appearance Urine Protein Urine Ketones Urine Blood Urine Bilirubin Urine RBC Urine WBC Amorphous Sediment Urine Bacteria Hyaline Casts Urine Mucus Crossmatch 05/30/17 05/31/17 05/31/17 07:18 07:23 07:23 WBC RBC 3.52 L Hgb 9.0 L Hct 27.3 L MCV 77.4 L MCH RDW 20.1 H Plt Count Neutrophils # Neutrophils # (Manual) 8.7 H Lymphocytes # Lymphocytes # (Manual) 0.9 L PT Sodium 134 L 135 L Potassium 3.0 L* Chloride Carbon Dioxide 19 L BUN Glucose POC Glucose (mg/dL) Calcium 6.1 L* 6.8 L Ionized Calcium Samir Phosphorus 2.1 L 2.3 L Magnesium Iron TIBC % Saturation Total Bilirubin Total Creatine Kinase Troponin I Total Protein Albumin Urine Appearance Urine Protein Urine Ketones Urine Blood Urine Bilirubin Urine RBC Urine WBC Amorphous Sediment Urine Bacteria Hyaline Casts Urine Mucus Crossmatch 06/01/17 06/01/17 06/01/17 06:31 06:31 16:45 WBC 18.3 H RBC 3.57 L Hgb 9.2 L Hct 27.5 L MCV 77.1 L MCH RDW 20.4 H Plt Count 139 L Neutrophils # 17.0 H Neutrophils # (Manual) Lymphocytes # 0.6 L Lymphocytes # (Manual) PT Sodium 135 L Potassium 3.3 L Chloride Carbon Dioxide BUN Glucose 108 H POC Glucose (mg/dL) Calcium 7.8 L Ionized Calcium Samir Phosphorus 1.9 L Magnesium 1.5 L Iron TIBC % Saturation Total Bilirubin Total Creatine Kinase Troponin I Total Protein Albumin Urine Appearance Urine Protein 2+ H Urine Ketones 1+ H Urine Blood Moderate H Urine Bilirubin 1+ H Urine RBC 20 H Urine WBC 25 H Amorphous Sediment Urine Bacteria Rare H Hyaline Casts 14 H Urine Mucus Rare H Crossmatch 06/02/17 06/02/17 06/02/17 07:04 07:04 16:12 WBC 23.7 H RBC 3.64 L Hgb 9.4 L Hct 28.0 L MCV 77.1 L MCH RDW 20.9 H Plt Count 95 L Neutrophils # Neutrophils # (Manual) 22.3 H Lymphocytes # Lymphocytes # (Manual) 0.8 L PT Sodium 135 L Potassium 3.1 L Chloride Carbon Dioxide BUN Glucose POC Glucose (mg/dL) 71 L Calcium Ionized Calcium Samir Phosphorus 1.7 L Magnesium Iron TIBC % Saturation Total Bilirubin Total Creatine Kinase Troponin I Total Protein Albumin Urine Appearance Urine Protein Urine Ketones Urine Blood Urine Bilirubin Urine RBC Urine WBC Amorphous Sediment Urine Bacteria Hyaline Casts Urine Mucus Crossmatch - Diagnostic Findings Additional studies: CT abdomen and pelvis report was reviewed Assessment and Plan Plan: Impression: 1 History of irritable bowel syndrome, with multiple GI symptoms, presently inactive. 2 multiple comorbidities including malabsorption syndrome, GERD, chronic diarrhea, hypothyroidism, degenerative joint disease, vitamin B12 deficiency, and history of pericardial effusion, requiring pericardial window.. History of chronic anemia history of hearing loss, history of blindness, history of chronic malnutrition. Recommendation: Continue present treatment plan, her abdomen does not seem to be surgical at this point, patient is being followed by general surgery on consultation, and we'll continue to follow likely transfer out of the ICU in a.m. Time with Patient: Greater than 30
[2017-06-03] MEDS: metroNIDAZOLE-NS PMX 500 MG in SALINE 1 100ML.BAG IVPB SCH ×3 (00:10→15:54)
[2017-06-03] MEDS: PIPERACILLIN-TAZOBACTAM 3.375 GM in DEXTROSE/WATER 1 50ML.BAG IVPB SCH ×3 (00:10→15:54)
[2017-06-03 05:08] LABS: Anisocytosis Moderate; Basophils # (A) 0.1 k/uL (0-0.2); Basophils % (A) 1 %; CH 24.5; CHCM 31.3; Eosinophils # (A) 0.1 k/uL (0-0.7); Eosinophils % (A) 1 %; HCT 25.9 % (34.0-46.0); HDW 3.73; HGB 8.5 gm/dL (11.4-16.0); Hypochromasia Moderate; Immature Gran Flag Moderate; Luc # (Auto) 0.18; Luc % (Auto) 1; Lymphocytes # (A) 1.2 k/uL (1.0-4.8); Lymphocytes % (A) 8 %; MCH 25.7 pg (25.0-35.0); MCHC 32.9 g/dL (31.0-37.0); Mean Platelet Volume 7.7; Microcytosis Moderate; Monocytes # (A) 0.5 k/uL (0-1.0); Monocytes % (A) 4 %; Neutrophils # (A) 12.1 k/uL (1.3-7.7); Neutrophils % (A) 86 %; Poikilocytosis Slight; RBC 3.31 m/uL (3.80-5.40); WBC 14.1 k/uL (3.8-10.6)
[2017-06-03 05:12] LABS: Anion Gap 6 mmol/L; Blood Urea Nitrogen 21 mg/dL (7-17); Calcium 9.2 mg/dL (8.4-10.2); Carbon Dioxide 25 mmol/L (22-30); Chloride 103 mmol/L (98-107); Glucose 111 mg/dL (74-99); Magnesium 1.5 mg/dL (1.6-2.3); Non-African American GFR(MDRD) >60 (>60 ml/min/1.73 sqM); Phosphorous 1.3 mg/dL (2.5-4.5); Potassium 3.7 mmol/L (3.5-5.1); Sodium 134 mmol/L (137-145)
[2017-06-03] MEDS ORDERED: Potassium Replacement Protocol 1 EACH MISC MISCELLANE PRN (05:19)
[2017-06-03] MEDS ORDERED: Magnesium Replacement Protocol 1 EACH MISC MISCELLANE PRN (05:20)
[2017-06-03] MEDS ORDERED: Phosphorus Replacement Protoco 1 EACH MISC MISCELLANE PRN (05:20)
[2017-06-03 05:21] LABS: Manual Review Performed
[2017-06-03 05:27] LABS: Ovalocytes Present
[2017-06-03] MEDS: MAGNESIUM SULFATE-D5W PMX 1 GM in DEXTROSE/WATER 1 100ML.BAG IVPB SCH ×2 (05:32→06:38)
[2017-06-03] MEDS: POTASSIUM CHLORIDE 10 MEQ, LIDOCAINE 2% INJ 10 MG in SODIUM CHLORIDE 0.9% 100 ML IV SCH ×2 (05:33→06:39)
[2017-06-03] MEDS: LACTATED RINGERS 1,000 ML IV SCH ×3 (05:33→21:43)
[2017-06-03] MEDS: SODIUM PHOSPHATE 10 MMOL in SODIUM CHLORIDE 0.9% 250 ML IVPB SCH ×3 (05:40→10:10)
[2017-06-03] MEDS: LEVOTHYROXINE 25 MCG TAB PO SCH (06:08)
--- NOTE | 2017-06-03 08:19 | P.GSCN ---
History of Present Illness Consult date: 06/02/17 Reason for Consult: Small bowel ischemia History of present illness: Is a 82-year-old female with multiple medical problems. Patient was transferred to the ICU from the fourth floor today. Patient had a CAT scan performed. CAT scan shows evidence of possible small bowel ischemia. Patient also is evidence of leukocytosis. The patient denies any significant abdominal pain. Review of Systems - Constitutional Reports as per HPI Past Medical History Past Medical History: GERD/Reflux, Thyroid Disorder Additional Past Medical History / Comment(s): Pericardial effusion/tamponade status post window, status post recent acute hypoxic respiratory failure which recovered, long-standing irritable bowel syndrome, acid reflux, history of ischemic colitis, hypothyroidism, legal blindness, impaired hearing, IBS. bilateral cataracts, hypothyroidism, positive GILBERT, limited scleroderma, beta thalassemia trait with chronic anemia History of Any Multi-Drug Resistant Organisms: None Reported Past Surgical History: Appendectomy, Orthopedic Surgery Additional Past Surgical History / Comment(s): DEVIATED SEPTUM, TUBES AND OVARIES REMOVED, HAMLET SHOULDER SURGERY, pericardial window, bilateral forehead biopsy r/t loss of vision. Past Anesthesia/Blood Transfusion Reactions: No Reported Reaction Past Psychological History: Anxiety Additional Psychological History / Comment(s): occasional anxiety. Smoking Status: Former smoker Past Alcohol Use History: Occasional Past Drug Use History: None Reported - Past Family History Father Family Medical History: Myocardial Infarction ([place]) Additional Family Medical History / Comment(s): heart failure Medications and Allergies Home Medications Medication Instructions Recorded Confirmed Type Cyanocobalamin [Vitamin B-12 1,000 mcg SQ Q30D 02/23/16 06/01/17 History Injection] Dicyclomine [Bentyl] 10 mg PO TID PRN 02/23/16 06/01/17 History Loperamide HCl [Loperamide] 4 mg PO TID PRN 02/23/16 06/01/17 History Omeprazole [PriLOSEC] 20 mg PO QAM 02/23/16 06/01/17 History Tacrolimus [Protopic] 1 applic TOPICAL HS PRN 02/23/16 06/01/17 History Alclometasone Dipropionate 1 applic TOPICAL DAILY PRN 04/22/17 06/01/17 History EPINEPHrine [Epipen 2-Adriel] 0.3 mg IM ONCE PRN 04/22/17 06/01/17 History Ferrous Sulfate [Iron] 325 mg PO DAILY 04/22/17 06/01/17 History Ondansetron [Zofran ODT] 4 mg PO Q8HR PRN 04/22/17 06/01/17 History Diphenoxylate HCl/Atropine 2 tab PO TID 06/01/17 06/01/17 History [Lomotil 2.5-0.025 mg Tablet] Ergocalciferol [Vitamin D2] 50,000 unit PO Q7D 06/01/17 06/01/17 History Furosemide [Lasix] 40 mg PO MOWEFR 06/01/17 06/01/17 History Levothyroxine Sodium [Synthroid] 50 mcg PO DAILY 06/01/17 06/01/17 History Allergies Allergy/AdvReac Type Severity Reaction Status Date / Time venom-honey bee Allergy Unknown Anaphylaxis Verified 05/29/17 11:21 [bee venom (honey bee)] venom-wasp [Wasp Venom] Allergy Unknown Anaphylaxis Verified 05/29/17 11:21 ether Allergy Unknown Verified 05/29/17 11:21 methylprednisolone Allergy Rash/Hives Verified 05/29/17 11:21 [From Solu-Medrol] soybean Allergy Unknown Verified 05/29/17 11:21 tomato Allergy Unknown Verified 05/29/17 11:21 Surgical - Exam Vital Signs Pulse Resp BP Pulse Ox 105 H 20 117/59 92 L 05/28/17 21:38 05/28/17 21:38 05/28/17 21:38 05/28/17 21:38 - General well developed, no distress - Eyes PERRL - ENT normal pinna - Neck no masses - Respiratory normal expansion - Cardiovascular Rhythm: regular - Abdomen Abdomen is soft. There is minimal distention. There is no rebound or guarding. There is no peritoneal signs. There is no tenderness on deep palpation. Abdomen: soft, non tender Results - Labs 06/03/17 04:46 06/03/17 04:46 Abnormal Lab Results - Last 24 Hours (Table) 06/01/17 06/02/17 06/02/17 Range/Units 16:45 07:04 07:04 WBC 23.7 H (3.8-10.6) k/uL RBC 3.64 L (3.80-5.40) m/uL Hgb 9.4 L (11.4-16.0) gm/dL Hct 28.0 L (34.0-46.0) % MCV 77.1 L (80.0-100.0) fL RDW 20.9 H (11.5-15.5) % Plt Count 95 L (150-450) k/uL Neutrophils # (1.3-7.7) k/uL Neutrophils # (Manual) 22.3 H (1.3-7.7) k/uL Lymphocytes # (Manual) 0.8 L (1.0-4.8) k/uL Sodium 135 L (137-145) mmol/L Potassium 3.1 L (3.5-5.1) mmol/L BUN (7-17) mg/dL Glucose (74-99) mg/dL POC Glucose (mg/dL) (75-99) mg/dL Phosphorus 1.7 L (2.5-4.5) mg/dL Magnesium (1.6-2.3) mg/dL Urine Protein 2+ H (Negative) Urine Ketones 1+ H (Negative) Urine Blood Moderate H (Negative) Urine Bilirubin 1+ H (Negative) Urine RBC 20 H (0-5) /hpf Urine WBC 25 H (0-5) /hpf Urine Bacteria Rare H (None) /hpf Hyaline Casts 14 H (0-2) /lpf Urine Mucus Rare H (None) /hpf 06/02/17 06/03/17 06/03/17 Range/Units 16:12 04:46 04:46 WBC 14.1 H (3.8-10.6) k/uL RBC 3.31 L (3.80-5.40) m/uL Hgb 8.5 L (11.4-16.0) gm/dL Hct 25.9 L (34.0-46.0) % MCV 78.0 L (80.0-100.0) fL RDW 21.0 H (11.5-15.5) % Plt Count 43 L* D (150-450) k/uL Neutrophils # 12.1 H (1.3-7.7) k/uL Neutrophils # (Manual) (1.3-7.7) k/uL Lymphocytes # (Manual) (1.0-4.8) k/uL Sodium 134 L (137-145) mmol/L Potassium (3.5-5.1) mmol/L BUN 21 H (7-17) mg/dL Glucose 111 H (74-99) mg/dL POC Glucose (mg/dL) 71 L (75-99) mg/dL Phosphorus 1.3 L (2.5-4.5) mg/dL Magnesium 1.5 L (1.6-2.3) mg/dL Urine Protein (Negative) Urine Ketones (Negative) Urine Blood (Negative) Urine Bilirubin (Negative) Urine RBC (0-5) /hpf Urine WBC (0-5) /hpf Urine Bacteria (None) /hpf Hyaline Casts (0-2) /lpf Urine Mucus (None) /hpf Microbiology - Last 24 Hours (Table) 06/01/17 16:45 Urine Culture - Preliminary Urine,Clean Catch Diabetes panel 06/02/17 06/03/17 Range/Units 07:04 04:46 Sodium 135 L 134 L (137-145) mmol/L Potassium 3.1 L 3.7 (3.5-5.1) mmol/L Chloride 99 103 (98-107) mmol/L Carbon Dioxide 24 25 (22-30) mmol/L BUN 13 21 H (7-17) mg/dL Creatinine 0.80 0.70 (0.52-1.04) mg/dL Glucose 80 111 H (74-99) mg/dL Calcium 9.5 9.2 (8.4-10.2) mg/dL Calcium panel 06/02/17 06/03/17 Range/Units 07:04 04:46 Calcium 9.5 9.2 (8.4-10.2) mg/dL Phosphorus 1.7 L 1.3 L (2.5-4.5) mg/dL Pituitary panel 06/02/17 06/03/17 Range/Units 07:04 04:46 Sodium 135 L 134 L (137-145) mmol/L Potassium 3.1 L 3.7 (3.5-5.1) mmol/L Chloride 99 103 (98-107) mmol/L Carbon Dioxide 24 25 (22-30) mmol/L BUN 13 21 H (7-17) mg/dL Creatinine 0.80 0.70 (0.52-1.04) mg/dL Glucose 80 111 H (74-99) mg/dL Calcium 9.5 9.2 (8.4-10.2) mg/dL Adrenal panel 06/02/17 06/03/17 Range/Units 07:04 04:46 Sodium 135 L 134 L (137-145) mmol/L Potassium 3.1 L 3.7 (3.5-5.1) mmol/L Chloride 99 103 (98-107) mmol/L Carbon Dioxide 24 25 (22-30) mmol/L BUN 13 21 H (7-17) mg/dL Creatinine 0.80 0.70 (0.52-1.04) mg/dL Glucose 80 111 H (74-99) mg/dL Calcium 9.5 9.2 (8.4-10.2) mg/dL - Imaging CT scan - pelvis: report reviewed (Thickened small bowel wall with evidence of pneumatosis. This is suggestive of small bowel ischemia.) Assessment and Plan Plan: Possible small bowel ischemia. Patient will be observed. She currently has no abdominal pain. If her condition changes she may require exploratory laparotomy. We will follow with you.
[2017-06-03] MEDS: PANTOPRAZOLE 40 MG TABLET PO SCH (08:34)
[2017-06-03] MEDS ORDERED: FONDAPARINUX 2.5 MG/0.5 ML SYRINGE SQ SCH (09:00)
[2017-06-03] MEDS ORDERED: PANTOPRAZOLE 40 MG/10 ML VIAL IVP SCH (09:00)
[2017-06-03] MEDS: CALCIUM GLUCONATE 1,000 MG in SODIUM CHLORIDE 0.9% 100 ML IVPB SCH ×2 (09:02→21:44)
[2017-06-03] MEDS: DICYCLOMINE 10 MG CAP PO SCH ×3 (09:11→21:45)
[2017-06-03] MEDS: DILTIAZEM CD 120 MG CAP.ER.24H PO SCH (09:11)
[2017-06-03] MEDS ORDERED: SODIUM CHLORIDE 0.9% 500 ML IV ONE (10:18)
--- NOTE | 2017-06-03 11:45 | P.PN ---
Subjective Principal diagnosis: Irritable bowel syndrome, malnutrition, possible ischemic bowel. This is an 82-year-old female who was recently admitted with multiple GI symptoms including nausea and emesis diarrhea and dehydration as well as electrolyte imbalance. Patient was also noted to have leukocytosis, hypotension , and possible sepsis. She was initially admitted to the ICU and she was given multiple fluid boluses, eventually the patient was transferred out of the ICU to a regular medical floor. She was also noted to have pericardial effusion on CT of the chest. CT of the abdomen done on the initial admission showed evidence of colitis with colon wall thickening. Patient was eventually discharged to a fpc on 05/30/2017, repeat CT of the abdomen and pelvis today showed bilateral effusions, bibasilar atelectasis, no pericardial effusion , there was grasped elevation of the small bowel also developed patient of the transverse colon. And there was colon wall thickening involving large distended loop of small bowel in the mid abdomen. There is GI just felt that there may be some evidence of ischemia. Patient was transferred to the ICU, and I was asked to see her on consultation. I have never seen this patient before, but she may have been seen by Dr. Mayo when she was in the ICU initially. At the time of my evaluation, patient denies any specific complaints. No nausea no vomiting no abdominal pain no melena no hematemesis. No chest pain no shortness of breath no cough no wheezing. No headaches no blurred vision no dizziness. No dysuria and no frequency no urgency. Even examining her abdomen seems to be relatively benign and nonsurgical in nature. Reevaluated today on 06/03/2017, patient seems to be doing quite well, asymptomatic. No cough no fever no chills no nausea no vomiting no abdominal pain no melena no hematemesis. However her blood pressures seems to be marginal with mean arterial pressure in the mid 50s. Systolic blood pressure is about 80. Patient is making good amount of urine, implying that her renal perfusion is adequate. Hence no need for norepinephrine at this point, but will give the patient more fluids and fluid boluses. Platelets have significantly dropped overnight, they are down to 43,000 from 13 9006 2 days ago. Hence are external would have to be discontinued at this point. And I will cut down the Protonix dose to 40 mg once daily instead of twice daily. Avoid any heparin products, may request a hematology consultation. Otherwise labs were noted to be relatively unremarkable. Objective - Vital Signs Vital signs: Vital Signs Temp 97.4 F L 06/03/17 08:00 Pulse 83 06/03/17 11:00 Resp 21 06/03/17 11:00 BP 94/52 06/03/17 11:00 Pulse Ox 98 06/03/17 11:21 Intake & Output 06/02/17 06/03/17 06/03/17 18:59 06:59 18:59 Intake Total 3815 1100.0 Output Total 701 605 241 Balance -701 3210 859.0 Intake: IV 1974 1100.0 Calcium Gluconate 1,000 100 mg In Sodium Chloride 0.9 % 100 ml @ 100 mls/hr IVPB BID JENNIFER Rx#: [id number] Lactated Ringers 1,000 ml 1650 150 @ 150 mls/hr IV .Q6H40M JENNIFER Rx#:[id number] Magnesium Sulfate-D5w Pmx 100 100 1 gm In Dextrose/Water 1 100ml.bag @ 100 mls/hr IVPB Q1H JENN[facility]ER Rx#: [id number] Piperacillin-Tazobactam 3 50.0 .375 gm In Dextrose/Water 1 50ml.bag @ 12.5 mls/hr IVPB Q8HR JENNIFER Rx#: [id number] Potassium Chloride 10 meq 100 100 Lidocaine 2% Inj 10 mg In Sodium Chloride 0.9% 100 ml @ 100 mls/hr IV Q1HR JENNIFER Rx#:[id number] Sodium Phosphate 10 mmol 125 500 In Sodium Chloride 0.9% 250 ml @ 125 mls/hr IVPB Q2H JENNIFER Rx#:[id number] metroNIDAZOLE-NS PMX 500 100 mg In Saline 1 100ml.bag @ 100 mls/hr IVPB Q8HR JENNIFER Rx#:[id number] Intake, IV Titration 1840 Amount Lactated Ringers 1,000 ml 300 @ 150 mls/hr IV .Q6H40M JENNIFER Rx#:[id number] Lactated Ringers 1,000 ml 1000 @ 999 mls/hr IV .Q1H1M ONE Rx#:[id number] Piperacillin-Tazobactam 3 140 .375 gm In Dextrose/Water 1 50ml.bag @ 12.5 mls/hr IVPB Q8HR JENNIFER Rx#: [id number] Potassium Chloride 10 meq 200 Lidocaine 2% Inj 10 mg In Sodium Chloride 0.9% 100 ml @ 100 mls/hr IVPB Q1HR JENN[facility]ER Rx#:[id number] Sodium Chloride 0.9% 1, 100 000 ml @ 50 mls/hr IV . Q20H JENNIFER Rx#:[id number] metroNIDAZOLE-NS PMX 500 100 mg In Saline 1 100ml.bag @ 100 mls/hr IVPB Q8HR JENNIFER Rx#:[id number] Output: Urine 605 240 Stool 1 1 Emesis 700 Other: Voiding Method Toilet Indwelling Catheter Indwelling Catheter Indwelling Catheter - Exam Physical Exam: Revealed an 82-year-old female in no distress. Patient looks chronically ill, frail, and cachectic. HEENT:[Neck is supple.] [No neck masses.] [No thyromegaly.] [No JVD.] Chest: [Clear throughout, no crackles, no rhonchi, no wheezes.] Cardiac Exam: [Normal S1 and S2, no S3 gallop, no murmur.] Abdomen: [Soft, nontender, no megaly, no rebound, no guarding, normal bowel sounds.] Extremities: [No clubbing, 1+ bipedal edema, no cyanosis.] Neurological Exam: [No focal neurologic deficit.] - Labs CBC & Chem 7: 06/03/17 04:46 06/03/17 04:46 Labs: Abnormal Lab Results - Last 24 Hours (Table) 06/01/17 06/02/17 06/03/17 Range/Units 16:45 16:12 04:46 WBC 14.1 H (3.8-10.6) k/uL RBC 3.31 L (3.80-5.40) m/uL Hgb 8.5 L (11.4-16.0) gm/dL Hct 25.9 L (34.0-46.0) % MCV 78.0 L (80.0-100.0) fL RDW 21.0 H (11.5-15.5) % Plt Count 43 L* D (150-450) k/uL Neutrophils # 12.1 H (1.3-7.7) k/uL Sodium (137-145) mmol/L BUN (7-17) mg/dL Glucose (74-99) mg/dL POC Glucose (mg/dL) 71 L (75-99) mg/dL Phosphorus (2.5-4.5) mg/dL Magnesium (1.6-2.3) mg/dL Urine Protein 2+ H (Negative) Urine Ketones 1+ H (Negative) Urine Blood Moderate H (Negative) Urine Bilirubin 1+ H (Negative) Urine RBC 20 H (0-5) /hpf Urine WBC 25 H (0-5) /hpf Urine Bacteria Rare H (None) /hpf Hyaline Casts 14 H (0-2) /lpf Urine Mucus Rare H (None) /hpf 06/03/17 Range/Units 04:46 WBC (3.8-10.6) k/uL RBC (3.80-5.40) m/uL Hgb (11.4-16.0) gm/dL Hct (34.0-46.0) % MCV (80.0-100.0) fL RDW (11.5-15.5) % Plt Count (150-450) k/uL Neutrophils # (1.3-7.7) k/uL Sodium 134 L (137-145) mmol/L BUN 21 H (7-17) mg/dL Glucose 111 H (74-99) mg/dL POC Glucose (mg/dL) (75-99) mg/dL Phosphorus 1.3 L (2.5-4.5) mg/dL Magnesium 1.5 L (1.6-2.3) mg/dL Urine Protein (Negative) Urine Ketones (Negative) Urine Blood (Negative) Urine Bilirubin (Negative) Urine RBC (0-5) /hpf Urine WBC (0-5) /hpf Urine Bacteria (None) /hpf Hyaline Casts (0-2) /lpf Urine Mucus (None) /hpf Microbiology - Last 24 Hours (Table) 06/01/17 16:45 Urine Culture - Preliminary Urine,Clean Catch Assessment and Plan Plan: Impression: 1 History of irritable bowel syndrome, with multiple GI symptoms, presently inactive. 2 multiple comorbidities including malabsorption syndrome, GERD, chronic diarrhea, hypothyroidism, degenerative joint disease, vitamin B12 deficiency, and history of pericardial effusion, requiring pericardial window.. History of chronic anemia history of hearing loss, history of blindness, history of chronic malnutrition. 3 considering the significant thrombocytopenia noted, I will discontinue Arixtra for now, we'll arrange for hematology consultation, and will cut down the dose of Protonix to 40 mg daily instead of twice daily. Avoid any heparin products. 4 hypotension, most likely secondary to hypovolemia secondary to chronic diarrhea and malnutrition. Strongly doubt abdominal sepsis since her physical findings on examination are relatively benign. Recommendation: Consult hematology, keep in the ICU for now until the blood pressure stabilizes, hold Arixtra, and cut down the dose of Protonix. We'll continue to follow. Time with Patient: Less than 30
[2017-06-03] MEDS: MAGNESIUM OXIDE 400 MG TAB PO SCH (12:00)
[2017-06-03] MEDS ORDERED: LEVOFLOXACIN 500 MG TAB PO SCH (12:00)
[2017-06-03] MEDS: CYANOCOBALAMIN 500 MCG TAB PO SCH (12:00)
[2017-06-03] MEDS ORDERED: LEVOFLOXACIN 250 MG TAB PO SCH (12:00)
[2017-06-03] MEDS: CALCIUM CARBONATE 500 MG CHEWABLE PO SCH (12:00)
--- NOTE | 2017-06-03 14:16 | HP ---
DATE OF SERVICE: 05/29/2017 The chief complaints are abdominal pain, nausea and vomiting. HISTORY OF PRESENT ILLNESS: This 82-year-old woman with a past medical history of multiple medical problems including GERD, hypothyroidism, history of pericardial effusion, history of anxiety was recently admitted to [facility]. The patient had pericardial tamponade. Currently, the patient is complaining of diarrhea, weakness, some nausea, abdominal distention. The patient admitted for further evaluation and treatment. Abdominal KUB suspected. Dr. Mayo is following the patient closely. PAST MEDICAL HISTORY: History of GERD, hypothyroidism, pericardial effusion, appendectomy, history of irritable bowel syndrome. Medications, the home medications are: 1. Vitamin D2, 50,000 q.7 days. 2. Protopic. 3. Zofran 4 mg q.8 p.r.n. 4. Prilosec. 5. Loperamide. 6. Synthroid. 7. Lasix 40 mg. 8. Iron. 9. EpiPen. 10. Lomotil. 11. Cardizem 120 mg. 12. Bentyl. 13. Vitamin B12. Allergies are HONEY BEE VENOM, METHYLPREDNISOLONE, SOYBEAN, TOMATOES. FAMILY HISTORY: Myocardial infarction, heart failure. SOCIAL HISTORY: History of alcohol. History of smoking. REVIEW OF SYSTEMS: ENT: No diminished hearing or diminished vision. CARDIOVASCULAR: No angina. RESPIRATORY: ntd.. GI: As mentioned earlier. : No dysuria. NERVOUS SYSTEM: No numbness or weakness. ALLERGIES/IMMUNOLOGY: No history of asthma or hayfever. MUSCULOSKELETAL: As mentioned earlier. HEMATOLOGY/ONCOLOGY: History of anemia. ENDOCRINE: Hypothyroidism. CONSTITUTIONAL: As mentioned earlier. DERMATOLOGY: Negative. RHEUMATOLOGY: Negative. PSYCHIATRY: As mentioned earlier. PHYSICAL EXAMINATION: The patient is alert and oriented x3. Pulse is 104, blood pressure 93/59, respirations 20, temperature 98.1, pulse ox 93% on 2 L. HEENT: Conjunctivae normal. Oral mucosa moist. NECK: No jugular venous distention. No carotid bruit. No lymph node enlargement. CARDIOVASCULAR: S1 and S2 muffled. RESPIRATORY: Breath sounds diminished at the bases. A few scattered rhonchi and crackles. ABDOMEN: Soft, obese, mild diffuse distention noted. No guarding. No mass palpable. Bowel sounds present. LEGS: No edema, no swelling. NERVOUS SYSTEM: Higher function as mentioned. Moves all 4 limbs. No focal motor or sensory deficits. LYMPHATICS: No lymphadenopathy of the neck, axillae or groin. SKIN: No ulcers, rashes or bleeding . Labs are at this time shows WBC 8.2, hemoglobin 9.2 and calcium was 5.7. Magnesium 2.5. UA noted. ASSESSMENT: 1. Diarrhea, dehydration with abdominal distention, possibly irritable bowel syndrome acute exacerbation. 2. Limited scleroderma. 3. History of recent pericardial tamponade. 4. History of secondary pulmonary hypertension. RECOMMENDATION AND DISCUSSION: In this 82-year-old woman who presented with multiple complex medical issues, will monitor the patient closely, symptomatic treatment will be offered, IV fluids. Otherwise, closely follow with Dr. Mayo. Multiple labs. Calcium supplementation. Guarded prognosis. Further recommendations to follow. Patient is NO CODE, NO CPR, NO VENT. MTDD
--- NOTE | 2017-06-03 14:29 | P.PN ---
Subjective Principal diagnosis: Ischemic small bowel The patient states she feels better today. She has no abdominal pain. She is currently hungry. Objective - Vital Signs Vital signs: Vital Signs Temp 97.8 F 06/03/17 12:00 Pulse 83 06/03/17 14:00 Resp 25 H 06/03/17 14:00 BP 90/49 06/03/17 14:00 Pulse Ox 98 06/03/17 14:00 Intake & Output 06/02/17 06/03/17 06/03/17 18:59 06:59 18:59 Intake Total 3815 1550.0 Output Total 701 605 341 Balance -701 3210 1209.0 Weight 46.4 kg Intake: IV 1975 1550.0 Calcium Gluconate 1,000 100 mg In Sodium Chloride 0.9 % 100 ml @ 100 mls/hr IVPB BID JENNIFER Rx#: [id number] Lactated Ringers 1,000 ml 1650 600 @ 150 mls/hr IV .Q6H40M JENNIFER Rx#:[id number] Magnesium Sulfate-D5w Pmx 100 100 1 gm In Dextrose/Water 1 100ml.bag @ 100 mls/hr IVPB Q1H JENNIFER Rx#: [id number] Piperacillin-Tazobactam 3 50.0 .375 gm In Dextrose/Water 1 50ml.bag @ 12.5 mls/hr IVPB Q8HR JENNIFER Rx#: [id number] Potassium Chloride 10 meq 100 100 Lidocaine 2% Inj 10 mg In Sodium Chloride 0.9% 100 ml @ 100 mls/hr IV Q1HR JENNIFER Rx#:[id number] Sodium Phosphate 10 mmol 125 500 In Sodium Chloride 0.9% 250 ml @ 125 mls/hr IVPB Q2H JENNIFER Rx#:[id number] metroNIDAZOLE-NS PMX 500 100 mg In Saline 1 100ml.bag @ 100 mls/hr IVPB Q8HR JENNIFER Rx#:[id number] Intake, IV Titration 1840 Amount Lactated Ringers 1,000 ml 300 @ 150 mls/hr IV .Q6H40M JENNIFER Rx#:[id number] Lactated Ringers 1,000 ml 1000 @ 999 mls/hr IV .Q1H1M ONE Rx#:[id number] Piperacillin-Tazobactam 3 140 .375 gm In Dextrose/Water 1 50ml.bag @ 12.5 mls/hr IVPB Q8HR JENNIFER Rx#: [id number] Potassium Chloride 10 meq 200 Lidocaine 2% Inj 10 mg In Sodium Chloride 0.9% 100 ml @ 100 mls/hr IVPB Q1HR JENNIFER Rx#:[id number] Sodium Chloride 0.9% 1, 100 000 ml @ 50 mls/hr IV . Q20H JENNIFER Rx#:[id number] metroNIDAZOLE-NS PMX 500 100 mg In Saline 1 100ml.bag @ 100 mls/hr IVPB Q8HR JENNIFER Rx#:[id number] Output: Urine 605 340 Stool 1 1 Emesis 700 Other: Voiding Method Toilet Indwelling Catheter Indwelling Catheter Indwelling Catheter - Constitutional General appearance: Present: average body habitus - Gastrointestinal Gastrointestinal Comment(s): Abdomen is soft. There is no tenderness. There is no rebound or guarding. - Labs CBC & Chem 7: 06/03/17 04:46 06/03/17 04:46 Labs: Abnormal Lab Results - Last 24 Hours (Table) 06/01/17 06/02/17 06/03/17 Range/Units 16:45 16:12 04:46 WBC 14.1 H (3.8-10.6) k/uL RBC 3.31 L (3.80-5.40) m/uL Hgb 8.5 L (11.4-16.0) gm/dL Hct 25.9 L (34.0-46.0) % MCV 78.0 L (80.0-100.0) fL RDW 21.0 H (11.5-15.5) % Plt Count 43 L* D (150-450) k/uL Neutrophils # 12.1 H (1.3-7.7) k/uL Sodium (137-145) mmol/L BUN (7-17) mg/dL Glucose (74-99) mg/dL POC Glucose (mg/dL) 71 L (75-99) mg/dL Phosphorus (2.5-4.5) mg/dL Magnesium (1.6-2.3) mg/dL Urine Protein 2+ H (Negative) Urine Ketones 1+ H (Negative) Urine Blood Moderate H (Negative) Urine Bilirubin 1+ H (Negative) Urine RBC 20 H (0-5) /hpf Urine WBC 25 H (0-5) /hpf Urine Bacteria Rare H (None) /hpf Hyaline Casts 14 H (0-2) /lpf Urine Mucus Rare H (None) /hpf 06/03/17 Range/Units 04:46 WBC (3.8-10.6) k/uL RBC (3.80-5.40) m/uL Hgb (11.4-16.0) gm/dL Hct (34.0-46.0) % MCV (80.0-100.0) fL RDW (11.5-15.5) % Plt Count (150-450) k/uL Neutrophils # (1.3-7.7) k/uL Sodium 134 L (137-145) mmol/L BUN 21 H (7-17) mg/dL Glucose 111 H (74-99) mg/dL POC Glucose (mg/dL) (75-99) mg/dL Phosphorus 1.3 L (2.5-4.5) mg/dL Magnesium 1.5 L (1.6-2.3) mg/dL Urine Protein (Negative) Urine Ketones (Negative) Urine Blood (Negative) Urine Bilirubin (Negative) Urine RBC (0-5) /hpf Urine WBC (0-5) /hpf Urine Bacteria (None) /hpf Hyaline Casts (0-2) /lpf Urine Mucus (None) /hpf Microbiology - Last 24 Hours (Table) 06/01/17 16:45 Urine Culture - Preliminary Urine,Clean Catch Assessment and Plan Plan: History of small bowel ischemia. Patient clinically is improved. She has no significant tenderness. She currently is hungry will start her on a full liquid diet.
--- NOTE | 2017-06-03 14:38 | PN ---
DATE OF SERVICE: 05/31/2017 This 82-year-old woman was admitted with abdominal distension, ileus and possibly irritable bowel syndrome acute exacerbation, being closely monitored. No chest pain or palpitation, no fever. The patient is requesting more food and discharge home. No chest pain, no palpitation, no fever. One exam, alert and oriented x2. Pulse 94, blood pressure 119/58, respirations 16, temperature is 97.9, pulse ox 94% on 3 L. HEENT: Conjunctivae normal. NECK: No jugular venous distension. CARDIOVASCULAR SYSTEM: S1, S2, muffled. RESPIRATORY: Breath sounds diminished at the bases, a few scattered rhonchi. ABDOMEN: Soft, nontender, no guarding, no mass palpable. NERVOUS SYSTEM: No focal deficits. LABS: WBC 10.4, hemoglobin is 9. ASSESSMENT: 1. Abdominal distension as well as diarrhea, possible irritable bowel syndrome acute exacerbation, rule out ileus. 2. History of limited scleroderma. 3. History of pulmonary hypertension. 4. History of peripheral effusion, status post tamponade. RECOMMENDATION: Recommend to continue current medication, continue symptomatic treatment. Otherwise, at this time will monitor the patient closely. Repeat labs. Advance diet. Further recommendations to follow. Prognosis guarded. Patient is NO CODE, NO CPR, NO VENT. MTDD
--- NOTE | 2017-06-03 14:55 | PN ---
DATE OF SERVICE: 06/01/2017 This 82-year-old woman who was admitted with abdominal distention, possible ileus, as well as irritable bowel syndrome, acute exacerbation, is being closely monitored. The patient is able to tolerate p.o. food at this time. No chest pain. No palpitation. No fever. On exam, alert and oriented x3. Pulse 95, blood pressure 99/57, respiration 16, temperature 98.0, pulse ox 96% on room air. HEENT: Conjunctivae normal. NECK: No jugular venous distention. CARDIOVASCULAR: S1, S2 muffled. RESPIRATORY: Breath sounds diminished at the bases. No rhonchi. No crackles. ABDOMEN: Soft. Mild diffuse distention noted. No guarding. No rigidity. No mass palpable. LEGS: No edema. No swelling. NERVOUS SYSTEM: No focal deficit. LABS: WBC 18.3, hemoglobin 9.2. ASSESSMENT: 1. Abdominal distention, diarrhea; possible irritable bowel syndrome exacerbation. 2. Increased white count. 3. Anemia. 4. History of pericardial effusion. RECOMMENDATIONS AND DISCUSSION: In this 82-year-old woman who presented with multiple complex medical issues, we will monitor the patient closely, continue the current medications, continue symptomatic treatment. At this time, the white count is elevated. I will monitor the patient closely. Continue the diet. Patient is able to tolerate the food. Abdomen appears to be soft and non-tender with no guarding, no rigidity at this time. Prognosis, however, is guarded because of multiple complex medical issues. Further recommendations to follow. ALEXD
--- NOTE | 2017-06-03 14:57 | PN ---
DATE OF SERVICE: 06/02/2017 This is an 82-year-old woman who was admitted with abdominal distension and possibly irritable bowel syndrome. Also had elevated WBC. The patient had some vomiting and coffee-ground emesis and sodium is also slightly less compared to yesterday. The patient will be closely monitored. PAST MEDICAL HISTORY: Reviewed. REVIEW OF SYSTEMS: CARDIOVASCULAR: No angina, no palpitation. RESPIRATORY: As mentioned earlier. GI: As mentioned earlier. : No dysuria. NERVOUS SYSTEM: Diffusely weak. Current medications are reviewed and include [place] 5 mg q.6 p.r.n., DuoNeb q.i.d., Xanax, TUMS, vitamin B12, Bentyl, Cardizem CD, Lomotil, Lovenox, Imodium , Reglan, morphine, Narcan, Protonix. PHYSICAL EXAM: Patient is alert and oriented x2. Pulse is 116, blood pressure 150/60, temperature is 96.7, pulse ox 94% on 2 L. HEENT: Conjunctivae normal, oral mucosa moist. NECK: No jugular venous distension, no lymph node enlargement. CARDIOVASCULAR SYSTEM: S1, S2, muffled. RESPIRATORY: Breath sounds diminished at the bases, bilateral scattered rhonchi , no crackles. ABDOMEN: Soft, mild diffuse weakness, nontender, no guarding, no rigidity, no mass palpable. Bowel sounds diminished. LEGS: No edema, no swelling. NERVOUS SYSTEM: Higher functions as mentioned, moves all 4 limbs, no focal motor deficits. LYMPHATICS: No lymph node enlargement in neck, axillae or groin. SKIN: No ulcer, rash or bleeding. Labs are reviewed at this time, shows WBC 23.7, hemoglobin is 9.4, sodium 135, potassium 3.1. ASSESSMENT: 1. Abdominal distension and possibly mesenteric ischemia. 2. Upper gastrointestinal bleeding and hematemesis. 3. Hyponatremia. 4. Hypokalemia. 5. Increased WBC for possible sepsis. 6. Change in mental status with metabolic encephalopathy, acute on chronic. 7. History of pericardial effusion. 8. History of gastroesophageal reflux disease. 9. History of appendectomy. 10. History of anxiety. RECOMMENDATION: In this 82-year-old woman who presented with multiple complex medical issues, will monitor the patient closely. Continue with the current medication and symptomatic treatment. CAT scan has been ordered and reviewed as mentioned earlier. Would recommend broad-spectrum IV antibiotics, cultures , IV fluids. Transfer to ICU. The patient has taken a turn for the worse and the prognosis guarded. Further recommendations to follow. Patient's family and daughter are aware. The patient continues to be NO CODE, NO CPR. MTDD
--- NOTE | 2017-06-03 15:10 | PN ---
DATE OF SERVICE: 05/30/2017 This is an 82-year-old woman who was admitted with abdominal distension and possible irritable bowel syndrome, acute exacerbation is being closely monitored. Patient also recently had pericardial effusion and tamponade also. No chest pain, no palpitation, no fever. On exam, alert and oriented x3. Pulse 115, blood pressure 119/60, respirations 16, temperature is 98.1, pulse ox 94% on 3 L. HEENT: Conjunctivae normal. NECK: No jugular venous distension. CARDIOVASCULAR: S1, S2, muffled. RESPIRATORY: Breath sounds diminished at the bases, a few scattered rhonchi. ABDOMEN: Soft, mild diffuse distension. No guarding, no rigidity, no bowel sounds present, no ascites. LEGS: No edema, no swelling. NERVOUS SYSTEM: No focal deficits. Labs are reviewed. The white count is 6.5, hemoglobin is 8.8. ASSESSMENT: 1. Abdominal distension and dehydration, diarrhea, possibility of irritable bowel syndrome, acute exacerbation. 2. Rule out ileus. 3. Limited scleroderma. 4. History of recent pulmonary hypertension. 5. Pericardial effusion and tamponade. RECOMMENDATION: Recommend to continue with the current medication, symptomatic treatment, advance diet if possible. The patient is extremely keen on going home. Continue to monitor. Please note, patient is NO CODE, NO CPR, NO VENT. Prognosis guarded. Further recommendations to follow. MTDD
[2017-06-03 18:17] LABS: Phosphorous 3.1 mg/dL (2.5-4.5); Potassium 4.7 mmol/L (3.5-5.1)
[2017-06-03] MEDS: ALPRAZolam 0.25 MG TAB PO PRN (21:48)
--- NOTE | 2017-06-03 23:37 | P.CONS ---
History of Present Illness - Reason for Consult Consult date: 06/03/17 New onset thrombocytopenia. Chronic anemia - History of Present Illness The patient is an 82-year-old lady with multiple medical problems. She states that she has had multiple visits to the hospital since 09/12. These are mostly been related to do a complains specifically abdominal pain with diarrhea, nausea and vomiting leading to dehydration and electrolyte imbalance. In late 04/13-early 05/14, she was admitted with similar complaints. At that time she was noted to have leukocytosis, and severe hypertension with sepsis. She was found to have cardiac tamponade and underwent a pericardiocentesis with pericardial window creation. The fluid was negative for malignancy. The patient was discharged but states that she remained quite weak with persistent abdominal complaints. She again developed increasing abdominal pain, nausea, as well as intermittent diarrhea with progressive weakness. She came back into the emergency room where she was found to be hypotensive, with low potassium, calcium and magnesium. Hemoglobin was 5.8. She was transfused with 2 units of PRBC, and admitted to the ICU. She denied any obvious bleeding. On admission. Counts were normal. They were actually 211 on 05/31/17. This subsequently fell to 139, and then 95 and 43 today. The patient was on Lovenox since admission for DVT prophylaxis. This was stopped and the patient was changed to Arixtra. This was discontinued today due to platelet counts less than 50,000. No unusual mucosal bleeding or skin rash noted. She had developed increased abdominal distention and pain midway through this admission, leading to CT of the abdomen on 06/02/17. This had shown dietitian of the transverse colon and small bowel, with intramural air noted in the small at this time, suggestive of ischemia. The patient was started on Zosyn at the time, and is improved today. She had been on Levaquin at the time of admission. Consult was placed for further evaluation and recommendations. The patient is a somewhat poor historian. 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 However she denied having problems with any of other blood cells. Review of Systems Constitutional: Reports fatigue, Reports poor appetite, Reports weakness, Reports weight loss Eyes: denies blurred vision, denies pain Ears: bilateral: decreased hearing Ears, nose, mouth and throat: Denies headache, Denies sore throat Cardiovascular: Reports as per HPI, Reports shortness of breath Respiratory: Reports dyspnea Gastrointestinal: Reports abdominal pain, Reports diarrhea, Reports nausea, Reports vomiting Genitourinary: Denies dysuria, Denies hematuria Menstruation: Reports postmenopausal Musculoskeletal: Reports muscle weakness Integumentary: Denies pruritus, Denies rash Neurological: Reports hearing difficulties, Reports weakness Psychiatric: Reports anxiety Endocrine: Reports weight change Hematologic/Lymphatic: Reports as per HPI (Known history of chronic moderate anemia, due to thalassemia minor.) Past Medical History Past Medical History: GERD/Reflux, Thyroid Disorder Additional Past Medical History / Comment(s): Pericardial effusion/tamponade status post window, status post recent acute hypoxic respiratory failure which recovered, long-standing irritable bowel syndrome, acid reflux, history of ischemic colitis, hypothyroidism, legal blindness, impaired hearing, IBS. bilateral cataracts, hypothyroidism, positive GILBERT, limited scleroderma, beta thalassemia trait with chronic anemia History of Any Multi-Drug Resistant Organisms: None Reported Past Surgical History: Appendectomy, Orthopedic Surgery Additional Past Surgical History / Comment(s): DEVIATED SEPTUM, TUBES AND OVARIES REMOVED, HAMLET SHOULDER SURGERY, pericardial window, bilateral forehead biopsy r/t loss of vision. Past Anesthesia/Blood Transfusion Reactions: No Reported Reaction Past Psychological History: Anxiety Additional Psychological History / Comment(s): occasional anxiety. Smoking Status: Former smoker Past Alcohol Use History: Occasional Past Drug Use History: None Reported - Past Family History Father Family Medical History: Myocardial Infarction (SD) Additional Family Medical History / Comment(s): heart failure Medications and Allergies Home Medications Medication Instructions Recorded Confirmed Type Cyanocobalamin [Vitamin B-12 1,000 mcg SQ Q30D 02/23/16 06/01/17 History Injection] Dicyclomine [Bentyl] 10 mg PO TID PRN 02/23/16 06/01/17 History Loperamide HCl [Loperamide] 4 mg PO TID PRN 02/23/16 06/01/17 History Omeprazole [PriLOSEC] 20 mg PO QAM 02/23/16 06/01/17 History Tacrolimus [Protopic] 1 applic TOPICAL HS PRN 02/23/16 06/01/17 History Alclometasone Dipropionate 1 applic TOPICAL DAILY PRN 04/22/17 06/01/17 History EPINEPHrine [Epipen 2-Adriel] 0.3 mg IM ONCE PRN 04/22/17 06/01/17 History Ferrous Sulfate [Iron] 325 mg PO DAILY 04/22/17 06/01/17 History Ondansetron [Zofran ODT] 4 mg PO Q8HR PRN 04/22/17 06/01/17 History Diphenoxylate HCl/Atropine 2 tab PO TID 06/01/17 06/01/17 History [Lomotil 2.5-0.025 mg Tablet] Ergocalciferol [Vitamin D2] 50,000 unit PO Q7D 06/01/17 06/01/17 History Furosemide [Lasix] 40 mg PO MOWEFR 06/01/17 06/01/17 History Levothyroxine Sodium [Synthroid] 50 mcg PO DAILY 06/01/17 06/01/17 History Allergies Allergy/AdvReac Type Severity Reaction Status Date / Time venom-honey bee Allergy Unknown Anaphylaxis Verified 05/29/17 11:21 [bee venom (honey bee)] venom-wasp [Wasp Venom] Allergy Unknown Anaphylaxis Verified 05/29/17 11:21 ether Allergy Unknown Verified 05/29/17 11:21 methylprednisolone Allergy Rash/Hives Verified 05/29/17 11:21 [From Solu-Medrol] soybean Allergy Unknown Verified 05/29/17 11:21 tomato Allergy Unknown Verified 05/29/17 11:21 Physical Exam Vitals: Vital Signs Temp Pulse Resp BP Pulse Ox 06/03/17 22:00 78 18 96/55 97 06/03/17 21:00 76 16 94/54 97 06/03/17 20:00 97.5 F L 76 22 90/53 97 06/03/17 19:00 78 17 95/56 98 06/03/17 18:00 77 17 90/55 98 06/03/17 17:00 80 17 91/57 98 06/03/17 16:00 82 17 87/60 98 06/03/17 15:45 98 06/03/17 15:00 84 22 97/54 06/03/17 14:00 83 25 H 90/49 98 06/03/17 13:00 80 15 84/48 98 06/03/17 12:00 97.8 F 81 22 84/47 98 06/03/17 11:21 98 06/03/17 11:00 83 21 94/52 98 06/03/17 10:00 85 15 81/49 06/03/17 09:00 96 27 H 89/50 06/03/17 08:00 97.4 F L 91 17 91/52 98 06/03/17 07:00 93 19 94/56 97 06/03/17 06:00 90 16 97/54 98 06/03/17 05:00 93 20 98/59 96 06/03/17 04:00 98.2 F 93 21 107/56 96 06/03/17 03:00 99 19 97/69 98 06/03/17 02:00 95 16 100/56 98 06/03/17 01:00 109 H 22 103/62 97 06/03/17 00:00 98.6 F 99 18 100/60 97 Intake and Output 06/03/17 06/03/17 06/04/17 14:59 22:59 06:59 Intake Total 1550.0 1210 Output Total 341 275 Balance 1209.0 935 Intake: IV 1550.0 1150 Calcium Gluconate 1,000 100 100 mg In Sodium Chloride 0.9 % 100 ml @ 100 mls/hr IVPB BID [facility] Rx#: [id number] Lactated Ringers 1,000 ml 600 1050 @ 150 mls/hr IV .Q6H40M [facility] Rx#:[id number] Magnesium Sulfate-D5w Pmx 100 1 gm In Dextrose/Water 1 100ml.bag @ 100 mls/hr IVPB Q1H [facility] Rx#: [id number] Piperacillin-Tazobactam 3 50.0 .375 gm In Dextrose/Water 1 50ml.bag @ 12.5 mls/hr IVPB Q8HR [facility] Rx#: [id number] Potassium Chloride 10 meq 100 Lidocaine 2% Inj 10 mg In Sodium Chloride 0.9% 100 ml @ 100 mls/hr IV Q1HR [facility] Rx#:[id number] Sodium Phosphate 10 mmol 500 In Sodium Chloride 0.9% 250 ml @ 125 mls/hr IVPB Q2H [facility] Rx#:[id number] metroNIDAZOLE-NS PMX 500 100 mg In Saline 1 100ml.bag @ 100 mls/hr IVPB Q8HR [facility] Rx#:[id number] Oral 60 Output: Urine 340 275 Stool 1 Other: Voiding Method Indwelling Catheter Indwelling Catheter Weight 46.4 kg Patient Weight 06/04/17 06:59 Weight 46.4 kg - Constitutional General appearance: no acute distress - EENT Eyes: EOMI, PERRLA ENT: hard of hearing, normal oropharynx - Neck Neck: no lymphadenopathy Thyroid: bilateral: normal size - Cardiovascular Rhythm: regular Heart sounds: normal: S1, S2 - Gastrointestinal General gastrointestinal: normal bowel sounds, soft - Integumentary Integumentary: normal - Neurologic Neurologic: CNII-XII intact - Musculoskeletal Musculoskeletal: generalized weakness, strength equal bilaterally - Psychiatric Psychiatric: A&O x's 3 Results CBC & Chem 7: 06/03/17 04:46 06/03/17 17:41 Labs: Abnormal Lab Results - Last 24 Hours (Table) 06/03/17 06/03/17 Range/Units 04:46 04:46 WBC 14.1 H (3.8-10.6) k/uL RBC 3.31 L (3.80-5.40) m/uL Hgb 8.5 L (11.4-16.0) gm/dL Hct 25.9 L (34.0-46.0) % MCV 78.0 L (80.0-100.0) fL RDW 21.0 H (11.5-15.5) % Plt Count 43 L* D (150-450) k/uL Neutrophils # 12.1 H (1.3-7.7) k/uL Sodium 134 L (137-145) mmol/L BUN 21 H (7-17) mg/dL Glucose 111 H (74-99) mg/dL Phosphorus 1.3 L (2.5-4.5) mg/dL Magnesium 1.5 L (1.6-2.3) mg/dL Microbiology - Last 24 Hours (Table) 06/01/17 16:45 Urine Culture - Final Urine,Clean Catch Chest x-ray: report reviewed Abdominal x-ray: report reviewed CT scan - abdomen: report reviewed Assessment and Plan (1) Thrombocytopenia Narrative/Plan: This is of new onset, and occurred since 06/01/17. The patient has had no obvious bleeding or skin rash. The patient was placed on Lovenox the time of admission and was presumably exposed to Lovenox or heparin during her previous admission about a month ago. She did have a drop in her platelet count, or more than 50% within 48 hours. Therefore H IT is a possibility. HIT antibody testing has been ordered. However, the probability of H IT is diminished by absence of any skin rash or thrombosis, as well as presence of other possible causes of thrombocytopenia, which include consumption from SIRS due to ischemic bowel and hypertension, as well as possible posttransfusion purpura. - Therefore, based on the above, I would not recommend starting patient on any alternative anticoagulation for presumed H IT at this time, given increased risk of bleeding at her platelet count of less than 50,000. Await results of H IT antibody. If negative, a consumption due to SIRS is more likely, in which case, thrombocytopenia would be expected to improve spontaneously as the patient improves. - Zosyn is associated with autoimmune, cytopenia. However pitted count started to fall before Zosyn was started. She had previously been on Levaquin, which is generally not associated with the same. - I will check labs for other possible causes of thrombocytopenia, including DIC. Status: Acute (2) Anemia Narrative/Plan: The patient has a known history of thalassemia minor , with hemoglobin generally in the 8-10 range, and chronically low MCV. This was confirmed on review of her previous CBCs. During this admission, hemoglobin was lower than normal at 5.8 for which she required transfusion. Iron studies show a low saturation, the ferritin was not done. Given her abdominal issues, she is at risk of having had GI bleed as well as the risk of nutritional deficiencies. There is also possibility of component of inflammation, worsening her baseline anemia. Hemoglobin is stable posttransfusion. Anemia workup will be ordered. Continue to monitor and transfuse if she drops below 7 Status: Acute
[2017-06-04] MEDS: PIPERACILLIN-TAZOBACTAM 3.375 GM in DEXTROSE/WATER 1 50ML.BAG IVPB SCH ×4 (00:06→23:29)
[2017-06-04] MEDS: metroNIDAZOLE-NS PMX 500 MG in SALINE 1 100ML.BAG IVPB SCH ×2 (00:06→08:28)
[2017-06-04] MEDS: LACTATED RINGERS 1,000 ML IV SCH ×4 (04:13→18:47)
[2017-06-04 05:44] LABS: Anion Gap 5 mmol/L; Blood Urea Nitrogen 19 mg/dL (7-17); Calcium 8.1 mg/dL (8.4-10.2); Carbon Dioxide 25 mmol/L (22-30); Chloride 105 mmol/L (98-107); Glucose 78 mg/dL (74-99); INR 1.3 (<1.1); Magnesium 1.7 mg/dL (1.6-2.3); Non-African American GFR(MDRD) >60 (>60 ml/min/1.73 sqM); Partial Thromboplastin Time 26.9 sec (22.0-30.0); Phosphorous 2.9 mg/dL (2.5-4.5); Potassium 3.7 mmol/L (3.5-5.1); Prothrombin Time 12.5 sec (9.0-12.0); Sodium 135 mmol/L (137-145)
[2017-06-04 05:46] LABS: Rheumatoid Factor, Qnt <9 IU/mL (<12)
[2017-06-04 05:54] LABS: Anisocytosis Moderate; Basophils % (A) 0 %; CH 24.2; CHCM 30.5; Eosinophils # (A) 0.1 k/uL (0-0.7); Eosinophils % (A) 1 %; HCT 24.3 % (34.0-46.0); HDW 3.46; HGB 7.7 gm/dL (11.4-16.0); Hypochromasia Marked; Luc # (Auto) 0.12; Luc % (Auto) 1; Lymphocytes # (A) 1.5 k/uL (1.0-4.8); Lymphocytes % (A) 16 %; MCHC 31.5 g/dL (31.0-37.0); MCV 79.5 fL (80.0-100.0); Mean Platelet Volume 7.6; Microcytosis Moderate; Monocytes # (A) 0.3 k/uL (0-1.0); Monocytes % (A) 3 %; Neutrophils # (A) 7.4 k/uL (1.3-7.7); Neutrophils % (A) 79 %; Poikilocytosis Slight; RBC 3.06 m/uL (3.80-5.40); RDW 21.3 % (11.5-15.5); WBC 9.4 k/uL (3.8-10.6); WBC (Perox) 9.35
[2017-06-04] MEDS ORDERED: FUROSEMIDE 10 MG/ML 2 ML VIAL IV ONE (06:30)
[2017-06-04] MEDS ORDERED: MIDODRINE 5 MG TAB PO ONE (06:30)
[2017-06-04 06:33] LABS: Vitamin B12 >1000 pg/mL
[2017-06-04] MEDS ORDERED: Potassium Replacement Protocol 1 EACH MISC MISCELLANE PRN (06:45)
[2017-06-04] MEDS: MAGNESIUM SULFATE-D5W PMX 1 GM in DEXTROSE/WATER 1 100ML.BAG IVPB SCH ×2 (07:49→09:24)
[2017-06-04] MEDS: LEVOTHYROXINE 25 MCG TAB PO SCH (07:49)
[2017-06-04] MEDS: POTASSIUM CHLORIDE 10 MEQ, LIDOCAINE 2% INJ 10 MG in SODIUM CHLORIDE 0.9% 100 ML IV SCH ×2 (08:25→10:32)
[2017-06-04] MEDS: DILTIAZEM CD 120 MG CAP.ER.24H PO SCH (08:29)
[2017-06-04] MEDS: DICYCLOMINE 10 MG CAP PO SCH ×3 (08:30→23:23)
[2017-06-04] MEDS ORDERED: PANTOPRAZOLE 40 MG/10 ML VIAL IVP SCH (09:00)
[2017-06-04] MEDS: CALCIUM GLUCONATE 1,000 MG in SODIUM CHLORIDE 0.9% 100 ML IVPB SCH ×2 (09:26→20:35)
--- NOTE | 2017-06-04 09:28 | XR ---
EXAMINATION TYPE: XR chest 1V portable DATE OF EXAM: 06/04/2017 Comparison: 05/29/2017 Clinical History: 82-year-old female CHF Findings: Heart is borderline enlarged. Relative upper lung lucencies, suspect underlying COPD. There are new s mall pleural effusions with perihilar densities and hazy lower lung densities. Impression: COPD. There are new small pleural effusions with bibasilar opacities suspected to be on the basis of mild to moderate CHF.
--- NOTE | 2017-06-04 10:38 | P.PN ---
Subjective Principal diagnosis: Irritable bowel syndrome, malnutrition, possible ischemic bowel. This is an 82-year-old female who was recently admitted with multiple GI symptoms including nausea and emesis diarrhea and dehydration as well as electrolyte imbalance. Patient was also noted to have leukocytosis, hypotension , and possible sepsis. She was initially admitted to the ICU and she was given multiple fluid boluses, eventually the patient was transferred out of the ICU to a regular medical floor. She was also noted to have pericardial effusion on CT of the chest. CT of the abdomen done on the initial admission showed evidence of colitis with colon wall thickening. Patient was eventually discharged to a custodial on 05/30/2017, repeat CT of the abdomen and pelvis today showed bilateral effusions, bibasilar atelectasis, no pericardial effusion , there was grasped elevation of the small bowel also developed patient of the transverse colon. And there was colon wall thickening involving large distended loop of small bowel in the mid abdomen. There is GI just felt that there may be some evidence of ischemia. Patient was transferred to the ICU, and I was asked to see her on consultation. I have never seen this patient before, but she may have been seen by Dr. Mayo when she was in the ICU initially. At the time of my evaluation, patient denies any specific complaints. No nausea no vomiting no abdominal pain no melena no hematemesis. No chest pain no shortness of breath no cough no wheezing. No headaches no blurred vision no dizziness. No dysuria and no frequency no urgency. Even examining her abdomen seems to be relatively benign and nonsurgical in nature. Reevaluated today on 06/03/2017, patient seems to be doing quite well, asymptomatic. No cough no fever no chills no nausea no vomiting no abdominal pain no melena no hematemesis. However her blood pressures seems to be marginal with mean arterial pressure in the mid 50s. Systolic blood pressure is about 80. Patient is making good amount of urine, implying that her renal perfusion is adequate. Hence no need for norepinephrine at this point, but will give the patient more fluids and fluid boluses. Platelets have significantly dropped overnight, they are down to 43,000 from 13 9006 2 days ago. Hence are external would have to be discontinued at this point. And I will cut down the Protonix dose to 40 mg once daily instead of twice daily. Avoid any heparin products, may request a hematology consultation. Otherwise labs were noted to be relatively unremarkable. Reevaluated today on 06/04/2017, patient remains asymptomatic, however on physical examination she had significant crackles and rhonchi at the bases bilaterally. Follow-up chest x-ray showed COPD and a new small bilateral pleural effusions strongly suspicious for mild to moderate congestive heart failure. Hence a trial of diuresis will be given, patient already received 20 mg of Lasix earlier today. Labs were quite abnormal, platelets are down to 27, 000, patient was already seen by hematology on consultation, and she was felt to have a picture of consumption, workup for heparin-induced thrombocytopenia was initiated. At any rate patient will remain in the ICU, I was diuresis today , I will leave it up to the oncologist on the case to decide regarding platelets transfusion if necessary. Objective - Vital Signs Vital signs: Vital Signs Temp 97.4 F L 06/04/17 08:00 Pulse 70 06/04/17 09:00 Resp 16 06/04/17 09:00 BP 88/50 06/04/17 09:00 Pulse Ox 96 06/04/17 08:00 Intake & Output 06/03/17 06/04/17 06/04/17 18:59 06:59 18:59 Intake Total 2000.0 1330 612.5 Output Total 471 270 951 Balance 1529.0 1060 -338.5 Weight 46.4 kg Intake: IV 2000.0 1150 612.5 Calcium Gluconate 1,000 100 100 mg In Sodium Chloride 0.9 % 100 ml @ 100 mls/hr IVPB BID [facility] Rx#: [id number] Lactated Ringers 1,000 ml 1050 900 300 @ 150 mls/hr IV .Q6H40M [facility] Rx#:[id number] Magnesium Sulfate-D5w Pmx 100 1 gm In Dextrose/Water 1 100ml.bag @ 100 mls/hr IVPB Q1H [facility] Rx#: [id number] Magnesium Sulfate-D5w Pmx 100 1 gm In Dextrose/Water 1 100ml.bag @ 100 mls/hr IVPB Q1H [facility] Rx#: [id number] Piperacillin-Tazobactam 3 50.0 50 12.5 .375 gm In Dextrose/Water 1 50ml.bag @ 12.5 mls/hr IVPB Q8HR [facility] Rx#: [id number] Potassium Chloride 10 meq 100 Lidocaine 2% Inj 10 mg In Sodium Chloride 0.9% 100 ml @ 100 mls/hr IV Q1HR [facility] Rx#:[id number] Potassium Chloride 10 meq 100 Lidocaine 2% Inj 10 mg In Sodium Chloride 0.9% 100 ml @ 100 mls/hr IV Q1HR [facility] Rx#:[id number] Sodium Phosphate 10 mmol 500 In Sodium Chloride 0.9% 250 ml @ 125 mls/hr IVPB Q2H [facility] Rx#:[id number] metroNIDAZOLE-NS PMX 500 100 100 100 mg In Saline 1 100ml.bag @ 100 mls/hr IVPB Q8HR [facility] Rx#:[id number] Oral 180 Output: Urine 470 270 950 Stool 1 1 Other: Voiding Method Indwelling Catheter Indwelling Catheter Indwelling Catheter - Exam Physical Exam: Revealed an 82-year-old female in no distress. Patient looks chronically ill, frail, and cachectic. HEENT:[Neck is supple.] [No neck masses.] [No thyromegaly.] [No JVD.] Chest: Diffuse crackles and rhonchi especially at the bases bilaterally..] Cardiac Exam: [Normal S1 and S2, no S3 gallop, no murmur.] Abdomen: [Soft, nontender, no megaly, no rebound, no guarding, normal bowel sounds.] Extremities: [No clubbing, 1+ bipedal edema, no cyanosis.] Neurological Exam: [No focal neurologic deficit.] - Labs CBC & Chem 7: 06/04/17 05:20 06/04/17 05:20 Labs: Abnormal Lab Results - Last 24 Hours (Table) 06/04/17 06/04/17 06/04/17 Range/Units 05:20 05:20 05:20 RBC 3.06 L (3.80-5.40) m/uL Hgb 7.7 L (11.4-16.0) gm/dL Hct 24.3 L (34.0-46.0) % MCV 79.5 L (80.0-100.0) fL RDW 21.3 H (11.5-15.5) % Plt Count 27 L* (150-450) k/uL PT 12.5 H (9.0-12.0) sec Fibrinogen 107 L (200-500) mg/dL Sodium 135 L (137-145) mmol/L BUN 19 H (7-17) mg/dL Calcium 8.1 L (8.4-10.2) mg/dL Microbiology - Last 24 Hours (Table) 06/01/17 16:45 Urine Culture - Final Urine,Clean Catch Assessment and Plan Plan: Impression: 1 History of irritable bowel syndrome, with multiple GI symptoms, presently inactive. 2 multiple comorbidities including malabsorption syndrome, GERD, chronic diarrhea, hypothyroidism, degenerative joint disease, vitamin B12 deficiency, and history of pericardial effusion, requiring pericardial window.. History of chronic anemia history of hearing loss, history of blindness, history of chronic malnutrition. 3 considering the significant thrombocytopenia noted, I will discontinue Arixtra for now, we'll arrange for hematology consultation, and will cut down the dose of Protonix to 40 mg daily instead of twice daily. Avoid any heparin products. 4 hypotension, most likely secondary to hypovolemia secondary to chronic diarrhea and malnutrition. Strongly doubt abdominal sepsis since her physical findings on examination are relatively benign. 4 suspect some component of fluid overload and congestive heart failure as noted on the physical examination and chest x-ray today, hence we will give the patient a trial of gentle diuresis. Patient will be kept in the ICU. And will continue to follow. Time with Patient: Less than 30
--- NOTE | 2017-06-04 11:18 | P.PN ---
Subjective Principal diagnosis: Ischemic bowel Patient feeling better at this time. Denies abdominal pain. She did have a few loose loose stools. She is asking for more to eat. Objective - Vital Signs Vital signs: Vital Signs Temp 97.4 F L 06/04/17 08:00 Pulse 70 06/04/17 09:00 Resp 16 06/04/17 09:00 BP 88/50 06/04/17 09:00 Pulse Ox 96 06/04/17 08:00 Intake & Output 06/03/17 06/04/17 06/04/17 18:59 06:59 18:59 Intake Total 2000.0 1330 612.5 Output Total 471 270 951 Balance 1529.0 1060 -338.5 Weight 46.4 kg Intake: IV 2000.0 1150 612.5 Calcium Gluconate 1,000 100 100 mg In Sodium Chloride 0.9 % 100 ml @ 100 mls/hr IVPB BID [facility] Rx#: [id number] Lactated Ringers 1,000 ml 1050 900 300 @ 150 mls/hr IV .Q6H40M [facility] Rx#:[id number] Magnesium Sulfate-D5w Pmx 100 1 gm In Dextrose/Water 1 100ml.bag @ 100 mls/hr IVPB Q1H [facility] Rx#: [id number] Magnesium Sulfate-D5w Pmx 100 1 gm In Dextrose/Water 1 100ml.bag @ 100 mls/hr IVPB Q1H [facility] Rx#: [id number] Piperacillin-Tazobactam 3 50.0 50 12.5 .375 gm In Dextrose/Water 1 50ml.bag @ 12.5 mls/hr IVPB Q8HR [facility] Rx#: [id number] Potassium Chloride 10 meq 100 Lidocaine 2% Inj 10 mg In Sodium Chloride 0.9% 100 ml @ 100 mls/hr IV Q1HR [facility] Rx#:[id number] Potassium Chloride 10 meq 100 Lidocaine 2% Inj 10 mg In Sodium Chloride 0.9% 100 ml @ 100 mls/hr IV Q1HR [facility] Rx#:[id number] Sodium Phosphate 10 mmol 500 In Sodium Chloride 0.9% 250 ml @ 125 mls/hr IVPB Q2H [facility] Rx#:[id number] metroNIDAZOLE-NS PMX 500 100 100 100 mg In Saline 1 100ml.bag @ 100 mls/hr IVPB Q8HR [facility] Rx#:[id number] Oral 180 Output: Urine 470 270 950 Stool 1 1 Other: Voiding Method Indwelling Catheter Indwelling Catheter Indwelling Catheter - Exam Abdomen: Soft, nondistended, nontender - Labs CBC & Chem 7: 06/04/17 05:20 06/04/17 05:20 Labs: Abnormal Lab Results - Last 24 Hours (Table) 06/04/17 06/04/17 06/04/17 Range/Units 05:20 05:20 05:20 RBC 3.06 L (3.80-5.40) m/uL Hgb 7.7 L (11.4-16.0) gm/dL Hct 24.3 L (34.0-46.0) % MCV 79.5 L (80.0-100.0) fL RDW 21.3 H (11.5-15.5) % Plt Count 27 L* (150-450) k/uL PT 12.5 H (9.0-12.0) sec Fibrinogen 107 L (200-500) mg/dL Sodium 135 L (137-145) mmol/L BUN 19 H (7-17) mg/dL Calcium 8.1 L (8.4-10.2) mg/dL Microbiology - Last 24 Hours (Table) 06/01/17 16:45 Urine Culture - Final Urine,Clean Catch Assessment and Plan (1) Abdominal pain Narrative/Plan: Continue advancing diet. Status: Acute
[2017-06-04] MEDS: CYANOCOBALAMIN 500 MCG TAB PO SCH (12:33)
[2017-06-04] MEDS: CALCIUM CARBONATE 500 MG CHEWABLE PO SCH (12:33)
[2017-06-04] MEDS: MAGNESIUM OXIDE 400 MG TAB PO SCH (12:33)
[2017-06-04] MEDS: metroNIDAZOLE 500 MG TAB PO SCH ×2 (16:35→23:23)
[2017-06-05] MEDS: LACTATED RINGERS 1,000 ML IV SCH ×3 (03:37→22:26)
[2017-06-05 05:41] LABS: Anisocytosis Moderate; CH 24.2; CHCM 30.4; HCT 25.5 % (34.0-46.0); HDW 3.32; HGB 8.1 gm/dL (11.4-16.0); Hypochromasia Marked; Immature Gran Flag Slight; MCH 25.2 pg (25.0-35.0); MCHC 31.7 g/dL (31.0-37.0); MCV 79.6 fL (80.0-100.0); Mean Platelet Volume 7.9; Microcytosis Moderate; RDW 21.7 % (11.5-15.5); WBC 7.4 k/uL (3.8-10.6); WBC (Perox) 7.57
[2017-06-05 05:50] LABS: Anion Gap 7 mmol/L; Blood Urea Nitrogen 15 mg/dL (7-17); Calcium 8.1 mg/dL (8.4-10.2); Carbon Dioxide 23 mmol/L (22-30); Chloride 103 mmol/L (98-107); Glucose 75 mg/dL (74-99); Magnesium 1.7 mg/dL (1.6-2.3); Non-African American GFR(MDRD) >60 (>60 ml/min/1.73 sqM); Phosphorous 3.3 mg/dL (2.5-4.5); Potassium 3.6 mmol/L (3.5-5.1); Sodium 133 mmol/L (137-145)
[2017-06-05 05:58] LABS: Add Differential Manual Differential; Manual Review Performed
[2017-06-05 06:05] LABS: Nucleated Red Blood Cells 0 /100 WBC (0-0); Total Cells Counted 100
[2017-06-05 06:06] LABS: Target Cells Present
[2017-06-05] MEDS: LEVOTHYROXINE 25 MCG TAB PO SCH (07:11)
[2017-06-05] MEDS: PANTOPRAZOLE 40 MG TABLET PO SCH (08:25)
[2017-06-05] MEDS: DILTIAZEM CD 120 MG CAP.ER.24H PO SCH (08:25)
[2017-06-05] MEDS: metroNIDAZOLE 500 MG TAB PO SCH ×2 (08:25→16:07)
[2017-06-05] MEDS: DICYCLOMINE 10 MG CAP PO SCH ×3 (08:26→20:55)
[2017-06-05] MEDS: PIPERACILLIN-TAZOBACTAM 3.375 GM in DEXTROSE/WATER 1 50ML.BAG IVPB SCH ×2 (08:26→16:07)
[2017-06-05] MEDS: CALCIUM GLUCONATE 1,000 MG in SODIUM CHLORIDE 0.9% 100 ML IVPB SCH ×2 (08:26→21:16)
--- NOTE | 2017-06-05 08:30 | PN ---
DATE OF SERVICE: 06/03/2017 This 82-year-old woman who was admitted with diarrhea and dehydration also had abdominal distention. The possible diagnosis of mesenteric ischemia was considered. The patient has elevated white count, also. She is on broad- spectrum IV antibiotics. She was transferred to ICU. The patient had hematemesis , also. Past medical history reviewed. REVIEW OF SYSTEMS: CARDIOVASCULAR SYSTEM: No angina. RESPIRATORY SYSTEM: As mentioned earlier. GI: As mentioned earlier. : No dysuria, retention. NERVOUS SYSTEM: No numbness, weakness. Current medications are reviewed and include: 1. [place] 5 mg q.6 p.r.n. 2. DuoNeb q.i.d. and p.r.n. 3. Xanax 0.5 at bedtime. 4. TUMS. 5. Calcium gluconate. 6. Vitamin B12 500 mcg daily. 7. Bentyl. 8. Cardizem CD. 9. Lomotil. 10. Synthroid 25 mcg daily. 11. Magnesium oxide. 12. Reglan. 13. Protonix. 14. Zosyn 3.375 IV q.6. PHYSICAL EXAMINATION: Patient is alert and oriented x2. Pulse is 81, blood pressure 84/47, respirations 22, temperature 97.8, pulse ox 93% on 2 L. HEENT: Conjunctivae normal. NECK: No jugular venous congestion. CARDIAC: S1, S2 muffled. RESPIRATORY: Breath sounds diminished at the bases. Scattered rhonchi. No crackles. ABDOMEN: Soft. Mild diffuse discomfort. Otherwise, no guarding. No rigidity. No tenderness. Bowel sounds present. LEGS: No edema. No swelling. NERVOUS SYSTEM: No focal deficit. LABS: WBC 14.1, hemoglobin 8.5. ASSESSMENT: 1. Nausea, vomiting, abdominal discomfort, possibly mesenteric ischemic with possible early sepsis. 2. Increased white count. 3. Anemia, normocytic. 4. Thrombocytopenia. 5. Limited scleroderma. 6. History of recent pericardial tamponade surgery. 7. Secondary pulmonary hypertension. RECOMMENDATIONS AND DISCUSSION: I recommend to continue current medications, continue symptomatic treatment, continue the broad-spectrum IV antibiotics. Discussed with Surgery. Patient is not a surgical candidate currently. Continue the antibiotics. I would also recommend consultation with Dr. Das because of the evolving thrombocytopenia. Will stop heparin. Further recommendations will follow. Prognosis guarded. Discussed with the family at length. MTDD
--- NOTE | 2017-06-05 09:34 | P.PN ---
Subjective Principal diagnosis: Irritable bowel syndrome, malnutrition, possible ischemic bowel. This is an 82-year-old female who was recently admitted with multiple GI symptoms including nausea and emesis diarrhea and dehydration as well as electrolyte imbalance. Patient was also noted to have leukocytosis, hypotension , and possible sepsis. She was initially admitted to the ICU and she was given multiple fluid boluses, eventually the patient was transferred out of the ICU to a regular medical floor. She was also noted to have pericardial effusion on CT of the chest. CT of the abdomen done on the initial admission showed evidence of colitis with colon wall thickening. Patient was eventually discharged to a [facility] on 05/30/2017, repeat CT of the abdomen and pelvis today showed bilateral effusions, bibasilar atelectasis, no pericardial effusion , there was grasped elevation of the small bowel also developed patient of the transverse colon. And there was colon wall thickening involving large distended loop of small bowel in the mid abdomen. There is GI just felt that there may be some evidence of ischemia. Patient was transferred to the ICU, and I was asked to see her on consultation. I have never seen this patient before, but she may have been seen by Dr. Mayo when she was in the ICU initially. At the time of my evaluation, patient denies any specific complaints. No nausea no vomiting no abdominal pain no melena no hematemesis. No chest pain no shortness of breath no cough no wheezing. No headaches no blurred vision no dizziness. No dysuria and no frequency no urgency. Even examining her abdomen seems to be relatively benign and nonsurgical in nature. Reevaluated today on 06/03/2017, patient seems to be doing quite well, asymptomatic. No cough no fever no chills no nausea no vomiting no abdominal pain no melena no hematemesis. However her blood pressures seems to be marginal with mean arterial pressure in the mid 50s. Systolic blood pressure is about 80. Patient is making good amount of urine, implying that her renal perfusion is adequate. Hence no need for norepinephrine at this point, but will give the patient more fluids and fluid boluses. Platelets have significantly dropped overnight, they are down to 43,000 from 13 9006 2 days ago. Hence are external would have to be discontinued at this point. And I will cut down the Protonix dose to 40 mg once daily instead of twice daily. Avoid any heparin products, may request a hematology consultation. Otherwise labs were noted to be relatively unremarkable. Reevaluated today on 06/04/2017, patient remains asymptomatic, however on physical examination she had significant crackles and rhonchi at the bases bilaterally. Follow-up chest x-ray showed COPD and a new small bilateral pleural effusions strongly suspicious for mild to moderate congestive heart failure. Hence a trial of diuresis will be given, patient already received 20 mg of Lasix earlier today. Labs were quite abnormal, platelets are down to 27, 000, patient was already seen by hematology on consultation, and she was felt to have a picture of consumption, workup for heparin-induced thrombocytopenia was initiated. At any rate patient will remain in the ICU, I was diuresis today , I will leave it up to the oncologist on the case to decide regarding platelets transfusion if necessary. Patient was reevaluated today on 06/05/2017, doing quite well, relatively asymptomatic. Patient is hemodynamically stable, blood pressure is excellent today, urine output is excellent, and lung findings have significantly improved. Her abdomen is quite soft and benign, platelets remain low at 33,000 , this is being addressed by oncology on the case. At this point I will arrange for the patient be transferred out of the ICU to a regular medical floor. WBC count is 7.4 hemoglobin is 8.1. Basic metabolic profile and renal profile is normal. Objective - Vital Signs Vital signs: Vital Signs Temp 97.6 F 06/05/17 08:00 Pulse 98 06/05/17 08:30 Resp 18 06/05/17 08:30 BP 105/65 06/05/17 08:30 Pulse Ox 95 06/05/17 08:00 Intake & Output 06/04/17 06/05/17 06/05/17 18:59 06:59 18:59 Intake Total 2160.0 1485.0 220 Output Total 2277 1115 225 Balance -117.0 370.0 -5 Intake: IV 1535.0 1485.0 220 0.9 at KVO 60 110 20 Calcium Gluconate 1,000 100 100 mg In Sodium Chloride 0.9 % 100 ml @ 100 mls/hr IVPB BID JENNIFER Rx#: [id number] Lactated Ringers 1,000 ml 1100 200 @ 100 mls/hr IV .Q10H JENNIFER Rx#:[id number] Lactated Ringers 1,000 ml 800 100 @ 50 mls/hr IV .Q20H JENNIFER Rx#:[id number] Magnesium Sulfate-D5w Pmx 200 1 gm In Dextrose/Water 1 100ml.bag @ 100 mls/hr IVPB Q1H JENNIFER Rx#: [id number] Piperacillin-Tazobactam 3 75.0 75.0 .375 gm In Dextrose/Water 1 50ml.bag @ 12.5 mls/hr IVPB Q8HR JENNIFER Rx#: [id number] Potassium Chloride 10 meq 200 Lidocaine 2% Inj 10 mg In Sodium Chloride 0.9% 100 ml @ 100 mls/hr IV Q1HR JENNIFER Rx#:[id number] metroNIDAZOLE-NS PMX 500 100 mg In Saline 1 100ml.bag @ 100 mls/hr IVPB Q8HR JENNIFER Rx#:[id number] Oral 625 Output: Urine 2275 1115 225 Stool 2 Other: Voiding Method Indwelling Catheter Indwelling Catheter # Bowel Movements 1 2 - Exam Physical Exam: Revealed an 82-year-old female in no distress. Patient looks chronically ill, frail, and cachectic. HEENT:[Neck is supple.] [No neck masses.] [No thyromegaly.] [No JVD.] Chest: He managed breath sounds at the bases, no crackles or rhonchi or wheezes..] Cardiac Exam: [Normal S1 and S2, no S3 gallop, no murmur.] Abdomen: [Soft, nontender, no megaly, no rebound, no guarding, normal bowel sounds.] Extremities: [No clubbing, 1+ bipedal edema, no cyanosis.] Neurological Exam: [No focal neurologic deficit.] - Labs CBC & Chem 7: 06/05/17 05:21 06/05/17 05:21 Labs: Abnormal Lab Results - Last 24 Hours (Table) 06/05/17 06/05/17 Range/Units 05:21 05:21 RBC 3.20 L (3.80-5.40) m/uL Hgb 8.1 L (11.4-16.0) gm/dL Hct 25.5 L (34.0-46.0) % MCV 79.6 L (80.0-100.0) fL RDW 21.7 H (11.5-15.5) % Plt Count 33 L* (150-450) k/uL Sodium 133 L (137-145) mmol/L Calcium 8.1 L (8.4-10.2) mg/dL Assessment and Plan Plan: Impression: 1 History of irritable bowel syndrome, with multiple GI symptoms, presently inactive. 2 multiple comorbidities including malabsorption syndrome, GERD, chronic diarrhea, hypothyroidism, degenerative joint disease, vitamin B12 deficiency, and history of pericardial effusion, requiring pericardial window.. History of chronic anemia history of hearing loss, history of blindness, history of chronic malnutrition. 3 . Thrombocytopenia being addressed by hematology on the case. 4 hypotension, resolved, I believe it is mostly secondary to hypovolemia. And intravascular depletion. Recommendation: Continue present supportive care measures, patient clearly at this point seems to be relatively stable, and was to transfer the patient out of the ICU to a regular medical floor. Time with Patient: Less than 30
--- NOTE | 2017-06-05 11:03 | P.PN ---
Subjective Principal diagnosis: Ischemic bowel Patient doing well today. Tolerating her diet. 3 loose stools already today. No abdominal pain. Objective - Vital Signs Vital signs: Vital Signs Temp 97.6 F 06/05/17 08:00 Pulse 98 06/05/17 09:30 Resp 20 06/05/17 09:30 BP 107/61 06/05/17 09:30 Pulse Ox 95 06/05/17 08:00 Intake & Output 06/04/17 06/05/17 06/05/17 18:59 06:59 18:59 Intake Total 2160.0 1485.0 220 Output Total 2277 1115 225 Balance -117.0 370.0 -5 Intake: IV 1535.0 1485.0 220 0.9 at KVO 60 110 20 Calcium Gluconate 1,000 100 100 mg In Sodium Chloride 0.9 % 100 ml @ 100 mls/hr IVPB BID JENNIFER Rx#: [id number] Lactated Ringers 1,000 ml 1100 200 @ 100 mls/hr IV .Q10H JENNIFER Rx#:[id number] Lactated Ringers 1,000 ml 800 100 @ 50 mls/hr IV .Q20H JENNIFER Rx#:[id number] Magnesium Sulfate-D5w Pmx 200 1 gm In Dextrose/Water 1 100ml.bag @ 100 mls/hr IVPB Q1H JENNIFER Rx#: [id number] Piperacillin-Tazobactam 3 75.0 75.0 .375 gm In Dextrose/Water 1 50ml.bag @ 12.5 mls/hr IVPB Q8HR JENNIFER Rx#: [id number] Potassium Chloride 10 meq 200 Lidocaine 2% Inj 10 mg In Sodium Chloride 0.9% 100 ml @ 100 mls/hr IV Q1HR JENNIFER Rx#:[id number] metroNIDAZOLE-NS PMX 500 100 mg In Saline 1 100ml.bag @ 100 mls/hr IVPB Q8HR JENNIFER Rx#:[id number] Oral 625 Output: Urine 2275 1115 225 Stool 2 Other: Voiding Method Indwelling Catheter Indwelling Catheter Indwelling Catheter # Bowel Movements 1 2 - Exam Abdomen: Soft, nontender, nondistended - Labs CBC & Chem 7: 06/05/17 05:21 06/05/17 05:21 Labs: Abnormal Lab Results - Last 24 Hours (Table) 06/05/17 06/05/17 Range/Units 05:21 05:21 RBC 3.20 L (3.80-5.40) m/uL Hgb 8.1 L (11.4-16.0) gm/dL Hct 25.5 L (34.0-46.0) % MCV 79.6 L (80.0-100.0) fL RDW 21.7 H (11.5-15.5) % Plt Count 33 L* (150-450) k/uL Sodium 133 L (137-145) mmol/L Calcium 8.1 L (8.4-10.2) mg/dL Assessment and Plan (1) Abdominal pain Narrative/Plan: Diet as tolerated. May resume Imodium. Status: Acute
[2017-06-05] MEDS: CALCIUM CARBONATE 500 MG CHEWABLE PO SCH (11:59)
[2017-06-05] MEDS: MAGNESIUM OXIDE 400 MG TAB PO SCH (11:59)
[2017-06-05] MEDS: CYANOCOBALAMIN 500 MCG TAB PO SCH (11:59)
[2017-06-05] MEDS: LOPERAMIDE 2 MG CAP PO PRN (12:58)
[2017-06-05 15:59] LABS: Free Kappa Lt Chain Qnt, Serum 5.25 mg/dL (0.33-1.94)
[2017-06-05 19:53] LABS: ALT 32 U/L (9-52); AST 21 U/L (14-36); Alkaline Phosphatase 75 U/L (38-126); Anion Gap 6 mmol/L; Blood Urea Nitrogen 13 mg/dL (7-17); Carbon Dioxide 26 mmol/L (22-30); Chloride 101 mmol/L (98-107); Glucose 100 mg/dL (74-99); Non-African American GFR(MDRD) >60 (>60 ml/min/1.73 sqM); Sodium 133 mmol/L (137-145); Total Bilirubin 0.6 mg/dL (0.2-1.3); Total Protein 4.1 g/dL (6.3-8.2)
[2017-06-05] MEDS: ALPRAZolam 0.25 MG TAB PO PRN (22:32)
[2017-06-06] MEDS ORDERED: metroNIDAZOLE 500 MG TAB ONE (00:45)
[2017-06-06] MEDS: metroNIDAZOLE 500 MG TAB PO SCH ×4 (05:24→23:25)
[2017-06-06] MEDS: PIPERACILLIN-TAZOBACTAM 3.375 GM in DEXTROSE/WATER 1 50ML.BAG IVPB SCH ×4 (05:24→23:25)
[2017-06-06] MEDS: LEVOTHYROXINE 25 MCG TAB PO SCH (07:46)
[2017-06-06] MEDS: PANTOPRAZOLE 40 MG TABLET PO SCH (07:46)
[2017-06-06] MEDS: DIPHENOX-ATROP 2.5-0.025 MG 1 EACH TAB PO PRN (07:51)
[2017-06-06 08:01] LABS: Anisocytosis Moderate; CH 24.5; CHCM 31.7; HCT 25.1 % (34.0-46.0); HDW 3.29; HGB 8.2 gm/dL (11.4-16.0); Hypochromasia Slight; Immature Gran Flag Moderate; Large Platelets Flag Slight; MCH 25.2 pg (25.0-35.0); MCHC 32.6 g/dL (31.0-37.0); MCV 77.3 fL (80.0-100.0); Mean Platelet Volume 10.8; Microcytosis Moderate; RBC 3.24 m/uL (3.80-5.40); RDW 21.3 % (11.5-15.5); WBC (Perox) 8.43
[2017-06-06 08:11] LABS: Anion Gap 6 mmol/L; Blood Urea Nitrogen 10 mg/dL (7-17); Calcium 7.7 mg/dL (8.4-10.2); Carbon Dioxide 28 mmol/L (22-30); Chloride 99 mmol/L (98-107); Glucose 76 mg/dL (74-99); Non-African American GFR(MDRD) >60 (>60 ml/min/1.73 sqM); Phosphorous 3.5 mg/dL (2.5-4.5); Potassium 3.2 mmol/L (3.5-5.1); Sodium 133 mmol/L (137-145)
[2017-06-06] MEDS: LACTATED RINGERS 1,000 ML IV SCH ×2 (08:36→20:12)
[2017-06-06] MEDS: DICYCLOMINE 10 MG CAP PO SCH ×3 (08:37→22:30)
[2017-06-06] MEDS: CALCIUM GLUCONATE 1,000 MG in SODIUM CHLORIDE 0.9% 100 ML IVPB SCH ×2 (08:37→20:11)
[2017-06-06] MEDS: DILTIAZEM CD 120 MG CAP.ER.24H PO SCH (08:37)
[2017-06-06 09:30] LABS: Add Differential Manual Differential
[2017-06-06 09:35] LABS: Band Neutrophils % 2.5 %; Metamyelocytes % 2.5 %; Myelocytes % 0.5 %; Nucleated Red Blood Cells 0 /100 WBC (0-0); Total Cells Counted 200
--- NOTE | 2017-06-06 09:35 | PN ---
DATE OF SERVICE: 06/04/2017 This 82-year-old woman was admitted with abdominal distention as well as diarrhea, also had a possible ileus. At this time the patient is also suspected to have mesenteric ischemia as well. The patient also had significant lung findings also. CHF was suspected. Dr. Smalls and multiple consultants are following the patient closely surgery. The patient also developed thrombocytopenia. Anticoagulants were stopped at this time. PAST MEDICAL HISTORY: Reviewed. REVIEW OF SYSTEMS: The patient is slightly confused and unable to provide unable to give coherent review of systems. CURRENT MEDICATIONS: 1. [place] 5 mg q.6. 2. DuoNeb q.i.d. and p.r.n. 3. Xanax 0.25 p.o. q.h.s. 4. TUMS. 5. Calcium carbonate. 6. Vitamin B12. 7. Cardizem CD. 8. Lactate Ringer's. 9. Synthroid. 10. Magnesium oxide. 11. Reglan. 12. Flagyl. 13. Narcan. 14. Zofran. 15. Protonix. 16. Zosyn. PHYSICAL EXAMINATION: Patient is alert, oriented x2. Pulse 71, blood pressure 92 /50, respirations 14, temperature 97.4, pulse ox 99% on 2-L. HEENT: Conjunctivae normal. Oral mucosa moist. NECK: No jugular venous distention. No carotid bruit. No lymph node enlargement. CARDIOVASCULAR: S1, S2. No S3, no S4. RESPIRATORY: Breath sounds diminished in the bases. A few scattered rhonchi and crackles. ABDOMEN: Soft, mild diffuse distention. No guarding. No rigidity. No mass palpable. LEGS: No edema. NERVOUS SYSTEM: No focal deficits. LABS: WBC 9.5, hemoglobin 7.7, INR is 1.3. 107. Sodium 135. Phosphorus 2.9. Magnesium 1.7. ASSESSMENT: 1. Abdominal distention with possibly mesenteric ischemia. 2. Possible irritable bowel syndrome with diarrhea. 3. Increased WBC. 4. Congestive heart failure. 5. History of pericardial effusion. 6. Anemia, multifactorial. RECOMMENDATIONS AND DISCUSSION: In this 82-year-old woman who presented with multiple complex medical issues, will monitor the patient closely. Continue the current medications and symptomatic treatment. Otherwise at this time broad- spectrum IV antibiotics. Monitor closely. Bronchodilators. Closely follow with Dr. Slim. Guarded prognosis. Further recommendations to follow. MTDD
[2017-06-06 09:36] LABS: Large Platelets Present; Target Cells Present
[2017-06-06] MEDS: POTASSIUM CHLORIDE 10 MEQ, LIDOCAINE 2% INJ 10 MG in SODIUM CHLORIDE 0.9% 100 ML IV SCH ×2 (09:43→11:58)
[2017-06-06] MEDS: CYANOCOBALAMIN 500 MCG TAB PO SCH (11:58)
[2017-06-06] MEDS: CALCIUM CARBONATE 500 MG CHEWABLE PO SCH (11:58)
[2017-06-06] MEDS: MAGNESIUM OXIDE 400 MG TAB PO SCH (12:05)
[2017-06-06 14:02] LABS: ANA w/Reflex to Titer POSITIVE (NEGATIVE)
--- NOTE | 2017-06-06 14:14 | PN ---
DATE OF SERVICE: 06/04/2017 CHIEF COMPLAINT: Tired. Joann seen today in followup. She feels tired, however, she denies any abdominal pain. There is no melena, hematochezia, hematuria, hemoptysis, hematemesis or epistaxis. She is tolerating current diet reasonably well. Her current medications include: 1. Rock 5/325 every 6 hours as needed. 2. Albuterol ipratropium inhaler as needed. 3. Xanax 0.25 mg at bedtime as needed. 4. Bismatrol 524 every hour as needed for diarrhea. 5. Tums as needed. 6. Vitamin B12, 500 mcg p.o. daily. 7. Bentyl 10 mg t.i.d. 8. Cardizem CD 120 mg a day. 9. Lomotil 2 t.i.d. as needed. 10. She is on IV fluids with lactated Ringers at 50 mL per hour. 11. Synthroid 25 mcg daily. 12. Imodium as needed. 13. Magnesium oxide 400 mg daily. 14. Reglan 5 mg IV every 6 hours as needed. 15. Flagyl 500 mg every 8 hours as needed. PHYSICAL EXAMINATION: She is alert and alerted x3. She does not appear to be in distress. Answers questions appropriately. Her vital signs are temperature 97.4, afebrile, pulse 16, blood pressure 85/50. HEENT: Normocephalic, atraumatic. ( ). NECK: Supple. CHEST: Equal breath sounds bilaterally. LUNGS: Clear. HEART: Tachy and irregular. ABDOMEN: Soft. No tenderness. Bowel sounds present. Extremities reveal trace edema. SKIN: A few bruises. No ecchymosis or petechia. LABORATORY DATA: WBC 9.4, hemoglobin 7.7, hematocrit 24.3. Platelets are 27 today. PT is 12.5, PTT is 26.9. BUN is 19, creatinine 0.7. Ferritin 256. Fibrinogen level is 107. IMPRESSION: Thrombocytopenia, this is acute onset. It could be related to ischemic colitis, which appeared to be improving and recovering from it very nicely with conservative management. However, underlying HIT cannot be excluded since her previous exposure to heparin product during her previous hospitalization. Clinically, there is no evidence to suggest any ongoing arterial or venous thrombosis. RECOMMENDATION: 1. Avoid heparin and low molecular weight heparin for now. 2 No platelet transfusion at all until HIT screen results are available. 3. Continue to monitor her CBC very closely. The above was discussed with the patient and nursing staff. YULY
--- NOTE | 2017-06-06 20:23 | PN ---
DATE OF SERVICE: 06/05/2017 This 82-year-old woman who was admitted with nausea, vomiting and abdominal distention is improving significantly. The lungs are also getting better. The abdominal CT scan showed some suspicious ischemic changes previously. No chest pain. No palpitations. No fever. On exam, alert and oriented x3. Pulse 94 blood pressure 106/62, respiration 16, temperature 97.7, pulse ox 90% on room air. HEENT: Conjunctivae normal. NECK: No jugular venous distention. CARDIOVASCULAR: S1, S2 muffled. RESPIRATORY: Breath sounds diminished at the bases. Bilateral scattered rhonchi and crackles. ABDOMEN: Soft, non-tender. Mild diffuse distention. LEGS: No edema. No swelling. NERVOUS SYSTEM: No focal deficit. LABS: Hemoglobin 8.1, platelets 33. ASSESSMENT: 1. Nausea, vomiting, abdominal discomfort, possibly mesenteric ischemic, with possible early sepsis, present on admission, improved. 2. Increased white count. 3. Anemia, normocytic. 4. Thrombocytopenia. 5. Limited scleroderma. 6. History of recent pericardial tamponade surgery. 7. Secondary pulmonary hypertension. RECOMMENDATIONS AND DISCUSSION: I recommend to continue current medications, continue with symptomatic treatment. Otherwise, follow-up labs. Patient appears to be tolerating diet at this time. Further recommendations to follow. MTDD
[2017-06-06 23:17] VITALS: RESP 16; TEMP 97.1
[2017-06-06] MEDS: ALPRAZolam 0.25 MG TAB PO PRN (23:25)
[2017-06-07 04:18] LABS: Methylmalonic Acid 0.16 umol/L (<0.40)
[2017-06-07] MEDS: LEVOTHYROXINE 25 MCG TAB PO SCH (06:29)
[2017-06-07] MEDS: LACTATED RINGERS 1,000 ML IV SCH (06:29)
--- NOTE | 2017-06-07 08:10 | PN ---
This 82-year-old female with a history of irritable bowel syndrome. Her GI issues are inactive at this time. She also has multiple comorbidities including malabsorption syndrome, GERD, chronic diarrhea, hypothyroidism, DJD, vitamin B12 deficiency, pericardial effusion and previously requiring pericardiac window and chronic anemia. She also has history of hearing loss, blindness and chronic malnutrition. She also suffers from chronic thrombocytopenia and hypotension, which is resolved. Anyway, the patient was in the ICU, doing relative well. It was Dr. Smalls and our nurse practitioner's plan to sign off of the patient and see only as needed. She is stable from our perspective. No complaints. Current vital signs are reviewed. Temperature 97.8, heart rate 80, respiratory rate 20, blood pressure 116/55, mean 75, room air saturation 93%, appears in no acute distress. HEENT examination is grossly unremarkable. Mucous membranes are moist. No oral lesions. NECK: Supple. Cardiovascular examination reveals regular rhythm and rate. Heart sounds are distant. S1 and S2 normal. Lungs reveal mostly clear breath sounds. No wheezes or rhonchi. Abdomen is soft. Bowel sounds are heard. Extremities are intact. No cyanosis, clubbing or edema. Labs are reviewed. White count 8, hemoglobin 8.2, hematocrit 25.1, platelet count 72,000 up from 33,000. Sodium 133, potassium 3.2, chloride 99, CO2 of 28, BUN and creatinine were 10 and 0.64. The rest of her labs look okay. No recent x-rays to review. Microbiology is all negative. ASSESSMENT: 1. Irritable bowel syndrome. 2. Multiple comorbidities including malabsorption syndrome, gastroesophageal reflux disease, chronic diarrhea, hypothyroidism, degenerative joint disease, vitamin B12 deficiency, pericardial effusion requiring pericardial window, chronic anemia, hearing loss, blindness and chronic malnutrition. 3. Thrombocytopenia. 4. Hypotension, resolved. PLAN: Will follow as needed. No additional recommendations are made. Prognosis is guarded. Please feel free to call us back on the case should you need our services. YULY
[2017-06-07] MEDS: metroNIDAZOLE 500 MG TAB PO SCH ×2 (08:27→15:30)
[2017-06-07] MEDS: PIPERACILLIN-TAZOBACTAM 3.375 GM in DEXTROSE/WATER 1 50ML.BAG IVPB SCH ×2 (08:27→15:40)
[2017-06-07] MEDS: PANTOPRAZOLE 40 MG TABLET PO SCH (08:27)
[2017-06-07] MEDS: DICYCLOMINE 10 MG CAP PO SCH ×2 (08:28→15:30)
[2017-06-07] MEDS: CALCIUM GLUCONATE 1,000 MG in SODIUM CHLORIDE 0.9% 100 ML IVPB SCH (08:28)
[2017-06-07] MEDS: DILTIAZEM CD 120 MG CAP.ER.24H PO SCH (08:34)
[2017-06-07 09:03] VITALS: BP 108/61; PULSE 90
[2017-06-07 09:15] LABS: Anisocytosis Moderate; CH 24.6; CHCM 31.6; HDW 3.25; HGB 8.3 gm/dL (11.4-16.0); Hypochromasia Slight; Immature Gran Flag Marked; MCH 24.8 pg (25.0-35.0); MCV 77.5 fL (80.0-100.0); Mean Platelet Volume 10.1; Microcytosis Moderate; RBC 3.35 m/uL (3.80-5.40); RDW 21.2 % (11.5-15.5); WBC 8.7 k/uL (3.8-10.6); WBC (Perox) 8.96
[2017-06-07 09:22] LABS: Anion Gap 3 mmol/L; Calcium 7.3 mg/dL (8.4-10.2); Carbon Dioxide 28 mmol/L (22-30); Chloride 102 mmol/L (98-107); Glucose 84 mg/dL (74-99); Non-African American GFR(MDRD) >60 (>60 ml/min/1.73 sqM); Sodium 133 mmol/L (137-145)
[2017-06-07 09:24] LABS: Blood Urea Nitrogen 8 mg/dL (7-17); Phosphorous 3.3 mg/dL (2.5-4.5); Potassium 3.8 mmol/L (3.5-5.1)
[2017-06-07 09:37] LABS: Add Differential Manual Differential
[2017-06-07 09:43] LABS: Band Neutrophils % 2.5 %; Metamyelocytes % 4.5 %; Myelocytes % 0.5 %; Nucleated Red Blood Cells 0 /100 WBC (0-0); Total Cells Counted 200
[2017-06-07 09:44] LABS: Target Cells Present
[2017-06-07] MEDS: CALCIUM CARBONATE 500 MG CHEWABLE PO SCH (12:00)
[2017-06-07] MEDS: CYANOCOBALAMIN 500 MCG TAB PO SCH (12:00)
[2017-06-07] MEDS: MAGNESIUM SULFATE-D5W PMX 1 GM in DEXTROSE/WATER 1 100ML.BAG IVPB SCH ×3 (12:00→15:26)
[2017-06-07] MEDS: MAGNESIUM OXIDE 400 MG TAB PO SCH (12:02)
--- NOTE | 2017-06-07 13:44 | CDI ---
In responding to this query, please exercise your independent professional judgment. [facility] Coding Staff and Clinical Documentation Specialists appreciate your assistance in clarifying documentation, maintaining compliance with coding guidelines, accurately documenting patients condition and capturing severity of illness. The fact that a question is asked does not imply that any particular answer is desired or expected. Communication forms are a method of clarifying documentation and are not made part of the Legal Health Record. Thank you in advance for your clarification. Last Revision, January 2017 Stefan Manrique [address] [place] [address] Documentation Clarification Form Date: 06/07/2017 1:22:00 PM From: Jose A Palumbo, RN, BSN, CDI, CCDS Admit Date: 05/29/2017 12:12:00 AM Patient Name: Joann Silva Visit Number: [id number] Dr. Clif Vega: "CHF" is documented for the first time in your progress note and pulmonary consult dated 06/04/17 . History/Risk Factors: 82 yo female with a history of HTN, multiple GI issues as well as recent pericardial effusion/cardiac tamponed s/p window presents with c/o nausea, emesis, diarrhea and dehydration. She is being treated for possible mesenteric ischemia with possible early sepsis (per your most recent progress note). She is s/p 2U PRBC's and multiple fluid boluses. Clinical Indicators: lung sounds on 06/04 per pulm: "she had significant crackles and rhonchi at the bases bilaterally" VS/Pulse OX: 96/54, 79, 39, 97.4, 96% 2L NC Echocardiogram Results: unknown Chest X Ray (06/04): new small pleural effusions w/bibasilar opacities suspected to be on the basis of mild to mod CHF Treatment: Lasix 20mg IVP x2 In your professional opinion, can you please clarify the acuity and type of CHF if known? Systolic Heart Failure: Acute Chronic Acute on Chronic Diastolic Heart Failure: Acute Chronic Acute on Chronic Systolic & Diastolic Heart Failure: Acute Chronic Acute on Chronic Unable to determine Other, please specify Please document in your progress notes and discharge summary in order to capture severity of illness and risk of mortality. Include clinical findings that support your diagnosis. FYI: Press F11 to launch patient chart. Place X here if this finding has no clinical significance, is not applicable or if you are not able to provide any additional documentation. MTDD
--- NOTE | 2017-06-07 13:59 | P.DS ---
Providers Date of admission: 05/29/17 00:12 Attending physician: Clif Vega Consults: 05/29/17 00:12 Consult Physician Urgent Consulting Provider: Damien Brown Consult Reason/Comments: known Do you want consulting provider notified?: Yes 05/29/17 04:03 Consult Physician Routine Consulting Provider: Sandhya Mayo Consult Reason/Comments: ICU management Do you want consulting provider notified?: Yes, Notify in am 06/02/17 15:31 Consult Physician Stat Consulting Provider: Radha Smalls Consult Reason/Comments: icu management Do you want consulting provider notified?: Yes 06/02/17 15:34 Consult Physician Stat Consulting Provider: Ollie Blake Consult Reason/Comments: ischemic bowel Do you want consulting provider notified?: Yes 06/03/17 11:46 Consult Physician Routine Consulting Provider: Baltazar Das Consult Reason/Comments: thrombocytopenia Do you want consulting provider notified?: Yes Primary care physician: [facility] Course: This 82-year-old woman with a past medical history multiple medical problems including long-standing history of irritable bowel syndrome was admitted with nausea vomiting and abdominal distention. The patient was evaluated closely. The patient also had some features of eccentric ischemia. Patient was transferred to ICU and monitored empirically treated with antibiotics. Patient was seen by multiple consultants. Currently the patient was significantly to tolerate food. Currently on dexamethasone stable cardio system S1-S2 normal. Respiratory system no rhonchi no crackles abdomen soft mild diffuse distention present nontender. Patient be transferred to [facility] and further plans to follow up in the preceding. Final diagnosis #1 abdominal distention possibly mesenteric ischemia with a possible early sepsis.The patient improved. 2.Increased WBC 3.Anemian ormocytic 4.Thrombuscytopenia 5.Limited sclerodermanext 6.History of CHF ejection fraction unknown undetermined 7.History of recent pericardial tamponade and surgery 8.Secondary pulmonary hypertension Patient Condition at Discharge: Good Plan - Discharge Summary New Discharge Prescriptions: New RX: ALPRAZolam [Xanax] 0.25 mg PO HS PRN #10 tab PRN Reason: Insomnia RX: Calcium Carbonate [Tums] 500 mg PO 1200 RX: Cyanocobalamin [Vitamin B-12] 500 mcg PO 1200 tab RX: Diphenox-Atrop 2.5-0.025 mg [Lomotil] 2 each PO TID PRN #20 tab PRN Reason: Diarrhea RX: Ipratropium-Albuterol Nebulize [Duoneb 0.5 mg-3 mg/3 ml Soln] 3 ml INHALATION RT-QID neb RX: Magnesium Oxide [Mag-Ox] 400 mg PO 1200 tab metroNIDAZOLE [Flagyl] 500 mg PO Q8HR #9 tab Continue RX: Omeprazole [PriLOSEC] 20 mg PO QAM RX: Tacrolimus [Protopic] 1 applic TOPICAL HS PRN PRN Reason: Facial Rash RX: Dicyclomine [Bentyl] 10 mg PO TID PRN PRN Reason: IBS RX: Ondansetron [Zofran ODT] 4 mg PO Q8HR PRN PRN Reason: Nausea RX: Ferrous Sulfate [Iron] 325 mg PO DAILY RX: EPINEPHrine [Epipen 2-Adriel] 0.3 mg IM ONCE PRN PRN Reason: Anaphylaxis RX: Alclometasone Dipropionate 1 applic TOPICAL DAILY PRN PRN Reason: Facial Rash RX: Diltiazem Cd [Cardizem CD] 120 mg PO Q24HR #30 cap RX: Ergocalciferol [Vitamin D2 (DRISDOL)] 50,000 unit PO Q7D RX: Levothyroxine Sodium [Synthroid] 50 mcg PO DAILY RX: Furosemide [Lasix] 40 mg PO MOWEFR RX: Loperamide HCl [Loperamide] 4 mg PO TID PRN #20 PRN Reason: IBS Discontinued Diphenoxylate HCl/Atropine [Lomotil 2.5-0.025 mg Tablet] 2 tab PO TID Discharge Medication List RX: Dicyclomine [Bentyl] 10 mg PO TID PRN 02/23/16 [History] RX: Omeprazole [PriLOSEC] 20 mg PO QAM 02/23/16 [History] RX: Tacrolimus [Protopic] 1 applic TOPICAL HS PRN 02/23/16 [History] RX: Alclometasone Dipropionate 1 applic TOPICAL DAILY PRN 04/22/17 [History] RX: EPINEPHrine [Epipen 2-Adriel] 0.3 mg IM ONCE PRN 04/22/17 [History] RX: Ferrous Sulfate [Iron] 325 mg PO DAILY 04/22/17 [History] RX: Ondansetron [Zofran ODT] 4 mg PO Q8HR PRN 04/22/17 [History] RX: Diltiazem Cd [Cardizem CD] 120 mg PO Q24HR #30 cap 05/06/17 [Rx] RX: Ergocalciferol [Vitamin D2 (DRISDOL)] 50,000 unit PO Q7D 06/01/17 [History] RX: Furosemide [Lasix] 40 mg PO MOWEFR 06/01/17 [History] RX: Levothyroxine Sodium [Synthroid] 50 mcg PO DAILY 06/01/17 [History] RX: ALPRAZolam [Xanax] 0.25 mg PO HS PRN #10 tab 06/07/17 [Rx] RX: Calcium Carbonate [Tums] 500 mg PO 1200 06/07/17 [Rx] RX: Cyanocobalamin [Vitamin B-12] 500 mcg PO 1200 tab 06/07/17 [Rx] RX: Diphenox-Atrop 2.5-0.025 mg [Lomotil] 2 each PO TID PRN #20 tab 06/07/17 [Rx ] RX: Ipratropium-Albuterol Nebulize [Duoneb 0.5 mg-3 mg/3 ml Soln] 3 ml INHALATION RT-QID neb 06/07/17 [Rx] RX: Loperamide HCl [Loperamide] 4 mg PO TID PRN #20 06/07/17 [Rx] RX: Magnesium Oxide [Mag-Ox] 400 mg PO 1200 tab 06/07/17 [Rx] metroNIDAZOLE [Flagyl] 500 mg PO Q8HR #9 tab 06/07/17 [Rx] Follow up Appointment(s)/Referral(s): Bharat Meraz MD [Medical Doctor] - As Needed Baltazar Das MD [STAFF PHYSICIAN] - 1 Week [facility], [NON-STAFF] - Micheal King DO [STAFF PHYSICIAN] - 3 Days Leonila Choi MD [STAFF PHYSICIAN] - 2 Weeks Suzi Cuellar MD [Primary Care Provider] - 1 Week (after dc from [facility]) Activity/Diet/Wound Care/Special Instructions: [facility] Diet: Soft foods, soy,tomato, lactose ALLERGY. No carbonation Activity: As tolerated CBC, BMP, magnesium in 3 days Discharge Disposition: TRANSFER TO SNF/ECF
--- NOTE | 2017-06-07 14:13 | PN ---
DATE OF SERVICE: 06/06/2017 This 82-year-old woman was admitted with nausea, vomiting, abdominal distention is being closely monitored. No chest pain, no palpitations, no fever. On exam, alert and oriented x3. Pulse 98, blood pressure 190/64, respirations 18 , temperature 98 degrees, pulse ox 94% on room air. HEENT: Conjunctivae normal. NECK: No jugular venous distention. CARDIOVASCULAR: S1, S2. RESPIRATORY: Breath sounds diminished in the bases. No rhonchi, no crackles. ABDOMEN: Soft, mild diffuse distention. LEGS: No edema. NERVOUS SYSTEM: No focal deficits. LABS: WBC 8, hemoglobin 8.2. Sodium 133, potassium 3.2. ASSESSMENT: 1. Nausea, vomiting, abdominal discomfort, possibly mesenteric ischemia with possible early sepsis. 2. Increased WBC. 3. Anemia, normocytic. 4. Thrombocytopenia. 5. scleroderma. 6. History of pericardial tamponade surgery. 7. Secondary pulmonary hypertension. RECOMMENDATIONS AND DISCUSSION: I recommend to continue the current medications , continue with monitoring, continue with symptomatic treatment. Otherwise at this time I will replace electrolytes. Conservative line of treatment. Guarded prognosis. further recommendations to follow. MTDD
== END 2017-06-07 18:28 | DRG 871 ==
LOC: EC 21:33 → 6SEL 05-29 00:12 → 6ICU 05-29 05:02 → 4MS4W 05-29 15:34 → 6ICU 06-02 15:53 → 5MS5E 06-05 11:51
PROVIDERS: ADMIT Hospitalist; ATTEND Hospitalist
DX: A41.9 Sepsis, unspecified organism (principal); G93.41 Metabolic encephalopathy; K55.9 Vascular disorder of intestine, unspecified; E46 Unspecified protein-calorie malnutrition; K90.9 Intestinal malabsorption, unspecified; E87.1 Hypo-osmolality and hyponatremia; J98.11 Atelectasis; I50.9 Heart failure, unspecified; I11.0 Hypertensive heart disease with heart failure; D69.6 Thrombocytopenia, unspecified; E83.42 Hypomagnesemia; E83.51 Hypocalcemia; E86.0 Dehydration; D50.9 Iron deficiency anemia, unspecified; D56.3 Thalassemia minor; E03.9 Hypothyroidism, unspecified; E53.8 Deficiency of other specified B group vitamins; E86.1 Hypovolemia; E87.6 Hypokalemia; H26.9 Unspecified cataract; H54.8 Legal blindness, as defined in USA; H91.90 Unspecified hearing loss, unspecified ear; I27.2 Other secondary pulmonary hypertension; J44.9 Chronic obstructive pulmonary disease, unspecified; K21.9 Gastro-esophageal reflux disease without esophagitis; K58.9 Irritable bowel syndrome, unspecified; M19.90 Unspecified osteoarthritis, unspecified site; M34.9 Systemic sclerosis, unspecified; Z79.899 Other long term (current) drug therapy; Z82.49 Family history of ischemic heart disease and other diseases of the circulatory system; Z87.19 Personal history of other diseases of the digestive system; Z87.891 Personal history of nicotine dependence
CPT/HCPCS: 36415; 71010; 74000; 74150; 80048; 80053; 81001; 82330; 82550; 82553; 82607; 82728; 82747; 83540; 83550; 83605; 83690; 83735; 83883; 83921; 84100; 84132; 84165; 84484; 85025; 85027; 85384; 85610; 85730; 86022; 86038; 86039; 86431; 86850; 86900; 86901; 86920; 87086; 87324; 93005; 94640; 96361; 96365; 96372; 96375; 99285

== ENCOUNTER 2017-07-17 21:53 | Inpatient (IN) | payer MEDICARE ==
[2017-07-17] MEDS ORDERED: SODIUM CHLORIDE 0.9% 500 ML IV STA (21:56)
[2017-07-17 22:54] LABS: CH 22.9; CHCM 30.3; HCT 25.9 % (34.0-46.0); HDW 3.42; HGB 7.7 gm/dL (11.4-16.0); Hypochromasia Marked; Immature Gran Flag Marked; MCH 22.6 pg (25.0-35.0); MCHC 29.9 g/dL (31.0-37.0); MCV 75.7 fL (80.0-100.0); Mean Platelet Volume 9.3; Microcytosis Slight; Poikilocytosis Slight; RBC 3.42 m/uL (3.80-5.40); RDW 15.8 % (11.5-15.5); WBC 17.2 k/uL (3.8-10.6); WBC (Perox) 18.51
[2017-07-17 23:01] LABS: ALT 23 U/L (9-52); AST 23 U/L (14-36); Alcohol <10 mg/dL; Alkaline Phosphatase 98 U/L (38-126); Anion Gap 15 mmol/L; Blood Urea Nitrogen 31 mg/dL (7-17); Calcium 7.2 mg/dL (8.4-10.2); Carbon Dioxide 30 mmol/L (22-30); Chloride 88 mmol/L (98-107); Glucose 84 mg/dL (74-99); Magnesium 1.3 mg/dL (1.6-2.3); Non-African American GFR(MDRD) 19 (>60 ml/min/1.73 sqM); Potassium 3.2 mmol/L (3.5-5.1); Sodium 133 mmol/L (137-145); Total Bilirubin 1.1 mg/dL (0.2-1.3); Total Protein 5.6 g/dL (6.3-8.2)
[2017-07-17 23:07] LABS: INR 1.4 (<1.2); Partial Thromboplastin Time 28.6 sec (22.0-30.0); Prothrombin Time 14.2 sec (9.0-12.0)
[2017-07-17 23:32] LABS: Add Differential Manual Differential
[2017-07-17 23:34] LABS: Band Neutrophils % 13 %; Manual Review Performed; Nucleated Red Blood Cells 0 /100 WBC (0-0); Target Cells Present; Total Cells Counted 100
--- NOTE | 2017-07-17 23:35 | XR ---
EXAM: XR Chest, 2 Views CLINICAL HISTORY: Reason: syncope TECHNIQUE: Frontal and lateral views of the chest. COMPARISON: 06/04/17 FINDINGS: Lungs: Mild emphysematous change noted. Pleural space: Unremarkable. No pneumothorax. Heart: Unremarkable. No cardiomegaly. Mediastinum: Unremarkable. Bones/joints: Unremarkable. IMPRESSION: No acute findings.
[2017-07-17 23:40] LABS: Creatine Kinase MB 2.8 ng/mL (0.0-2.4); Troponin I 0.249 ng/mL (0.000-0.034)
[2017-07-17 23:51] LABS: Amorphous Sediment,Urine Rare /hpf; Appearance,Urine Cloudy (Clear); Bilirubin,Urine Negative (Negative); Glucose,Urine (UA) Negative (Negative); Ketones,Urine Negative (Negative); Leukocyte Esterase,Urine Negative (Negative); Mucus,Urine Rare /hpf; Nitrite,Urine Negative (Negative); Particle Count 13574; Protein,Urine 1+ (Negative); RBC,Urine 5 /hpf (0-5); Specific Gravity,Urine 1.012 (1.001-1.035); UA Billing (MACRO vs. MICRO) MICRO; Urobilinogen,Urine <2.0 mg/dL (<2.0); WBC,Urine 6 /hpf (0-5)
[2017-07-18] MEDS ORDERED: POTASSIUM CHLORIDE ER 20 MEQ TAB.ER PO STA (00:06)
[2017-07-18] MEDS: MAGNESIUM SULFATE-D5W PMX 1 GM in DEXTROSE/WATER 1 100ML.BAG IVPB SCH ×4 (00:28→16:07)
[2017-07-18] MEDS: SODIUM CHLORIDE 0.9% 1,000 ML IV ONE ×3 (00:28→04:19)
[2017-07-18] MEDS: ASPIRIN 325 MG TAB PO STA ×2 (00:29→00:33)
[2017-07-18] MEDS ORDERED: VANCOMYCIN 750 MG in SODIUM CHLORIDE 0.9% 250 ML IVPB ONE (02:00)
[2017-07-18] MEDS ORDERED: POTASSIUM CHLORIDE 20 MEQ in WATER FOR INJECTION 1 100ML.BAG IVPB SCH (02:00)
[2017-07-18] MEDS: POTASSIUM CHLORIDE 10 MEQ, LIDOCAINE 2% INJ 10 MG in SODIUM CHLORIDE 0.9% 100 ML IVPB SCH ×4 (02:10→08:10)
[2017-07-18] MEDS ORDERED: ACETAMINOPHEN TAB 325 MG TAB PO PRN (03:14)
[2017-07-18] MEDS ORDERED: NALOXONE 0.4 MG/ML 1 ML VIAL IV PRN (03:14)
--- NOTE | 2017-07-18 03:30 | ED ---
General Adult HPI - General Chief complaint: Weakness Stated complaint: Altered Mental Status Time Seen by Provider: 07/17/17 21:56 Source: patient, family, EMS, old records reviewed Mode of arrival: EMS Limitations: no limitations - History of Present Illness Initial comments: 82-year-old female presents for evaluation of diarrhea. Patient was brought in by EMS. Chief complaint of diarrhea over the past week. She also complains of generalized weakness. Patient does have history of irritable bowel syndrome and has bouts of diarrhea from time to time. No nausea and vomiting. Patient also had a recent increase in her Lasix which she takes for lower extremity swelling. Patient was found by EMS to be hypotensive with systolic blood pressure in the 60s. Patient also has a recent prescription for Xanax 0.25 mg, and may have been over taking this medication. Patient denies any suicidal ideation. She has a past medical history of hypothyroidism also. Patient denies chest pain or shortness of breath. Denies fever or chills. Denies abdominal pain. Denies rash. - Related Data Home Medications Medication Instructions Recorded Confirmed Dicyclomine [Bentyl] 10 mg PO TID 02/23/16 07/17/17 Omeprazole [PriLOSEC] 20 mg PO BID 02/23/16 07/17/17 Ergocalciferol [Vitamin D2 50,000 unit PO CHAMBERLAIN 06/01/17 07/17/17 (DRISDOL)] Furosemide [Lasix] 40 mg PO MOWEFR 06/01/17 07/17/17 Calcium Carbonate [Calcium] 600 mg PO QAM 07/17/17 07/17/17 Cyanocobalamin [Vitamin B-12] 500 mcg PO QAM 07/17/17 07/17/17 Eluxadoline [Viberzi] 150 mg PO BID 07/17/17 07/17/17 L.acidoph,Paracasei, B.lactis 1 cap PO HS 07/17/17 07/17/17 [Probiotic] Levothyroxine Sodium [Synthroid] 12.5 mcg PO DAILY 07/17/17 07/17/17 Magnesium Oxide [Mag-Ox] 400 mg PO BID 07/17/17 07/17/17 Metoprolol Tartrate [Lopressor] 25 mg PO BID 07/17/17 07/17/17 Nepafenac [Nevanac] 1 - 2 drop BOTH EYES TID 07/17/17 07/17/17 Tacrolimus 1 applic TOPICAL HS 07/17/17 07/17/17 Previous Rx's Medication Instructions Recorded ALPRAZolam [Xanax] 0.25 mg PO HS PRN #10 tab 06/07/17 Allergies Allergy/AdvReac Type Severity Reaction Status Date / Time venom-honey bee Allergy Unknown Anaphylaxis Verified 05/29/17 11:21 [bee venom (honey bee)] venom-wasp [Wasp Venom] Allergy Unknown Anaphylaxis Verified 05/29/17 11:21 ether Allergy Unknown Verified 05/29/17 11:21 methylprednisolone Allergy Rash/Hives Verified 05/29/17 11:21 [From Solu-Medrol] soybean Allergy Unknown Verified 05/29/17 11:21 tomato Allergy Unknown Verified 05/29/17 11:21 Review of Systems ROS Statement: Those systems with pertinent positive or pertinent negative responses have been documented in the HPI. ROS Other: All systems not noted in ROS Statement are negative. Past Medical History Past Medical History: GERD/Reflux, Thyroid Disorder Additional Past Medical History / Comment(s): Pericardial effusion/tamponade status post window, status post recent acute hypoxic respiratory failure which recovered, long-standing irritable bowel syndrome, acid reflux, history of ischemic colitis, hypothyroidism, legal blindness, impaired hearing, IBS. bilateral cataracts, hypothyroidism, positive GILBERT, limited scleroderma, beta thalassemia trait with chronic anemia History of Any Multi-Drug Resistant Organisms: None Reported Past Surgical History: Appendectomy, Orthopedic Surgery Additional Past Surgical History / Comment(s): DEVIATED SEPTUM, TUBES AND OVARIES REMOVED, HAMLET SHOULDER SURGERY, pericardial window, bilateral forehead biopsy r/t loss of vision. Past Anesthesia/Blood Transfusion Reactions: No Reported Reaction Past Psychological History: Anxiety Smoking Status: Former smoker Past Alcohol Use History: Occasional Past Drug Use History: None Reported - Past Family History Father Family Medical History: Myocardial Infarction ([place]) Additional Family Medical History / Comment(s): heart failure General Exam Limitations: no limitations General appearance: alert, in no apparent distress Head exam: Present: atraumatic, normocephalic Eye exam: Present: normal appearance, PERRL ENT exam: Present: mucous membranes dry Neck exam: Present: normal inspection, full ROM. Absent: tenderness, meningismus Respiratory exam: Present: normal lung sounds bilaterally. Absent: respiratory distress, rales Cardiovascular Exam: Present: regular rate, normal rhythm GI/Abdominal exam: Present: soft. Absent: distended, tenderness, guarding Extremities exam: Present: normal inspection, full ROM, normal capillary refill , pedal edema (Trace pedal edema) Back exam: Absent: CVA tenderness (R), CVA tenderness (L) Neurological exam: Present: alert, oriented X3, CN II-XII intact. Absent: motor sensory deficit Psychiatric exam: Present: normal affect, normal mood Skin exam: Present: warm, dry. Absent: cyanosis, diaphoretic Course Vital Signs 07/17/17 07/17/17 07/17/17 21:53 22:27 22:47 Temperature 97 F L Pulse Rate 66 82 82 Respiratory 18 Rate Blood Pressure 77/46 69/42 67/41 O2 Sat by Pulse 100 98 94 L Oximetry 07/17/17 07/17/17 07/17/17 23:10 23:18 23:27 Temperature Pulse Rate 89 67 84 Respiratory 18 Rate Blood Pressure 70/50 70/50 77/47 O2 Sat by Pulse 94 L Oximetry 07/18/17 07/18/17 00:34 02:31 Temperature Pulse Rate 80 80 Respiratory 16 20 Rate Blood Pressure 76/47 77/51 O2 Sat by Pulse 97 99 Oximetry - Reevaluation(s) Reevaluation #1: 07/18/17 03:23 Patient continues to have no complaints. She does want to go home. She is encouraged to stay given her significant lab abnormalities and hypotension. Patient's daughter is at bedside and is agreeable. EKG Findings - EKG Comments: EKG Findings:: EKG shows sinus rhythm with occasional PVC, ventricular rate 85, WY interval 150, QRS duration 84, QTC is all that prolonged at 495. No signs of ischemia. Medical Decision Making - Medical Decision Making 82-year-old female presenting with generalized weakness in one week of diarrhea. Patient has history of IBS this is not abnormal for her. She also had a recent increase in her furosemide dose. On examination patient is hypotensive initial systolic blood pressure in the 70s. Patient is mentating normally. She has good cap refill, vital signs from previous admission are reviewed, and the patient does tend to have a low blood pressure in the high 90s to 100 systolic. She is given IV hydration. On reevaluation patient is stating she feels much better, she's had no episodes of diarrhea. She is eager to be discharged. Patient is informed of her laboratory abnormalities and her low blood pressure. She is agreeable to stay. Laboratory studies reveal an elevated white blood cell count of 7.2, no obvious source of infection, urine culture and blood cultures are obtained, the patient is given a dose of broad-spectrum antibiotics in the emergency department. Hemoglobin is 7.7 which is microcytic from her previous baseline hemoglobin of 8.3, INR is mildly elevated at 1.4, creatinine is 2.4 from a baseline of 0.58. This likely secondary to dehydration. Potassium is 3.2 is replaced, magnesium is 1.3 and is replaced. Patient does have an elevation in her troponin have 0.249, EKG is nonischemic, in the setting of acute kidney injury and profound dehydration this will only be trended at this time. She is given an aspirin. She denies any chest pain. Urinalysis is consistent with dehydration. Patient has mild elevation in her serum lactic acid at 2.5. Blood pressure is improving with IV hydration. She is mentating normally. Urinalysis shows no signs of infection, chest x-ray is negative for pneumonia. Case is discussed with Dr. Smalls the sleep scientist, patient will be placed in the ICU for close monitoring. Diagnosis: Hypotension, likely secondary to dehydration, acute kidney injury, hypokalemia, hypomagnesemia, elevated troponin. - Lab Data Result diagrams: 07/17/17 22:30 07/17/17 22:30 Lab Results 07/17/17 07/17/17 07/17/17 Range/Units 22:30 22:30 22:30 WBC 17.2 H (3.8-10.6) k/uL RBC 3.42 L (3.80-5.40) m/uL Hgb 7.7 L (11.4-16.0) gm/dL Hct 25.9 L (34.0-46.0) % MCV 75.7 L (80.0-100.0) fL MCH 22.6 L (25.0-35.0) pg MCHC 29.9 L (31.0-37.0) g/dL RDW 15.8 H (11.5-15.5) % Plt Count 258 D (150-450) k/uL Neutrophils % (Manual) 74 % Band Neutrophils % 13 % Lymphocytes % (Manual) 6 % Monocytes % (Manual) 7 % Neutrophils # (Manual) 14.90 H (1.3-7.7) k/uL Lymphocytes # (Manual) 1.03 (1.0-4.8) k/uL Monocytes # (Manual) 1.20 H (0-1.0) k/uL Nucleated RBCs 0 (0-0) /100 WBC Manual Slide Review Performed Hypochromasia Marked Poikilocytosis Slight Microcytosis Slight Target Cells Present Fragmented RBCs Present PT (9.0-12.0) sec INR (<1.2) APTT (22.0-30.0) sec Sodium 133 L (137-145) mmol/L Potassium 3.2 L (3.5-5.1) mmol/L Chloride 88 L (98-107) mmol/L Carbon Dioxide 30 (22-30) mmol/L Anion Gap 15 mmol/L BUN 31 H (7-17) mg/dL Creatinine 2.40 H (0.52-1.04) mg/dL Est GFR (MDRD) Af Amer 23 (>60 ml/min/1.73 sqM) Est GFR (MDRD) Non-Af 19 (>60 ml/min/1.73 sqM) Glucose 84 (74-99) mg/dL Plasma Lactic Acid Jeffery (0.7-2.0) mmol/L Calcium 7.2 L (8.4-10.2) mg/dL Magnesium 1.3 L (1.6-2.3) mg/dL Total Bilirubin 1.1 (0.2-1.3) mg/dL AST 23 (14-36) U/L ALT 23 (9-52) U/L Alkaline Phosphatase 98 (38-126) U/L Total Creatine Kinase 32 (30-135) U/L CK-MB (CK-2) 2.8 H* (0.0-2.4) ng/mL CK-MB (CK-2) Rel Index 8.8 Troponin I 0.249 H* (0.000-0.034) ng/mL Total Protein 5.6 L (6.3-8.2) g/dL Albumin 2.7 L (3.5-5.0) g/dL TSH 3.870 (0.465-4.680) mIU/L Urine Color Urine Appearance (Clear) Urine pH (5.0-8.0) Ur Specific [place] (1.001-1.035) Urine Protein (Negative) Urine Glucose (UA) (Negative) Urine Ketones (Negative) Urine Blood (Negative) Urine Nitrite (Negative) Urine Bilirubin (Negative) Urine Urobilinogen (<2.0) mg/dL Ur Leukocyte Esterase (Negative) Urine RBC (0-5) /hpf Urine WBC (0-5) /hpf Amorphous Sediment (None) /hpf Hyaline Casts (0-2) /lpf Urine Mucus (None) /hpf Urine Opiates Screen (NotDetected) Ur Oxycodone Screen (NotDetected) Urine Methadone Screen (NotDetected) Ur Propoxyphene Screen (NotDetected) Ur Barbiturates Screen (NotDetected) U Tricyclic Antidepress (NotDetected) Ur Phencyclidine Scrn (NotDetected) Ur Amphetamines Screen (NotDetected) U Methamphetamines Scrn (NotDetected) U Benzodiazepines Scrn (NotDetected) Urine Cocaine Screen (NotDetected) U Marijuana (THC) Screen (NotDetected) Serum Alcohol <10 mg/dL 07/17/17 07/17/17 07/18/17 Range/Units 22:30 23:33 01:45 WBC (3.8-10.6) k/uL RBC (3.80-5.40) m/uL Hgb (11.4-16.0) gm/dL Hct (34.0-46.0) % MCV (80.0-100.0) fL MCH (25.0-35.0) pg MCHC (31.0-37.0) g/dL RDW (11.5-15.5) % Plt Count (150-450) k/uL Neutrophils % (Manual) % Band Neutrophils % % Lymphocytes % (Manual) % Monocytes % (Manual) % Neutrophils # (Manual) (1.3-7.7) k/uL Lymphocytes # (Manual) (1.0-4.8) k/uL Monocytes # (Manual) (0-1.0) k/uL Nucleated RBCs (0-0) /100 WBC Manual Slide Review Hypochromasia Poikilocytosis Microcytosis Target Cells Fragmented RBCs PT 14.2 H (9.0-12.0) sec INR 1.4 H (<1.2) APTT 28.6 (22.0-30.0) sec Sodium (137-145) mmol/L Potassium (3.5-5.1) mmol/L Chloride (98-107) mmol/L Carbon Dioxide (22-30) mmol/L Anion Gap mmol/L BUN (7-17) mg/dL Creatinine (0.52-1.04) mg/dL Est GFR (MDRD) Af Amer (>60 ml/min/1.73 sqM) Est GFR (MDRD) Non-Af (>60 ml/min/1.73 sqM) Glucose (74-99) mg/dL Plasma Lactic Acid Jeffery 2.5 H* (0.7-2.0) mmol/L Calcium (8.4-10.2) mg/dL Magnesium (1.6-2.3) mg/dL Total Bilirubin (0.2-1.3) mg/dL AST (14-36) U/L ALT (9-52) U/L Alkaline Phosphatase (38-126) U/L Total Creatine Kinase (30-135) U/L CK-MB (CK-2) (0.0-2.4) ng/mL CK-MB (CK-2) Rel Index Troponin I (0.000-0.034) ng/mL Total Protein (6.3-8.2) g/dL Albumin (3.5-5.0) g/dL TSH (0.465-4.680) mIU/L Urine Color Yellow Urine Appearance Cloudy H (Clear) Urine pH 5.0 (5.0-8.0) Ur Specific [place] 1.012 (1.001-1.035) Urine Protein 1+ H (Negative) Urine Glucose (UA) Negative (Negative) Urine Ketones Negative (Negative) Urine Blood Negative (Negative) Urine Nitrite Negative (Negative) Urine Bilirubin Negative (Negative) Urine Urobilinogen <2.0 (<2.0) mg/dL Ur Leukocyte Esterase Negative (Negative) Urine RBC 5 (0-5) /hpf Urine WBC 6 H (0-5) /hpf Amorphous Sediment Rare H (None) /hpf Hyaline Casts 84 H (0-2) /lpf Urine Mucus Rare H (None) /hpf Urine Opiates Screen Not Detected (NotDetected) Ur Oxycodone Screen Not Detected (NotDetected) Urine Methadone Screen Not Detected (NotDetected) Ur Propoxyphene Screen Not Detected (NotDetected) Ur Barbiturates Screen Not Detected (NotDetected) U Tricyclic Antidepress Not Detected (NotDetected) Ur Phencyclidine Scrn Not Detected (NotDetected) Ur Amphetamines Screen Not Detected (NotDetected) U Methamphetamines Scrn Not Detected (NotDetected) U Benzodiazepines Scrn Not Detected (NotDetected) Urine Cocaine Screen Not Detected (NotDetected) U Marijuana (THC) Screen Not Detected (NotDetected) Serum Alcohol mg/dL Critical Care Time Critical Care Time: Yes Total Critical Care Time: 95 Disposition Clinical Impression: Hypotension, Acute kidney injury, Hypomagnesemia, Acute renal failure Disposition: ADMITTED IP TO THIS [facility] Condition: Serious Referrals: Suzi Cuellar MD [Primary Care Provider] - 1-2 days Decision to Admit Reason: Admit from EC Decision Date: 07/18/17 Decision Time: 02:15
[2017-07-18] MEDS: SODIUM CHLORIDE 0.9% 1,000 ML IV SCH ×3 (04:17→16:07)
[2017-07-18 05:02] LABS: Glucose,Whole Blood 27 mg/dL (75-99)
[2017-07-18 05:02] LABS: Glucose,Whole Blood 28 mg/dL (75-99)
[2017-07-18] MEDS ORDERED: ONDANSETRON 4 MG/2 ML VIAL IVP PRN (05:14)
[2017-07-18 05:43] LABS: Glucose,Whole Blood 48 mg/dL (75-99)
[2017-07-18 05:43] LABS: Glucose,Whole Blood 34 mg/dL (75-99)
[2017-07-18 05:54] LABS: Glucose,Whole Blood 397 mg/dL (75-99)
[2017-07-18 06:40] LABS: Glucose,Whole Blood 214 mg/dL (75-99)
[2017-07-18] MEDS ORDERED: Potassium Replacement Protocol 1 EACH MISC MISCELLANE PRN (06:41)
[2017-07-18 07:05] LABS: Magnesium 1.3 mg/dL (1.6-2.3); Phosphorous 3.1 mg/dL (2.5-4.5); Potassium 3.5 mmol/L (3.5-5.1)
[2017-07-18] MEDS: NOREPINEPHRIN 4 MG-0.9% NS PMX 4 MG/250 ML ML IV SCH ×2 (07:05→10:05)
[2017-07-18 07:29] LABS: CHCM 28.2; HCT 23.5 % (34.0-46.0); HDW 3.18; Hypochromasia Marked; Immature Gran Flag Marked; MCH 22.9 pg (25.0-35.0); MCHC 29.3 g/dL (31.0-37.0); Mean Platelet Volume 9.7; Microcytosis Slight; RBC 3.02 m/uL (3.80-5.40); RDW 15.5 % (11.5-15.5); WBC 15.2 k/uL (3.8-10.6); WBC (Perox) 15.67
[2017-07-18 07:31] LABS: Calcium 5.9 mg/dL (8.4-10.2)
[2017-07-18 07:48] LABS: HGB 6.9 gm/dL (11.4-16.0)
[2017-07-18 08:47] LABS: Add Differential Manual Differential
--- NOTE | 2017-07-18 08:52 | XR ---
EXAMINATION TYPE: XR chest 1V DATE OF EXAM: 07/18/2017 COMPARISON: 07/17/2017 INDICATION: Sepsis TECHNIQUE: Single frontal view of the chest is obtained. FINDINGS: The heart size is normal. The pulmonary vasculature is normal. Minimal infiltrate is at the left base. This is developing from prior study. Correlate for atelectasi s. Pneumonia is not excluded. Minimal infiltrate is not excluded at the right base. IMPRESSION: 1. Mild developing bibasilar infiltrates greater at the left base. Atelectasis and pneumonia should b e considered.
[2017-07-18] MEDS: PANTOPRAZOLE 40 MG TABLET PO SCH (08:53)
[2017-07-18 09:01] LABS: Band Neutrophils % 15 %; Metamyelocytes % 4 %; Nucleated Red Blood Cells 0 /100 WBC (0-0); Total Cells Counted 200
[2017-07-18 09:04] LABS: Manual Review Performed; Target Cells Present
[2017-07-18] MEDS: LEVOTHYROXINE 25 MCG TAB PO SCH (09:15)
[2017-07-18] MEDS ORDERED: Magnesium Replacement Protocol 1 EACH MISC MISCELLANE PRN (09:16)
--- NOTE | 2017-07-18 09:43 | P.CNPUL ---
History of Present Illness Consult date: 07/18/17 Reason for consult: other Chief complaint: Mental status changes, sepsis History of present illness: Consult dated 07/18/2017 This is an 82-year-old patient who is DO NOT RESUSCITATE. She apparently was admitted to the hospital on July 17 and came to the ICU with a 21. The patient came with a diagnosis of possible sepsis source unknown may be pneumonia. She apparently came in with complaints of diarrhea over the last week as well as generalized weakness. The patient really did not have much in way Polaroid complaints. No cough no phlegm. AV no fever. Not a particularly good historian. The patient was found by EMS to be hypotensive. Blood pressure was in the 60s. The patient Don apparently there are some question the patient May of been trying to kill herself that she apparently had a recent prescription for Xanax and maybe had was over taken the medication for suicide reasons. Anyway not a particularly good historian. Reconfirm the fact that she was a DO NOT RESUSCITATE. She was recently in the hospital is a DO NOT RESUSCITATE. She came out to the unit after receiving regular fluids in the emergency room. She received 4 L. The patient was on Levothroid at 25 mics per minute. Appointment 9 IV was running at 125. She is on O2 at 4 L. Initially is a 22-gauge IV in her hand. No central line was placed by the ER. She is a DO NOT RESUSCITATE. Review of Systems A 12 point review of system was difficult to obtain from this patient but appears that her only complaint at this time is weakness and fatigue. She is oriented though. She is lucid. Able to speak. Past Medical History Past Medical History: GERD/Reflux, Thyroid Disorder Additional Past Medical History / Comment(s): Pericardial effusion/tamponade status post window, status post recent acute hypoxic respiratory failure which recovered, long-standing irritable bowel syndrome, acid reflux, history of ischemic colitis, hypothyroidism, legal blindness, impaired hearing, IBS. bilateral cataracts, hypothyroidism, positive GILBERT, limited scleroderma, beta thalassemia trait with chronic anemia History of Any Multi-Drug Resistant Organisms: None Reported Past Surgical History: Appendectomy, Orthopedic Surgery Additional Past Surgical History / Comment(s): DEVIATED SEPTUM, TUBES AND OVARIES REMOVED, HAMLET SHOULDER SURGERY, pericardial window, bilateral forehead biopsy r/t loss of vision. Past Anesthesia/Blood Transfusion Reactions: No Reported Reaction Past Psychological History: Anxiety Smoking Status: Former smoker Past Alcohol Use History: Occasional Past Drug Use History: None Reported - Past Family History Father Family Medical History: Myocardial Infarction (NM) Additional Family Medical History / Comment(s): heart failure Medications and Allergies Home Medications Medication Instructions Recorded Confirmed Type Dicyclomine [Bentyl] 10 mg PO TID 02/23/16 07/17/17 History Omeprazole [PriLOSEC] 20 mg PO BID 02/23/16 07/17/17 History Ergocalciferol [Vitamin D2 50,000 unit PO CHAMBERLAIN 06/01/17 07/17/17 History (DRISDOL)] Furosemide [Lasix] 40 mg PO MOWEFR 06/01/17 07/17/17 History Calcium Carbonate [Calcium] 600 mg PO QAM 07/17/17 07/17/17 History Cyanocobalamin [Vitamin B-12] 500 mcg PO QAM 07/17/17 07/17/17 History Eluxadoline [Viberzi] 150 mg PO BID 07/17/17 07/17/17 History L.acidoph,Paracasei, B.lactis 1 cap PO HS 07/17/17 07/17/17 History [Probiotic] Levothyroxine Sodium [Synthroid] 12.5 mcg PO DAILY 07/17/17 07/17/17 History Magnesium Oxide [Mag-Ox] 400 mg PO BID 07/17/17 07/17/17 History Metoprolol Tartrate [Lopressor] 25 mg PO BID 07/17/17 07/17/17 History Nepafenac [Nevanac] 1 - 2 drop BOTH EYES TID 07/17/17 07/17/17 History Tacrolimus 1 applic TOPICAL HS 07/17/17 07/17/17 History Allergies Allergy/AdvReac Type Severity Reaction Status Date / Time venom-honey bee Allergy Unknown Anaphylaxis Verified 05/29/17 11:21 [bee venom (honey bee)] venom-wasp [Wasp Venom] Allergy Unknown Anaphylaxis Verified 05/29/17 11:21 ether Allergy Unknown Verified 05/29/17 11:21 methylprednisolone Allergy Rash/Hives Verified 05/29/17 11:21 [From Solu-Medrol] soybean Allergy Unknown Verified 05/29/17 11:21 tomato Allergy Unknown Verified 05/29/17 11:21 Physical Exam Osteopathic Statement: *. No significant issues noted on an osteopathic structural exam other than those noted in the History and Physical/Consult. Vitals: Vital Signs Temp Pulse Resp BP Pulse Ox 07/18/17 09:00 80 14 99/56 07/18/17 08:45 81 12 97/55 07/18/17 08:30 80 15 86/49 07/18/17 08:15 75 14 89/49 07/18/17 08:00 97.9 F 78 12 100/51 92 L 07/18/17 07:30 75 12 07/18/17 07:15 75 11 L 07/18/17 07:00 76 12 07/18/17 06:45 76 12 07/18/17 06:30 77 15 07/18/17 06:15 78 14 07/18/17 06:00 79 18 76/57 07/18/17 05:45 81 11 L 93/58 07/18/17 05:30 78 13 86/47 07/18/17 05:15 79 11 L 70/38 07/18/17 05:00 97.7 F 78 15 67/48 07/18/17 04:46 79 07/18/17 03:49 79 16 76/47 97 07/18/17 02:31 80 20 77/51 99 07/18/17 00:34 80 16 76/47 97 07/17/17 23:27 84 77/47 07/17/17 23:18 67 18 70/50 94 L 07/17/17 23:10 89 70/50 07/17/17 22:47 82 67/41 94 L 07/17/17 22:27 82 69/42 98 07/17/17 21:53 97 F L 66 18 77/46 100 Intake and Output 07/17/17 07/18/17 07/18/17 22:59 06:59 14:59 Intake Total 2429.122 Output Total 15 Balance 2414.122 Intake: IV 2175 D10W 500 Potassium Chloride 10 meq 300 Lidocaine 2% Inj 10 mg In Sodium Chloride 0.9% 100 ml @ 100 mls/hr IVPB Q1HR [facility] Rx#:[id number] Sodium Chloride 0.9% 1, 375 000 ml @ 125 mls/hr IV . Q8H [facility] Rx#:[id number] Sodium Chloride 0.9% 1, 1000 000 ml @ 999 mls/hr IV . Q1H1M [facility] Rx#:[id number] Intake, IV Titration 14.122 Amount Norepinephrin 4 mg-0.9% 14.122 Ns Pmx 4 mg In 250 ml @ Titrate IV .Q0M [facility] Rx#: [id number] Oral 240 Output: Urine 15 Other: Voiding Method Indwelling Catheter Indwelling Catheter # Bowel Movements 2 Weight 44.8 kg 50.5 kg ABP, PAP, CO, CI - Last 8 Hours Arterial Blood Pressure 92/54 Arterial Blood Pressure 89/49 Arterial Blood Pressure 86/50 Arterial Blood Pressure 91/52 Arterial Blood Pressure 82/47 Arterial Blood Pressure 73/43 Arterial Blood Pressure 76/45 Arterial Blood Pressure 78/45 Arterial Blood Pressure 92/13 Arterial Blood Pressure 90/46 No acute distress, oriented 3. HEENT examination is grossly unremarkable. Mucous membranes are moist. No oral lesions. Neck supple. Full range of motion. No adenopathy thyromegaly or neck vein distention. Cardiac vascular examination reveals regular rhythm rate. S1-S2 normal. No S3- S4. No murmur. Lungs reveal mostly clear breath sounds. No wheezes or rhonchi. No crackles. Abdomen soft bowel sounds are heard. Extremities are intact. No cyanosis clubbing or edema. Skin without rash. Neurologic examination is difficult to perform. Results - Laboratory Findings CBC and BMP: 07/18/17 06:48 07/18/17 06:48 PT/INR, D-dimer PT 14.2 sec (9.0-12.0) H 07/17/17 22:30 INR 1.4 (<1.2) H 07/17/17 22:30 Abnormal lab findings: Abnormal Labs 07/17/17 07/17/17 07/17/17 22:30 22:30 22:30 WBC 17.2 H RBC 3.42 L Hgb 7.7 L Hct 25.9 L MCV 75.7 L MCH 22.6 L MCHC 29.9 L RDW 15.8 H Neutrophils # (Manual) 14.90 H Monocytes # (Manual) 1.20 H Metamyelocytes # (Man) PT INR Sodium 133 L Potassium 3.2 L Chloride 88 L Carbon Dioxide BUN 31 H Creatinine 2.40 H Glucose POC Glucose (mg/dL) Plasma Lactic Acid Jeffery Calcium 7.2 L Ionized Calcium Samir Magnesium 1.3 L CK-MB (CK-2) 2.8 H* Troponin I 0.249 H* Total Protein 5.6 L Albumin 2.7 L Urine Appearance Urine Protein Urine WBC Amorphous Sediment Hyaline Casts Urine Mucus 07/17/17 07/17/17 07/18/17 22:30 23:33 01:45 WBC RBC Hgb Hct MCV MCH MCHC RDW Neutrophils # (Manual) Monocytes # (Manual) Metamyelocytes # (Man) PT 14.2 H INR 1.4 H Sodium Potassium Chloride Carbon Dioxide BUN Creatinine Glucose POC Glucose (mg/dL) Plasma Lactic Acid Jeffery 2.5 H* Calcium Ionized Calcium Samir Magnesium CK-MB (CK-2) Troponin I Total Protein Albumin Urine Appearance Cloudy H Urine Protein 1+ H Urine WBC 6 H Amorphous Sediment Rare H Hyaline Casts 84 H Urine Mucus Rare H 07/18/17 07/18/17 07/18/17 04:59 05:00 05:21 WBC RBC Hgb Hct MCV MCH MCHC RDW Neutrophils # (Manual) Monocytes # (Manual) Metamyelocytes # (Man) PT INR Sodium Potassium Chloride Carbon Dioxide BUN Creatinine Glucose POC Glucose (mg/dL) 28 L 27 L 34 L Plasma Lactic Acid Jeffery Calcium Ionized Calcium Samir Magnesium CK-MB (CK-2) Troponin I Total Protein Albumin Urine Appearance Urine Protein Urine WBC Amorphous Sediment Hyaline Casts Urine Mucus 07/18/17 07/18/17 07/18/17 05:26 05:51 06:33 WBC RBC Hgb Hct MCV MCH MCHC RDW Neutrophils # (Manual) Monocytes # (Manual) Metamyelocytes # (Man) PT INR Sodium Potassium Chloride Carbon Dioxide BUN Creatinine Glucose POC Glucose (mg/dL) 48 L 397 H 214 H Plasma Lactic Acid Jeffery Calcium Ionized Calcium Samir Magnesium CK-MB (CK-2) Troponin I Total Protein Albumin Urine Appearance Urine Protein Urine WBC Amorphous Sediment Hyaline Casts Urine Mucus 07/18/17 07/18/17 07/18/17 06:48 06:48 06:48 WBC 15.2 H RBC 3.02 L Hgb 6.9 L* Hct 23.5 L MCV 78.0 L MCH 22.9 L MCHC 29.3 L RDW Neutrophils # (Manual) 13.00 H Monocytes # (Manual) Metamyelocytes # (Man) 0.61 H PT INR Sodium 131 L Potassium Chloride Carbon Dioxide 20 L BUN 26 H Creatinine 2.20 H Glucose 241 H POC Glucose (mg/dL) Plasma Lactic Acid Jeffery Calcium 5.9 L* Ionized Calcium Samir Magnesium 1.3 L CK-MB (CK-2) Troponin I 0.245 H* Total Protein Albumin Urine Appearance Urine Protein Urine WBC Amorphous Sediment Hyaline Casts Urine Mucus 07/18/17 07:43 WBC RBC Hgb Hct MCV MCH MCHC RDW Neutrophils # (Manual) Monocytes # (Manual) Metamyelocytes # (Man) PT INR Sodium Potassium Chloride Carbon Dioxide BUN Creatinine Glucose POC Glucose (mg/dL) Plasma Lactic Acid Jeffery Calcium Ionized Calcium Samir 3.5 L* Magnesium CK-MB (CK-2) Troponin I Total Protein Albumin Urine Appearance Urine Protein Urine WBC Amorphous Sediment Hyaline Casts Urine Mucus - Diagnostic Findings Chest x-ray: image reviewed (X-rays labs and medications are all reviewed.) Assessment and Plan (1) Pneumonia Status: Acute (2) Sepsis Status: Acute (3) Acute kidney injury Status: Acute (4) Acute renal failure Status: Acute (5) Hypomagnesemia Status: Acute (6) Hypotension Status: Acute (7) Diarrhea Status: Acute (8) Hypokalemia Status: Acute (9) Hypomagnesemia Status: Acute (10) Pericardial effusion Status: Acute (11) Pericardial effusion with cardiac tamponade Status: Acute Plan: Plan dated 07/18/2017 The patient will likely need a central line. She also has a 22-gauge IV in her hand. The patient's on a high-dose a levo fed. She's received 4 L of fluid. She has an art line was placed by the [employer] but is not functioning well. We'll review her medications labs and x-rays. Additional recommendations suggestions are forthcoming. The patient will receive 1 unit of blood. Time with Patient: Greater than 30
--- NOTE | 2017-07-18 10:51 | XR ---
EXAMINATION TYPE: XR chest 1V portable DATE OF EXAM: 07/18/2017 COMPARISON: NONE INDICATION: Line placement TECHNIQUE: Single frontal view of the chest is obtained. FINDINGS: The heart size is normal. The pulmonary vasculature is normal. Mild bibasilar infiltrates are present. Correlate for some subsegmental atelectasis Catheter is present on the left tip deep through the right atrium likely within the distal inferior v junior cava within the abdomen. This is approximately 10 cm from the right hilum. No pneumothorax is matias dent. IMPRESSION: 1. No pneumothorax post line placement. 2. Catheter tip is deep within the inferior vena cava. Tip is approximately 10 cm from the hilum. 3. Mild subsegmental atelectasis bilateral lung bases.
[2017-07-18] MEDS: ENOXAPARIN 30 MG/0.3 ML SYRINGE SQ SCH (10:59)
[2017-07-18] MEDS: PIPERACILLIN-TAZOBACTAM 3.375 GM in DEXTROSE/WATER 1 50ML.BAG IVPB SCH ×2 (10:59→22:24)
[2017-07-18 11:50] LABS: Magnesium 1.7 mg/dL (1.6-2.3); Potassium 3.6 mmol/L (3.5-5.1)
[2017-07-18 12:07] LABS: ABG HCO3 23 mmol/L (21-25); ABG PCO2 54 mmHg (35-45); ABG PH 7.25 (7.35-7.45); ABG PO2 112 mmHg (83-108); ABG TCO2 24 mmol/L (19-24)
[2017-07-18 12:08] LABS: ABG Base Excess -3.7 mmol/L; ABG Oxygen Saturation 97.4 % (94-97)
[2017-07-18] MEDS ORDERED: POTASSIUM CHLORIDE ER 20 MEQ TAB.ER PO ONE (13:00)
[2017-07-18] MEDS: NOREPINEPHRIN 16 MG-0.9%NS PMX 16 MG/250 ML ML IV SCH ×2 (13:57→21:38)
[2017-07-18] MEDS ORDERED: DICYCLOMINE 10 MG CAP PO SCH (16:00)
[2017-07-18] MEDS ORDERED: FUROSEMIDE 10 MG/ML 2 ML VIAL IV STA (21:55)
--- NOTE | 2017-07-18 21:56 | P.HPIM ---
History of Present Illness H&P Date: 07/18/17 Chief Complaint: Altered mental status 82-year-old female with a past medical history of hypothyroidism, irritable bowel syndrome, recent pericardial effusion status post window placement and hypoxia restrictive failure presents for evaluation of diarrhea. Patient was brought in by EMS. Patient apparently had been having diarrhea over the past week and also complains of generalized weakness. Patient does have history of irritable bowel syndrome and has bouts of diarrhea from time to time. No nausea and vomiting. Patient also had a recent increase in her Lasix which she takes for lower extremity swelling. Patient was found by EMS to be hypotensive with systolic blood pressure in the 60s. Patient also has a recent prescription for Xanax 0.25 mg, and may have been over taking this medication. Patient denies any suicidal ideation. Patient denies chest pain or shortness of breath. Denies fever or chills. Denies abdominal pain. Denies rash. Patient was found to have leukocytosis, hypotension, hypokalemia and hypomagnesemia and dehydration. Patient was admitted to ICU. Chest x-ray showed initially no acute process. Repeat x-ray today showed bibasilar atelectasis. UA negative for infection Patient is being treated for possible pneumonia and cultures are pending at this time. Review of Systems Patient is a poor historian. 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 History of Any Multi-Drug Resistant Organisms: None Reported Past Surgical History: Appendectomy, Orthopedic Surgery Additional Past Surgical History / Comment(s): DEVIATED SEPTUM, TUBES AND OVARIES REMOVED, HAMLET ROTATOR CUFF SHOULDER SURGERY, pericardial window, bilateral forehead biopsy r/t loss of vision. Past Anesthesia/Blood Transfusion Reactions: No Reported Reaction Smoking Status: Former smoker - Past Family History Father Family Medical History: Myocardial Infarction ([place]) Additional Family Medical History / Comment(s): heart failure Medications and Allergies Home Medications Medication Instructions Recorded Confirmed Type Dicyclomine [Bentyl] 10 mg PO TID 02/23/16 07/17/17 History Omeprazole [PriLOSEC] 20 mg PO BID 02/23/16 07/17/17 History Ergocalciferol [Vitamin D2 50,000 unit PO CHAMBERLAIN 06/01/17 07/17/17 History (DRISDOL)] Furosemide [Lasix] 40 mg PO MOWEFR 06/01/17 07/17/17 History Calcium Carbonate [Calcium] 600 mg PO QAM 07/17/17 07/17/17 History Cyanocobalamin [Vitamin B-12] 500 mcg PO QAM 07/17/17 07/17/17 History Eluxadoline [Viberzi] 150 mg PO BID 07/17/17 07/17/17 History L.acidoph,Paracasei, B.lactis 1 cap PO HS 07/17/17 07/17/17 History [Probiotic] Levothyroxine Sodium [Synthroid] 12.5 mcg PO DAILY 07/17/17 07/17/17 History Magnesium Oxide [Mag-Ox] 400 mg PO BID 07/17/17 07/17/17 History Metoprolol Tartrate [Lopressor] 25 mg PO BID 07/17/17 07/17/17 History Nepafenac [Nevanac] 1 - 2 drop BOTH EYES TID 07/17/17 07/17/17 History Tacrolimus 1 applic TOPICAL HS 07/17/17 07/17/17 History Allergies Allergy/AdvReac Type Severity Reaction Status Date / Time venom-honey bee Allergy Unknown Anaphylaxis Verified 05/29/17 11:21 [bee venom (honey bee)] venom-wasp [Wasp Venom] Allergy Unknown Anaphylaxis Verified 05/29/17 11:21 ether Allergy Unknown Verified 05/29/17 11:21 methylprednisolone Allergy Rash/Hives Verified 05/29/17 11:21 [From Solu-Medrol] soybean Allergy Unknown Verified 05/29/17 11:21 tomato Allergy Unknown Verified 05/29/17 11:21 Physical Exam Vitals: Vital Signs Temp Pulse Resp BP Pulse Ox 07/18/17 14:15 98.5 F 78 18 91/46 95 07/18/17 14:00 80 17 116/97 07/18/17 13:30 79 20 116/97 07/18/17 13:00 80 17 101/55 07/18/17 12:30 78 18 98/63 95 07/18/17 12:05 98.2 F 81 14 88/48 97 07/18/17 12:00 98.2 F 78 14 95 07/18/17 11:35 97.9 F 79 12 88/46 97 07/18/17 11:30 78 14 82/49 07/18/17 11:25 98.0 F 79 14 84/42 07/18/17 11:00 80 12 86/67 07/18/17 10:30 81 18 86/51 07/18/17 10:00 79 19 07/18/17 09:30 80 18 92/44 92 L 07/18/17 09:00 80 14 99/56 07/18/17 08:45 81 12 97/55 07/18/17 08:30 80 15 86/49 07/18/17 08:15 75 14 89/49 07/18/17 08:00 97.9 F 78 12 100/51 92 L 07/18/17 07:45 95 07/18/17 07:30 75 12 07/18/17 07:15 75 11 L 07/18/17 07:00 76 12 07/18/17 06:45 76 12 07/18/17 06:30 77 15 07/18/17 06:15 78 14 07/18/17 06:00 79 18 76/57 07/18/17 05:45 81 11 L 93/58 07/18/17 05:30 78 13 86/47 07/18/17 05:15 79 11 L 70/38 07/18/17 05:00 97.7 F 78 15 67/48 07/18/17 04:46 79 07/18/17 03:49 79 16 76/47 97 07/18/17 02:31 80 20 77/51 99 07/18/17 00:34 80 16 76/47 97 07/17/17 23:27 84 77/47 07/17/17 23:18 67 18 70/50 94 L 07/17/17 23:10 89 70/50 07/17/17 22:47 82 67/41 94 L 07/17/17 22:27 82 69/42 98 08/20/17 21:53 97 F L 66 18 77/46 100 Intake and Output 07/18/17 07/18/17 07/18/17 06:59 14:59 22:59 Intake Total 3695.372 Output Total 20 Balance 3675.372 Intake: IV 2800 D10W 500 Potassium Chloride 10 meq 300 Lidocaine 2% Inj 10 mg In Sodium Chloride 0.9% 100 ml @ 100 mls/hr IVPB Q1HR [facility] Rx#:[id number] Sodium Chloride 0.9% 1, 1000 000 ml @ 125 mls/hr IV . Q8H [facility] Rx#:[id number] Sodium Chloride 0.9% 1, 1000 000 ml @ 999 mls/hr IV . Q1H1M [facility] Rx#:[id number] Intake, IV Titration 345.372 Amount Magnesium Sulfate-D5w Pmx 100 1 gm In Dextrose/Water 1 100ml.bag @ 100 mls/hr IVPB Q1H [facility] Rx#: [id number] Norepinephrin 4 mg-0.9% 195.372 Ns Pmx 4 mg In 250 ml @ Titrate IV .Q0M [facility] Rx#: [id number] Piperacillin-Tazobactam 3 50.0 .375 gm In Dextrose/Water 1 50ml.bag @ 12.5 mls/hr IVPB Q12HR [facility] Rx#: [id number] Oral 240 Blood Product 310 Rc As-1 Unit 310 [id number] Output: Urine 20 Other: Voiding Method Indwelling Catheter Indwelling Catheter # Bowel Movements 1 Weight 50.5 kg ABP, PAP, CO, CI - Last 8 Hours Arterial Blood Pressure 100/51 Arterial Blood Pressure 105/54 Arterial Blood Pressure 108/57 Arterial Blood Pressure 82/44 Arterial Blood Pressure 91/46 Arterial Blood Pressure 91/49 Arterial Blood Pressure 83/45 Arterial Blood Pressure 86/56 Arterial Blood Pressure 83/49 Arterial Blood Pressure 92/54 Arterial Blood Pressure 89/49 Arterial Blood Pressure 86/50 Arterial Blood Pressure 91/52 Arterial Blood Pressure 82/47 Arterial Blood Pressure 73/43 PHYSICAL EXAMINATION: Patient is lying in the bed comfortably, no acute distress, awake alert and oriented but confused. HEENT: Normocephalic. Neck is supple. Pupils reactive. Nostrils clear. Oral cavity is moist. Ears reveal no drainage. Neck reveals no JVD, carotid bruits, or thyromegaly. CHEST EXAMINATION: Trachea is central. Symmetrical expansion. Lung aponte clear to auscultation and percussion. Decreased air entry bilateral basilar CARDIAC: Normal S1, S2 with no gallops. No murmurs ABDOMEN: Soft. Bowel sounds normal. No organomegaly. No abdominal bruits. Extremities reveal no edema. No clubbing or cyanosis Neurologically awake, alert, oriented x3 with well-coordinated movements. Skin: no rash or skin lesions Musculoskeletal: no joint swelling or deformity. Results CBC & Chem 7: 07/18/17 06:48 07/18/17 18:50 Labs: Abnormal Lab Results - Last 24 Hours (Table) 07/17/17 07/17/17 07/17/17 Range/Units 22:30 22:30 22:30 WBC 17.2 H (3.8-10.6) k/uL RBC 3.42 L (3.80-5.40) m/uL Hgb 7.7 L (11.4-16.0) gm/dL Hct 25.9 L (34.0-46.0) % MCV 75.7 L (80.0-100.0) fL MCH 22.6 L (25.0-35.0) pg MCHC 29.9 L (31.0-37.0) g/dL RDW 15.8 H (11.5-15.5) % Neutrophils # (Manual) 14.90 H (1.3-7.7) k/uL Monocytes # (Manual) 1.20 H (0-1.0) k/uL Metamyelocytes # (Man) (0) k/uL PT (9.0-12.0) sec INR (<1.2) ABG pH (7.35-7.45) ABG pCO2 (35-45) mmHg ABG pO2 (83-108) mmHg ABG O2 Saturation (94-97) % Sodium 133 L (137-145) mmol/L Potassium 3.2 L (3.5-5.1) mmol/L Chloride 88 L (98-107) mmol/L Carbon Dioxide (22-30) mmol/L BUN 31 H (7-17) mg/dL Creatinine 2.40 H (0.52-1.04) mg/dL Glucose (74-99) mg/dL POC Glucose (mg/dL) (75-99) mg/dL Plasma Lactic Acid Jeffery (0.7-2.0) mmol/L Calcium 7.2 L (8.4-10.2) mg/dL Ionized Calcium Samir (4.5-5.3) mg/dL Magnesium 1.3 L (1.6-2.3) mg/dL CK-MB (CK-2) 2.8 H* (0.0-2.4) ng/mL Troponin I 0.249 H* (0.000-0.034) ng/mL Total Protein 5.6 L (6.3-8.2) g/dL Albumin 2.7 L (3.5-5.0) g/dL Urine Appearance (Clear) Urine Protein (Negative) Urine WBC (0-5) /hpf Amorphous Sediment (None) /hpf Hyaline Casts (0-2) /lpf Urine Mucus (None) /hpf Crossmatch 07/17/17 07/17/17 07/18/17 Range/Units 22:30 23:33 01:45 WBC (3.8-10.6) k/uL RBC (3.80-5.40) m/uL Hgb (11.4-16.0) gm/dL Hct (34.0-46.0) % MCV (80.0-100.0) fL MCH (25.0-35.0) pg MCHC (31.0-37.0) g/dL RDW (11.5-15.5) % Neutrophils # (Manual) (1.3-7.7) k/uL Monocytes # (Manual) (0-1.0) k/uL Metamyelocytes # (Man) (0) k/uL PT 14.2 H (9.0-12.0) sec INR 1.4 H (<1.2) ABG pH (7.35-7.45) ABG pCO2 (35-45) mmHg ABG pO2 (83-108) mmHg ABG O2 Saturation (94-97) % Sodium (137-145) mmol/L Potassium (3.5-5.1) mmol/L Chloride (98-107) mmol/L Carbon Dioxide (22-30) mmol/L BUN (7-17) mg/dL Creatinine (0.52-1.04) mg/dL Glucose (74-99) mg/dL POC Glucose (mg/dL) (75-99) mg/dL Plasma Lactic Acid Jeffery 2.5 H* (0.7-2.0) mmol/L Calcium (8.4-10.2) mg/dL Ionized Calcium Samir (4.5-5.3) mg/dL Magnesium (1.6-2.3) mg/dL CK-MB (CK-2) (0.0-2.4) ng/mL Troponin I (0.000-0.034) ng/mL Total Protein (6.3-8.2) g/dL Albumin (3.5-5.0) g/dL Urine Appearance Cloudy H (Clear) Urine Protein 1+ H (Negative) Urine WBC 6 H (0-5) /hpf Amorphous Sediment Rare H (None) /hpf Hyaline Casts 84 H (0-2) /lpf Urine Mucus Rare H (None) /hpf Crossmatch 07/18/17 07/18/17 07/18/17 Range/Units 04:59 05:00 05:21 WBC (3.8-10.6) k/uL RBC (3.80-5.40) m/uL Hgb (11.4-16.0) gm/dL Hct (34.0-46.0) % MCV (80.0-100.0) fL MCH (25.0-35.0) pg MCHC (31.0-37.0) g/dL RDW (11.5-15.5) % Neutrophils # (Manual) (1.3-7.7) k/uL Monocytes # (Manual) (0-1.0) k/uL Metamyelocytes # (Man) (0) k/uL PT (9.0-12.0) sec INR (<1.2) ABG pH (7.35-7.45) ABG pCO2 (35-45) mmHg ABG pO2 (83-108) mmHg ABG O2 Saturation (94-97) % Sodium (137-145) mmol/L Potassium (3.5-5.1) mmol/L Chloride (98-107) mmol/L Carbon Dioxide (22-30) mmol/L BUN (7-17) mg/dL Creatinine (0.52-1.04) mg/dL Glucose (74-99) mg/dL POC Glucose (mg/dL) 28 L 27 L 34 L (75-99) mg/dL Plasma Lactic Acid Jeffery (0.7-2.0) mmol/L Calcium (8.4-10.2) mg/dL Ionized Calcium Samir (4.5-5.3) mg/dL Magnesium (1.6-2.3) mg/dL CK-MB (CK-2) (0.0-2.4) ng/mL Troponin I (0.000-0.034) ng/mL Total Protein (6.3-8.2) g/dL Albumin (3.5-5.0) g/dL Urine Appearance (Clear) Urine Protein (Negative) Urine WBC (0-5) /hpf Amorphous Sediment (None) /hpf Hyaline Casts (0-2) /lpf Urine Mucus (None) /hpf Crossmatch 07/18/17 07/18/17 07/18/17 Range/Units 05:26 05:51 06:33 WBC (3.8-10.6) k/uL RBC (3.80-5.40) m/uL Hgb (11.4-16.0) gm/dL Hct (34.0-46.0) % MCV (80.0-100.0) fL MCH (25.0-35.0) pg MCHC (31.0-37.0) g/dL RDW (11.5-15.5) % Neutrophils # (Manual) (1.3-7.7) k/uL Monocytes # (Manual) (0-1.0) k/uL Metamyelocytes # (Man) (0) k/uL PT (9.0-12.0) sec INR (<1.2) ABG pH (7.35-7.45) ABG pCO2 (35-45) mmHg ABG pO2 (83-108) mmHg ABG O2 Saturation (94-97) % Sodium (137-145) mmol/L Potassium (3.5-5.1) mmol/L Chloride (98-107) mmol/L Carbon Dioxide (22-30) mmol/L BUN (7-17) mg/dL Creatinine (0.52-1.04) mg/dL Glucose (74-99) mg/dL POC Glucose (mg/dL) 48 L 397 H 214 H (75-99) mg/dL Plasma Lactic Acid Jeffery (0.7-2.0) mmol/L Calcium (8.4-10.2) mg/dL Ionized Calcium Samir (4.5-5.3) mg/dL Magnesium (1.6-2.3) mg/dL CK-MB (CK-2) (0.0-2.4) ng/mL Troponin I (0.000-0.034) ng/mL Total Protein (6.3-8.2) g/dL Albumin (3.5-5.0) g/dL Urine Appearance (Clear) Urine Protein (Negative) Urine WBC (0-5) /hpf Amorphous Sediment (None) /hpf Hyaline Casts (0-2) /lpf Urine Mucus (None) /hpf Crossmatch 07/18/17 07/18/17 07/18/17 Range/Units 06:48 06:48 06:48 WBC 15.2 H (3.8-10.6) k/uL RBC 3.02 L (3.80-5.40) m/uL Hgb 6.9 L* (11.4-16.0) gm/dL Hct 23.5 L (34.0-46.0) % MCV 78.0 L (80.0-100.0) fL MCH 22.9 L (25.0-35.0) pg MCHC 29.3 L (31.0-37.0) g/dL RDW (11.5-15.5) % Neutrophils # (Manual) 13.00 H (1.3-7.7) k/uL Monocytes # (Manual) (0-1.0) k/uL Metamyelocytes # (Man) 0.61 H (0) k/uL PT (9.0-12.0) sec INR (<1.2) ABG pH (7.35-7.45) ABG pCO2 (35-45) mmHg ABG pO2 (83-108) mmHg ABG O2 Saturation (94-97) % Sodium 131 L (137-145) mmol/L Potassium (3.5-5.1) mmol/L Chloride (98-107) mmol/L Carbon Dioxide 20 L (22-30) mmol/L BUN 26 H (7-17) mg/dL Creatinine 2.20 H (0.52-1.04) mg/dL Glucose 241 H (74-99) mg/dL POC Glucose (mg/dL) (75-99) mg/dL Plasma Lactic Acid Jeffery (0.7-2.0) mmol/L Calcium 5.9 L* (8.4-10.2) mg/dL Ionized Calcium Samir (4.5-5.3) mg/dL Magnesium 1.3 L (1.6-2.3) mg/dL CK-MB (CK-2) (0.0-2.4) ng/mL Troponin I 0.245 H* (0.000-0.034) ng/mL Total Protein (6.3-8.2) g/dL Albumin (3.5-5.0) g/dL Urine Appearance (Clear) Urine Protein (Negative) Urine WBC (0-5) /hpf Amorphous Sediment (None) /hpf Hyaline Casts (0-2) /lpf Urine Mucus (None) /hpf Crossmatch 07/18/17 07/18/17 07/18/17 Range/Units 07:43 09:13 11:06 WBC (3.8-10.6) k/uL RBC (3.80-5.40) m/uL Hgb (11.4-16.0) gm/dL Hct (34.0-46.0) % MCV (80.0-100.0) fL MCH (25.0-35.0) pg MCHC (31.0-37.0) g/dL RDW (11.5-15.5) % Neutrophils # (Manual) (1.3-7.7) k/uL Monocytes # (Manual) (0-1.0) k/uL Metamyelocytes # (Man) (0) k/uL PT (9.0-12.0) sec INR (<1.2) ABG pH 7.25 L (7.35-7.45) ABG pCO2 54 H (35-45) mmHg ABG pO2 112 H (83-108) mmHg ABG O2 Saturation 97.4 H (94-97) % Sodium (137-145) mmol/L Potassium (3.5-5.1) mmol/L Chloride (98-107) mmol/L Carbon Dioxide (22-30) mmol/L BUN (7-17) mg/dL Creatinine (0.52-1.04) mg/dL Glucose (74-99) mg/dL POC Glucose (mg/dL) (75-99) mg/dL Plasma Lactic Acid Jeffery (0.7-2.0) mmol/L Calcium (8.4-10.2) mg/dL Ionized Calcium Samir 3.5 L* (4.5-5.3) mg/dL Magnesium (1.6-2.3) mg/dL CK-MB (CK-2) (0.0-2.4) ng/mL Troponin I (0.000-0.034) ng/mL Total Protein (6.3-8.2) g/dL Albumin (3.5-5.0) g/dL Urine Appearance (Clear) Urine Protein (Negative) Urine WBC (0-5) /hpf Amorphous Sediment (None) /hpf Hyaline Casts (0-2) /lpf Urine Mucus (None) /hpf Crossmatch See Detail Microbiology - Last 24 Hours (Table) 07/17/17 23:33 Urine Culture - Preliminary Urine,Catheterized Thrombosis Risk Factor Assmnt - DVT/VTE Prophylaxis DVT/VTE Prophylaxis: Pharmacologic Prophylaxis ordered - Choose All That Apply Any of the Below Risk Factors Present?: Yes Each Factor Represents 1 point: Hx of IBD, Medical pt on bed rest Other Risk Factors: Yes Each Risk Factor Represents 2 Points: Patient confined to bed Each Risk Factor Represents 3 Points: Age 75 years or older Other congenital or acquired thrombophilia - If yes, enter type in comment: No Thrombosis Risk Factor Assessment Total Risk Factor Score: 7 Thrombosis Risk Factor Assessment Level: High Risk Assessment and Plan Plan: #1 acute metabolic and toxic encephalopathy secondary to volume depletion and infection and Xanax intake #2 SIRS with possible pneumonia. Patient was hypotensive and a leukocytosis with 17.2 #3 acute on chronic diarrhea with history of IBS #4 dehydration and volume depletion #5 acute kidney injury most likely prerenal #6 hypokalemia and hypomagnesemia #8 microcytic anemia/area of chronic disease with history of thalassemia trait #9 hypothyroidism #10 hypovolemic hyponatremia #11 mild to moderate protein calorie malnutrition #12 elevated troponin. Likely due to demand mismatch #13 recent history of pericardial effusion status post window placement in March 2017 #14 GERD #15 DVT prophylaxis CODE STATUS: DO NOT RESUSCITATE/DO NOT INTUBATE Plan. Patient will be continued on IV hydration and antibiotics in the form of Zosyn at this time. Continue to monitor the patient in the ICU and replace her lites. Supportive care and symptomatic management. DO NOT RESUSCITATE/DO NOT INTUBATE Time with Patient: Greater than 30
[2017-07-18 22:46] LABS: Anisocytosis Slight; CH 24.8; CHCM 30.2; HCT 31.4 % (34.0-46.0); Hypochromasia Marked; MCH 24.6 pg (25.0-35.0); MCHC 30.1 g/dL (31.0-37.0); MCV 81.7 fL (80.0-100.0); Mean Platelet Volume 9.2; Poikilocytosis Moderate; RBC 3.84 m/uL (3.80-5.40); RDW 17.1 % (11.5-15.5); WBC 13.7 k/uL (3.8-10.6)
[2017-07-18 22:53] LABS: HGB 9.4 gm/dL (11.4-16.0)
[2017-07-19] MEDS: POTASSIUM CHLORIDE 10 MEQ, LIDOCAINE 2% INJ 10 MG in SODIUM CHLORIDE 0.9% 100 ML IV SCH ×2 (02:28→03:51)
[2017-07-19] MEDS: SODIUM CHLORIDE 0.9% 1,000 ML IV SCH ×3 (03:11→16:39)
[2017-07-19 05:39] LABS: Anisocytosis Slight; CH 23.6; CHCM 29.6; HCT 30.4 % (34.0-46.0); HDW 4.55; HGB 9.3 gm/dL (11.4-16.0); Hypochromasia Marked; Immature Gran Flag Moderate; MCH 24.4 pg (25.0-35.0); MCHC 30.7 g/dL (31.0-37.0); MCV 79.4 fL (80.0-100.0); Mean Platelet Volume 8.5; Microcytosis Slight; Poikilocytosis Moderate; RBC 3.82 m/uL (3.80-5.40); RDW 16.3 % (11.5-15.5); WBC 13.3 k/uL (3.8-10.6); WBC (Perox) 13.11
--- NOTE | 2017-07-19 05:52 | PCN ---
PREOPERATIVE DIAGNOSIS: Administration of fluids and pressors. POSTOPERATIVE DIAGNOSIS: Administration of fluids and pressors. TRIPLE LUMEN CATHETER PLACEMENT Indication: Hemodynamic monitoring/Intravenous access. A time-out was completed verifying correct patient, procedure, site, positioning , and implant(s) or special equipment if applicable. The patient was placed in a dependent position appropriate for triple lumen catheter placement based on the vein to be cannulated. The patients left neck was prepped and draped in sterile fashion. 1% Lidocaine was used to anesthetize the surrounding skin area. A triple lumen 9F Cordis catheter was introduced into the left internal jugular vein using Seldinger technique. The catheter was threaded smoothly over the guide wire and appropriate blood return was obtained. Each lumen of the catheter was evacuated of air and flushed with sterile saline. The catheter was then sutured in place to the skin and a sterile dressing applied. Perfusion to the extremity distal to the point of catheter insertion was checked and found to be adequate. There was no immediate complication. The site was the left internal jugular vein. It was posterior approach. There was good blood return from all 3 ports. The catheter was sutured in placed. Sterile dressing was applied by the nurse. Chest x-ray was ordered for placement. There were no obvious complications. [facility]
[2017-07-19 06:00] LABS: Magnesium 2.2 mg/dL (1.6-2.3); Potassium 3.7 mmol/L (3.5-5.1); Total Bilirubin 1.6 mg/dL (0.2-1.3); Total Protein 5.2 g/dL (6.3-8.2)
[2017-07-19 06:05] LABS: Add Differential Manual Differential
[2017-07-19] MEDS: NOREPINEPHRIN 16 MG-0.9%NS PMX 16 MG/250 ML ML IV SCH (06:08)
[2017-07-19 06:09] LABS: % Iron Saturation 42.5 % (20-50)
[2017-07-19 06:13] LABS: Calcium 5.9 mg/dL (8.4-10.2)
[2017-07-19 06:16] LABS: Band Neutrophils % 7 %; Manual Review Performed; Myelocytes % 1 %; Nucleated Red Blood Cells 0 /100 WBC (0-0); Total Cells Counted 200
--- NOTE | 2017-07-19 07:18 | XR ---
EXAMINATION TYPE: XR chest 1V DATE OF EXAM: 07/19/2017 COMPARISON: July 18, 2017 HISTORY: SOB, Follow Up FINDINGS: Central venous line unchanged in position. No change in bibasilar opacities. Stable appearance of the cardio-mediastinal structures at this time. Pleural effusion unchanged. IMPRESSION: 1. Stable portable chest. Clinical correlation and follow up until resolution is recommended.
[2017-07-19] MEDS ORDERED: POTASSIUM CHLORIDE ER 20 MEQ TAB.ER PO ONE (08:00)
[2017-07-19] MEDS: LEVOTHYROXINE 25 MCG TAB PO SCH (08:28)
[2017-07-19] MEDS: ENOXAPARIN 30 MG/0.3 ML SYRINGE SQ SCH (08:29)
[2017-07-19] MEDS: PANTOPRAZOLE 40 MG TABLET PO SCH (08:29)
[2017-07-19] MEDS: PIPERACILLIN-TAZOBACTAM 3.375 GM in DEXTROSE/WATER 1 50ML.BAG IVPB SCH ×2 (08:55→20:35)
[2017-07-19 10:44] VITALS: BMI 22.1
[2017-07-19] MEDS ORDERED: POTASSIUM CHLORIDE ER 20 MEQ TAB.ER PO STA (12:08)
[2017-07-19] MEDS ORDERED: LORazepam 2 MG/ML SYRINGE IV PRN (16:28)
[2017-07-19] MEDS ORDERED: FUROSEMIDE 10 MG/ML 2 ML VIAL IV ONE (19:00)
[2017-07-19] MEDS ORDERED: ATROPINE OPHTH SOLN 1% 5ML BTL SUBLINGUAL PRN (19:01)
[2017-07-19 21:21] VITALS: TEMP 97.2
[2017-07-19 22:08] LABS: ABG PCO2 57 mmHg (35-45); ABG PH 7.16 (7.35-7.45); ABG PO2 57 mmHg (83-108)
[2017-07-19 22:09] LABS: ABG Base Excess -8.1 mmol/L; ABG HCO3 19 mmol/L (21-25); ABG TCO2 21 mmol/L (19-24)
--- NOTE | 2017-07-19 23:02 | P.PN ---
Subjective Principal diagnosis: Hypotensive shock 82-year-old female with a past medical history of hypothyroidism, irritable bowel syndrome, recent pericardial effusion status post window placement and hypoxia restrictive failure presents for evaluation of diarrhea. Patient was brought in by EMS. Patient apparently had been having diarrhea over the past week and also complains of generalized weakness. Patient does have history of irritable bowel syndrome and has bouts of diarrhea from time to time. No nausea and vomiting. Patient also had a recent increase in her Lasix which she takes for lower extremity swelling. Patient was found by EMS to be hypotensive with systolic blood pressure in the 60s. Patient also has a recent prescription for Xanax 0.25 mg, and may have been over taking this medication. Patient denies any suicidal ideation. Patient denies chest pain or shortness of breath. Denies fever or chills. Denies abdominal pain. Denies rash. Patient was found to have leukocytosis, hypotension, hypokalemia and hypomagnesemia and dehydration. Patient was admitted to ICU. Chest x-ray showed initially no acute process. Repeat x-ray today showed bibasilar atelectasis. UA negative for infection Patient is being treated for possible pneumonia and cultures are pending at this time. On 07/19/2017 Patient is still requiring pressor support. Continued on IV hydration. Patient is having visual hallucinations today. Chest x-ray showed no acute changes. Patient is having hypocalcemia. Leukocytosis improving. Continued on broad-spectrum IV antibiotics. Objective - Vital Signs Vital signs: Vital Signs Temp 97.2 F L 07/19/17 20:00 Pulse 103 H 07/19/17 21:00 Resp 10 L 07/19/17 21:00 BP 97/51 07/19/17 21:00 Pulse Ox 96 07/19/17 21:00 Intake & Output 07/19/17 07/19/17 07/20/17 06:59 18:59 06:59 Intake Total 2194.375 1756.938 443 Output Total 670 1370 600 Balance 1524.375 386.938 -157 Weight 49.7 kg 49.7 kg Intake: IV 1566 1548 393 0.9 Pressure bag 66 48 18 Sodium Chloride 0.9% 1, 1500 1500 375 000 ml @ 125 mls/hr IV . Q8H [facility] Rx#:[id number] Intake, IV Titration 578.375 208.938 50 Amount Norepinephrin 16 mg-0.9% 328.375 146.438 Ns Pmx 16 mg In 250 ml @ Titrate IV .Q0M [facility] Rx#: [id number] Piperacillin-Tazobactam 3 50.0 62.5 50 .375 gm In Dextrose/Water 1 50ml.bag @ 12.5 mls/hr IVPB Q12HR [facility] Rx#: [id number] Potassium Chloride 10 meq 200 Lidocaine 2% Inj 10 mg In Sodium Chloride 0.9% 100 ml @ 100 mls/hr IV Q1HR [facility] Rx#:[id number] Oral 50 Output: Urine 670 1370 600 Stool 0 Other: Voiding Method Indwelling Catheter Indwelling Catheter Indwelling Catheter ABP, PAP, CO, CI - Last Documented Arterial Blood Pressure 103/45 - Exam Patient is lying in the bed comfortably, no acute distress, awake alert and oriented but confused and hallucinating.. HEENT: Normocephalic. Neck is supple. Pupils reactive. Nostrils clear. Oral cavity is moist. Ears reveal no drainage. Neck reveals no JVD, carotid bruits, or thyromegaly. CHEST EXAMINATION: Trachea is central. Symmetrical expansion. Lung aponte clear to auscultation and percussion. Decreased air entry bilateral basilar CARDIAC: Normal S1, S2 with no gallops. No murmurs ABDOMEN: Soft. Bowel sounds normal. No organomegaly. No abdominal bruits. Extremities reveal no edema. No clubbing or cyanosis Neurologically awake, alert with well-coordinated movements. Skin: no rash or skin lesions Musculoskeletal: no joint swelling or deformity. - Labs CBC & Chem 7: 07/19/17 05:30 07/19/17 19:39 Labs: Abnormal Lab Results - Last 24 Hours (Table) 07/18/17 07/19/17 07/19/17 Range/Units 22:35 05:30 05:30 WBC 13.7 H 13.3 H (3.8-10.6) k/uL Hgb 9.4 L D 9.3 L (11.4-16.0) gm/dL Hct 31.4 L 30.4 L (34.0-46.0) % MCV 79.4 L (80.0-100.0) fL MCH 24.6 L 24.4 L (25.0-35.0) pg MCHC 30.1 L 30.7 L (31.0-37.0) g/dL RDW 17.1 H 16.3 H (11.5-15.5) % Neutrophils # (Manual) 11.10 H (1.3-7.7) k/uL Monocytes # (Manual) 1.20 H (0-1.0) k/uL Myelocytes # (Manual) 0.13 H (0) k/uL ABG pH (7.35-7.45) ABG pCO2 (35-45) mmHg ABG pO2 (83-108) mmHg ABG HCO3 (21-25) mmol/L ABG O2 Saturation (94-97) % Carbon Dioxide 20 L (22-30) mmol/L BUN 26 H (7-17) mg/dL Creatinine 2.20 H (0.52-1.04) mg/dL Calcium 5.9 L* (8.4-10.2) mg/dL Ionized Calcium Samir (4.5-5.3) mg/dL Phosphorus 2.0 L (2.5-4.5) mg/dL TIBC 153 L (265-497) ug/dL Ferritin 372 H (11-264) ng/mL Total Bilirubin 1.6 H (0.2-1.3) mg/dL Alkaline Phosphatase 150 H (38-126) U/L Total Protein 5.2 L (6.3-8.2) g/dL Albumin 2.3 L (3.5-5.0) g/dL 07/19/17 07/19/17 Range/Units 06:35 21:48 WBC (3.8-10.6) k/uL Hgb (11.4-16.0) gm/dL Hct (34.0-46.0) % MCV (80.0-100.0) fL MCH (25.0-35.0) pg MCHC (31.0-37.0) g/dL RDW (11.5-15.5) % Neutrophils # (Manual) (1.3-7.7) k/uL Monocytes # (Manual) (0-1.0) k/uL Myelocytes # (Manual) (0) k/uL ABG pH 7.16 L* (7.35-7.45) ABG pCO2 57 H (35-45) mmHg ABG pO2 57 L (83-108) mmHg ABG HCO3 19 L (21-25) mmol/L ABG O2 Saturation 80.0 L (94-97) % Carbon Dioxide (22-30) mmol/L BUN (7-17) mg/dL Creatinine (0.52-1.04) mg/dL Calcium (8.4-10.2) mg/dL Ionized Calcium Samir 3.8 L (4.5-5.3) mg/dL Phosphorus (2.5-4.5) mg/dL TIBC (265-497) ug/dL Ferritin (11-264) ng/mL Total Bilirubin (0.2-1.3) mg/dL Alkaline Phosphatase (38-126) U/L Total Protein (6.3-8.2) g/dL Albumin (3.5-5.0) g/dL Microbiology - Last 24 Hours (Table) 07/17/17 23:33 Urine Culture - Final Urine,Catheterized 07/18/17 01:45 Blood Culture - Preliminary Blood No Growth after 24 hours Assessment and Plan Plan: #1 acute metabolic and toxic encephalopathy secondary to volume depletion and possible infection and Xanax intake #2 SIRS with possible pneumonia. Patient was hypotensive and a leukocytosis with 17.2-->13 #2 acute hypovolemic shock. Requiring pressor support. TSH within normal limits. Cortisol 23 #3 acute on chronic diarrhea with history of IBS. No diarrhea now. #4 dehydration and volume depletion #5 acute kidney injury most likely prerenal #6 hypokalemia and hypomagnesemia #8 microcytic anemia/area of chronic disease with history of thalassemia trait #9 hypothyroidism #10 hypovolemic hyponatremia #11 mild to moderate protein calorie malnutrition #12 elevated troponin. Likely due to demand mismatch #13 recent history of pericardial effusion status post window placement in March 2017 #14 GERD #15 DVT prophylaxis #16 hypocalcemia CODE STATUS: DO NOT RESUSCITATE/DO NOT INTUBATE Plan. Patient will be continued on IV hydration, Levophed and antibiotics in the form of Zosyn at this time. Continue to monitor the patient in the ICU and replace her lites. Supportive care and symptomatic management. DO NOT RESUSCITATE/DO NOT INTUBATE Time with Patient: Greater than 30
[2017-07-20] MEDS ORDERED: HYDROmorphone 1 MG/ML 1 ML SYRINGE IVP PRN (00:51)
[2017-07-20] MEDS: SODIUM CHLORIDE 0.9% 1,000 ML IV SCH (00:52)
[2017-07-20] MEDS: NOREPINEPHRIN 16 MG-0.9%NS PMX 16 MG/250 ML ML IV SCH (03:40)
[2017-07-20 04:53] LABS: Anion Gap 9 mmol/L; Blood Urea Nitrogen 28 mg/dL (7-17); Carbon Dioxide 19 mmol/L (22-30); Chloride 110 mmol/L (98-107); Magnesium 2.1 mg/dL (1.6-2.3); Non-African American GFR(MDRD) 19 (>60 ml/min/1.73 sqM); Phosphorous 2.5 mg/dL (2.5-4.5); Potassium 3.9 mmol/L (3.5-5.1); Sodium 138 mmol/L (137-145)
[2017-07-20 05:08] LABS: Calcium 5.5 mg/dL (8.4-10.2); Glucose 37 mg/dL (74-99)
[2017-07-20 05:47] LABS: Hepatitis B Surface Ag Index 0.04
[2017-07-20 05:52] LABS: Hepatitis B Core IgM Index 0.02
[2017-07-20 06:01] LABS: Glucose,Whole Blood 124 mg/dL (75-99)
[2017-07-20 06:04] LABS: Hepatitis C Virus IgG Ab Negative (Negative); Hepatitis C Virus IgG Index 0.03
[2017-07-20 06:09] LABS: Anisocytosis Slight; CH 23.3; CHCM 27.7; HCT 32.8 % (34.0-46.0); HDW 4.27; HGB 9.5 gm/dL (11.4-16.0); Hypochromasia Marked; Immature Gran Flag Marked; MCH 24.4 pg (25.0-35.0); MCV 84.2 fL (80.0-100.0); Mean Platelet Volume 9.1; Poikilocytosis Moderate; RDW 16.6 % (11.5-15.5); WBC 10.7 k/uL (3.8-10.6); WBC (Perox) 11.64
[2017-07-20] MEDS ORDERED: CALCIUM CARB-VIT D 500MG-200UN 1 EACH TAB PO SCH (07:30)
[2017-07-20 08:00] LABS: Add Differential Manual Differential
[2017-07-20] MEDS ORDERED: POTASSIUM CHLORIDE 10 MEQ in WATER FOR INJECTION 1 100ML.BAG IVPB SCH (08:00)
[2017-07-20 08:13] LABS: Band Neutrophils % 28 %; Metamyelocytes % 6 %; Myelocytes % 5 %; Nucleated Red Blood Cells 0 /100 WBC (0-0); Promyelocytes % 1 %; Total Cells Counted 200
[2017-07-20 08:15] LABS: Manual Review Performed; Toxic Granulation Present
[2017-07-20 08:29] VITALS: BP 85/57; PULSE 108; RESP 2
--- NOTE | 2017-07-20 12:15 | CDI ---
In responding to this query, please exercise your independent professional judgment. The [facility] Coding Staff and Clinical Documentation Specialists appreciate your assistance in clarifying documentation, maintaining compliance with coding guidelines, accurately documenting patients condition and capturing severity of illness. The fact that a question is asked does not imply that any particular answer is desired or expected. Communication forms are a method of clarifying documentation and are not made part of the Legal Health Record. Thank you in advance for your clarification. Last Revision, February 2017 Stefan Manrique [address] [facility] [place] [address] Documentation Clarification Form Date: 07/20/2017 11:52:00 AM From: Bebethompson Fletcheran Admit Date: 07/18/2017 3:19:00 AM Patient Name: Joann Silva Visit Number: [id number] Discharge Date: Dr. Adali Jimenez Sepsis is documented in the critical care consult. History/Risk Factors: Heart Failure, Thyroid Disorder, Pericardial effusion/ tamponade, Clinical Indicators: She complains of generalized weakness, diarrhea over the past week. WBC/Left Shift: 15.2, HGB 6.9, HCT 23.5, BUN 26, CR 2.40, NA+ 131 Lactic acid: 2.5 Chest x-ray: Mild developing bibasilar infiltrates. Atelectasis and pneumonia should be considered. Blood cultures: No Growth Vitals signs on admission: 77/46 66 18 97 .0 100 % RA Treatment: Levophed drip IV Fluid bolus Zosyn IV Critical care consult: The patient came in with possible sepsis source unknown may be pneumonia. ICU Monitor In your professional opinion, please clarify if these findings signify one of the following conditions, whether the condition is POA, and cause, if known: Sepsis, ruled in OR ruled out Other, please specify Unable to determine Present on Admission: Yes No * Identify the (suspected) organism * Link or clarify if there is associated (due to/with): - Organ failure - Shock SIRS Criteria: 2 or more of the following may indicate SIRS Temperature < 96.8F(36C) or > 101.0F (38C) Heart Rate > 90 bpm Respiratory Rate > 20 breaths/min or PaCO2 < 32 mmHg White Blood Cell Count > 12,000 or < 4,000 cells/mm3 or > 10% bands Lactate >2.0 mmol/L (>4.0 is equivalent to septic shock) Please document in your progress notes and discharge summary in order to capture severity of illness and risk of mortality. Include clinical findings that support your diagnosis. FYI: Press F11 to launch patient chart. YULY
--- NOTE | 2017-07-26 11:49 | CDI ---
In responding to this query, please exercise your independent professional judgment. The [facility] Coding Staff and Clinical Documentation Specialists appreciate your assistance in clarifying documentation, maintaining compliance with coding guidelines, accurately documenting patients condition and capturing severity of illness. The fact that a question is asked does not imply that any particular answer is desired or expected. Communication forms are a method of clarifying documentation and are not made part of the Legal Health Record. Thank you in advance for your clarification. Last Revision, February 2017 Stefan Manrique [address] [facility] [place] [address] Documentation Clarification Form Date: 07/20/2017 11:52:00 AM From: Bebethompson Fletcheran Admit Date: 07/18/2017 3:19:00 AM Patient Name: Joann Silva Visit Number: [id number] Discharge Date: Dr. Adali Jimenez Sepsis is documented in the critical care consult. History/Risk Factors: Heart Failure, Thyroid Disorder, Pericardial effusion/ tamponade, Clinical Indicators: She complains of generalized weakness, diarrhea over the past week. WBC/Left Shift: 15.2, HGB 6.9, HCT 23.5, BUN 26, CR 2.40, NA+ 131 Lactic acid: 2.5 Chest x-ray: Mild developing bibasilar infiltrates. Atelectasis and pneumonia should be considered. Blood cultures: No Growth Vitals signs on admission: 77/46 66 18 97 .0 100 % RA Treatment: Levophed drip IV Fluid bolus Zosyn IV Critical care consult: The patient came in with possible sepsis source unknown may be pneumonia. ICU Monitor In your professional opinion, please clarify if these findings signify one of the following conditions, whether the condition is POA, and cause, if known: Sepsis, ruled in OR ruled out Other, please specify Unable to determine Present on Admission: Yes No * Identify the (suspected) organism * Link or clarify if there is associated (due to/with): - Organ failure - Shock SIRS Criteria: 2 or more of the following may indicate SIRS Temperature < 96.8F(36C) or > 101.0F (38C) Heart Rate > 90 bpm Respiratory Rate > 20 breaths/min or PaCO2 < 32 mmHg White Blood Cell Count > 12,000 or < 4,000 cells/mm3 or > 10% bands Lactate >2.0 mmol/L (>4.0 is equivalent to septic shock) Please document in your progress notes and discharge summary in order to capture severity of illness and risk of mortality. Include clinical findings that support your diagnosis. FYI: Press F11 to launch patient chart. YULY
--- NOTE | 2017-07-26 11:59 | CDI ---
In responding to this query, please exercise your independent professional judgment. The [facility] Coding Staff and Clinical Documentation Specialists appreciate your assistance in clarifying documentation, maintaining compliance with coding guidelines, accurately documenting patients condition and capturing severity of illness. The fact that a question is asked does not imply that any particular answer is desired or expected. Communication forms are a method of clarifying documentation and are not made part of the Legal Health Record. Thank you in advance for your clarification. Last Revision, September 2015 Stefan Manrique [address] [facility] [place] [address] Documentation Clarification Form Date: 07/26/2017 11:51:00 AM From: Bebe Jennings Admit Date: 07/18/2017 3:19:00 AM Patient Name: Joann Silva Visit Number: [id number] Discharge Date: Dr. Jimenez Hypotension is documented in the ED, H&P and ongoing progress notes and further clarification is needed. Patient history/risk factors: Heart Failure, GERD, Thyroid Disorder Clinical Indicators: Patient with complaint of diarrhea over the past week., with generalized weakness. She was found to be hypotensive. Vitals: 65/43 108 2 15 % nrb Treatment: IV Fluid bolus IV Fluids Levophed drip Monitor Labs In your professional opinion, can you please specify if the hypotension is due to ? Septic Shock o Suspected or known causative organism_ o Any associated organ failure_ Cardiogenic Shock o Cause Hypovolemic Shock o Cause Other, please specify Unable to determine Other explanation for Hypotension (specify) Please document in your progress notes and discharge summary in order to capture severity of illness and risk of mortality. Include clinical findings that support your diagnosis. FYI: Press F11 to launch patient chart. any additional documentation. YULY
--- NOTE | 2017-07-27 07:28 | CDI ---
In responding to this query, please exercise your independent professional judgment. The [facility] Coding Staff and Clinical Documentation Specialists appreciate your assistance in clarifying documentation, maintaining compliance with coding guidelines, accurately documenting patients condition and capturing severity of illness. The fact that a question is asked does not imply that any particular answer is desired or expected. Communication forms are a method of clarifying documentation and are not made part of the Legal Health Record. Thank you in advance for your clarification. Last Revision, September 2015 Stefan Manrique [address] [facility] [place] [address] Documentation Clarification Form Date: 07/27/2017 7:22:00 AM From: Penelope Cruz Admit Date: 07/18/2017 3:19:00 AM Patient Name: Joann Silva Visit Number: [id number] Discharge Date: 07/20/17 Dr. Adali Jimenez The patient on 07/20/17. Please document in the summary the cause of . FYI: Press F11 to launch patient chart. If you have a question about this query, please contact Jazzy Renee, Dry Primer Powder Blender, Stefan Manrique at [phone] between 8am and 5pm. YULY
--- NOTE | 2017-07-29 20:10 | PN ---
PROGRESS NOTE DATE OF SERVICE: 07/19/17 82-year-old female seen in consultation on the . She is a do not resuscitate patient that came into the emergency room on July 17. The patient was admitted to the ICU on the . She came with a diagnosis of possible sepsis with source being unknown, possibly pneumonia. She was seen in consultation on the . This is the dictation for the . The patient is doing about the same. Remains on Levophed. A central line was placed by me. She received significant fluid resuscitation. The patient would not want to be on life support. We did confirm that with the patient. The patient also had a cortisol level ordered just to make sure there was no adrenal insufficiency. She remains on O2 at 4 L. She has 0.9 running at 125 an hour. She was on norepinephrine 25 mcg/minute. Her current vital signs included a temperature of 97.7, heart rate, which was 85, respiratory rate which is 16, saturation 97% on a couple L. Respiratory rate was 16 I believe. Her blood pressure was 93/58. Appears is no acute distress. Oriented. Lucid. Able to talk and appear normal even without lower blood pressure. HEENT examination is grossly unremarkable. Mucous membranes are moist. No oral lesions. Neck is supple. Full range of motion. No adenopathy or thyromegaly. Neck veins are flat. Cardiovascular examination reveals regular rhythm rate. She is not tachycardic. S1, S2 normal. There is no murmur. Lungs reveal a few scattered rhonchi. No wheezes or crackles. Breath sounds are equal. Abdomen is soft. Bowel sounds heard. Extremities are intact. No cyanosis, clubbing, or edema. Skin without rash. Neurologic examination is basically nonfocal. Difficult to examine. She moves all 4 extremities well. Labs, x-rays and medications were all reviewed. Medications are reviewed. ALLERGIES: TO BEE VENOM AND ETHER AND METHYLPREDNISOLONE. ALSO, SOY JEAN AND TOMATO ALLERGY NOTED. LABS: Reviewed. White count was 15.2, hemoglobin 6.9, hematocrit 23.5, platelet count 334,000. Sodium 131, potassium 3.5, chloride 98, CO2 20, BUN and creatinine 26 and 2.2. Glucose 241. PT 14.2, INR 1.4. White count 17.2, hemoglobin 7.7, hematocrit 25.9, platelet count was in the normal range. Cultures thus far are all negative. Troponin was 0.345. Ionized calcium was 3.5. ASSESSMENT: 1. Pneumonia with sepsis/septic shock. 2. Acute kidney injury. 3. Acute renal failure. 4. Hypomagnesemia. 5. Hypotension secondary to sepsis. 6. Diarrhea with dehydration. 7. Electrolyte disturbances including hypomagnesemia and hypokalemia. 8. Pericardial effusion. PLAN: The patient had a central line placed. The patient's Levophed was maintained to obtain a mean arterial pressure of 65 mmHg. Art line was placed by the ELECTROGALVANIZING MACHINE OPERATOR. This is not functioning well. I probably will have to replace it. We will continue the patient on a daily ongoing basis. Overall prognosis is poor. She is a DNR. I did reconfirm that and discussed code status with the patient and also the need for mechanical ventilation. I spent 36 minutes with this patient including time spent talking to the patient and the patient's family, reviewing all medical records, labs, x-ray, medications, etc. LENORA / WILLEMN: [id number] /
--- NOTE | 2017-08-17 14:10 | P.DS ---
Providers Date of admission: 07/18/17 03:19 Expected date of discharge: 07/20/17 Attending physician: Clif Vega Consults: 07/18/17 03:14 Consult Physician Stat Consulting Provider: Radha Smalls Reason/Comments: Hypotension, acute kidney injury Do you want consulting provider notified?: Already Contacted Primary care physician: Suzi Batista [facility] Course: Discharge/ diagnosis #1 acute metabolic and toxic encephalopathy secondary to volume depletion and possible infection and Xanax intake #2 Acute Hypoxic respiratory failure #2 sepsis with septic Shock due to pneumonia. Patient was hypotensive and a leukocytosis with 17.2-->13 #2 acute hypovolemic /septic shock. Requiring pressor support. TSH within normal limits. Cortisol 23 #3 acute on chronic diarrhea with history of IBS. No diarrhea now. #4 dehydration and volume depletion #5 acute kidney injury most likely prerenal #6 hypokalemia and hypomagnesemia #8 microcytic anemia/area of chronic disease with history of thalassemia trait #9 hypothyroidism #10 hypovolemic hyponatremia #11 mild to moderate protein calorie malnutrition #12 elevated troponin. Likely due to demand mismatch #13 recent history of pericardial effusion status post window placement in March 2017 #14 GERD #15 DVT prophylaxis #16 hypocalcemia CODE STATUS: DO NOT RESUSCITATE/DO NOT INTUBATE Cause of : sepsis with septic Shock due to pneumonia. Patient was hypotensive and a leukocytosis with 17.2-->13 82-year-old female with a past medical history of hypothyroidism, irritable bowel syndrome, recent pericardial effusion status post window placement and hypoxia restrictive failure presents for evaluation of diarrhea. Patient was brought in by EMS. Patient apparently had been having diarrhea over the past week and also complains of generalized weakness. Patient does have history of irritable bowel syndrome and has bouts of diarrhea from time to time. No nausea and vomiting. Patient also had a recent increase in her Lasix which she takes for lower extremity swelling. Patient was found by EMS to be hypotensive with systolic blood pressure in the 60s. Patient also has a recent prescription for Xanax 0.25 mg, and may have been over taking this medication. Patient denies any suicidal ideation. Patient denies chest pain or shortness of breath. Denies fever or chills. Denies abdominal pain. Denies rash. Patient was found to have leukocytosis, hypotension, hypokalemia and hypomagnesemia and dehydration. Patient was admitted to ICU. Chest x-ray showed initially no acute process. Repeat x-ray today showed bibasilar atelectasis. UA negative for infection Patient is being treated for possible pneumonia and cultures are pending at this time. On 07/19/2017 Patient is still requiring pressor support. Continued on IV hydration. Patient is having visual hallucinations today. Chest x-ray showed no acute changes. Patient is having hypocalcemia. Leukocytosis improving. Continued on broad-spectrum IV antibiotics. Patient was continued on IV hydration, Levophed and antibiotics in the form of Zosyn . Continued to monitor the patient in the ICU and replaced her lites. Supportive care and symptomatic management. Despite being on pressor support her blood pressure did not improve. Patient did have agonal breathing today morning. Patient did at 8:22 AM. Family has been notified. Patient Condition at Discharge: Undetermined Plan - Discharge Summary New Discharge Prescriptions: No Action Omeprazole [PriLOSEC] 20 mg PO BID Dicyclomine [Bentyl] 10 mg PO TID Ergocalciferol [Vitamin D2 (DRISDOL)] 50,000 unit PO CHAMBERLAIN Furosemide [Lasix] 40 mg PO MOWEFR ALPRAZolam [Xanax] 0.25 mg PO HS PRN #10 tab PRN Reason: Insomnia L.acidoph,Paracasei, B.lactis [Probiotic] 1 cap PO HS Nepafenac [Nevanac] 1 - 2 drop BOTH EYES TID Magnesium Oxide [Mag-Ox] 400 mg PO BID Calcium Carbonate [Calcium] 600 mg PO QAM Metoprolol Tartrate [Lopressor] 25 mg PO BID Levothyroxine Sodium [Synthroid] 12.5 mcg PO DAILY Cyanocobalamin [Vitamin B-12] 500 mcg PO QAM Tacrolimus 1 applic TOPICAL HS Eluxadoline [Viberzi] 150 mg PO BID Discharge Medication List Dicyclomine [Bentyl] 10 mg PO TID 02/23/16 [History] Omeprazole [PriLOSEC] 20 mg PO BID 02/23/16 [History] Ergocalciferol [Vitamin D2 (DRISDOL)] 50,000 unit PO CHAMBERLAIN 06/01/17 [History] Furosemide [Lasix] 40 mg PO MOWEFR 06/01/17 [History] ALPRAZolam [Xanax] 0.25 mg PO HS PRN #10 tab 06/07/17 [Rx] Calcium Carbonate [Calcium] 600 mg PO QAM 07/17/17 [History] Cyanocobalamin [Vitamin B-12] 500 mcg PO QAM 07/17/17 [History] Eluxadoline [Viberzi] 150 mg PO BID 07/17/17 [History] L.acidoph,Paracasei, B.lactis [Probiotic] 1 cap PO HS 07/17/17 [History] Levothyroxine Sodium [Synthroid] 12.5 mcg PO DAILY 07/17/17 [History] Magnesium Oxide [Mag-Ox] 400 mg PO BID 07/17/17 [History] Metoprolol Tartrate [Lopressor] 25 mg PO BID 07/17/17 [History] Nepafenac [Nevanac] 1 - 2 drop BOTH EYES TID 07/17/17 [History] Tacrolimus 1 applic TOPICAL HS 07/17/17 [History] Follow up Appointment(s)/Referral(s): Suzi Cuellar MD [Primary Care Provider] - 1-2 days Discharge Disposition: - Preliminary Cause of Preliminary Cause of : sepsis with septic Shock due to pneumonia. Patient was hypotensive and a
== END 2017-07-20 08:24 | disposition expired | DRG 871 ==
LOC: EC 21:53 → 6ICU 07-18 03:19
PROVIDERS: ADMIT Hospitalist; ATTEND Hospitalist
PROC: 06H033Z Insertion of Infusion Device into Inferior Vena Cava, Percutaneous Approach (ICD-10-PCS; principal; 2017-07-18)
DX: A41.9 Sepsis, unspecified organism (principal); J18.9 Pneumonia, unspecified organism; J96.01 Acute respiratory failure with hypoxia; R65.21 Severe sepsis with septic shock; N17.9 Acute kidney failure, unspecified; G92 Toxic encephalopathy; E44.0 Moderate protein-calorie malnutrition; E87.1 Hypo-osmolality and hyponatremia; M34.9 Systemic sclerosis, unspecified; I50.9 Heart failure, unspecified; J98.11 Atelectasis; Z66 Do not resuscitate; I27.2 Other secondary pulmonary hypertension; E86.0 Dehydration; E86.1 Hypovolemia; E83.42 Hypomagnesemia; E83.51 Hypocalcemia; K58.0 Irritable bowel syndrome with diarrhea; E87.6 Hypokalemia; D50.9 Iron deficiency anemia, unspecified; D56.3 Thalassemia minor; E03.9 Hypothyroidism, unspecified; K21.9 Gastro-esophageal reflux disease without esophagitis; H54.8 Legal blindness, as defined in USA; H91.90 Unspecified hearing loss, unspecified ear; F41.9 Anxiety disorder, unspecified; H26.9 Unspecified cataract; Z79.899 Other long term (current) drug therapy; Z87.19 Personal history of other diseases of the digestive system; Z87.891 Personal history of nicotine dependence; Z91.5 Personal history of self-harm; Z82.49 Family history of ischemic heart disease and other diseases of the circulatory system
CPT/HCPCS: 36415; 36620; 71010; 71020; 80048; 80053; 80074; 80306; 80320; 81001; 82330; 82533; 82550; 82553; 82728; 82805; 83540; 83550; 83605; 83735; 84100; 84132; 84443; 84484; 85025; 85027; 85610; 85730; 86850; 86900; 86901; 86920; 87040; 87086; 93005; 96365; 96367; 96368; 99291; 99292